=== PATIENT | male | born 1935 | race Caucasian/White ===

== ENCOUNTER 2024-09-06 10:16 | Inpatient (IN) | payer OTHER, MEDICARE, SELFPAY ==
[2024-09-06] VITALS (8 sets, daily range): BP systolic 112–169; BP diastolic 60–86; PULSE 67–94; RESP 15–22; TEMP 36.3–38.1; O2SAT 93–99; BMI 26.4; BMI 28.5
--- NOTE | ~2024-09-06 | CT_ITS ---
EXAMINATION: CT HEAD WITHOUT CONTRAST CLINICAL INFORMATION: Fall, pain. COMPARISON: None available. TECHNIQUE: Contiguous axial imaging was performed from the skull base to vertex without intravenous administration of contrast. This CT examination was performed using dose optimization techniques as appropriate, variously including the following: *Automated exposure control *Adjustment of mA and/or kV according to patient size (this includes techniques or standardized protocols for targeted exams where dose is matched to indication/reason for exam; i.e. extremities or head) *Use of iterative reconstruction technique DLP: 735 mGy-cm FINDINGS: There is no evidence of intracranial hemorrhage or extra-axial fluid collection. There is no mass effect, or edema. No CT evidence of acute territorial infarct. Ventricles, sulci, and cisterns are mildly diffusely prominent, in keeping with age-related cerebral and cerebellar volume loss. No hydrocephalus. No midline shift. Mild to moderate supratentorial white matter changes of hypoattenuation in keeping with small vessel ischemic changes. Negative hyperdense MCA sign. Negative insular ribbon sign. Empty sella. Mild atheromatous calcification of the bilateral carotid siphons. Globes and orbital contents image normally. There have been bilateral lens replacements. No extracranial soft tissue abnormalities. Chronic opacification left sphenoid sinus. Frothy secretions and fluid in the inferior frontal sinuses and anterior ethmoid sinuses, extending to the left posterior ethmoid sinuses. The remainder of the paranasal sinuses, mastoid air cells, and tympanic cavities are normally aerated. No suspicious bony abnormalities. No fractures evident. CT/CT head/brain wo IV con IMPRESSION: 1. No acute intracranial abnormalities. No fractures. 2. Chronic appearing left sphenoid sinus opacification. Patchy mucosal thickening left greater than right ethmoid air cells and frothy secretions in the frontal sinuses. Electronically signed by: Shant Dela Cruz MD 09/06/2024 12:35 PM [facility]
--- NOTE | ~2024-09-06 | CT_ITS ---
CLINICAL HISTORY: ?Pneumonia CT chest without contrast Comparison: None Findings: The heart size is enlarged. There is a moderate-sized pericardial effusion maximum thickness of 1.5 cm. The visualized thyroid and mediastinum are otherwise unremarkable. There is bilateral upper lobe ground-glass type opacification. There is right middle and lower lobe consolidation with large pleural effusions. Differential considerations would include pneumonia, atelectasis, or pulmonary edema. The visualized upper abdomen is unremarkable. The bones are intact. IMPRESSION: 1. Bilateral consolidation with pleural effusions, differential considerations noted. 2. Moderate-sized pericardial effusion. 3. Cardiomegaly This document has been electronically signed by: Nicolás Fajardo MD on 09/06/2024 17:43:19
--- NOTE | ~2024-09-06 | CT_ITS ---
EXAMINATION: CT CERVICAL SPINE WITHOUT CONTRAST CLINICAL INFORMATION: Fall, neck pain, trauma. COMPARISON: None available. TECHNIQUE: Spiral CT of the cervical spine was performed in axial plane from the petrous ridges to the superior mediastinum without IV contrast. Sagittal, coronal, and thin section axial reformatted images were constructed from the axial data set. This CT examination was performed using dose optimization techniques as appropriate, variously including the following: *Automated exposure control *Adjustment of mA and/or kV according to patient size (this includes techniques or standardized protocols for targeted exams where dose is matched to indication/reason for exam; i.e. extremities or head) *Use of iterative reconstruction technique DLP: 450 mGy-cm FINDINGS: Mild diffuse osteopenia is present. There is no fracture or evidence of traumatic subluxation. There are no suspicious bone lesions. There are no compression deformities. There is no significant scoliosis. There is a normal lordosis. Alignment is normal without subluxation. The atlantoaxial joint and craniocervical junction are intact and aligned. Mild diffuse disc degeneration is present, most significant at C5-6 and C6-7. Facet degeneration on the left is moderate in severity, spanning C2-C6. Right facets are grossly normal. No large disc herniation or canal stenosis is evident. Multilevel foraminal stenosis on the left, severe at C3-4 and C4-5. The right neural foramina are patent. No prevertebral soft tissue abnormality or paravertebral soft tissue findings. There is fatty change of the parotid glands. Moderate calcification of both carotid bulbs, and both CCAs or retropharyngeal. Normal thyroid gland. There is a layering effusion seen in the right lung apex. There is patchy groundglass type opacities in the left apex, nonspecific. CT/CT cervical spine wo IV con IMPRESSION: 1. No CT evidence of acute cervical spine fracture or injury. 2. Mild degenerative disc changes with more significant left degenerative facet changes. 3. Patchy opacity left lung apex, and layering effusion right lung apex. Findings are nonspecific and could represent infectious or inflammatory etiologies, or CHF. Electronically signed by: Shant Dela Cruz MD 09/06/2024 12:43 PM [facility]
--- NOTE | ~2024-09-06 | XR_ITS ---
EXAMINATION: XR CHEST CLINICAL INFORMATION: fall COMPARISON: None available. TECHNIQUE: 2 views of the chest were obtained. FINDINGS: There is cardiac enlargement. The aorta is calcified but normal in contour. Mediastinal and hilar contours are normal. Lungs demonstrate consolidative opacities within the right middle lobe and right lower lobe, with associated small right effusion suspected. Left lung is clear. There is no pneumothorax present. There is no focal osseous or soft tissue abnormality. Arthritic changes in both shoulder and AC joints. XR/XR chest 2V IMPRESSION: 1. Right middle lobe and right lower lobe consolidations with probable effusions suspicious for pneumonia. 2. Cardiomegaly. 3. No posttraumatic abnormalities. Electronically signed by: Shant Dela Cruz MD 09/06/2024 11:26 AM [facility]
--- NOTE | ~2024-09-06 | XR_ITS ---
EXAMINATION: XR HIP, RIGHT CLINICAL INFORMATION: pain, injury COMPARISON: None available. TECHNIQUE: AP pelvis, and 2 views right hip. FINDINGS: There is normal bone mineralization. There is no fracture, dislocation, or suspicious bone lesion. The iliopectineal and ilioischial lines are intact. Femoral heads maintain normal contour. Subtle sclerosis in the right femoral head may indicate a medullary bone infarct or artifact. This does not appear to involve the subchondral regions. There are mild degenerative changes in both hip joints, and both SI joints. Temperature probe in the rectum. Surgical clip in the right lower quadrant. Soft tissues demonstrate early vascular calcifications. XR/XR hip RT w PEL1V IMPRESSION: No acute bony abnormalities. See above. Electronically signed by: Shant Dela Cruz MD 09/06/2024 12:01 PM [facility]
--- NOTE | 2024-09-06 10:31 | ECG_ITS ---
Test Reason : FALL Blood Pressure : / mmHG Vent. Rate : 071 BPM Atrial Rate : 000 BPM P-R Int : 000 ms QRS Dur : 102 ms QT Int : 402 ms P-R-T Axes : 000 -34 -24 degrees QTc Int : 436 ms Poor data quality Possible Atrial fibrillation Left axis deviation Incomplete right bundle branch block Inferior infarct , age undetermined Abnormal ECG When compared to the previous EKG of Poor data quality in current ECG precludes serial comparison Referred By: Generic ED Physician Electronically Signed By:PRESTON URIBE MD
[2024-09-06 10:44] LABS: MANUAL DIFF FLAG NO
[2024-09-06 10:50] LABS: Basophils Percent Auto 0.2 % (0-2); Hematocrit 43.3 % (42.0-52.0); Imm Gran Abs Auto 0.05 X10*3/uL (0.00-0.03); Imm Gran Pct Auto 0.4 % (0.0-0.4); Lymphocytes Absolute Auto 0.3 X10*3/uL (1.2-4.9); Lymphocytes Percent Auto 2.6 % (20-40); Mean Corpuscular HGB Conc 34.6 g/dl (31.0-36.0); Mean Corpuscular Hemoglobin 32.3 pg (27.0-33.0); Mean Corpuscular Volume 93.3 fL (80.0-98.0); Mean Platelet Volume 9.8 fL (9.4-12.4); Monocytes Absolute Auto 1.1 X10*3/uL (0.1-1.2); Monocytes Percent Auto 8.9 % (2-11); Neutrophils Absolute Auto 10.3 x10*3/uL (2.0-8.3); Neutrophils Percent Auto 87.9 % (45-73); Platelet Count 172 X10*3/uL (160-400); Red Blood Count 4.64 X10*6/uL (4.60-5.80); Red Cell Distribution Width 13.8 % (11.0-16.0); White Blood Count 11.7 X10*3/uL (4.8-10.8)
--- OUTSIDE RECORDS SUMMARY | 2024-09-06 11:00 | XMS_ITS | Encounter Summary ---
Author Name [facility] [place] [facility] [place] Address [address] [place] [address] Care Team Providers Care Ladle Repairer Name Role Phone LEOPOLDO JACOBSEN Primary Care Provider Unavailabl e Insurance Providers: All historical and current Section Date Range: From patient's date of to the date document was created. This section includes the names of all active insurance providers for the patient. Insurance Provider Type of Coverage Plan Name Start of Policy Coverage End of Policy Coverage Group Number Member ID Insurance Provider's Telephone Number Policy Lai's Name Patient's Relationship to Policy Lai MELISSA [facility] ([facility]) MEDICARE ADVANTAGE [facility] ([facility]) Sep 11, 2015 [id number] [phone] MOONJung GANESHOLEGARIO Jung PATIENT [facility] ([facility]) MEDICARE ADVANTAGE [facility] ([facility]) Sep 11, 2015 [id number] [phone] OLEGARIO DUNN PATIENT MEDICARE (WN) MEDICARE () PART A Feb 09, 2001 PART A [id number] 56A OLEGARIO DUNN PATIENT MEDICARE (WN) MEDICARE () PART B Feb 09, 2001 PART B [id number] 56A OLEGARIO DUNN PATIENT MEDICARE (WN) MEDICARE () PART A Feb 09, 2001 PART A [id number] 56A OLEGARIO DUNN PATIENT MEDICARE ([facility]) MEDICARE (M) PART B Feb 09, 2001 PART B [id number] 56A OLEGARIO DUNN PATIENT Selected Encounter This section includes the information on record at [place] for the Encounter. 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 This section includes future appointments and future orders which are active, pending or scheduled. Future Appointments This section includes appointments that were scheduled to occur 6 months from the date of the Encounter, up to a maximum of 20 appointments. The data comes from all [place] treatment facilities. Appointment Date/Time Appointment Type Appointme nt Facility Name May 07, 2024 01:00 PM AMBULATORY - REHAB MEDICIN E [facility] [place] [facility] May 08, 2024 09:45 AM AMBULATORY - REHAB MEDICIN E [facility] [place] [facility] May 15, 2024 01:30 PM AMBULATORY - REHAB MEDICIN E [facility] [place] [facility] May 23, 2024 08:00 AM AMBULATORY - REHAB MEDICIN E [facility] [place] [facility] May 27, 2024 01:30 PM AMBULATORY - REHAB MEDICIN E [facility] [place] [facility] Jun 04, 2024 08:00 AM AMBULATORY - REHAB MEDICIN E [facility] [place] [facility] Jun 11, 2024 11:00 AM AMBULATORY - MEDICINE [facility] [place] [facility] Jun 18, 2024 01:00 PM AMBULATORY - REHAB MEDICIN E [facility] [place] [facility] Jul 03, 2024 11:30 AM AMBULATORY - MEDICINE [facility] [place] [facility] Jul 09, 2024 07:30 AM AMBULATORY - NONE [facility] [place] [facility] Jul 12, 2024 10:00 AM AMBULATORY - NONE [facility] [place] [facility] Jul 26, 2024 08:00 AM AMBULATORY - MEDICINE [facility] [place] [facility] Aug 01, 2024 11:00 AM AMBULATORY - MEDICINE [facility] [place] [facility] Sep 09, 2024 09:00 AM AMBULATORY - MEDICINE [facility] [place] [facility] Sep 09, 2024 10:00 AM AMBULATORY - MEDICINE [facility] [place] [facility] Sep 12, 2024 09:00 AM AMBULATORY - REHAB MEDICIN E [facility] [place] [facility] Social History: Smoking Status (Most current) and Tobacco Use (All prior to encounter date) This section includes the most current, and the historical, smoking and tobacco- related health factors from the [place] facility where the Encounter took place. Current Smoking Status This section includes the most current smoking, or tobacco-related health factor, from the [place] facility where the Encounter took place. Date/Time Current Smoking Status Comment [facility] it Mar 11, 2024 09:00 AM VA-TOBACCO QUIT 15 YRS OR MORE [place] [facility] [place] [facility] Tobacco Use History This section includes a history of the smoking, or tobacco-related health factors, that were collected on or before the date of the Encounter. The data comes from the [place] facility where the Encounter took place. Date/Time Smoking Status/Tobac co Use Comment Facility Mar 11, 2024 09:00 AM VA-TOBACCO QUIT 15 YRS OR MORE [facility] [place] [facility] Mar 06, 2023 09:00 AM VA-TOBACCO FORMER USER [facility] [place] [facility] Mar 06, 2023 09:00 AM VA-TOBACCO QUIT 15 YRS OR MORE [facility] [place] [facility] Feb 16, 2022 09:30 AM VA-TOBACCO FORMER USER [facility] [place] [facility] Feb 16, 2022 09:30 AM VA-TOBACCO QUIT 15 YRS OR MORE [facility] [place] [facility] Feb 09, 2021 09:00 AM VA-TOBACCO FORMER USER [place] [facility] [place] [facility] Feb 09, 2021 09:00 AM VA-TOBACCO QUIT 15 YRS OR MORE [place] [facility] [place] [facility] Jan 01, 2020 10:15 AM VA-TOBACCO FORMER USER [place] [facility] [place] [facility] Jan 01, 2020 10:15 AM VA-TOBACCO QUIT 15 YRS OR MORE [place] [facility] [place] [facility] Mar 12, 2018 08:56 AM VA-TOBACCO FORMER USER [place] [facility] [place] [facility] Mar 12, 2018 08:56 AM VA-TOBACCO QUIT 15 YRS OR MORE [place] [facility] [place] [facility] Mar 12, 2018 08:24 AM LIFETIME NON-TOBACCO USER [place] [facility] [place] [facility] Mar 13, 2017 07:44 AM LIFETIME NON-TOBACCO USER [place] [facility] [place] [facility] Mar 11, 2016 07:54 AM QUIT TOBACCO USE > 7 YEARS AGO Quit in 1984 [place] [facility] [place] [facility] Aug 17, 2005 10:23 AM HISTORY OF SMOKING Vet states he quit in 1984 [place] [facility] [place] [facility] May 19, 2004 08:56 AM HISTORY OF SMOKING quit 1980s. [place] [facility] [place] [facility] May 19, 2003 09:15 AM HISTORY OF SMOKING quit 10yrs ago [place] [facility] [place] [facility] Jun 06, 2002 08:13 AM HISTORY OF SMOKING quit 1979 [place] [facility] [place] [facility] Jun 06, 2002 08:13 AM QUIT TOBACCO USE > 7 YEARS AGO [place] [facility] [place] [facility] Apr 30, 2001 04:07 PM HISTORY OF SMOKING quit - 1984 [facility] Advance Directives: All historical and current Section Date Range: From patient's date of to the date document was created. This section includes ALL of a patient's completed or amended [place] Advance and Rescinded Directives. The entries below indicate that a directive exists for the patient, but an actual copy is not included with this document. The data comes from all [place] facilities. Date Advance Directives Provider Source Mar 12, 2024 ADVANCE DIRECTIVE JENNIFFER DOAN [place] [facility] [place] [facility] Encounter Notes: All associated encounter notes This section contains the clinical notes associated to the Encounter. Date/Time Encounter Note(s) Provider Source May 06, 2024 01:56 PM PHYSICAL THERAPY NOTE: LOCAL TITLE: PHYSICAL THERAPY STANDARD TITLE: PHYSICAL THERAPY NOTE DATE OF NOTE: MAY 06, 2024@13:56 ENTRY DATE: MAY 06, 2024@13:56:50 AUTHOR: MELLY DAWN EXP COSIGNER: URGENCY: STATUS: COMPLETED Initial Evaluation date:03/26/24 Progress Note Date: NA Treatment #:3 Treatment time: 25 min Diagnosis: UI Provider: Breanna PT Treatment Precautions: None Patient identified by full name and date of SUBJECTIVE: States that he's doing ok, states that he's not leaking as much OBJECTIVE: THERAPEUTIC EXERCISE: MINUTES: 25 mins Nu-step 6 mins L2 seated abd press tball squeeze seated clamshells with gtband seated heel slides sit to stand seated leg press with gtband MANUAL THERAPY: MINUTES: GAIT TRAINING: MINUTES: NEUROMUSCULAR EDUCATION: MINUTES: OTHER: MINUTES: MODALITIES: MINUTES: [] Contraindication screen completed prior to modality [] Skin intact pre/post SELF CARE/EDUCATION: MINUTES: Access Code: [email or web address] URL: [email or web address] Date: 05/06/2024 Prepared by: RUBEN [facility] Exercises - Supine Hip Adduction Isometric with Ball - 1 x daily - 7 x weekly - 3 sets - 10 reps - Supine Bridge with Mini Indonesian Ball Between Knees - 1 x daily - 7 x weekly - 3 sets - 10 reps - Supine November - 1 x daily - 7 x weekly - 3 sets - 10 reps - Seated November - 1 x daily - 7 x weekly - 3 sets - 10 reps - Hooklying Gluteal Sets - 1 x daily - 7 x weekly - 3 sets - 10 reps - Seated Abdominal Press into Indonesian Ball - 1 x daily - 7 x weekly - 3 sets - 10 reps - Seated Hip Abduction - 1 x daily - 7 x weekly - 3 sets - 10 reps - Seated Heel Slide - 1 x daily - 7 x weekly - 3 sets - 10 reps - Sit to Stand - 1 x daily - 7 x weekly - 3 sets - 10 reps - Seated Leg Press with Resistance - 1 x daily - 7 x weekly - 3 sets - 10 reps Patient education was provided for all aspects of care during this clinical encounter. ASSESSMENT: Tolerated session well, states feeling good after session, no c/o increase discomfort PLAN: butterfly sit-ups, modified, adductor and glute strengthening c COMMODITY MANAGEMENT SPECIALIST. /kathy/ ALEAH ARVIZU LICENSE PRINT CONTROLLER Signed: 05/06/2024 14:00 MELYL DAWN [facility]
--- OUTSIDE RECORDS SUMMARY | 2024-09-06 11:00 | XMS_ITS | Encounter Summary ---
Author Name [facility] [place] Address [address] [place] [address] Care Team Providers Care Water Treatment Plant Engineer Name Role Phone LEOPOLDO JACOBSEN Primary Care [...] Name Patient's Relationship to Policy Lai [facility]) MEDICARE ADVANTAGE [facility] ([facility]) Sep 11, 2015 [id number] [phone] MOONJung GANESHOLEGARIO Jung PATIENT [facility] ([facility]) MEDICARE ADVANTAGE [facility] ([facility]) Sep 11, 2015 [id number] OLEGARIO DUNN PATIENT MEDICARE (WN) MEDICARE () PART A Feb 09, 2001 PART A [id number] OLEGARIO DUNN PATIENT MEDICARE (WN) MEDICARE () PART B Feb 09, 2001 PART B [id number] [phone] OLEGARIO DUNN PATIENT MEDICARE (WN) MEDICARE () PART A Feb 09, 2001 PART A [id number] OLEGARIO DUNN PATIENT MEDICARE ([facility]) MEDICARE (M) PART B Feb 09, 2001 PART B [id number] 56A OLEGARIO DUNN PATIENT Selected Encounter This section includes the [place] for the Encounter. Date/Time Encounter Type Encounter Description Reason Provider Source Apr 29, 2024 02:00 PM THERAPEUTIC EXERCISES PHYSICAL THERAPY ICD-10-CM N40.0 Benign prostatic hyperplasia without lower urinry tract symp KAYLA DAWN IN IHE Encounter Template Text not used by [place] Assessments - Encounter Diagnoses This section includes the primary and secondary diagnoses documented for the Encounter. 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 This section includes future appointments and future orders which are active, pending or scheduled. Future Appointments This section includes appointments that were scheduled to occur 6 months from the date of the Encounter, up to a maximum of 20 appointments. The data comes from all [place] treatment facilities. Appointment Date/Time Appointment Type Appointme nt Facility Name May 06, 2024 01:30 PM AMBULATORY - REHAB MEDICIN E [facility] [place] [facility] May 07, 2024 01:00 PM AMBULATORY - REHAB MEDICIN E [facility] [place] [facility] May 08, 2024 09:45 AM AMBULATORY - REHAB MEDICIN E [facility] [place] [facility] May 15, 2024 01:30 PM AMBULATORY - REHAB MEDICIN E [facility] [place] [facility] May 23, 2024 08:00 AM AMBULATORY - REHAB MEDICIN E [facility] [place] [facility] May 27, 2024 01:30 PM AMBULATORY - REHAB MEDICIN E [facility] [place] [facility] Jun 04, 2024 08:00 AM AMBULATORY - REHAB MEDICIN E [facility] [place] [facility] Jun 11, 2024 11:00 AM AMBULATORY - MEDICINE [facility] [place] [facility] Jun 18, 2024 01:00 PM AMBULATORY - REHAB MEDICIN E [facility] [place] [facility] Jul 03, 2024 11:30 AM AMBULATORY - MEDICINE [facility] [facility] Jul 09, 2024 07:30 AM AMBULATORY - NONE [facility] [place] [facility] Jul 12, 2024 10:00 AM AMBULATORY - NONE [facility] [place] [facility] Jul 26, 2024 08:00 AM AMBULATORY - MEDICINE [facility] [place] [facility] Aug 01, 2024 11:00 AM AMBULATORY - MEDICINE [facility] [place] [facility] Sep 09, 2024 09:00 AM AMBULATORY - MEDICINE [facility] [place] [facility] Sep 09, 2024 10:00 AM AMBULATORY - MEDICINE [facility] [place] [facility] Sep 12, 2024 09:00 AM AMBULATORY - REHAB MEDICIN E [facility] [place] [facility] Social History: Smoking Status (Most current) and Tobacco Use (All prior to encounter date) This section includes the most current, and the historical, smoking and tobacco- related health factors from the [place] facility where the Encounter took place. Current Smoking Status This section includes the most current smoking, or tobacco-related health factor, from the [place] facility where the Encounter took place. Date/Time Current Smoking Status Comment [facility] Mar 11, 2024 09:00 AM VA-TOBACCO QUIT 15 YRS OR MORE [place] [facility] Tobacco Use History This section includes a history of the smoking, or tobacco-related health factors, that were collected on or before the date of the Encounter. The data comes from the [place] facility where the Encounter took place. Date/Time Smoking Status/Tobac co Use Comment Facility Mar 11, 2024 09:00 AM VA-TOBACCO QUIT 15 YRS OR MORE [facility] [place] [facility] Mar 06, 2023 09:00 AM VA-TOBACCO FORMER USER [place] [facility] [facility] Mar 06, 2023 09:00 AM VA-TOBACCO QUIT 15 YRS OR MORE [place] [facility] [facility] Feb 16, 2022 09:30 AM VA-TOBACCO FORMER USER [place] [facility] [facility] Feb 16, 2022 09:30 AM VA-TOBACCO QUIT 15 YRS OR MORE [place] [facility] [facility] Feb 09, 2021 09:00 AM VA-TOBACCO FORMER USER [place] [facility] [facility] Feb 09, 2021 09:00 AM VA-TOBACCO QUIT 15 YRS OR MORE [place] [facility] [facility] Jan 01, 2020 10:15 AM VA-TOBACCO FORMER USER [place] [facility] [facility] Jan 01, 2020 10:15 AM VA-TOBACCO QUIT 15 YRS OR MORE [place] [facility] [facility] Mar 12, 2018 08:56 AM VA-TOBACCO FORMER USER [place] [facility] [place] [facility] Mar 12, 2018 08:56 AM VA-TOBACCO QUIT 15 YRS OR MORE [place] [facility] [facility] Mar 12, 2018 08:24 AM LIFETIME NON-TOBACCO USER [place] [facility] [place] [facility] Mar 13, 2017 07:44 AM LIFETIME NON-TOBACCO USER [place] [facility] [facility] Mar 11, 2016 07:54 AM QUIT TOBACCO USE > 7 YEARS AGO [facility] [place] [facility] Aug 17, 2005 10:23 AM HISTORY OF SMOKING Vet states he [facility] [place] [facility] May 19, 2004 08:56 AM HISTORY OF SMOKING quit . [place] [facility] [facility] May 19, 2003 09:15 AM HISTORY OF SMOKING quit 10yrs ago [facility] [place] [facility] Jun 06, 2002 08:13 AM HISTORY OF SMOKING quit [facility] [place] [facility] Jun 06, 2002 08:13 AM QUIT TOBACCO USE > 7 YEARS AGO [facility] [place] [facility] Apr 30, 2001 04:07 PM HISTORY OF SMOKING quit - [facility] Advance Directives: All historical and current Section Date Range: From patient's date of to the date document was created. This section includes ALL of a patient's completed or amended [place] Advance and Rescinded Directives. The entries below indicate that a directive exists for the patient, but an actual copy is not included with this document. The data comes from all [place] facilities. Date Advance Directives Provider Source Mar 12, 2024 ADVANCE DIRECTIVE DAVIDJENNIFFER BARRON [place] [facility] [facility] Encounter Notes: All associated encounter notes This section contains the clinical notes associated to the Encounter. Date/Time Encounter Note(s) Provider Source Apr 29, 2024 04:17 PM PHYSICAL THERAPY NOTE: LOCAL TITLE: PHYSICAL THERAPY STANDARD TITLE: PHYSICAL THERAPY NOTE DATE OF NOTE: APR 29, 2024@16:17 ENTRY DATE: APR 29, 2024@16:17:52 AUTHOR: MELLY DAWN EXP COSIGNER: URGENCY: STATUS: COMPLETED Initial Evaluation date:03/26/24 Progress Note Date: NA Treatment #: 2 Treatment time: 30 min Diagnosis: UI Provider: Breanna PT Treatment Precautions: None Patient identified by full name and date of SUBJECTIVE: States that he's feeling ok, really no change with symptoms, states that he forgotten which exercises to do. OBJECTIVE: THERAPEUTIC EXERCISE: MINUTES: Access Code: [email or web address] URL: [email or web address] Date: 04/29/2024 Prepared by: [facility] Exercises - Supine Hip Adduction Isometric with Ball - 1 x daily - 7 x weekly - 3 sets - 10 reps - Supine Bridge with Mini Azerbaijani Ball Between Knees - 1 x daily [...] 10 reps - Seated Abdominal Press into Azerbaijani Ball - 1 x daily - 7 x weekly - 3 sets - 10 reps MANUAL THERAPY: MINUTES: GAIT TRAINING: MINUTES: NEUROMUSCULAR EDUCATION: MINUTES: OTHER: MINUTES: MODALITIES: MINUTES: [] Contraindication screen completed prior to modality [] Skin intact pre/post SELF CARE/EDUCATION: MINUTES: Patient education was provided for all aspects of care during this clinical encounter. ASSESSMENT: Tolerated session well, some mm fatigue after session, provided with pictures to help remember the exercises PLAN: butterfly sit-ups, modified, adductor and glute strengthening c NUCLEAR PHYSICIAN. /es/ ALEAH ARVIZU LICENSE OXYACETYLENE CUTTER Signed: 04/29/2024 16:22 [facility]
--- OUTSIDE RECORDS SUMMARY | 2024-09-06 11:01 | XMS_ITS | Encounter Summary ---
Author Name [place] Address [address] [place] [id number] Care Team Providers Care Post Partum Nurse Name Role Phone LEOPOLDO JACOBSEN Primary Care [...] Lai [facility]) MEDICARE ADVANTAGE [facility] ([facility]) Sep 11, 2015 [id number] FANNIE ANDERSENOLEGARIO Jung PATIENT [facility] ([facility]) MEDICARE ADVANTAGE [facility] ([facility]) Sep 11, 2015 [id number] [phone] OLEGARIO DUNN PATIENT MEDICARE (WNR) MEDICARE () PART A Feb 09, 2001 PART A [id number] 56A OLEGARIO DUNN PATIENT MEDICARE (WN) MEDICARE () PART B Feb 09, 2001 PART B [id number] OLEGARIO DUNN PATIENT MEDICARE (WN) MEDICARE () PART A Feb 09, 2001 PART A [id number] [phone] [id number] OLEGARIO DUNN PATIENT MEDICARE (WN) MEDICARE () PART B Feb 09, 2001 PART B [id number] HYUNLAURENCERAFATJung OLEGARIO ANDERSEN PATIENT Selected Encounter This section includes the information on record at [place] for the Encounter. Date/Time Encounter Type Encounter Description Reason Provider Source May 08, 2024 09:45 AM HEARING AID CHECK BOTH EARS AUDIOLOGY ICD-10-CM Z46.1 Encounter for fitting and adjustment of hearing aid VALARIE VENTURA Encounter Template Text not used by [place] Assessments - Encounter Diagnoses This section includes the primary and secondary diagnoses documented for the Encounter. Date/Time Primary/Secondary Diagnosis Diagnosis Name Provider Source May 08, 2024 09:53 AM PRIMARY Encounter for fitting and adjustment of hearing aid RAMON MIRANDA [place] [facility] [place] [facility] May 08, 2024 09:53 AM SECONDARY Sensorineural hearing loss, bilateral RAMON MIRANDA [facility] [place] [facility] Plan of Treatment: Future Appointments (+ 6 months) and Future Tests (+/- 45 days) The Plan of Treatment section includes future care activities for the patient from all [place] [facility]. This section includes future appointments and future orders which are active, pending or scheduled. Future Appointments This section includes appointments that were scheduled to occur 6 months from the date of the Encounter, up to a maximum of 20 appointments. The data comes from all [place] treatment facilities. Appointment Date/Time Appointment Type Appointme nt Facility Name May 15, 2024 01:30 PM AMBULATORY [facility] [place] [facility] May 23, 2024 08:00 AM AMBULATORY - REHAB MEDICIN E [facility] [place] [facility] May 27, 2024 01:30 PM AMBULATORY - REHAB MEDICIN E [facility] [place] [facility] Jun 04, 2024 08:00 AM AMBULATORY - REHAB MEDICIN E [facility] [place] [facility] Jun 11, 2024 11:00 AM AMBULATORY - MEDICINE [place] C [facility] [place] [facility] Jun 18, 2024 01:00 PM AMBULATORY - REHAB MEDICIN E [facility] [place] [facility] Jul 03, 2024 11:30 AM AMBULATORY - MEDICINE [facility] [place] [facility] Jul 09, 2024 07:30 AM AMBULATORY - NONE [facility] [place] [facility] Jul 12, 2024 10:00 AM AMBULATORY - NONE [facility] [place] [facility] Jul 26, 2024 08:00 AM AMBULATORY - MEDICINE [facility] [place] [facility] Aug 01, 2024 11:00 AM AMBULATORY - MEDICINE [facility] C [facility] [place] [facility] Sep 09, 2024 09:00 AM AMBULATORY - MEDICINE [facility] [place] [facility] Sep 09, 2024 10:00 AM AMBULATORY - MEDICINE [facility] [place] [facility] Sep 12, 2024 09:00 AM AMBULATORY - REHAB MEDICIN E [facility] [place] [facility] Nov 07, 2024 02:00 PM AMBULATORY - MEDICINE [facility] [place] [facility] Social History: Smoking Status (Most current) and Tobacco Use (All prior to encounter date) This section includes the most current, and the historical, smoking and tobacco- related health factors from the [place] facility where the Encounter took place. Current Smoking Status This section includes the most current smoking, or tobacco-related health factor, from the [place] facility where the Encounter took place. Date/Time Current Smoking Status Comment [facility] Mar 11, 2024 09:00 AM VA-TOBACCO FORMER USER [place] [facility] [place] [facility] Tobacco Use History This section includes a history of the smoking, or tobacco-related health factors, that were collected on or before the date of the Encounter. The data comes from the [place] facility where the Encounter took place. Date/Time Smoking Status/Tobac co Use Comment Facility Mar 11, 2024 09:00 AM VA-TOBACCO QUIT 15 YRS OR MORE [facility] [place] [facility] Mar 06, 2023 09:00 AM VA-TOBACCO FORMER USER [facility] [place] [facility] Mar 06, 2023 09:00 AM VA-TOBACCO QUIT 15 YRS OR MORE [facility] [place] [facility] Feb 16, 2022 09:30 AM VA-TOBACCO FORMER USER [facility] [place] [facility] Feb 16, 2022 09:30 AM VA-TOBACCO QUIT 15 YRS OR MORE [facility] [place] [facility] Feb 09, 2021 09:00 AM VA-TOBACCO FORMER USER [place] [facility] [place] [facility] Feb 09, 2021 09:00 AM VA-TOBACCO QUIT 15 YRS OR MORE [place] [facility] [place] [facility] Jan 01, 2020 10:15 AM VA-TOBACCO FORMER USER [place] [facility] [place] [facility] Jan 01, 2020 10:15 AM VA-TOBACCO QUIT 15 YRS OR MORE [place] [facility] [place] [facility] Mar 12, 2018 08:56 AM VA-TOBACCO FORMER USER [place] [facility] [place] [facility] Mar 12, 2018 08:56 AM VA-TOBACCO QUIT 15 YRS OR MORE [place] [facility] [place] [facility] Mar 12, 2018 08:24 AM LIFETIME NON-TOBACCO USER [place] [facility] [place] [facility] Mar 13, 2017 07:44 AM LIFETIME NON-TOBACCO USER [place] [facility] [place] [facility] Mar 11, 2016 07:54 AM QUIT TOBACCO USE > 7 YEARS AGO [facility] [place] [facility] Aug 17, 2005 10:23 AM HISTORY OF SMOKING Vet [facility] [place] [facility] May 19, 2004 08:56 AM HISTORY OF SMOKING quit 1980s. [place] [facility] [place] [facility] May 19, 2003 09:15 AM HISTORY OF SMOKING quit 10yrs ago [facility] [place] [facility] Jun 06, 2002 08:13 AM HISTORY OF SMOKING [facility] [place] [facility] Jun 06, 2002 08:13 AM QUIT TOBACCO USE > 7 YEARS AGO [place] [facility] [place] [facility] Apr 30, 2001 04:07 PM HISTORY OF SMOKING [facility] Advance Directives: All historical and current Section Date Range: From patient's date of to the date document was created. This section includes ALL of a patient's completed or amended [place] Advance and Rescinded Directives. The entries below indicate that a directive exists for the patient, but an actual copy is not included with this document. The data comes from all [place] facilities. Date Advance Directives Provider Source Mar 12, 2024 ADVANCE DIRECTIVE JENNIFFER DOAN Lucrecia [place] CNT [facility] Encounter Notes: All associated encounter notes This section contains the clinical notes associated to the Encounter. Date/Time Encounter Note(s) Provider Source May 08, 2024 09:47 AM AUDIOLOGY NOTE: LOCAL TITLE: AUDIOLOGY HEALTH TIE TAMPER STANDARD TITLE: AUDIOLOGY NOTE DATE OF NOTE: MAY 08, 2024@09:47 ENTRY DATE: MAY 08, 2024@09:47:24 AUTHOR: RENATE MIRANDA COSIGNER: VALARIE VENTURA URGENCY: STATUS: COMPLETED AUDIOLOGY HEALTH TIE TAMPER Has ADDENDA May 08, 2024 History/Background: Clarence walked in to clinic reporting a problem with his hearing aids. was accommodated with a same day appointment. stated he received his new Nathan ITC hearing aids yesterday and noticed when he got a home the hearing aids were sticking out of his ears. stated when taking a phone call the phone hits the hearing aids and is too close causing very loud feedback. Clarence came in wearing his 2020 Nathan ITCs. Had insert the 2023 Nathan ITCs to view insertion technique and fit. Visual inspection revealed new ITCs are much bigger in size compared to the 2020 as well the new aids have a VC wheel rather than a button. would prefer a button over a wheel. The 2023 Nathan ITCs will be sent to ampoule washing machine operator for remake using the scanned impressions from 2020 to reduce bulk and requested a VC button. Plan: Once remade hearing aids arrive in the clinic, can be contacted to schedule a 30 min HAC with an Hydrometer Finisher to assess fit and any programming adjustments that may be needed. /kathy/ RENATE MIRANDA Audiology Health Frame Coverer Signed: 05/08/2024 13:41 /kathy/ VALARIE VENTURA STAFF CUTTING MACHINE OFFBEARER Cosigned: 05/08/2024 13:45 05/16/2024 ADDENDUM STATUS: COMPLETED Remade hearing aids received and certified, left voicemail for Clarence to contact the clinic. Need to schedule 30 min HAC with an Hydrometer Finisher. Hearing aids placed in black cabinet. /kathy/ RENATE MIRANDA Audiology Health Frame Coverer Signed: 05/16/2024 10:41 /es/ JOYCELYN Araiza CCC-A CHIEF, AUDIOLOGY/INSPECTOR PACKER Cosigned: 05/16/2024 11:20 05/20/2024 ADDENDUM STATUS: COMPLETED Appointment scheduled on 05/23/2024. Hearing aids placed in quinn cabinet. /kathy/ RENATE MIRANDA Audiology Health Frame Coverer Signed: 05/20/2024 08:16 /es/ ROLANDO HILL, CCC-A STAFF CUTTING MACHINE OFFBEARER Cosigned: 05/20/2024 08:49 RENATE MIRANDA CNTRL [facility]
--- OUTSIDE RECORDS SUMMARY | 2024-09-06 11:01 | XMS_ITS | Encounter Summary ---
Author Name [facility] [place] Address [address] [place] [address] Care Team Providers Care Financial Processing Clerk Name Role Phone LEOPOLDO JACOBSEN Primary Care [...] Member ID Insurance Provider's Telephone Number Policy Lia's Name Patient's Relationship to Policy Lai MELISSA [facility] ([facility]) MEDICARE ADVANTAGE [facility] ([facility]) Sep 11, 2015 [id number] PERRILORI GANESHOLEGARIO Jung PATIENT [facility] ([facility]) MEDICARE ADVANTAGE [facility] ([facility]) Sep 11, 2015 [id number] OLEGARIO DUNN PATIENT MEDICARE (WN) MEDICARE () PART A Feb 09, 2001 PART A [id number] OLEGARIO DUNN PATIENT MEDICARE (WN) MEDICARE () PART B Feb 09, 2001 PART B [id number] [phone] OLEGARIO DUNN PATIENT MEDICARE (WN) MEDICARE () PART A Feb 09, 2001 PART A [id number] [phone] [id number] OLEGARIO DUNN PATIENT MEDICARE (WN) MEDICARE () PART B Feb 09, 2001 PART B [id number] HYUNTIMOTHY GANESHOLEGARIO Jung PATIENT Selected Encounter This section includes the information on record at [place] for the Encounter. Date/Time Encounter Type Encounter Description Reason Provider Source May 07, 2024 01:00 PM CONFORMITY EVALUATION AUDIOLOGY ICD-10-CM Z46.1 Encounter for fitting and adjustment of hearing aid VALARIE VENTURA Encounter Template Text not used by [place] Assessments - Encounter Diagnoses This section includes the primary and secondary diagnoses documented for the Encounter. Date/Time Primary/Secondary Diagnosis Diagnosis Name Provider Source May 07, 2024 01:21 PM PRIMARY Encounter for fitting and adjustment of hearing aid NEELAM VENTURA Yuriy HONG [place] [facility] [place] [facility] May 07, 2024 01:21 PM SECONDARY Sensorineural hearing loss, bilateral NEELAM VENTURA Yuriy HONG [place] [facility] [place] [facility] Plan of Treatment: Future Appointments (+ 6 months) and Future Tests (+/- 45 days) The Plan of Treatment section includes future care activities for the patient from all [place] treatmentfacil[facility] hospital. This section includes future appointments and future orders which are active, pending or scheduled. Future Appointments This section includes appointments that were scheduled to occur 6 months from the date of the Encounter, up to a maximum of 20 appointments. The data comes from all [place] treatment facilities. Appointment Date/Time Appointment Type Appointme nt Facility Name May 08, 2024 09:45 AM AMBULATORY - REHAB MEDICIN E [facility] [place] [facility] May 15, 2024 01:30 PM AMBULATORY - REHAB MEDICIN E [facility] [place] [facility] May 23, 2024 08:00 AM AMBULATORY - REHAB MEDICIN E [facility] [place] [facility] May 27, 2024 01:30 PM AMBULATORY - REHAB MEDICIN E [facility] [place] [facility] Jun 04, 2024 08:00 AM AMBULATORY - REHAB MEDICIN E [facility] [place] [facility] Jun 11, 2024 11:00 AM AMBULATORY - MEDICINE [facility] C [facility] [place] [facility] Jun 18, 2024 01:00 PM AMBULATORY - REHAB MEDICIN E [facility] [place] [facility] Jul 03, 2024 11:30 AM AMBULATORY - MEDICINE [facility] C [facility] [place] [facility] Jul 09, 2024 07:30 AM AMBULATORY - NONE [facility] [place] [facility] Jul 12, 2024 10:00 AM AMBULATORY - NONE [place] [facility] [place] [facility] Jul 26, 2024 08:00 AM AMBULATORY - MEDICINE [facility] C [facility] [place] [facility] Aug 01, 2024 11:00 AM AMBULATORY - MEDICINE [facility] C [facility] [place] [facility] Sep 09, 2024 09:00 AM AMBULATORY - MEDICINE [facility] [place] [facility] Sep 09, 2024 10:00 AM AMBULATORY - MEDICINE [facility] [place] [facility] Sep 12, 2024 09:00 AM AMBULATORY - REHAB MEDICIN E [facility] [place] [facility] Nov 07, 2024 02:00 PM AMBULATORY - MEDICINE [facility] [place] [facility] Social History: Smoking Status (Most current) and Tobacco Use (All prior to encounter date) This section includes the most current, and the historical, smoking and tobacco- related health factors from the [place] facility where the Encounter took place. Current Smoking Status This section includes the most current smoking, or tobacco-related health factor, from the [place] facility where the Encounter took place. Date/Time Current Smoking Status Comment [facility] Mar 11, 2024 09:00 AM VA-TOBACCO FORMER USER [place] [facility] Tobacco Use History This section includes a history of the smoking, or tobacco-related health factors, that were collected on or before the date of the Encounter. The data comes from the [place] facility where the Encounter took place. Date/Time Smoking Status/Tobac co Use Comment Facility Mar 11, 2024 09:00 AM VA-TOBACCO QUIT 15 YRS OR MORE [facility] [place] [facility] Mar 06, 2023 09:00 AM VA-TOBACCO FORMER USER [facility] [place] [facility] Mar 06, 2023 09:00 AM VA-TOBACCO QUIT 15 YRS OR MORE [facility] [place] [facility] Feb 16, 2022 09:30 AM VA-TOBACCO FORMER USER [place] [facility] [place] [facility] Feb 16, 2022 09:30 AM VA-TOBACCO QUIT 15 YRS OR MORE [place] [facility] [facility] [place] [facility] Feb 09, 2021 09:00 AM VA-TOBACCO FORMER USER [place] [facility] [place] [facility] Feb 09, 2021 09:00 AM VA-TOBACCO QUIT 15 YRS OR MORE [place] [facility] [facility] [place] [facility] Jan 01, 2020 10:15 AM VA-TOBACCO FORMER USER [place] [facility] [place] [facility] Jan 01, 2020 10:15 AM VA-TOBACCO QUIT 15 YRS OR MORE [place] [facility] [place] [facility] Mar 12, 2018 08:56 AM VA-TOBACCO FORMER USER [place] [facility] [place] [facility] Mar 12, 2018 08:56 AM VA-TOBACCO QUIT 15 YRS OR MORE [place] [facility] [place] [facility] Mar 12, 2018 08:24 AM LIFETIME NON-TOBACCO USER [place] [facility] [facility] [place] [facility] Mar 13, 2017 07:44 AM LIFETIME NON-TOBACCO USER [place] [facility] [place] [facility] Mar 11, 2016 07:54 AM QUIT TOBACCO USE > 7 YEARS AGO [facility] [place] [facility] Aug 17, 2005 10:23 AM HISTORY OF SMOKING Vet states he quit in 1984 [place] [facility] [facility] [place] [facility] May 19, 2004 08:56 AM HISTORY OF SMOKING quit 1980s. [facility] [place] [facility] May 19, 2003 09:15 AM HISTORY OF SMOKING quit 10yrs ago [facility] [place] [facility] Jun 06, 2002 08:13 AM HISTORY OF SMOKING quit 1979 [place] [facility] [place] [facility] Jun 06, 2002 08:13 AM QUIT TOBACCO USE > 7 YEARS AGO [facility] [place] [facility] Apr 30, 2001 04:07 PM HISTORY OF SMOKING quit - 1984 [facility] [place] [facility] Advance Directives: All historical and current Section Date Range: From patient's date of to the date document was created. This section includes ALL of a patient's completed or amended [place] Advance and Rescinded Directives. The entries below indicate that a directive exists for the patient, but an actual copy is not included with this document. The data comes from all [place] facilities. Date Advance Directives Provider Source Mar 12, 2024 ADVANCE DIRECTIVE JENNIFFER DOAN Lucrecia [facility] Encounter Notes: All associated encounter notes This section contains the clinical notes associated to the Encounter. Date/Time Encounter Note(s) Provider Source May 07, 2024 07:27 AM AUDIOLOGY E & M NOTE: LOCAL TITLE: AUDIOLOGY CLINIC STANDARD TITLE: AUDIOLOGY E & M NOTE DATE OF NOTE: MAY 07, 2024@07:27 ENTRY DATE: MAY 07, 2024@07:27:53 AUTHOR: VALARIE VENTURA COSIGNER: URGENCY: STATUS: COMPLETED Dx CODE: Z46.1- Encounter for Fitting/Programming Hearing Aid(s); H90.3- Sensorineural Hearing Loss, Bilateral APPOINTMENT TYPE: Hearing Aid Fitting SUBJECTIVE (S): The patient was seen for hearing aid fitting and issuance. He had previously been evaluated and found to exhibit significant hearing loss for which amplification was recommended. He is a previous user of hearing aids, and was fit with Shelby Nathan ITCs. How does the patient best learn? Verbal instruction, demonstration Does the patient have any cultural and caodaism beliefs, emotional barriers, physical or cognitive limitations, and communication barriers which may impact his ability to learn? No Desire and motivation to learn? Good OBJECTIVE (O): Physical fit of hearing aids was good. Patient verified comfort. Verification of an appropriate acoustic response was obtained using Real Ear measurements (speech mapping) and NAL-NL1 targets. The patient reported good subjective benefit as well. Feedback fund manager was run. Hearing aids were found to be meeting targets adequately and MPO was not exceeding estimated UCL. Settings stored in ALEJANDRO. ASSESSMENT (A): The following devices were issued: Make: Shelby Model: Nathan ITCs Right Serial Number: [id number] Left Serial Number: [id number] Battery size: 312 Warranty ends: 05/17/27 Trial Period ends: 10/14/24 Wax prevent: Extended dean tube Program(s): Automatic Button(s): Unsynched rotary wheel Fitting Formula: NAL-NL1 Counseling was completed throughout todays appointment using a standardized curriculum that includes but is not limited to; realistic expectations with amplification in adverse listening environments, acclimatization to own voice and environmental sounds (following real-ear measurements), the importance of consistent use of amplification, proper insertion/removal, care and maintenance (including wax guards/domes if applicable), signal and alerts of devices, and charging/batteries. The was provided the opportunity to practice in office and reports confidence/understanding in all items reviewed. Time Spent= 20 minutes The patient was informed of and signed/agreed to [place] policy on hearing aid issuance: Yes Users are responsible for the maintenance and security of their devices. Determination of need to replace a hearing aid is made by the [place] buggy ladle tender. Hearing aids will not be replaced in cases of neglect, abuse, or excessive loss. Items issued are for personal use only. Prognosis for successful hearing aid use is good. PLAN (P): 1. Follow-up for programming/adjustments as needed. 2. The International Outcome Inventory-Hearing Aids (IOI-RENEE) will be mailed to the in four weeks. He was asked to complete and mail back to clinic after completion. Patient Education Education provided on the following topics: Hearing aid use, care, maintenance Education provided to: P Response to Education: DES KNIGHT, PI [place] Patient P Family F Significant Other SO Verbalizes Understanding VU Returns Demonstration RD Performs Independently PI Lacks Comprehension LC Refused Education RE Not Applicable NA /kathy/ VALARIE VENTURA STAFF PLASTICS SHEET FINISHING PRESS OPERATOR Signed: 05/07/2024 13:21 VALARIE VENTURA [place] [facility]
--- OUTSIDE RECORDS SUMMARY | 2024-09-06 11:02 | XMS_ITS | Encounter Summary ---
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 Name Role Phone LEOPOLDO JACOBSEN Primary Care [...] Name Patient's Relationship to Policy Lai MELISSA [facility] ([facility]) MEDICARE ADVANTAGE [facility] ([facility]) Sep 11, 2015 [id number] [phone] MOONJung GANESHOLEGARIO Jung PATIENT [facility] ([facility]) MEDICARE ADVANTAGE [facility] ([facility]) Sep 11, 2015 [id number] FANNIE ANDERSENOLEGARIO Jung PATIENT MEDICARE (WN) MEDICARE (M) PART A Feb 09, 2001 PART A [id number] OLEGARIO DUNN PATIENT MEDICARE (WN) MEDICARE () PART B Feb 09, 2001 PART B [id number] [phone] OLEGARIO DUNN PATIENT MEDICARE (WN) MEDICARE () PART A Feb 09, 2001 PART A [id number] OLEGARIO DUNN PATIENT MEDICARE (WN) MEDICARE (M) PART B Feb 09, 2001 PART B [id number] OLEGARIO DUNN PATIENT Selected Encounter This section includes the information on record at [place] for the Encounter. Date/Time Encounter Type Encounter Description Reason Pro vider Source Jul 08, 2024 09:56 AM Outpatient Encounter DENTAL IHE Encounter Template Text not used by [place] Plan of Treatment: Future Appointments (+ 6 months) and Future Tests (+/- 45 days) The Plan of Treatment section includes future care activities for the patient from all [place] treatmentfacilities. This section includes future appointments and future orders which are active, pending or scheduled. Future Appointments This section includes appointments that were scheduled to occur 6 months from the date of the Encounter, up to a maximum of 20 appointments. The data comes from all [place] treatment facilities. Appointment Date/Time Appointment Type Appointme nt Facility Name Jul 09, 2024 07:30 AM AMBULATORY - NONE [place] [facility] [place] [facility] Jul 12, 2024 10:00 AM AMBULATORY NONE [place] [facility] [place] [facility] Jul 26, 2024 08:00 AM AMBULATORY - MEDICINE [place] [facility] [place] [facility] Aug 01, 2024 11:00 AM AMBULATORY - MEDICINE [place] [facility] [place] [facility] Sep 09, 2024 09:00 AM AMBULATORY - MEDICINE [place] [facility] [place] [facility] Sep 09, 2024 10:00 AM AMBULATORY - MEDICINE [place] [facility] [place] [facility] Sep 12, 2024 09:00 AM AMBULATORY - REHAB MEDICIN E [place] [facility] [place] [facility] Nov 07, 2024 02:00 PM AMBULATORY - MEDICINE [place] [facility] [place] [facility] Dec 31, 2024 07:30 AM AMBULATORY - NONE [place] [facility] [place] [facility] Social History: Smoking Status (Most current) and Tobacco Use (All prior to encounter date) This section includes the most current, and the historical, smoking and tobacco- related health factors from the [place] facility where the Encounter took place. Current Smoking Status This section includes the most current smoking, or tobacco-related health factor, from the [place] facility where the Encounter took place. Date/Time Current Smoking Status Comment Facil ity Mar 11, 2024 09:00 AM VA-TOBACCO QUIT 15 YRS OR MORE [facility] [place] [facility] Tobacco Use History This section includes a history of the smoking, or tobacco-related health factors, that were collected on or before the date of the Encounter. The data comes from the [facility] where the Encounter took place. Date/Time Smoking Status/Tobac co Use Comment Facility Mar 11, 2024 09:00 AM VA-TOBACCO QUIT 15 YRS OR MORE [facility] [place] [facility] Mar 06, 2023 09:00 AM VA-TOBACCO FORMER USER [facility] [place] [facility] Mar 06, 2023 09:00 AM VA-TOBACCO QUIT 15 YRS OR MORE [facility] [place] [facility] Feb 16, 2022 09:30 AM VA-TOBACCO FORMER USER [facility] [place] [facility] Feb 16, 2022 09:30 AM VA-TOBACCO QUIT 15 YRS OR MORE [facility] [place] [facility] Feb 09, 2021 09:00 AM VA-TOBACCO FORMER USER [facility] [place] [facility] Feb 09, 2021 09:00 AM VA-TOBACCO QUIT 15 YRS OR MORE [facility] [place] [facility] Jan 01, 2020 10:15 AM VA-TOBACCO FORMER USER [facility] [place] [facility] Jan 01, 2020 10:15 AM VA-TOBACCO QUIT 15 YRS OR MORE [facility] [place] [facility] Mar 12, 2018 08:56 AM VA-TOBACCO FORMER USER [facility] [place] [facility] Mar 12, 2018 08:56 AM VA-TOBACCO QUIT 15 YRS OR MORE [facility] [place] [facility] Mar 12, 2018 08:24 AM LIFETIME NON-TOBACCO USER [place] [facility] [place] [facility] Mar 13, 2017 07:44 AM LIFETIME NON-TOBACCO USER [facility] [place] [facility] Mar 11, 2016 07:54 AM QUIT TOBACCO USE > 7 YEARS AGO Quit in 1984 [place] [facility] [place] [facility] Aug 17, 2005 10:23 AM HISTORY OF SMOKING Vet states he quit in 1984 [place] [facility] [place] [facility] May 19, 2004 08:56 AM HISTORY OF SMOKING quit . [facility] May 19, 2003 09:15 AM HISTORY OF SMOKING quit 10yrs ago [facility] Jun 06, 2002 08:13 AM HISTORY OF SMOKING quit 1979 [facility] Jun 06, 2002 08:13 AM QUIT TOBACCO USE > 7 YEARS AGO [facility] Apr 30, 2001 04:07 PM HISTORY OF SMOKING quit - 1984 [facility] Advance Directives: All historical and current Section Date Range: From patient's date of to the date document was created. This section includes ALL of a patient's completed or amended [place] Advance and Rescinded Directives. The entries below indicate that a directive exists for the patient, but an actual copy is not included with this document. The data comes from all [place] facilities. Date Advance Directives Provider Source Mar 12, 2024 ADVANCE DIRECTIVE JENNIFFER DOAN [facility] Encounter Notes: All associated encounter notes This section contains the clinical notes associated to the Encounter. Date/Time Encounter Note(s) Provider Source Jul 08, 2024 09:56 AM DENTISTRY TELEPHON E ENCOUNTER NOTE: LOCAL TITLE: TELEPHONE NOTE/DENTAL STANDARD TITLE: DENTISTRY TELEPHONE ENCOUNTER NOTE DATE OF NOTE: JUL 08, 2024@09:56 ENTRY DATE: JUL 08, 2024@09:56:09 AUTHOR: BRENDAN WARNER EXP COSIGNER: URGENCY: STATUS: COMPLETED Called pt and LM to confirm dental appointment on 07/09/2024 at 7:30 am. 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
--- OUTSIDE RECORDS SUMMARY | 2024-09-06 11:02 | XMS_ITS | Encounter Summary ---
Author Name Department of [place] Organization Department [place] Address [address] [place] [address] Care Team Providers Care Peg Driver Name Role Phone LEOPOLDO JACOBSEN Primary Care [...] Name Patient's Relationship to Policy Lai MELISSA [facility] MEDICARE ADVANTAGE [facility] ([facility]) Sep 11, 2015 [id number] MOONJung GANESHOLEGARIO Jung PATIENT [facility] ([facility]) MEDICARE ADVANTAGE [facility] ([facility]) Sep 11, 2015 [id number] [phone] FANNIE ANDERSENOLEGARIO Jung PATIENT MEDICARE (WN) MEDICARE (M) PART A Feb 09, 2001 PART A [id number] 56A OLEGARIO DUNN PATIENT MEDICARE (WN) MEDICARE () PART B Feb 09, 2001 PART B [id number] 56A OLEGARIO DUNN PATIENT MEDICARE (WN) MEDICARE () PART A Feb 09, 2001 PART A [id number] OLEGARIO DUNN PATIENT MEDICARE (WN) MEDICARE (M) PART B Feb 09, 2001 PART B [id number] 56A OLEGARIO DUNN PATIENT Selected Encounter This section includes the information on record at [place] for the Encounter. Date/Time Encounter Type Encounter Description Reason Pro vider Source Jul 11, 2024 08:46 AM Outpatient Encounter DENTAL IHE Encounter Template Text not used by [place] Plan of Treatment: Future Appointments (+ 6 months) and Future Tests (+/- 45 days) The Plan of Treatment section includes future care activities for the patient from all [place] treatmentfacilities. This section includes future appointments and future orders which are active, pending or scheduled. Future Appointments This section includes appointments that were scheduled to occur 6 months from the date of the Encounter, up to a maximum of 20 appointments. The data comes from all [place] treatment facilities. Appointment Date/Time Appointment Type Appointme nt Facility Name Jul 12, 2024 10:00 AM AMBULATORY - NONE [place] [facility] [place] [facility] Jul 26, 2024 08:00 AM AMBULATORY - MEDICINE [facility] [place] [facility] Aug 01, 2024 11:00 AM AMBULATORY - MEDICINE [facility] [place] [facility] Sep 09, 2024 09:00 AM AMBULATORY - MEDICINE [facility] [place] [facility] Sep 09, 2024 10:00 AM AMBULATORY - MEDICINE [facility] [place] [facility] Sep 12, 2024 09:00 AM AMBULATORY - REHAB MEDICIN E [place] [facility] [place] [facility] Nov 07, 2024 02:00 PM AMBULATORY - MEDICINE [facility] [place] [facility] Dec 31, 2024 07:30 AM AMBULATORY - NONE [place] [facility] [place] [facility] Social History: Smoking Status (Most current) and Tobacco Use (All prior to encounter date) This section includes the most current, and the historical, smoking and tobacco- related health factors from the [place] facility where the Encounter took place. Current Smoking Status This section includes the most current smoking, or tobacco-related health factor, from the [place] facility where the Encounter took place. Date/Time Current Smoking Status Kendrick maynard Mar 11, 2024 09:00 AM VA-TOBACCO [facility]ER [facility] Tobacco Use History This section includes a history of the smoking, or tobacco-related health factors, that were collected on or before the date of the Encounter. The data comes from the [facility] where the Encounter took place. Date/Time Smoking Status/Tobac co Use Comment Facility Mar 11, 2024 09:00 AM VA-TOBACCO QUIT 15 YRS OR MORE [place] [facility] [place] [facility] Mar 06, 2023 09:00 AM VA-TOBACCO FORMER USER [place] [facility] [place] [facility] Mar 06, 2023 09:00 AM VA-TOBACCO QUIT 15 YRS OR MORE [place] [facility] [place] [facility] Feb 16, 2022 09:30 AM VA-TOBACCO FORMER USER [place] [facility] [place] [facility] Feb 16, 2022 09:30 AM VA-TOBACCO QUIT 15 YRS OR MORE [place] [facility] [place] [facility] Feb 09, 2021 09:00 AM VA-TOBACCO FORMER USER [place] [facility] [place] [facility] Feb 09, 2021 09:00 AM VA-TOBACCO QUIT 15 YRS OR MORE [place] [facility] [place] [facility] Jan 01, 2020 10:15 AM VA-TOBACCO FORMER USER [place] [facility] [place] [facility] Jan 01, 2020 10:15 AM VA-TOBACCO QUIT 15 YRS OR MORE [place] [facility] [place] [facility] Mar 12, 2018 08:56 AM VA-TOBACCO FORMER USER [place] [facility] [place] [facility] Mar 12, 2018 08:56 AM VA-TOBACCO QUIT 15 YRS OR MORE [place] [facility] [place] [facility] Mar 12, 2018 08:24 AM LIFETIME NON-TOBACCO USER [place] [facility] [place] [facility] Mar 13, 2017 07:44 AM LIFETIME NON-TOBACCO USER [place] [facility] [place] [facility] Mar 11, 2016 07:54 AM QUIT TOBACCO USE > 7 YEARS AGO Quit in 1984 [place] [facility] [place] [facility] Aug 17, 2005 10:23 AM HISTORY OF SMOKING Vet states he quit in 1984 [place] [facility] [place] [facility] May 19, 2004 08:56 AM HISTORY OF SMOKING quit . [facility] [place] [facility] May 19, 2003 09:15 AM HISTORY OF SMOKING quit 10yrs ago [facility] Jun 06, 2002 08:13 AM HISTORY OF SMOKING quit 1979 [facility] Jun 06, 2002 08:13 AM QUIT TOBACCO USE > 7 YEARS AGO [facility] Apr 30, 2001 04:07 PM HISTORY OF SMOKING quit - 1984 [facility] Advance Directives: All historical and current Section Date Range: From patient's date of to the date document was created. This section includes ALL of a patient's completed or amended [place] Advance and Rescinded Directives. The entries below indicate that a directive exists for the patient, but an actual copy is not included with this document. The data comes from all [place] facilities. Date Advance Directives Provider Source Mar 12, 2024 ADVANCE DIRECTIVE JENNIFFER DOAN [facility] Encounter Notes: All associated encounter notes This section contains the clinical notes associated to the Encounter. Date/Time Encounter Note(s) Provider Source Jul 11, 2024 08:46 AM DENTISTRY TELEPHON E ENCOUNTER NOTE: LOCAL TITLE: TELEPHONE NOTE/DENTAL STANDARD TITLE: DENTISTRY TELEPHONE ENCOUNTER NOTE DATE OF NOTE: JUL 11, 2024@08:46 ENTRY DATE: JUL 11, 2024@08:46:50 AUTHOR: BRENDAN WARNER EXP COSIGNER: URGENCY: STATUS: COMPLETED Spoke with pt to confirm dental appointment on 07/12/2024 at 10:00 am. 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
--- OUTSIDE RECORDS SUMMARY | 2024-09-06 11:02 | XMS_ITS | Encounter Summary ---
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 Name Role Phone LEOPOLDO JACOBSEN Primary Care [...] Name Patient's Relationship to Policy Lai MELISSA [facility] MEDICARE ADVANTAGE [facility] ([facility]) Sep 11, 2015 [id number] MOONJung GANESHOLEGARIO Jung PATIENT [facility] ([facility]) MEDICARE ADVANTAGE [facility] ([facility]) Sep 11, 2015 [id number] OLEGARIO DUNN PATIENT MEDICARE (WN) MEDICARE () PART A Feb 09, 2001 PART A [id number] [phone] OLEGARIO DUNN PATIENT MEDICARE (WN) MEDICARE () PART B Feb 09, 2001 PART B [id number] [phone] OLEGARIO DUNN PATIENT MEDICARE (WN) MEDICARE () PART A Feb 09, 2001 PART A [id number] [phone] OLEGARIO DUNN PATIENT MEDICARE ([facility]) MEDICARE ([place]) PART B Feb 09, 2001 PART B [id number] OLEGARIO DUNN PATIENT Selected Encounter This section includes the information on record at [place] for the Encounter. 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 Date/Time Primary/Secondary Diagnosis Diagnosis Name Provider Source May 15, 2024 02:02 PM PRIMARY Benign prostatic hyperplasia without lower urinry tract symp ROSANGELA DAWN N [place] [facility] [place] [facility] Plan of Treatment: Future Appointments (+ 6 months) and Future Tests (+/- 45 days) The Plan of Treatment section includes future care activities for the patient from all [place] treatmentfacilities. This section includes future appointments and future orders which are active, pending or scheduled. Future Appointments This section includes appointments that were scheduled to occur 6 months from the date of the Encounter, up to a maximum of 20 appointments. The data comes from all [place] treatment facilities. Appointment Date/Time Appointment Type Appointme nt Facility Name May 23, 2024 08:00 AM AMBULATORY - REHAB MEDICIN E [place] [facility] [place] [facility] May 27, 2024 01:30 PM AMBULATORY - REHAB MEDICIN E [facility] [place] [facility] Jun 04, 2024 08:00 AM AMBULATORY - REHAB MEDICIN E [place] [facility] [place] [facility] Jun 11, 2024 11:00 AM AMBULATORY - MEDICINE [place] C [facility] [place] [place] [facility] Jun 18, 2024 01:00 PM AMBULATORY - REHAB MEDICIN E [place] [facility] [place] [facility] Jul 03, 2024 11:30 AM AMBULATORY - MEDICINE [place] C [facility] [place] [place] [facility] Jul 09, 2024 07:30 AM AMBULATORY - NONE [place] [facility] [place] [facility] Jul 12, 2024 10:00 AM AMBULATORY - NONE [place] [facility] [place] [place] [facility] Jul 26, 2024 08:00 AM AMBULATORY - MEDICINE [place] C [facility] [place] [place] [facility] Aug 01, 2024 11:00 AM AMBULATORY - MEDICINE [place] C [facility] [place] [facility] Sep 09, 2024 09:00 AM AMBULATORY - MEDICINE [place] C [facility] [place] [facility] Sep 09, 2024 10:00 AM AMBULATORY - MEDICINE [place] C [facility] [place] [facility] Sep 12, 2024 09:00 AM AMBULATORY - REHAB MEDICIN E [place] [facility] [place] [facility] Nov 07, 2024 02:00 PM AMBULATORY - MEDICINE [place] C [facility] [place] [facility] Social History: Smoking Status (Most current) and Tobacco Use (All prior to encounter date) This section includes the most current, and the historical, smoking and tobacco- related health factors from the [place] facility where the Encounter took place. Current Smoking Status This section includes the most current smoking, or tobacco-related health factor, from the [place] facility where the Encounter took place. Date/Time Current Smoking Status Comment [facility] Mar 11, 2024 09:00 AM VA-TOBACCO FORMER USER [place] [facility] [place] [facility] Tobacco Use History This section includes a history of the smoking, or tobacco-related health factors, that were collected on or before the date of the Encounter. The data comes from the [place] facility where the Encounter took place. Date/Time Smoking Status/Tobac co Use Comment Facility Mar 11, 2024 09:00 AM VA-TOBACCO QUIT 15 YRS OR MORE [facility] [place] [facility] Mar 06, 2023 09:00 AM VA-TOBACCO FORMER USER [facility] [place] [facility] Mar 06, 2023 09:00 AM VA-TOBACCO QUIT 15 YRS OR MORE [place] [facility] [place] [facility] Feb 16, 2022 09:30 AM VA-TOBACCO FORMER USER [facility] [place] [facility] Feb 16, 2022 09:30 AM VA-TOBACCO QUIT 15 YRS OR MORE [facility] [place] [facility] Feb 09, 2021 09:00 AM VA-TOBACCO FORMER USER [facility] [place] [facility] Feb 09, 2021 09:00 AM VA-TOBACCO QUIT 15 YRS OR MORE [facility] [place] [place] [facility] Jan 01, 2020 10:15 AM VA-TOBACCO FORMER USER [facility] [facility] Jan 01, 2020 10:15 AM VA-TOBACCO QUIT 15 YRS OR MORE [facility] Mar 12, 2018 08:56 AM [facility] Mar 12, 2018 08:56 AM VA-TOBACCO QUIT 15 YRS OR MORE [facility] Mar 12, 2018 08:24 AM LIFETIME NON-TOBACCO USER [facility] Mar 13, 2017 07:44 AM LIFETIME NON-TOBACCO [facility] Mar 11, 2016 07:54 AM QUIT TOBACCO USE > 7 YEARS AGO Quit in 1984 [facility] Aug 17, 2005 10:23 AM HISTORY OF SMOKING Vet states he quit in 1984 [facility] May 19, 2004 08:56 AM HISTORY OF SMOKING quit . [facility] May 19, 2003 09:15 AM HISTORY OF SMOKING quit [facility] Jun 06, 2002 08:13 AM HISTORY OF SMOKING quit 1979 [facility] Jun 06, 2002 08:13 AM QUIT TOBACCO USE > 7 YEARS AGO [facility] Apr 30, 2001 04:07 PM HISTORY OF SMOKING quit - 1984 [facility] Advance Directives: All historical and current Section Date Range: From patient's date of to the date document was created. This section includes ALL of a patient's completed or amended [place] Advance and Rescinded Directives. The entries below indicate that a directive exists for the patient, but an actual copy is not included with this document. The data comes from all [place] facilities. Date Advance Directives Provider Source Mar 12, 2024 ADVANCE DIRECTIVE [facility]FFER [facility] Encounter Notes: All associated encounter notes This section contains the clinical notes associated to the Encounter. 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 Has been doing his HEP. OBJECTIVE: THERAPEUTIC EXERCISE: MINUTES: 25 mins Nu-step 8 mins L3 HS, calf S at the stairs seated abd press seated hip add tball squeeze seated heel slides seated march MANUAL THERAPY: MINUTES: GAIT TRAINING: MINUTES: NEUROMUSCULAR EDUCATION: MINUTES: OTHER: MINUTES: MODALITIES: MINUTES: [] Contraindication screen completed prior to modality [] Skin intact pre/post SELF CARE/EDUCATION: MINUTES: Access Code: [email or web address] URL: [email or web address] Date: 05/15/2024 Prepared by: [place] [employer] [facility] Exercises - Supine Hip Adduction Isometric with Ball - 1 x daily - 7 x weekly - 3 sets - 10 reps - Supine Bridge with Mini Colombian Ball Between Knees - 1 x daily [...] 10 reps - Seated Abdominal Press into Colombian Ball - 1 x daily - 7 [...] sets - 10 reps - Seated Hip Adduction Isometrics with Ball - 1 x daily - 7 x weekly - 3 sets - 10 reps Patient education was provided for all aspects of care during this clinical encounter. ASSESSMENT: Tolerated session well, feeling good after session PLAN: butterfly sit-ups, modified, adductor and glute strengthening c DIRECTOR QUALITY ASSURANCE. /kathy/ ALEAH ARVIZU LICENSE PATENTS EXAMINER Signed: 05/15/2024 14:02 MELLY DAWN [facility]
--- OUTSIDE RECORDS SUMMARY | 2024-09-06 11:02 | XMS_ITS ---
Author Name Department of Vetera ns Affairs ([place]) Organization Department of Vetera Affairs ([place]) Address [address] [place] [address] Care Team Providers Care Child Care Associate Name Role Phone LEOPOLDO JACOBSEN Primary Care [...] Name Patient's Relationship to Policy Lai MELISSA [facility] ([facility]) MEDICARE ADVANTAGE [facility] ([facility]) Sep 11, 2015 [id number] [phone] PERRILORI GANESHOLEGARIO Jung PATIENT [facility] ([facility]) MEDICARE ADVANTAGE [facility] ([facility]) Sep 11, 2015 [id number] FANNIE ANDERSENOLEGARIO Jung PATIENT MEDICARE (WNR) MEDICARE (M) PART A Feb 09, 2001 PART A [id number] 56A OLEGARIO DUNN PATIENT MEDICARE (WN) MEDICARE () PART B Feb 09, 2001 PART B [id number] [phone] OLEGARIO DUNN PATIENT MEDICARE (WNR) MEDICARE () PART A Feb 09, 2001 PART A [id number] 56A OLEGARIO DUNN PATIENT MEDICARE (WN) MEDICARE (M) PART B Feb 09, 2001 PART B [id number] 56A HYUNTIMOTHY GANESHOLEGARIO Jung PATIENT Selected Encounter This section includes the information on record at OR for the Encounter. Date/Time Encounter Type Encounter Description Reason Provider Source Jul 12, 2024 10:00 AM DENTAL PANORAMIC IMAGE DENTAL ICD-10-CM K08.9 Disorder of teeth and supporting structures, unspecified ANSON KHAN Sharda Encounter Template Text not used by OR Assessments - Encounter Diagnoses This section includes the primary and secondary diagnoses documented for the Encounter. Date/Time Primary/Secondary Diagnosis Diagnosis Name Provider Source Jul 12, 2024 10:42 AM PRIMARY Disorder of teeth and supporting structures, unspecified ANSON KHAN [facility] [place] [facility] Plan of Treatment: Future Appointments (+ 6 months) and Future Tests (+/- 45 days) The Plan of Treatment section includes future care activities [facility] the [facility] This section includes future appointments and future orders which are active, pending or scheduled. Future Appointments This section includes appointments that were scheduled to occur 6 months from the date of the Encounter, up to a maximum of 20 appointments. The data comes from all OR treatment facilities. Appointment Date/Time Appointment Type Appointme nt Facility Name Jul 26, 2024 08:00 AM AMBULATORY - MEDICINE [facility] [place] [facility] Aug 01, 2024 11:00 AM AMBULATORY - MEDICINE [facility] [place] [facility] Sep 09, 2024 09:00 AM AMBULATORY - MEDICINE [facility] [place] [facility] Sep 09, 2024 10:00 AM AMBULATORY - MEDICINE [facility] [place] [facility] Sep 12, 2024 09:00 AM AMBULATORY - REHAB MEDICIN E [place] [facility] [place] [facility] Nov 07, 2024 02:00 PM AMBULATORY - MEDICINE [facility] [place] [facility] Dec 31, 2024 07:30 AM AMBULATORY - NONE [place] [facility] [place] [facility] Social History: Smoking Status (Most current) and Tobacco Use (All prior to encounter date) This section includes the most current, and the historical, smoking and tobacco- related health factors from the OR facility where the Encounter took place. Current Smoking Status This section includes the most current smoking, or tobacco-related health factor, from the OR facility where the Encounter took place. Date/Time Current Smoking Status Comment [facility] Mar 11, 2024 09:00 AM VA-TOBACCO FORMER USER [place] [facility] [facility] Tobacco Use History This section includes a history of the smoking, or tobacco-related health factors, that were collected on or before the date of the Encounter. The data comes from the OR facility where the Encounter took place. Date/Time Smoking Status/Tobac co Use Comment Facility Mar 11, 2024 09:00 AM VA-TOBACCO QUIT 15 YRS OR MORE [facility] [place] [facility] Mar 06, 2023 09:00 AM VA-TOBACCO FORMER USER [facility] [place] [facility] Mar 06, 2023 09:00 AM VA-TOBACCO QUIT 15 YRS OR MORE [facility] [place] [facility] Feb 16, 2022 09:30 AM VA-TOBACCO FORMER USER [facility] [place] [facility] Feb 16, 2022 09:30 AM VA-TOBACCO QUIT 15 YRS OR MORE [facility] [place] [facility] Feb 09, 2021 09:00 AM VA-TOBACCO FORMER USER [facility] [place] [facility] Feb 09, 2021 09:00 AM VA-TOBACCO QUIT 15 YRS OR MORE [facility] [place] [facility] Jan 01, 2020 10:15 AM VA-TOBACCO FORMER USER VA [facility] [place] [facility] Jan 01, 2020 10:15 AM VA-TOBACCO QUIT 15 YRS OR MORE [facility] [place] [facility] Mar 12, 2018 08:56 AM VA-TOBACCO FORMER USER VA [facility] [place] [facility] Mar 12, 2018 08:56 AM VA-TOBACCO QUIT 15 YRS OR MORE [facility] [place] [facility] Mar 12, 2018 08:24 AM LIFETIME NON-TOBACCO USER [facility] [place] [facility] Mar 13, 2017 07:44 AM LIFETIME NON-TOBACCO USER [facility] [place] [facility] Mar 11, 2016 07:54 AM QUIT TOBACCO USE > 7 YEARS AGO Quit in 1984 [place] [facility] [place] [facility] Aug 17, 2005 10:23 AM HISTORY OF SMOKING Vet states he quit in 1984 [facility] May 19, 2004 08:56 AM HISTORY OF SMOKING quit . [facility] May 19, 2003 09:15 AM HISTORY OF SMOKING quit 10yrs ago [facility] Jun 06, 2002 08:13 AM HISTORY OF SMOKING quit 1979 [facility] Jun 06, 2002 08:13 AM QUIT TOBACCO USE > 7 YEARS AGO [facility] Apr 30, 2001 04:07 PM HISTORY OF SMOKING quit - 1984 [facility] Advance Directives: All historical and current Section Date Range: From patient's date of to the date document was created. This section includes ALL of a patient's completed or amended [place] Advance and Rescinded Directives. The entries below indicate that a directive exists for the patient, but an actual copy is not included with this document. The data comes from all OR facilities. Date Advance Directives Provider Source Mar 12, 2024 ADVANCE DIRECTIVE JENNIFFER DOAN [facility] Encounter Notes: All associated encounter notes This section contains the clinical notes associated to the Encounter. Date/Time Encounter Note(s) Provider Source Jul 12, 2024 10:41 AM DENTISTRY NOTE: LOCAL TITLE: DENTAL NOTE STANDARD TITLE: DENTISTRY NOTE DATE OF NOTE: JUL 12, 2024@10:41 ENTRY DATE: JUL 12, 2024@10:42:34 AUTHOR: ANSON KHAN COSIGNER: URGENCY: STATUS: COMPLETED Patient Name: EUSEBIO PEREZ, : 1935, Age: 89 Visit: S: Jul 12, 2024@10:00 [facility] DENTAL DMD 3 AM. 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 Treatment Status: Maintenance. Completed Care: (D0150) COMPREHENSVE ORAL EVALUATION. DX: K08.9 Disorder of Teeth and Supporting Structures, unspecified (D0210) INTRAORAL FULL IMAGE SERIES. DX: K08.9 Disorder of Teeth and Supporting Structures, unspecified (D0330) DENTAL PANORAMIC IMAGE. DX: K08.9 Disorder of Teeth and Supporting Structures, unspecified The patient was identified by full name and social security number Reviewed the patient's medical/dental history, medications and allergies. I performed medication reconciliation within the scope of my practice. All medications related to dentistry are up to date. Discussed above proposed treatment plan. Patient understands and agrees with the treatment plan. Presentation/Chief Complaint: Patient presents for comprehensive oral evaluation Patient has no dental complaints Vital Signs: Vital signs not obtained Past Medical History and Medications: No significant changes since the last dental visit Social History: Patient reports the following habits: Cigarettes past use Intraoral and Extraoral Screening Exam Findings: 07/12/2024 Head and neck assessment with oral cancer screening is negative: no apparent pathology noted. 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 Clinical Findings: Occlusal Findings: Normal Mandibular relationship Assessment/Plan: No urgent dental needs or acute dental infections noted on examination. No treatment required at this time Disposition: Next visit: recall/prn - - - - - - - - - - - - - - - - - - - - - - - - - - - - - - /kathy/ ANSON KHAN DMD Staff Dentist Signed: 07/12/2024 10:42 ANSON KHAN [place] [facility] [place] [facility] Jul 12, 2024 10:38 AM DENTISTRY CONSULT: LOCAL TITLE: CONSULT REPORT/DENTAL STANDARD TITLE: DENTISTRY CONSULT DATE OF NOTE: JUL 12, 2024@10:38 ENTRY DATE: JUL 12, 2024@10:38:34 AUTHOR: ANSON KHAN EXP COSIGNER: URGENCY: STATUS: COMPLETED Current PC Provider: LEOPOLDO JACOBSEN Current PC Team: NO PACT 2 Current Pat. 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 Date: Jul 12, 2024 DST ID: Orderable Item: DENTAL IMAGING Consult: Consult Request Provisional Diagnosis: Disorder of Teeth and Supporting Structures, unspecified(ICD-10-CM K08.9) Reason For Request: Orthopan Inter-facility Information This is not an inter-facility consult request. Status: PENDING Last Action: CPRS RELEASED ORDER Facility Activity Date/Time/Zone Responsible Person Entered By CPRS RELEASED ORDER 07/12/24 08:43 ANSON KHAN LEI Note: TIME ZONE is local if not indicated No local JUNITO results or Medicine results available for this consult ======= END ======== /kathy/ ANSON KHAN DMD Staff Dentist Signed: 07/12/2024 10:38 ANSON KHAN [place] [facility]
--- OUTSIDE RECORDS SUMMARY | 2024-09-06 11:02 | XMS_ITS ---
Author Name Department of [place] Organization [place] Address [address] [place] [id number] Care Team Providers Care College Service Officer Name Role Phone JACOBSEN LEOPOLDO Primary Care Provider Unavailabl e Insurance Providers: [...] Name Patient's Relationship to Policy Lai MELISSA [facility] ([facility]) MEDICARE ADVANTAGE [facility] ([facility]) Sep 11, 2015 [id number] [phone] OLEGARIO DUNN PATIENT [facility] ([facility]) MEDICARE ADVANTAGE [facility] ([facility]) Sep 11, 2015 [id number] OLEGARIO DUNN PATIENT MEDICARE (WNR) MEDICARE (M) PART A Feb 09, 2001 PART A [id number] [phone] OLEGARIO DUNN PATIENT MEDICARE (WN) MEDICARE (M) PART B Feb 09, 2001 PART B [id number] 56A [phone] OLEGARIO DUNN PATIENT MEDICARE (WNR) MEDICARE (M) PART A Feb 09, 2001 PART A [id number] 56A OLEGARIO DUNN PATIENT MEDICARE (WN) MEDICARE (M) PART B Feb 09, 2001 PART B [id number] 56A OLEGARIO DUNN PATIENT Selected Encounter This section includes the information on record at NE for the Encounter. Date/Time Encounter Type Encounter Description Reason Provider Source Jul 09, 2024 07:30 AM CASE MGMT-[facility]AL HE[facility] LIT DENTAL ICD-10-CM K03.6 Deposits [accretions] on teeth CHRISTIANACATARINABULL K IHE Encounter Template Text not used by NE Assessments - Encounter Diagnoses This section includes the primary and secondary diagnoses documented for the Encounter. Date/Time Primary/Secondary Diagnosis Diagnosis Name Provider Source Jul 09, 2024 11:04 AM PRIMARY Deposits [accretions] on teeth CHRISTIANABULL BRAGA [place] [facility] [place] [facility] Plan of Treatment: Future Appointments (+ 6 months) and Future Tests (+/- 45 days) The Plan of Treatment section includes future care activities for the patient from all NE treatmentfacilities. This section includes future appointments and future orders which are active, pending or scheduled. Future Appointments This section includes appointments that were scheduled to occur 6 months from the date of the Encounter, up to a maximum of 20 appointments. The data comes from all [place] treatment facilities. Appointment Date/Time Appointment Type Appointme nt Facility Name Jul 12, 2024 10:00 AM AMBULATORY - NONE [place] [facility] [facility] Jul 26, 2024 08:00 AM AMBULATORY - MEDICINE NE C [facility] [place] [facility] Aug 01, 2024 11:00 AM AMBULATORY - MEDICINE NE C [facility] [place] [facility] Sep 09, 2024 09:00 AM AMBULATORY - MEDICINE NE C [facility] [place] [facility] Sep 09, 2024 10:00 AM AMBULATORY - MEDICINE NE C [facility] [place] [facility] Sep 12, 2024 09:00 AM AMBULATORY - REHAB MEDICIN E [facility] [facility] Nov 07, 2024 02:00 PM AMBULATORY - MEDICINE NE C [facility] [place] [facility] Dec 31, 2024 07:30 AM AMBULATORY - NONE NE [facility] [place] [facility] Social History: Smoking Status (Most current) and Tobacco Use (All prior to encounter date) This section includes the most current, and the historical, smoking and tobacco- related health factors from the NE facility where the Encounter took place. Current Smoking Status This section includes the most current smoking, or tobacco-related health factor, from the NE facility where the Encounter took place. Date/Time Current Smoking Status Comment Facil [facility] Mar 11, 2024 09:00 AM VA-TOBACCO QUIT 15 YRS OR MORE NE [facility] [place] [facility] Tobacco Use History This section includes a history of the smoking, or tobacco-related health factors, that were collected on or before the date of the Encounter. The data comes from the [place] facility where the Encounter took place. Date/Time Smoking Status/Tobac co Use Comment [facility] Mar 11, 2024 09:00 AM VA-TOBACCO QUIT 15 YRS OR MORE [facility] [place] [facility] Mar 06, 2023 09:00 AM VA-TOBACCO FORMER USER VA [facility] [place] [facility] Mar 06, 2023 09:00 AM VA-TOBACCO QUIT 15 YRS OR MORE [facility] [facility] Feb 16, 2022 09:30 AM VA-TOBACCO FORMER USER [facility] [place] [facility] Feb 16, 2022 09:30 AM VA-TOBACCO QUIT 15 YRS OR MORE [facility] [facility] Feb 09, 2021 09:00 AM VA-TOBACCO FORMER USER [facility] [place] [facility] Feb 09, 2021 09:00 AM VA-TOBACCO QUIT 15 YRS OR MORE [facility] [place] [facility] Jan 01, 2020 10:15 AM VA-TOBACCO FORMER USER [facility] [place] [facility] Jan 01, 2020 10:15 AM VA-TOBACCO QUIT 15 YRS OR MORE [facility] [place] [facility] Mar 12, 2018 08:56 AM VA-TOBACCO FORMER USER [facility] [place] [facility] Mar 12, 2018 08:56 AM VA-TOBACCO QUIT 15 YRS OR MORE [facility] [place] [facility] Mar 12, 2018 08:24 AM LIFETIME NON-TOBACCO USER [facility] [place] [facility] Mar 13, 2017 07:44 AM LIFETIME NON-TOBACCO USER [facility] [place] [facility] Mar 11, 2016 07:54 AM QUIT TOBACCO USE > 7 YEARS AGO Quit in 1984 [facility] Aug 17, 2005 10:23 AM HISTORY OF SMOKING Vet states he quit in 1984 [facility] May 19, 2004 08:56 AM HISTORY OF SMOKING quit 1980s. [facility] May 19, 2003 09:15 AM HISTORY OF SMOKING quit 10yrs ago [facility] Jun 06, 2002 08:13 AM HISTORY OF SMOKING quit 1978 [facility] Jun 06, 2002 08:13 AM QUIT TOBACCO USE > 7 YEARS AGO [facility] Apr 30, 2001 04:07 PM HISTORY OF SMOKING quit - 1984 [facility] Advance Directives: All historical and current Section Date Range: From patient's date of to the date document was created. This section includes ALL of a patient's completed or amended [place] Advance and Rescinded Directives. The entries below indicate that a directive exists for the patient, but an actual copy is not included with this document. The data comes from all [place] facilities. Date Advance Directives Provider Source Mar 12, 2024 ADVANCE DIRECTIVE JENNIFFER DOAN [facility] Encounter Notes: All associated encounter notes This section contains the clinical notes associated to the Encounter. Date/Time Encounter Note(s) Provider Source Jul 09, 2024 10:52 AM DENTISTRY NOTE: LOCAL TITLE: DENTAL NOTE STANDARD TITLE: DENTISTRY NOTE DATE OF NOTE: JUL 09, 2024@10:52 ENTRY DATE: JUL 09, 2024@11:04:51 AUTHOR: BULL VILLEDA COSIGNER: URGENCY: STATUS: COMPLETED Patient Name: EUSEBIO PEREZ, : 1935, Age: 89 Visit: S: Jul 09, 2024@07:30 [facility] [address] 1 AM. Primary PCE Diagnosis: K03.6 (Deposits [accretions] on teeth). Dental Category: 15-OPC, Class IV. Treatment Status: Maintenance. Completed Care: (D1110) DENTAL PROPHYLAXIS ADULT. DX: K03.6 Deposits [Accretions] on Teeth (D1206) TOPICAL FLUORIDE VARNISH. DX: K03.6 Deposits [Accretions] on Teeth (D1330) ORAL HYGIENE INSTRUCTION. DX: K03.6 Deposits [Accretions] on Teeth (D9994) CASE MGMT-ORAL HEALTH LIT. DX: K03.6 Deposits [Accretions] on Teeth Oral Health Assessment Findings: Plaque Index: 1 - Slight Xerostomia: 0 - None Caries Risk: 2 - Moderate Oral Hygiene: 2 - Fair - - - - - - - - - - - - - - - - - - - - - - - - - - - - - - TIME OUT/Safety goals were verified immediately prior to the procedure. (Correct patient, procedure, site, position) Full name and date used. STERILIZATION MONITOR IN INSTRUMENT PACK CHECKED AND CONFIRMED CC: no concerns PREMEDICATION: Not indicated PAST MEDICAL HISTORY: Reviewed, no contraindications for treatment. LAST RADIOGRAPHS: BWX: 05/01/23 PANO: 05/23/18 NEW RADIOGRAPHS and Examination: No time for ELIAZAR, BWX and PANO; rtc for appt with dentist SOFT TISSUE SCREENING: no abnormalities noted ORAL HYGIENE ASSESSMENT: generalized light plaque generalized light stain PERIODONTAL ASSESSMENT: generalized light calculus generalized light inflammation generalized light bleeding generalized recession Partial/Denture: Senait treadwell he does not like his partials. They are too sharp. REVIEWED ORAL HEALTH REPORT: CARIES RISK: moderate GUM DISEASE: n/a ORAL CANCER RISK: moderate DENTAL TREATMENT PROVIDED: PROPHYLAXIS - hand scaling, piezo, english, floss TOPICAL FLUORIDE APPLICATION - Varnish PRE-RINSE WITH CREST RINSE ORAL HYGIENE INSTRUCTIONS GIVEN TO PATIENT: Senait brushes with a manual toothbrush. Discussed brushing 2 times a day for 2 minutes each and flossing daily. Discussed angling bristles into gumlines to remove plaque and bacteria. DISPOSITION: 6 MONTHS RECARE NEXT VISIT: ELIAZAR, BWX and BRYANO /kathy/ BULL VILLEDA [facility], DENTAL SERVICE Signed: 07/09/2024 11:04 BULL VILLEDA [facility] [place] [facility]
--- OUTSIDE RECORDS SUMMARY | 2024-09-06 11:02 | XMS_ITS | Encounter Summary ---
Author Name [facility] [place] Address [address] [place] [address] Care Team Providers Care Payroll Specialist Name Role Phone LEOPOLDO JACOBSEN Primary Care [...] Name Patient's Relationship to Policy Lai MELISSA [facility] ([facility]) MEDICARE ADVANTAGE [facility] ([facility]) Sep 11, 2015 [id number] MOONJung GANESHOLEGARIO Jung PATIENT [facility] ([facility]) MEDICARE ADVANTAGE [facility] ([facility]) Sep 11, 2015 [id number] OLEGARIO DUNN PATIENT MEDICARE (WN) MEDICARE () PART A Feb 09, 2001 PART A [id number] [phone] OLEGARIO DUNN PATIENT MEDICARE (WN) MEDICARE () PART B Feb 09, 2001 PART B [id number] [phone] OLEGARIO DUNN PATIENT MEDICARE (WN) MEDICARE () PART A Feb 09, 2001 PART A [id number] 56A OLEGARIO DUNN PATIENT MEDICARE ([facility]) MEDICARE (M) PART B Feb 09, 2001 PART B [id number] 56A OLEGARIO DUNN PATIENT Selected Encounter This section includes the information on record at [place] for the Encounter. 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 This section includes future appointments and future orders which are active, pending or scheduled. Future Appointments This section includes appointments that were scheduled to occur 6 months from the date of the Encounter, up to a maximum of 20 appointments. The data comes from all [place] treatment facilities. Appointment Date/Time Appointment Type Appointme nt Facility Name Jun 04, 2024 08:00 AM AMBULATORY - [facility] MEDICIN E [facility] [place] [facility] Jun 11, 2024 11:00 AM AM[place]ULATORY [place]IC[place] [facility] [place] [facility] Jun 18, 2024 01:00 PM AMBULATORY - REHAB MEDICIN E [facility] [place] [facility] Jul 03, 2024 11:30 AM AM[place]ORY [place]IC[place] [facility] [place] [facility] Jul 09, 2024 07:30 AM AMBULATORY - NONE [facility] [place] [facility] Jul 12, 2024 10:00 AM AMBULATORY - NONE [facility] [place] [facility] Jul 26, 2024 08:00 AM AMBULATORY - MEDICINE [place] [facility] [place] [facility] Aug 01, 2024 11:00 AM AM[place]ULATORY [place]IC[place] [facility] [place] [facility] Sep 09, 2024 09:00 AM AMBULATORY - MEDICINE [place] [facility] [place] [facility] Sep 09, 2024 10:00 AM AMBULATORY - MEDICINE [place] [facility] [place] [facility] Sep 12, 2024 09:00 AM AMBULATORY - REHAB MEDICIN E [facility] [place] [facility] Nov 07, 2024 02:00 PM AM[place]ULATORY [place]ICINE [place] [facility] [place] [facility] Social History: Smoking Status (Most current) and Tobacco Use (All prior to encounter date) This section includes the most current, and the historical, smoking and tobacco- related health factors from the [place] facility where the Encounter took place. Current Smoking Status This section includes the most current smoking, or tobacco-related health factor, from the [place] facility where the Encounter took place. Date/Time Current Smoking Status Comment [facility] Mar 11, 2024 09:00 AM VA-TOBACCO FORMER USER [facility] [place] [facility] Tobacco Use History This section includes a history of the smoking, or tobacco-related health factors, that were collected on or before the date of the Encounter. The data comes from the [place] facility where the Encounter took place. Date/Time Smoking Status/Tobac co Use Comment Facility Mar 11, 2024 09:00 AM VA-TOBACCO QUIT 15 YRS OR MORE [facility] [place] [facility] Mar 06, 2023 09:00 AM VA-TOBACCO FORMER USER [facility] [place] [facility] Mar 06, 2023 09:00 AM VA-TOBACCO QUIT 15 YRS OR MORE [facility] [place] [facility] Feb 16, 2022 09:30 AM VA-TOBACCO FORMER USER [facility] [place] [facility] Feb 16, 2022 09:30 AM VA-TOBACCO QUIT 15 YRS OR MORE [facility] [place] [facility] Feb 09, 2021 09:00 AM VA-TOBACCO FORMER USER [facility] [place] [facility] Feb 09, 2021 09:00 AM VA-TOBACCO QUIT 15 YRS OR MORE [facility] [place] [facility] Jan 01, 2020 10:15 AM VA-TOBACCO FORMER USER [facility] [place] [facility] Jan 01, 2020 10:15 AM VA-TOBACCO QUIT 15 YRS OR MORE [facility] [place] [facility] Mar 12, 2018 08:56 AM VA-TOBACCO FOR[facility]ER [facility] Mar 12, 2018 08:56 AM VA-TOBACCO QUIT 15 YRS OR MORE [facility] Mar 12, 2018 08:24 AM LIFETIME NON-TOBACCO USER [facility] Mar 13, 2017 07:44 AM [facility]IFET[facility]ACCO [facility] Mar 11, 2016 07:54 AM QUIT TOBACCO USE > 7 YEARS AGO Quit in 1984 [facility] Aug 17, 2005 10:23 AM HISTORY OF SMOKING Vet states [facility] May 19, 2004 08:56 AM HISTORY OF SMOKING quit . [facility] May 19, 2003 09:15 AM HISTORY OF SMOKING quit 10yrs ago [facility] Jun 06, 2002 08:13 AM HISTORY OF SMOKING quit [facility] Jun 06, 2002 08:13 AM QUIT TOBACCO USE > 7 YEARS AGO [facility] Apr 30, 2001 04:07 PM HISTORY OF SMOKING quit - 1984 [facility] Advance Directives: All historical and current Section Date Range: From patient's date of to the date document was created. This section includes ALL of a patient's completed or amended [place] Advance and Rescinded Directives. The entries below indicate that a directive exists for the patient, but an actual copy is not included with this document. The data comes from all [place] facilities. Date Advance Directives Provider Source Mar 12, [address] [facility] Encounter Notes: All associated encounter notes This section contains the clinical notes associated to the Encounter. Date/Time Encounter Note(s) Provider Source May 27, 2024 04:21 PM PHYSICAL THERAPY NOTE: LOCAL TITLE: PHYSICAL THERAPY STANDARD TITLE: PHYSICAL THERAPY NOTE DATE OF NOTE: MAY 27, 2024@16:21 ENTRY DATE: MAY 27, 2024@16:21:26 AUTHOR: MELLY DAWN EXP COSIGNER: URGENCY: STATUS: COMPLETED Initial Evaluation date:03/26/24 Progress Note Date: NA Treatment #:4 Treatment time: 25 min Diagnosis: UI Provider: Breanna PT Treatment Precautions: None Patient identified by full name and date of SUBJECTIVE: States that he's making progress, states that he's wearing his own pants today, also request a rollator walker on this date secondary to almost falling over the weekend, states that he performs his HEP 1-2 per day. OBJECTIVE: THERAPEUTIC EXERCISE: MINUTES:15 mins Nu-step 10 mins L3 reviewed current HEP Access Code: [email or web address] URL: [email or web address] Date: 05/15/2024 Prepared by: [facility] Exercises - Supine Hip Adduction Isometric with Ball - 1 x daily - 7 x weekly - 3 sets - 10 reps - Supine Bridge with Mini Vincentian Ball Between Knees - 1 x daily - 7 x weekly - 3 sets - 10 reps - Supine November - 1 x daily - 7 x weekly - 3 sets - 10 reps - Seated March - 1 x daily - 7 x weekly - 3 sets - 10 reps - Hooklying Gluteal Sets - 1 x daily - 7 x weekly - 3 sets - 10 reps - Seated Abdominal Press into Vincentian Ball - 1 x daily - 7 [...] [] Skin intact pre/post SELF CARE/EDUCATION: MINUTES: 10 mins issued and educated on the proper use of the Drive rollator walker Patient education was provided for all aspects of care during this clinical encounter. ASSESSMENT: Feeling good about his progress, no difficulties using the rollator at this time PLAN: Seeing PT in 3 wks for progress check /es/ ALEAH ARVIZU LICENSE FURNITURE SERVICER Signed: 05/27/2024 16:25 LÓPEZ,MELLY [facility]
--- OUTSIDE RECORDS SUMMARY | 2024-09-06 11:02 | XMS_ITS ---
Author Name [facility] [place] Address [address] [place] [id number] Care Team Providers Care School Vocational Educator Name Role Phone LEOPOLDO JACOBSEN Primary Care [...] Name Patient's Relationship to Policy Lai MELISSA [facility] ([facility]) MEDICARE ADVANTAGE [facility] ([facility]) Sep 11, 2015 [id number] [phone] FANNIE ANDERSENOLEGARIO Jung PATIENT [facility] ([facility]) MEDICARE ADVANTAGE [facility] ([facility]) Sep 11, 2015 [id number] OLEGARIO DUNN PATIENT MEDICARE (WN) MEDICARE () PART A Feb 09, 2001 PART A [id number] 56A OLEGARIO DUNN PATIENT MEDICARE (WN) MEDICARE () PART B Feb 09, 2001 PART B [id number] 56A OLEGARIO DUNN PATIENT MEDICARE (WN) MEDICARE () PART A Feb 09, 2001 PART A [id number] [phone] OLEGARIO DUNN PATIENT MEDICARE ([facility]) MEDICARE () PART B Feb 09, 2001 PART B [id number] 56A OLEGARIO DUNN PATIENT Selected Encounter This section includes the information on record at [place] for the Encounter. Date/Time Encounter Type Encounter Description Reason Provider Source May 23, 2024 08:00 AM HEARING AID FITTING/CHECKIN G AUDIOLOGY ICD-10-CM Z46.1 Encounter for fitting and adjustment of hearing aid SONA LEMOS Sharda Encounter Template Text not used by [place] Assessments - Encounter Diagnoses This section includes the primary and secondary diagnoses documented for the Encounter. Date/Time Primary/Secondary Diagnosis Diagnosis Name Provider Source May 23, 2024 08:06 AM PRIMARY Encounter for fitting and adjustment of hearing aid SONA LEMOS [facility] [place] [facility] May 23, 2024 08:06 AM SECONDARY Sensorineural hearing loss, bilateral SONA LEMOS [facility] [place] [facility] Plan of Treatment: Future Appointments (+ 6 months) and Future Tests (+/- 45 days) The Plan of Treatment section includes future care activities for the patient from all [place] treatmentfacilities. This section includes future appointments and future orders which are active, pending or scheduled. Future Appointments This section includes appointments that were scheduled to occur 6 months from the date of the Encounter, up to a maximum of 20 appointments. The data comes from all [place] treatment facilities. Appointment Date/Time Appointment Type Appointme nt Facility Name May 27, 2024 01:30 PM AMBULATORY - REHAB MEDICIN E [facility] [place] [facility] Jun 04, 2024 08:00 AM AMBULATORY - REHAB MEDICIN E [facility] [place] [facility] Jun 11, 2024 11:00 AM AM[place]ORY [place]IC[place] [facility] [place] [facility] Jun 18, 2024 01:00 PM AMBULATORY - REHAB MEDICIN E [facility] [place] [facility] Jul 03, 2024 11:30 AM AMBULATORY - [place]ICINE [place] [facility] [place] [facility] Jul 09, 2024 07:30 AM AMBULATORY - NONE [facility] [place] [facility] Jul 12, 2024 10:00 AM AMBULATORY - NONE [facility] [place] [facility] Jul 26, 2024 08:00 AM AMBULATORY - MEDICINE [place] [facility] [place] [facility] Aug 01, 2024 11:00 AM AMBULATORY - MEDICINE [facility] [place] [facility] Sep 09, 2024 09:00 AM AMBULATORY - MEDICINE [facility] [place] [facility] Sep 09, 2024 10:00 AM AMBULATORY - MEDICINE [facility] [place] [facility] Sep 12, 2024 09:00 AM AMBULATORY - REHAB MEDICIN E [facility] [place] [facility] Nov 07, 2024 02:00 PM AMBULATORY - MEDICINE [facility] [place] [facility] Social History: Smoking Status (Most current) and Tobacco Use (All prior to encounter date) This section includes the most current, and the historical, smoking and tobacco- related health factors from the [place] facility where the Encounter took place. Current Smoking Status This section includes the most current smoking, or tobacco-related health factor, from the [place] facility where the Encounter took place. Date/Time Current Smoking Status Comment [facility] Mar 11, 2024 09:00 AM VA-TOBACCO FORMER USER [facility] [place] [facility] Tobacco Use History This section includes a history of the smoking, or tobacco-related health factors, that were collected on or before the date of the Encounter. The data comes from the [place] facility where the Encounter took place. Date/Time Smoking Status/Tobac co Use Comment Facility Mar 11, 2024 09:00 AM VA-TOBACCO QUIT 15 YRS OR MORE [facility] [place] [facility] Mar 06, 2023 09:00 AM VA-TOBACCO FORMER USER [facility] [place] [facility] Mar 06, 2023 09:00 AM VA-TOBACCO QUIT 15 YRS OR MORE [facility] [place] [facility] Feb 16, 2022 09:30 AM VA-TOBACCO FORMER USER [facility] [place] [facility] Feb 16, 2022 09:30 AM VA-TOBACCO QUIT 15 YRS OR MORE [facility] [place] [facility] Feb 09, 2021 09:00 AM VA-TOBACCO FORMER USER [facility] [place] [facility] Feb 09, 2021 09:00 AM VA-TOBACCO QUIT 15 YRS OR MORE [facility] [place] [facility] Jan 01, 2020 10:15 AM VA-TOBACCO FORMER USER [facility] Jan 01, 2020 10:15 AM VA-TOBACCO QUIT [facility] YRS OR [facility] Mar 12, 2018 08:56 AM [facility] Mar 12, 2018 08:56 AM VA-TOBACCO QUIT 15 YRS OR [facility] Mar 12, 2018 08:24 AM LIFETIME [facility]ACCO [facility] Mar 13, 2017 07:44 AM LIFETIME NON-TOBACCO USER [facility] Mar 11, 2016 07:54 AM QUIT TOBACCO USE > 7 YEARS AGO [facility] Aug 17, 2005 10:23 AM HISTORY OF SMOKING Vet states he [facility] May 19, 2004 08:56 AM HISTORY OF SMOKING [facility] . [facility] May 19, 2003 09:15 AM HISTORY OF SMOKING quit [facility] Jun 06, 2002 08:13 AM HISTORY OF SMOKING quit [facility] Jun 06, 2002 08:13 AM QUIT TOBACCO USE > 7 YEARS AGO [facility] Apr 30, 2001 04:07 PM HISTORY OF SMOKING quit - [facility] Advance Directives: All historical and current Section Date Range: From patient's date of to the date document was created. This section includes ALL of a patient's completed or amended [place] Advance and Rescinded Directives. The entries below indicate that a directive exists for the patient, but an actual copy is not included with this document. The data comes from all [place] facilities. Date Advance Directives Provider Source Mar 12, 2024 [facility]ANCE DIRECTIVE [facility] Encounter Notes: All associated encounter notes This section contains the clinical notes associated to the Encounter. Date/Time Encounter Note(s) Provider Source May 23, 2024 07:53 AM AUDIOLOGY E & M NO TE: LOCAL TITLE: AUDIOLOGY CLINIC STANDARD TITLE: AUDIOLOGY E & M NOTE DATE OF NOTE: MAY 23, 2024@07:53 ENTRY DATE: MAY 23, 2024@07:53:13 AUTHOR: SONA LEMOS COSIGNER: URGENCY: STATUS: COMPLETED has a history of bilateral sensorineural hearing loss. He was seen on 05-23-24 for hearing aid follow up regarding burr picker of his remade [place] ITCs. Hearing aid fit is considered good. They were connected to retickr and settings restored. A new feedback test was run and slight gain reductions were made. Although gain margins were good, he still had feedback when he held the office phone up to his ear. Installed an autophone mode and feedback at the ear was essentially resolved after a few seconds. Gave foam phone pad and explained how to attach in case feedback with phone use is still an issue. will contact the clinic as needed. /kathy/ Rose BURCH, [facility]A STAFF QUALITY SYSTEMS ENGINEER Signed: 05/23/2024 08:25 SONA LEMOS [place] [facility]
--- OUTSIDE RECORDS SUMMARY | 2024-09-06 11:02 | XMS_ITS ---
Author Name [place] Address [address] [place] [address] Care Team Providers Care Public Housing Manager Name Role Phone CARLOS ERASMO Primary Care Provider Unavailabl e Insurance Providers: [...] Name Patient's Relationship to Policy Lai MELISSA [facility] ([facility]) MEDICARE ADVANTAGE [facility] ([facility]) Sep 11, 2015 [id number] [phone] MOONJung GANESHOLEGARIO Jung PATIENT [facility] ([facility]) MEDICARE ADVANTAGE [facility] ([facility]) Sep 11, 2015 [id number] OLEGARIO DUNN PATIENT MEDICARE (WNR) MEDICARE (M) PART A Feb 09, 2001 PART A [id number] OLEGARIO DUNN PATIENT MEDICARE (WNR) MEDICARE (M) PART B Feb 09, 2001 PART B [id number] 56A OLEGARIO DUNN PATIENT MEDICARE (WNR) MEDICARE (M) PART A Feb 09, 2001 PART A [id number] [phone] OLEGARIO DUNN PATIENT MEDICARE (WNR) MEDICARE (M) PART B Feb 09, 2001 PART B [id number] OLEGARIO DUNN PATIENT Selected Encounter This section includes the information on record at [place] for the Encounter. Date/Time Encounter Type Encounter Description Reason Pro vider Source May 14, 2024 07:31 PM Outpatient Encounter PRIMARY CARE/MEDICINE IHE Encounter Template Text not used by [place] Plan of Treatment: Future Appointments (+ 6 months) and Future Tests (+/- 45 days) The Plan of Treatment section includes future care activities for the patient from all [place] treatmentfacilities. This section includes future appointments and future orders which are active, pending or scheduled. Future Appointments This section includes appointments that were scheduled to occur 6 months from the date of the Encounter, up to a maximum of 20 appointments. The data comes from all [place] treatment facilities. Appointment Date/Time Appointment Type Appointme nt Facility Name May 15, 2024 01:30 PM AMBULATORY [facility] [place] [facility] May 23, 2024 08:00 AM AMBULATORY - [facility]HAB MEDICIN E [facility] [place] [facility] May 27, 2024 01:30 PM AMBULATORY - REHAB MEDICIN E [facility] [place] [facility] Jun 04, 2024 08:00 AM AMBULATORY - REHAB MEDICIN E [facility] [place] [facility] Jun 11, 2024 11:00 AM AMBULATORY - MEDICINE [facility] [place] [facility] Jun 18, 2024 01:00 PM AMBULATORY - REHAB MEDICIN E [facility] [place] [facility] Jul 03, 2024 11:30 AM AMBULATORY - MEDICINE [facility] [place] [facility] Jul 09, 2024 07:30 AM AMBULATORY - NONE [facility] [place] [facility] Jul 12, 2024 10:00 AM AMBULATORY - NONE [facility] [place] [facility] Jul 26, 2024 08:00 AM AMBULATORY - MEDICINE [facility] [place] [facility] Aug 01, 2024 11:00 AM AMBULATORY - MEDICINE [facility] [place] [facility] Sep 09, 2024 09:00 AM AMBULATORY - MEDICINE [facility] [place] [facility] Sep 09, 2024 10:00 AM AMBULATORY - MEDICINE [facility] [place] [facility] Sep 12, 2024 09:00 AM AMBULATORY - REHAB MEDICIN E [facility] [place] [facility] Nov 07, 2024 02:00 PM AMBULATORY - MEDICINE [place] [facility] [place] [facility] Social History: Smoking Status (Most current) and Tobacco Use (All prior to encounter date) This section includes the most current, and the historical, smoking and tobacco- related health factors from the [place] facility where the Encounter took place. Current Smoking Status This section includes the most current smoking, or tobacco-related health factor, from the [place] facility where the Encounter took place. Date/Time Current Smoking Status Comment [facility] Mar 11, 2024 09:00 AM VA-TOBACCO FORMER USER [facility] [place] [facility] Tobacco Use History This section includes a history of the smoking, or tobacco-related health factors, that were collected on or before the date of the Encounter. The data comes from the [place] facility where the Encounter took place. Date/Time Smoking Status/Tobac co Use Comment Facility Mar 11, 2024 09:00 AM VA-TOBACCO QUIT 15 YRS OR MORE [facility] [place] [facility] Mar 06, 2023 09:00 AM VA-TOBACCO FORMER USER [facility] [place] [facility] Mar 06, 2023 09:00 AM VA-TOBACCO QUIT 15 YRS OR MORE [facility] [place] [facility] Feb 16, 2022 09:30 AM VA-TOBACCO FORMER USER [facility] [place] [facility] Feb 16, 2022 09:30 AM VA-TOBACCO QUIT 15 YRS OR MORE [facility] [place] [facility] Feb 09, 2021 09:00 AM VA-TOBACCO FORMER USER [facility] [place] [facility] Feb 09, 2021 09:00 AM VA-TOBACCO QUIT 15 YRS OR MORE [facility] [place] [facility] Jan 01, 2020 10:15 AM VA-TOBACCO FORMER USER [facility] [place] [facility] Jan 01, 2020 10:15 AM VA-TOBACCO QUIT 15 YRS OR MORE [facility] [place] [facility] Mar 12, 2018 08:56 AM VA-TOBACCO FORMER USER [facility] Mar 12, 2018 08:56 AM VA-TOBACCO QUIT 15 YRS OR MORE [facility] Mar 12, 2018 08:24 AM LIFETIME NON-TOBACCO USER [facility] Mar 13, 2017 07:44 AM LIFETIME NON-TOBACCO USER [facility] Mar 11, 2016 07:54 AM QUIT TOBACCO USE > 7 YEARS AGO Quit in 1984 [facility] Aug 17, 2005 10:23 AM HISTORY OF SMOKING Vet states he quit in 1984 [facility] May 19, 2004 08:56 AM HISTORY OF SMOKING quit . [facility] May 19, 2003 09:15 AM HISTORY OF SMOKING quit 10yrs ago [facility] Jun 06, 2002 08:13 AM HISTORY OF SMOKING quit 1978 [facility] Jun 06, 2002 08:13 AM QUIT TOBACCO USE > 7 YEARS AGO [facility] Apr 30, 2001 04:07 PM HISTORY OF SMOKING quit - 1984 [facility] Advance Directives: All historical and current Section Date Range: From patient's date of to the date document was created. This section includes ALL of a patient's completed or amended [place] Advance and Rescinded Directives. The entries below indicate that a directive exists for the patient, but an actual copy is not included with this document. The data comes from all [place] facilities. Date Advance Directives Provider Source Mar 12, 2024 ADVANCE DIRECTIVE JENNIFFER DOAN [facility] Encounter Notes: All associated encounter notes This section contains the clinical notes associated to the Encounter. Date/Time Encounter Note(s) Provider Source May 14, 2024 07:33 PM PHYSICIAN NOTE: LOCAL TITLE: NOTE STANDARD TITLE: PHYSICIAN NOTE DATE OF NOTE: MAY 14, 2024@19:33 ENTRY DATE: MAY 14, 2024@19:33:31 AUTHOR: ERASMO CARLOS EXP COSIGNER: URGENCY: STATUS: COMPLETED Entered consult vascular surgery for continuity of care. /kathy/ Erasmo Carlos MD Staff Physician Signed: 05/14/2024 19:33 ERASMO CARLOS [place] [facility]
--- OUTSIDE RECORDS SUMMARY | 2024-09-06 11:02 | XMS_ITS ---
Author Name [place] Address [address] [place] [address] Care Team Providers Care Catalyst Manufacturing Operator Name Role Phone LEOPOLDO JACOBSEN Primary [...] to Policy Lai MELISSA [facility] ([facility]) MEDICARE ADVANTAGE [facility] ([facility]) Sep 11, 2015 [id number] OLEGARIO DUNN PATIENT [facility] ([facility]) MEDICARE ADVANTAGE [facility] ([facility]) Sep 11, 2015 [id number] OLEGARIO DUNN PATIENT MEDICARE (WNR) MEDICARE (M) PART A Feb 09, 2001 PART A [id number] 56A OLEGARIO DUNN PATIENT MEDICARE (WN) MEDICARE (M) PART B Feb 09, 2001 PART B [id number] 56A OLEGARIO DUNN PATIENT MEDICARE (WNR) MEDICARE (M) PART A Feb 09, 2001 PART A [id number] 56A NAPIORKOW SKI,OLEGARIO W PATIENT MEDICARE (WNR) MEDICARE (M) PART B Feb 09, 2001 PART B [id number] 56A OLEGARIO DUNN PATIENT Selected Encounter This section includes the information on record at [place] for the Encounter. 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 Date/Time Primary/Secondary Diagnosis Diagnosis Name Provider Source Jun 18, 2024 02:56 PM PRIMARY Functional urinary incontinence XAVIER BALDERRAMA [place] [facility] [place] [facility] Plan of Treatment: Future Appointments [...] Appointment Type Appointme nt Facility Name Jul 03, 2024 11:30 AM AMBULATORY - MEDICINE [place] [facility] [place] [facility] Jul 09, 2024 07:30 AM AMBULATORY - NONE [place] [facility] [place] [facility] Jul 12, 2024 10:00 AM AMBULATORY - NONE [facility] [place] [facility] Jul 26, 2024 08:00 AM AMBULATORY - MEDICINE [place] [facility] [place] [facility] Aug 01, 2024 11:00 AM AMBULATORY - MEDICINE [place] [facility] [place] [facility] Sep 09, 2024 09:00 AM AMBULATORY - MEDICINE [place] [facility] [place] [facility] Sep 09, 2024 10:00 AM AMBULATORY - MEDICINE [place] [facility] [place] [facility] Sep 12, 2024 09:00 AM AMBULATORY - REHAB MEDICIN E [facility] [place] [facility] Nov 07, 2024 02:00 PM AMBULATORY - MEDICINE [place] [facility] [place] [facility] Social History: Smoking Status (Most [...] took place. Date/Time Current Smoking Status Comment [facility] Mar 11, 2024 09:00 AM VA-TOBACCO FORMER USER [facility] [place] [facility] Tobacco Use History This section includes a history of the smoking, or tobacco-related health factors, that were collected on or before the date of the Encounter. The data comes from the [place] facility where the Encounter took place. Date/Time Smoking Status/Tobac co Use Comment [facility] Mar 11, 2024 09:00 AM VA-TOBACCO QUIT 15 YRS OR MORE [facility] [place] [facility] Mar 06, 2023 09:00 AM VA-TOBACCO FORMER USER [facility] [place] [facility] Mar 06, 2023 09:00 AM VA-TOBACCO QUIT 15 YRS OR MORE [facility] [place] [facility] Feb 16, 2022 09:30 AM VA-TOBACCO FORMER USER [facility] [place] [facility] Feb 16, 2022 09:30 AM VA-TOBACCO QUIT 15 YRS OR MORE [facility] [place] [facility] Feb 09, 2021 09:00 AM VA-TOBACCO FORMER USER [facility] [place] [facility] Feb 09, 2021 09:00 AM VA-TOBACCO QUIT 15 YRS OR MORE [facility] [place] [facility] Jan 01, 2020 10:15 AM VA-TOBACCO FORMER USER [facility] [place] [facility] Jan 01, 2020 10:15 AM VA-TOBACCO QUIT 15 YRS OR MORE [facility] [place] [facility] Mar 12, 2018 08:56 AM VA-TOBACCO FORMER USER [facility] [place] [facility] Mar 12, 2018 08:56 AM VA-TOBACCO QUIT 15 YRS OR MORE [facility] [place] [facility] Mar 12, 2018 08:24 AM LIFETIME NON-TOBACCO USER [facility] [place] [facility] Mar 13, 2017 07:44 AM LIFETIME NON-TOBACCO USER [facility] [place] [facility] Mar 11, 2016 07:54 AM QUIT TOBACCO USE > 7 YEARS AGO Quit in 1984 [facility] Aug 17, 2005 10:23 AM HISTORY OF SMOKING Vet states he quit in 1984 [facility] May 19, 2004 08:56 AM HISTORY OF SMOKING quit 1980s. [facility] May 19, 2003 09:15 AM HISTORY OF SMOKING quit 10yrs ago [facility] Jun 06, 2002 08:13 AM HISTORY OF SMOKING quit 1979 [facility] Jun 06, 2002 08:13 AM QUIT TOBACCO USE > 7 YEARS AGO [facility] Apr 30, 2001 04:07 PM HISTORY OF SMOKING quit - 1984 [facility] Advance Directives: All historical and current [...] Mar 12, 2024 ADVANCE DIRECTIVE JENNIFFER DOAN [facility] Encounter Notes: All associated encounter notes This section contains the clinical notes associated to the Encounter. Date/Time Encounter Note(s) Provider Source Jun 18, 2024 02:52 PM PHYSICAL THERAPY DISCHARGE NOTE: LOCAL TITLE: PHYSICAL THERAPY DISCHARGE NOTE STANDARD TITLE: PHYSICAL THERAPY DISCHARGE NOTE DATE OF NOTE: JUN 18, 2024@14:52 ENTRY DATE: JUN 18, 2024@14:52:12 AUTHOR: RONEN BALDERRAMA COSIGNER: URGENCY: STATUS: COMPLETED Initial Evaluation date:03/26/24 Progress Note Date: NA Treatment #:4 Treatment time: 35 min Diagnosis: UI Provider: Breanna NO Treatment Precautions: None Patient identified by full name and date of Date of Evaluation: 06/18/24 Physical Therapy Discharge Note S: I am doing much better> PT. states he still has trigger with getting out of the shower or washing up in the morning and needing to urinate. O: Ther Ex: I c all ther ex, voids per day: normal, does not void just in case any longer. A/P: Good Discharge. Thank you for this consult. /kathy/ RONIT RAMOS PHYSICAL THERAPIST/SERVICE DENTAL DETAIL REPRESENTATIVEFACILITIES COORDINATOR Signed: 06/18/2024 14:56 RONEN BALDERRAMA [place] [facility]
--- OUTSIDE RECORDS SUMMARY | 2024-09-06 11:02 | XMS_ITS | Encounter Summary ---
Author Name [place] Address [address] [place] [id number] Care Team Providers Care Supervisor Display Fabrication Name Role Phone JACOBSEN LEOPOLDO Primary Care [...] Name Patient's Relationship to Policy Lai MELISSA [facility] ([facility]) MEDICARE ADVANTAGE [facility] ([facility]) Sep 11, 2015 [id number] [phone] OLEGARIO DUNN PATIENT [facility] ([facility]) MEDICARE ADVANTAGE [facility] ([facility]) Sep 11, 2015 [id number] OLEGARIO DUNN PATIENT MEDICARE (WNR) MEDICARE (M) PART A Feb 09, 2001 PART A [id number] 56A OLEGARIO DUNN PATIENT MEDICARE (WN) MEDICARE (M) PART B Feb 09, 2001 PART B [id number] 56A OLEGARIO DUNN PATIENT MEDICARE (WNR) MEDICARE (M) PART A Feb 09, 2001 PART A [id number] 56A OLEGARIO DUNN PATIENT MEDICARE (WN) MEDICARE (M) PART B Feb 09, 2001 PART B [id number] 56A OLEGARIO DUNN PATIENT Selected Encounter This section includes the information on record at [place] for the Encounter. Date/Time Encounter Type Encounter Description Reason Provider Source Jun 11, 2024 11:00 AM DEBRIDE NAIL 6 OR MORE PODIATRY ICD-10-CM I73.9 Peripheral vascular disease, unspecified CHARLEY QIU Sharda Encounter Template Text not used by [place] Assessments - Encounter Diagnoses This section includes the primary and secondary diagnoses documented for the Encounter. Date/Time Primary/Secondary Diagnosis Diagnosis Name Provider Source Jun 11, 2024 12:38 PM PRIMARY Peripheral vascular disease, unspecified CHARLEY QIU [place] [facility] [place] [facility] Jun 11, 2024 12:38 PM SECONDARY Ingrowing nail GAMAL QIUNIFER [place] [facility] [place] [facility] Jun 11, 2024 12:38 PM SECONDARY Nail dystrophy [facility] [place] [facility] Plan of Treatment: Future Appointments (+ 6 months) and Future Tests (+/- 45 days) The Plan of Treatment section includes future care activities for the patient from all [place] [facility] This section includes future appointments and future orders which are active, pending or scheduled. Future Appointments This section includes appointments that were scheduled to occur 6 months from the date of the Encounter, up to a maximum of 20 appointments. The data comes from all [place] treatment facilities. Appointment Date/Time Appointment Type Appointme nt Facility Name Jun 18, 2024 01:00 PM AMBULATORY - REHAB MEDICIN E [facility] [place] [facility] Jul 03, 2024 11:30 AM AMBULATORY - MEDICINE [facility] [place] [facility] Jul 09, 2024 07:30 AM AMBULATORY - NONE [facility] [place] [facility] Jul 12, 2024 10:00 AM AMBULATORY - NONE [facility] [place] [facility] Jul 26, 2024 08:00 AM AMBULATORY - MEDICINE [facility] [place] [facility] Aug 01, 2024 11:00 AM AMBULATORY - MEDICINE [place] [facility] [place] [facility] Sep 09, 2024 09:00 AM AMBULATORY - MEDICINE [place] [facility] [place] [facility] Sep 09, 2024 10:00 AM AMBULATORY - MEDICINE [facility] [place] [facility] Sep 12, 2024 09:00 AM AMBULATORY - REHAB MEDICIN E [facility] [place] [facility] Nov 07, 2024 02:00 PM AMBULATORY - MEDICINE [place] [facility] [place] [facility] Social History: Smoking Status (Most [...] took place. Date/Time Current Smoking Status Comment [facility] Mar 11, 2024 09:00 AM VA-TOBACCO FORMER USER [facility] [place] [facility] Tobacco Use History This section includes a history of the smoking, or tobacco-related health factors, that were collected on or before the date of the Encounter. The data comes from the [place] facility where the Encounter took place. Date/Time Smoking Status/Tobac co Use Comment Facility Mar 11, 2024 09:00 AM VA-TOBACCO QUIT 15 YRS OR MORE [facility] [place] [facility] Mar 06, 2023 09:00 AM VA-TOBACCO FORMER USER [facility] [place] [facility] Mar 06, 2023 09:00 AM VA-TOBACCO QUIT 15 YRS OR MORE [facility] [place] [facility] Feb 16, 2022 09:30 AM VA-TOBACCO FORMER USER [facility] [place] [facility] Feb 16, 2022 09:30 AM VA-TOBACCO QUIT 15 YRS OR MORE [facility] [place] [facility] Feb 09, 2021 09:00 AM VA-TOBACCO FORMER USER [facility] [place] [facility] Feb 09, 2021 09:00 AM VA-TOBACCO QUIT 15 YRS OR MORE [facility] [place] [facility] Jan 01, 2020 10:15 AM VA-TOBACCO FORMER USER [facility] [place] [facility] Jan 01, 2020 10:15 AM VA-TOBACCO QUIT 15 YRS OR MORE [facility] [place] [facility] Mar 12, 2018 08:56 AM VA-TOBACCO FORMER USER [facility] Mar 12, 2018 08:56 AM VA-TOBACCO QUIT 15 YRS OR MORE [facility] Mar 12, 2018 08:24 AM LIFETIME [facility]ACCO [facility] Mar 13, 2017 07:44 AM LIFETIME NON-TOBACCO USER [facility] Mar 11, 2016 07:54 AM QUIT TOBACCO USE > 7 YEARS AGO Quit in 1984 [facility] Aug 17, 2005 10:23 AM HISTORY OF SMOKING Vet states he quit in 1984 [facility] May 19, 2004 08:56 AM HISTORY OF SMOKING quit . [facility] May 19, 2003 [...] Mar 12, 2024 ADVANCE DIRECTIVE JENNIFFER DOAN [facility] Encounter Notes: All associated encounter notes This section contains the clinical notes associated to the Encounter. Date/Time Encounter Note(s) Provider Source Jun 11, 2024 12:33 PM NURSING OUTPATIENT NOTE: LOCAL TITLE: NURSING/SPECIALTY CLINIC NOTE STANDARD TITLE: NURSING OUTPATIENT NOTE DATE OF NOTE: JUN 11, 2024@12:33 ENTRY DATE: JUN 11, 2024@12:33:56 AUTHOR: CHARLEY QIU EXP COSIGNER: URGENCY: STATUS: COMPLETED [facility]ock [facility] for continued foot care. Pollock has a history of PVD and is unable to trim his/her own nails. Ambulates: [X]self [ ]wheelchair can transfer [ ]wheelchair cannot transfer [ ]without assistance [x ]with assistance of a cane Bilateral: Pedal pulses: Right Foot: Audiable with doppler Dorsalis Pedis - palpable [ ] non-palpable[x ] Posterior Tibial - palpable[ ] non-palpable[x ] Left Foot: Audiable with doppler Dorsalis Pedis - palpable [ ] non-palpable [x ] Posterior Tibial - palpable [ ] non-palpable[x ] Pedal sensation: Right Foot: [x ] Intact [ ] Absent out of 10 sites Left Foot: [x ] Intact [ ] Absent out of 10 sites Skin Temperature: [x ] Warm to warm, proximal to distal [ ] Warm to cool/cold, proximal to distal Pedal skin: [x ] Intact [x ] Dry [ ] Cracked [ ] Discolored Webspaces: [x ] Intact [x ] Clean [ ] Soiled [ ] Macerated [ ] Dry Nails: [x ] Thickened [ ] Elongated [x ] Dystrophic [ ] Discolored [ ] Fungal [ ] Incurvated [ ] Subungual debri Hyperkeratosis [ ] Yes, Locations: [x ] No Open lesions/wounds: [ ] Yes, Locations: [x ] No Amputations: [ ] Yes, Locations: [x ] No Edema present: ( x ) Yes Left leg 3+, right leg 1+ edema ( ) NO Podiatric Problem List: [ ] Diabetes mellitus [x ] Peripheral vascular disease [ ] Neuropathy [ ] Onychomycosis [x ] Dystrophic toenails [ ] Hyperkeratosis/calluses [x ] Xerosis/dry skin [x ] Other: In grown nail right hallux Treatment: [x ] Nails x 10 debrided in length and thickness without incident [ ] Hyperkeratotic lesions were grinded down with eletric sugar grinder and debrided without incidence. [x ]Patient education educated about proper foot care and encouraged to check feet daily for injuries and wounds [x ] Instructed to moisturize feet daily but not in-between toes Patient is to RTC in 2 months. /kathy/ CHARLEY QIU LPN LICENSED PRACTICAL NURSE Signed: 06/11/2024 12:38 Receipt Acknowledged By: 06/11/2024 13:23 /es/ BRANNON SKINNER DPM PODIATRY ATTENDING [facility]
--- OUTSIDE RECORDS SUMMARY | 2024-09-06 11:02 | XMS_ITS ---
Author Name [facility] [place] Address [address] [place] [id number] Care Team Providers Care Legal Compliance Officer Name Role Phone LEOPOLDO JACOBSEN Primary Care [...] Name Patient's Relationship to Policy Lai MELISSA [facility] ([facility]) MEDICARE ADVANTAGE [facility] ([facility]) Sep 11, 2015 [id number] FANNIE ANDERSENOLEGARIO Jung PATIENT [facility] ([facility]) MEDICARE ADVANTAGE [facility] ([facility]) Sep 11, 2015 [id number] [phone] OLEGARIO DUNN PATIENT MEDICARE (WN) MEDICARE () PART A Feb 09, 2001 PART A [id number] 56A OLEGARIO DUNN PATIENT MEDICARE (WN) MEDICARE () PART B Feb 09, 2001 PART B [id number] 56A OLEGARIO DUNN PATIENT MEDICARE (WN) MEDICARE () PART A Feb 09, 2001 PART A [id number] 56A OLEGARIO DUNN PATIENT MEDICARE ([facility]) MEDICARE () PART B Feb 09, 2001 PART B [id number] 56A OLEGARIO DUNN PATIENT Selected Encounter This section includes the information on record at [place] for the Encounter. Date/Time Encounter Type Encounter Description Reason Provider Source Jun 04, 2024 08:00 AM HEARING AID FITTING/CHECKIN G AUDIOLOGY ICD-10-CM Z46.1 Encounter for fitting and adjustment of hearing aid DEVORA VELAZQUEZ [facility] Encounter Template Text not used by [place] Assessments - Encounter Diagnoses This section includes the primary and secondary diagnoses documented for the Encounter. Date/Time Primary/Secondary Diagnosis Diagnosis Name Provider Source Jun 04, 2024 08:43 AM PRIMARY Encounter for fitting and adjustment of hearing aid DEVORA VELAZQUEZ [place] [facility] [place] [facility] Jun 04, 2024 08:43 AM SECONDARY Sensorineural hearing loss, bilateral DEVORA VELAZQUEZ [place] [facility] [place] [facility] Plan of Treatment: Future Appointments (+ 6 months) and Future Tests (+/- 45 days) The Plan of Treatment section includes future care activities for the patient from all [place] treatmentfacilities. This section includes future appointments and future orders which are active, pending or scheduled. Future Appointments This section includes appointments that were scheduled to occur 6 months from the date of the Encounter, up to a maximum of 20 appointments. The data comes from all [place] treatment facilities. Appointment Date/Time Appointment Type Appointme nt Facility Name Jun 11, 2024 11:00 AM AMBULATORY - MEDICINE [place] [facility] [place] [facility] Jun 18, 2024 01:00 PM AMBULATORY - REHAB MEDICIN E [facility] [place] [facility] Jul 03, 2024 11:30 AM AMBULATORY - MEDICINE [place] [facility] [place] [facility] Jul 09, 2024 07:30 AM AMBULATORY - NONE [facility] [place] [facility] Jul 12, 2024 10:00 AM AMBULATORY - NONE [facility] [place] [facility] Jul 26, 2024 08:00 AM AMBULATORY - MEDICINE [facility] [place] [facility] Aug 01, 2024 11:00 AM AMBULATORY - MEDICINE [place] [facility] [place] [facility] Sep 09, 2024 09:00 AM AMBULATORY - MEDICINE [facility] [place] [facility] Sep 09, 2024 10:00 AM AMBULATORY - MEDICINE [facility] [place] [facility] Sep 12, 2024 09:00 AM AMBULATORY - REHAB MEDICIN E [facility] [place] [facility] Nov 07, 2024 02:00 PM AMBULATORY - MEDICINE [facility] [place] [facility] Social History: Smoking Status (Most current) and Tobacco Use (All prior to encounter date) This section includes the most current, and the historical, smoking and tobacco- related health factors from the [place] facility where the Encounter took place. Current Smoking Status This section includes the most current smoking, or tobacco-related health factor, from the [place] facility where the Encounter took place. Date/Time Current Smoking Status Comment [facility] Mar 11, 2024 09:00 AM VA-TOBACCO FORMER USER [facility] [place] [facility] Tobacco Use History This section includes a history of the smoking, or tobacco-related health factors, that were collected on or before the date of the Encounter. The data comes from the [place] facility where the Encounter took place. Date/Time Smoking Status/Tobac co Use Comment Facility Mar 11, 2024 09:00 AM VA-TOBACCO QUIT 15 YRS OR MORE [facility] [place] [facility] Mar 06, 2023 09:00 AM VA-TOBACCO FORMER USER [facility] [place] [facility] Mar 06, 2023 09:00 AM VA-TOBACCO QUIT 15 YRS OR MORE [facility] [place] [facility] Feb 16, 2022 09:30 AM VA-TOBACCO FORMER USER [facility] [place] [facility] Feb 16, 2022 09:30 AM VA-TOBACCO QUIT 15 YRS OR MORE [facility] [place] [facility] Feb 09, 2021 09:00 AM VA-TOBACCO FORMER USER [facility] [place] [facility] Feb 09, 2021 09:00 AM VA-TOBACCO QUIT 15 YRS OR MORE [facility] [place] [facility] Jan 01, 2020 10:15 AM VA-TOBACCO FORMER USER [facility] [place] [facility] Jan 01, 2020 10:15 AM VA-TOBACCO QUIT 15 YRS OR MORE [facility] [place] [facility] Mar 12, 2018 08:56 AM [facility]ACCO [facility] Mar 12, 2018 08:56 AM VA-TOBACCO QUIT 15 YRS OR MORE [facility] Mar 12, 2018 08:24 AM LIFETIME NON-[facility]BACCO [facility] Mar 13, 2017 07:44 AM LIFETIME NON[facility]BACCO [facility] Mar 11, 2016 07:54 AM QUIT TOBACCO USE > 7 YEARS AGO Quit in 1984 [facility] Aug 17, 2005 10:23 AM HISTORY OF SMOKING Vet states he quit in 1984 [facility] May 19, 2004 08:56 AM HISTORY OF SMOKING quit . [facility] May 19, 2003 09:15 AM HISTORY OF SMOKING quit 10yrs ago [facility] Jun 06, 2002 08:13 AM HISTORY OF SMOKING quit 1978 [facility] Jun 06, 2002 08:13 AM QUIT TOBACCO USE > 7 YEARS AGO [facility] Apr 30, 2001 04:07 PM HISTORY OF SMOKING quit - 1984 [facility] Advance Directives: All historical and current Section Date Range: From patient's date of to the date document was created. This section includes ALL of a patient's completed or amended [place] Advance and Rescinded Directives. The entries below indicate that a directive exists for the patient, but an actual copy is not included with this document. The data comes from all [place] facilities. Date Advance Directives Provider Source Mar 12, 2024 ADVANCE DIRECTIVE [facility]NIFFER [facility] Encounter Notes: All associated encounter notes This section contains the clinical notes associated to the Encounter. Date/Time Encounter Note(s) Provider Source Jun 04, 2024 07:44 AM AUDIOLOGY E & M NO TE: [facility] TITLE: AUDIOLOGY CLINIC STANDARD TITLE: AUDIOLOGY E & M NOTE DATE OF NOTE: JUN 04, 2024@07:44 ENTRY DATE: JUN 04, 2024@07:44:30 AUTHOR: DEVORA VELAZQUEZ COSIGNER: URGENCY: STATUS: COMPLETED Dx CODE: Z46.1-Encounter for Fitting/Adjusting Hearing Aid(s); H90.3- Sensorineural Hearing Loss, Bilateral APPOINTMENT TYPE: Hearing Aid Check HISTORY/BACKGROUND: Femi was seen for a hearing aid follow-up appointment, unaccompanied. He was fit on 05/07/24 with LYDIA DICKSON ITCs. He scheduled today's appointment noting hearing aids are chirping . He stated that his daughter heard the hearing aids chirping while they were in the case. He stated that batteries were not in the hearing aids. He was advised that the hearing aids will not make noise if there are no batteries in them, so either it was his other hearing aids in his ears chirping or the batteries were still engaged in the hearing aids in the case. Femi noted that he hasn't been wearing the new hearing aids, only his 2020 Dickson ITCs. He states that there is too much noise from the new hearing aids. Through further discussion it was determined that feedback was not the concern, but he felt the hearing aids were overall too loud and he couldn't tolerate it. Femi also noted that the telephone ear pads he was provided at his last visit did not work for him and he returned them today. Compared settings from the 2020 aids. The 2020 aids were programmed to NAL-NL2 and the 2023 aids were programmed to NAL-NL1. Reprogrammed the 2023 aids to NAL-NL2. He notes that he prefers the VC buttons remain unsynced. He noted immediate improvement in sound quality and feedback was reduced. He will try these settings and return for adjustments as needed. PLAN/RECOMMENDATION(S): 1. Follow up as needed. Patient Education Education provided on the following topics: Hearing aids Education provided to: P Response to Education: VU [place] Patient P Family F Significant Other SO Verbalizes Understanding VU Returns Demonstration RD Performs Independently PI Lacks Comprehension LC Refused Education RE Not Applicable NA /kathy/ ROLANDO HILL, [facility]-A STAFF TENTMAKER Signed: 06/04/2024 08:44 DEVORA VELAZQUEZ [facility]
--- OUTSIDE RECORDS SUMMARY | 2024-09-06 11:03 | XMS_ITS | Encounter Summary ---
Author Name [place] Address [address] [place] [address] Care Team Providers Care Engineering Design Manager Name Role Phone JACOBSEN LEOPOLDO Primary Care [...] Name Patient's Relationship to Policy Lai MELISSA [facility] ([facility]) MEDICARE ADVANTAGE [facility] ([facility]) Sep 11, 2015 [id number] [phone] OLEGARIO DUNN PATIENT [facility] ([facility]) MEDICARE ADVANTAGE [facility] ([facility]) Sep 11, 2015 [id number] OLEGARIO DUNN PATIENT MEDICARE (WNR) MEDICARE (M) PART A Feb 09, 2001 PART A [id number] OLEGARIO DUNN PATIENT MEDICARE (WN) MEDICARE (M) PART B Feb 09, 2001 PART B [id number] [phone] OLEGARIO DUNN PATIENT MEDICARE (WNR) MEDICARE () PART A Feb 09, 2001 PART A [id number] [place] SKI,OLEGARIO W PATIENT MEDICARE (WNR) MEDICARE (M) PART B Feb 09, 2001 PART B [id number] 56A OLEGARIO DUNN PATIENT Selected Encounter This section includes the information on record at [place] for the Encounter. Date/Time Encounter Type Encounter Description Reason Provider Source Nov 29, 2023 10:15 AM CMPTR OPHTH IMG OPTIC NERVE OPTOMETRY ICD-10-CM H40.1411 Capslr glaucoma w/pseudxf lens, right eye, mild stage EUSEBIO ADLER Sharda Encounter Template Text not used by [place] Assessments - Encounter Diagnoses This section includes the primary and secondary diagnoses documented for the Encounter. Date/Time Primary/Secondary Diagnosis Diagnosis Name Provider Source Nov 29, 2023 10:28 AM PRIMARY Capslr glaucoma w/pseudxf lens, right eye, mild stage EUSEBIO ADLER [place] [facility] [place] [facility] Nov 29, 2023 10:28 AM SECONDARY Pigmentary glaucoma, left eye, mild stage EUSEBIO ADLER [place] [facility] [place] [facility] Plan of Treatment: Future Appointments (+ 6 months) and Future Tests (+/- 45 days) The Plan of Treatment section includes future care activities for the patient from all [place] treatmentfanovant healthities. This section includes future appointments and future orders which are active, pending or scheduled. Future Appointments This section includes appointments that were scheduled to occur 6 months from the date of the Encounter, up to a maximum of 20 appointments. The data comes from all [place] treatment facilities. Appointment Date/Time Appointment Type Appointme nt Facility Name Dec 20, 2023 02:00 PM AMBULATORY - MEDICINE [place] C [facility] [place] [facility] Jan 03, 2024 10:45 AM AMBULATORY - MEDICINE [place] C [facility] [facility] February 02, 2024 03:00 PM AMBULATORY - MEDICINE [place] C [facility] [facility] Feb 14, 2024 01:30 PM AMBULATORY - REHAB MEDICIN E [facility] [place] [facility] Mar 11, 2024 09:00 AM AMBULATORY - MEDICINE [place] C [facility] [facility] Mar 12, 2024 01:30 PM AMBULATORY - REHAB MEDICIN E [facility] [place] [facility] Mar 22, 2024 02:30 PM AMBULATORY - REHAB MEDICIN E [facility] [place] [facility] Mar 26, 2024 02:00 PM AMBULATORY - REHAB MEDICIN E [facility] [place] [facility] Mar 28, 2024 11:30 AM AMBULATORY - MEDICINE VA C [facility] [place] [facility] Mar 29, 2024 02:30 PM AMBULATORY - REHAB MEDICIN E [facility] [place] [facility] Apr 04, 2024 02:00 PM AMBULATORY - REHAB MEDICIN E [facility] [place] [facility] Apr 11, 2024 01:00 PM AMBULATORY - REHAB MEDICIN E [facility] [place] [facility] Apr 11, 2024 02:00 PM AMBULATORY - REHAB MEDICIN E [facility] [place] [facility] Apr 23, 2024 02:00 PM AMBULATORY - REHAB MEDICIN E [facility] [place] [facility] Apr 29, 2024 02:00 PM AMBULATORY - REHAB MEDICIN E [facility] [place] [facility] May 06, 2024 01:30 PM AMBULATORY - REHAB MEDICIN E [facility] [place] [facility] May 07, 2024 01:00 PM AMBULATORY - REHAB MEDICIN E [facility] [place] [facility] May 08, 2024 09:45 AM AMBULATORY - REHAB MEDICIN E [facility] [place] [facility] May 15, 2024 01:30 PM AMBULATORY - REHAB MEDICIN E [facility] [place] [facility] May 23, 2024 08:00 AM AMBULATORY - REHAB MEDICIN E [facility] [place] [facility] Social History: Smoking Status (Most current) and Tobacco Use (All prior to encounter date) This section includes the most current, and the historical, smoking and tobacco- related health factors from the [place] facility where the Encounter took place. Current Smoking Status This section includes the most current smoking, or tobacco-related health factor, from the [place] facility where the Encounter took place. Date/Time Current Smoking Status Comment Facil caesar Mar 06, 2023 09:00 AM VA-TOBACCO FORMER USER [place] [facility] Tobacco Use History This section includes a history of the smoking, or tobacco-related health factors, that were collected on or before the date of the Encounter. The data comes from the [facility] where the Encounter took place. Date/Time Smoking Status/Tobac co Use Comment Facility Mar 06, 2023 09:00 AM VA-TOBACCO QUIT 15 YRS OR MORE [place] [facility] [place] [facility] Feb 16, 2022 09:30 AM VA-TOBACCO FORMER USER [place] [facility] [place] [facility] Feb 16, 2022 09:30 AM VA-TOBACCO QUIT 15 YRS OR MORE [place] [facility] [place] [facility] Feb 09, 2021 09:00 AM VA-TOBACCO FORMER USER [place] [facility] [place] [facility] Feb 09, 2021 09:00 AM VA-TOBACCO QUIT 15 YRS OR MORE [place] [facility] [place] [facility] Jan 01, 2020 10:15 AM VA-TOBACCO FORMER USER [place] [facility] [place] [facility] Jan 01, 2020 10:15 AM VA-TOBACCO QUIT 15 YRS OR MORE [place] [facility] [place] [facility] Mar 12, 2018 08:56 AM VA-TOBACCO FORMER USER [place] [facility] [place] [facility] Mar 12, 2018 08:56 AM VA-TOBACCO QUIT 15 YRS OR MORE [place] [facility] [place] [facility] Mar 12, 2018 08:24 AM LIFETIME NON-TOBACCO USER [place] [facility] [place] [facility] Mar 13, 2017 07:44 AM LIFETIME NON-TOBACCO USER [place] [facility] [place] [facility] Mar 11, 2016 07:54 AM QUIT TOBACCO USE > 7 YEARS AGO Quit in 1984 [place] [facility] [place] [facility] Aug 17, 2005 10:23 AM HISTORY OF SMOKING Vet states he quit in 1984 [place] [facility] [facility] May 19, 2004 08:56 AM HISTORY OF SMOKING quit . [place] [facility] [place] [facility] May 19, 2003 09:15 AM HISTORY OF SMOKING quit 10yrs ago [place] [facility] [place] [facility] Jun 06, 2002 08:13 AM HISTORY OF SMOKING quit 1979 [place] [facility] [place] [facility] Jun 06, 2002 08:13 AM QUIT TOBACCO USE > 7 YEARS AGO [facility] Apr 30, 2001 04:07 PM HISTORY OF SMOKING quit - 1984 [facility] Advance Directives: All historical and current Section Date Range: From patient's date of to the date document was created. This section includes ALL of a patient's completed or amended [place] Advance and Rescinded Directives. The entries below indicate that a directive exists for the patient, but an actual copy is not included with this document. The data comes from all [place] facilities. Date Advance Directives Provider Source Mar 12, 2024 ADVANCE DIRECTIVE JENNIFFER DOAN [facility] Encounter Notes: All associated encounter notes This section contains the clinical notes associated to the Encounter. 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, Ons 08/26/2022 LEOPOLDO JACOBSEN COVID-19 U07.1, Onset 07/14/2022 LEOPOLDO JACOBSEN Pain in lower limb M79.606, Onset 0 05/23/2022 LEOPOLDO JACOBSEN Edema R60.9, Onset 05/17/2022 LEOPOLDO JACOBSEN Insomnia (SCT [id number]) G47.00, On 03/29/2022 LEOPOLDO JACOBSEN Microscopic hematuria R31.29, Onset 08/11/2020 LEOPOLDO JACOBSEN Atrial flutter I48.92, Onset / 03/10/2020 LEOPOLDO JACOBSEN Benign Prostatic Hypertrophy Withou 02/11/2019 LEOPOLDO JACOBSEN Osteopenia M89.9, Onset 10/03/2018 02/09/2021 LEOPOLDO JACOBSEN ENCOUNTER FOR SCREENING FOR DENTAL 05/23/2018 JAKI HESTER OTHER SPECIFIED DISORDERS OF TEETH 05/23/2018 JAKI HESTER Excessive attrition of teeth K03.0 05/23/2018 JAKI HESTER Otalgia J06.9 02/23/2018 MED MATSON 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 07/15/2008 EBONY BERMEO OD Hyperlipidemia 272.4 04/25/2008 ADRIÁN MORGAN colonoscopy and endoscopy done on o 07/11/2007 GANESH ERICKSON JAWLUCAS Gout (SNOMED CT [id number]) M10.9 10/30/2015 0 Knee: arthralgia * (ICD-9-CM 719.46 08/17/2005 GANESH ERICKSON Male erectile disorder (ICD-9-CM 30 11/19/2004 DOMENICA MONROY Essential hypertension 401.9 01/23/2009 GANESH ERICKSON JAWLUCAS Active Medications ([facility]): Active Outpatient Medications (including Supplies): Active Outpatient Medications Status = 1) BRIMONIDINE 0.2%/BRINZOLAMID 1% OPH SUSP INSTILL 1 ACTIVE DROP INTO EACH EYE TWICE DAILY 2) IBUPROFEN 200MG TAB TAKE ONE TABLET BY MOUTH TWICE ACTIVE DAILY NEEDED TAKE WITH FOOD; FOR PAIN/INFLAMMATION/SWELLI NG Pending Outpatient Medications Status = 1) BRIMONIDINE 0.2%/BRINZOLAMID 1% OPH SUSP INSTILL 1 PENDING DROP INTO EACH EYE TWICE DAILY Active Non-VA Medications Status = 1) Non-VA AMLODIPINE BESYLATE 10MG TAB 10MG BY MOUTH ACTIVE EVERY DAY 2) Non-VA CHOLECALCIF 50MCG (D3-2,000UNIT) TAB 100MCG BY ACTIVE MOUTH ONCE DAILY 3) Non-VA MULTIVITAMIN/MINERALS CAP/TAB 1 TABLET BY ACTIVE MOUTH EVERY DAY 4) Non-VA TAMSULOSIN HCL 0.4MG CAP 0.4MG BY MOUTH AT ACTIVE BEDTIME 5) Non-VA TROSPIUM CL 20MG TAB 20MG BY MOUTH TWICE DAILY ACTIVE 8 Total Medications Active Medications (non-VA prescribed): Allergies: METOPROLOL, FELODIPINE, NEOMYCIN, LATEX, LATANOPROST, GEMTESA S: Patient with mixed mild mixed mechanism glaucoma is in for repeat OCT. O: Neuroretinal rim and nerve fiber layer thickness OCT was run by sleep lab technician. A: No neuroretinal rim or nerve fiber layer thinning was noted on scans today and OD average relative nerve fiber layer thickness is remaining stable at 72 ??m and OS 69 ??m. History of mild mixed mechanism glaucoma OU. P: Follow-up is scheduled for today. /kathy/ EUSEBIO ADLER OD STAFF MEDICAL STAFF COORDINATOR Signed: 11/29/2023 10:25 EUSEBIO ADLER [place] [facility]
--- OUTSIDE RECORDS SUMMARY | 2024-09-06 11:03 | XMS_ITS | Encounter Summary ---
Author Name [facility] [place] [facility] [place] Address [address] [place] [address] Care Team Providers Care Project Geophysicist Name Role Phone ERASMO CARLOS Primary Care Provider Unavailabl e Insurance Providers: [...] Name Patient's Relationship to Policy Lai MELISSA [facility] ([facility]) MEDICARE ADVANTAGE [facility] ([facility]) Sep 11, 2015 [id number] [phone] MOONJung GANESHOLEGARIO Jung PATIENT [facility] ([facility]) MEDICARE ADVANTAGE [facility] ([facility]) Sep 11, 2015 [id number] OLEGARIO DUNN PATIENT MEDICARE (WN) MEDICARE () PART A Feb 09, 2001 PART A [id number] [phone] OLEGARIO DNUN PATIENT MEDICARE (WN) MEDICARE () PART B Feb 09, 2001 PART B [id number] OLEGARIO DUNN PATIENT MEDICARE (WN) MEDICARE () PART A Feb 09, 2001 PART A [id number] OLEGARIO DUNN PATIENT MEDICARE (WNR) MEDICARE (M) PART B Feb 09, 2001 PART B [id number] OLEGARIO DUNN PATIENT Selected Encounter This section includes the information on record at [place] for the Encounter. Date/Time Encounter Type Encounter Description Reason Pro vider Source Nov 09, 2023 11:07 AM Outpatient Encounter [facility]ITY [facility]ARE CONSULT IHE Encounter Template Text not used by [facility] Plan of Treatment: Future Appointments (+ 6 months) and Future Tests (+/- 45 days) The Plan of Treatment section includes future care activities for the patient from all [place] treatmentfacilities. This section includes future appointments and future orders which are active, pending or scheduled. Future Appointments This section includes appointments that were scheduled to occur 6 months from the date of the Encounter, up to a maximum of 20 appointments. The data comes from all [place] treatment facilities. Appointment Date/Time Appointment Type Appointme nt Facility Name Nov 29, 2023 10:00 AM AMBULATORY - MEDICINE [facility] Nov 29, 2023 10:15 AM AMBULATORY - MEDICINE [facility] Nov 29, 2023 10:30 AM AMBULATORY - MEDICINE [facility] Dec 20, 2023 02:00 PM AMBULATORY - MEDICINE [facility] Jan 03, 2024 10:45 AM AMBULATORY - MEDICINE [facility] February 02, 2024 03:00 PM AMBULATORY - MEDICINE [facility] Feb 14, 2024 01:30 PM AMBULATORY - REHAB MEDICIN E [facility] Mar 11, 2024 09:00 AM AMBULATORY - MEDICINE [facility] Mar 12, 2024 01:30 PM AMBULATORY - REHAB MEDICIN E [facility] Mar 22, 2024 02:30 PM AMBULATORY - REHAB MEDICIN E [facility] Mar 26, 2024 02:00 PM AMBULATORY - REHAB MEDICIN E [facility] Mar 28, 2024 11:30 AM AMBULATORY - MEDICINE [facility] Mar 29, 2024 02:30 PM AMBULATORY - REHAB MEDICIN E [facility] Apr 04, 2024 02:00 PM AMBULATORY - REHAB MEDICIN E [facility] Apr 11, 2024 01:00 PM AMBULATORY - REHAB MEDICIN E [facility] Apr 11, 2024 02:00 PM AMBULATORY - REHAB MEDICIN E [facility] Apr 23, 2024 02:00 PM AMBULATORY - REHAB MEDICIN E [facility] Apr 29, 2024 02:00 PM AMBULATORY - REHAB MEDICIN E [facility] May 06, 2024 01:30 PM AMBULATORY - REHAB MEDICIN E [facility] May 07, 2024 01:00 PM AMBULATORY - REHAB MEDICIN E [facility] Social History: Smoking Status (Most current) and Tobacco Use (All prior to encounter date) This section includes the most current, and the historical, smoking and tobacco- related health factors from the [place] facility where the Encounter took place. Current Smoking Status This section includes the most current smoking, or tobacco-related health factor, from the [place] facility where the Encounter took place. Date/Time Current Smoking Status Comment [facility] Mar 06, 2023 09:00 AM VA-TOBACCO QUIT 15 YRS OR MORE [facility] Tobacco Use History This section includes a history of the smoking, or tobacco-related health factors, that were collected on or before the date of the Encounter. The data comes from the [place] facility where the Encounter took place. Date/Time Smoking Status/Tobac co Use Comment Facility Mar 06, 2023 09:00 AM VA-TOBACCO QUIT 15 YRS OR MORE [facility] Feb 16, 2022 09:30 AM VA-TOBACCO FORMER USER [facility] Feb 16, 2022 09:30 AM VA-TOBACCO QUIT 15 YRS OR MORE [facility] Feb 09, 2021 09:00 AM VA-TOBACCO FORMER USER [facility] Feb 09, 2021 09:00 AM [facility]AC[facility]IT 15 [facility] Jan 01, 2020 10:15 AM [facility]AC[facility] Jan 01, 2020 10:15 AM VA-TOBACCO QUIT 15 [facility]RS OR [facility] Mar 12, 2018 08:56 AM VA-TOBACCO [facility] Mar 12, 2018 08:56 AM VA-TOBACCO QUIT 15 YRS OR [facility] Mar 12, 2018 08:24 AM LIFETIME NON-TOBACCO [facility] Mar 13, 2017 07:44 AM LIFETIME NON-TOBACCO [facility] Mar 11, 2016 07:54 AM QUIT TOBACCO USE > 7 YEARS AGO Quit in 1984 [facility] Aug 17, 2005 10:23 AM HISTORY OF SMOKING Vet states he quit in 1984 [facility] May 19, 2004 08:56 AM HISTORY OF SMOKING quit . [facility] May 19, 2003 09:15 AM HISTORY OF SMOKING quit 10yrs ago [facility] Jun 06, 2002 08:13 AM HISTORY OF SMOKING quit 1978 [facility] Jun 06, 2002 08:13 AM QUIT TOBACCO USE > 7 YEARS AGO [facility] Apr 30, 2001 04:07 PM HISTORY OF SMOKING quit - 1984 [facility] Advance Directives: All historical and current Section Date Range: From patient's date of to the date document was created. This section includes ALL of a patient's completed or amended [place] Advance and Rescinded Directives. The entries below indicate that a directive exists for the patient, but an actual copy is not included with this document. The data comes from all [place] facilities. Date Advance Directives Provider Source Mar 12, 2024 [facility] Encounter Notes: All associated encounter notes This section contains the clinical notes associated to the Encounter. Date/Time Encounter Note(s) Provider Source Nov 09, 2023 02:41 PM ADDENDUM: LOCAL TITLE: Addendum STANDARD TITLE: ADDENDUM DATE OF NOTE: NOV 09, 2023@14:41:59 ENTRY DATE: NOV 09, 2023@14:42 AUTHOR: PORFIRIO CARRIZALES COSIGNER: URGENCY: STATUS: COMPLETED Full encounter with [facility] 11/08/2023 sent to [facility] for scanning Excerpted here from [facility] CIS: Result type:Vascular Surgery Note OfficeResult date:11/08/2023 15:56Show Details Patient: EUSEBIO BELL Age: 88 Years Sex: Male : 1935 Chief Complaint Leg swelling x 1month History of Present Illness Mr. Bell is an 88 year old male who saw Dr. Woodruff back in February 2023 for leg swelling. He had a previous venous insufficiency study, with some reflux of both his superficial and deep venous system. At that time, it was decided to not do an ablation procedure given his deep venous reflux, it may not resolve the swelling completely. He states that his legs have been swelling more for the past month and has become more red. He states that he continues to use the Tactile pump daily and elevate his legs, to what sounds like to waist level. He states that he was told not to wear the compression stockings but instead wears knee high socks. He denies any history of known DVTs, nonhealing wounds, or venous procedures. ......................... ........... Assessment/Plan 1. Leg swelling On exam, the patient does have significant leg swelling with left greater than the right. He does have erythema to both lower extremities with the left being more swollen than the right. The left leg does have areas of induration to the anterior link. 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 Based on Dr. Woodruff's previous visit with the patient, he did discuss an ablation procedure to help with the leg swelling, however, it was discussed that it would only help with some of the swelling given his deep venous reflux and it would not resolve all the swelling. I discussed this again with the patient to see if he would be interested in a procedure, however, he is not interested and would like to continue conservative treatment. I believe this is reasonable given the patient's age and evidence of deep venous reflux. On discussion, it appears that the patient is confused and states that he was told not to wear compression, however, he does have compression stockings at home that he occasionally wears. He is compliant with tactile medical pump which I advised that he can increase the compression on that to help with the leg swelling. I educated the patient that is important for him to wear the compression stockings that were previously prescribed to him and put them on in the morning and take them off at night, elevate his legs above his waist level when he is in a recliner, and to eat a low-salt diet. From a vascular standpoint there is not much else that I can offer but good education about compression and swelling maintenance as well as reduction. I advised the patient that he can follow-up in 6 months to see how his legs are doing. He can call sooner if needed. The patient does have a palpable DP pulse on the right foot, however, he has biphasic Doppler signals to the left foot. He is asymptomatic and does not complain of any claudication symptoms at this time so I do not believe that he needs any further testing given his age and lack of symptoms. If he develops any claudication symptoms, I believe that we can order ABIs in the future. 2. Cellulitis Given the evidence of erythema to more so the left rather than the right lower extremity, I suspect the patient may have some mild cellulitis. I gave the patient a prescription for doxycycline and advised him to take this as ordered to help improve the erythema. Ordered: Doxycycline, 1 capsule = 100 mg, By Mouth, 2 times a day, for 10 days, # 20 capsule, 0 Refills, Acute 11/18/23 15:37:00 EST, 11/08/23 15:37:00 EST, [facility], Partial fill upon patient request if the prescription is for a schedule II opioid drug., 173, cm, 0... Follow-Up Appointments With When Contact Information Nieves June NP In 6 months Additional Instructions: leg swelling follow up /kathy/ JAN SUAREZ Nurse Practitioner Signed: 11/09/2023 14:43 Receipt Acknowledged By: 11/09/2023 14:47 /kathy/ Erasmo Carlos MD Staff Physician === --- Original Document --- 11/09/23 ADMINISTRATIVE NOTE: [place] is being followed by [facility], (prior auth has ) [place] contacted [facility] stating he describes his left leg as being very very big , hard to touch with a bumpy texture. (Call center note info) Provisional Diagnosis: Peripheral Vascular Disease, Unspecified(ICD-10-CM I73.9) [facility] was able to see the on 11/08/2023 @3:00 PM If in agreement please submit a new community care vascular surgery consult to authorize this visit. /tesfaye POLLOCK [employer] OFFICER Signed: 11/09/2023 11:12 Receipt Acknowledged By: 11/09/2023 12:58 /tesfaye Carlos MD Staff Physician 11/09/2023 13:05 /es/ Sonali Arana RN, BSN Primary Care 11/09/2023 14:29 /kathy/ JAN SUAREZ Nurse Practitioner 11/09/2023 ADDENDUM STATUS: COMPLETED I discussed with patient for 10 minutes. He was seen at [facility] yesterday for evaluation of this issue. It is unclear to the patient whether he was seen by a physician or nurse practitioner. Community care consult ordered. /tesfaye Carlos MD Staff Physician Signed: 11/09/2023 12:58 PORFIRIO CARRIZALES [facility] Nov 09, 2023 11:07 AM ADMINISTRATIVE NOTE: LOCAL TITLE: ADMINISTRATIVE NOTE STANDARD TITLE: ADMINISTRATIVE NOTE DATE OF NOTE: NOV 09, 2023@11:07 ENTRY DATE: NOV 09, 2023@11:08:02 AUTHOR: MABLE POLLOCK EXP COSIGNER: URGENCY: STATUS: COMPLETED ADMINISTRATIVE NOTE Has ADDENDA [place] is being followed by [facility], (prior auth has ) contacted [facility] stating he describes his left leg as being very very big , hard to touch with a bumpy texture. (Call center note info) Provisional Diagnosis: Peripheral Vascular Disease, Unspecified(ICD-10-CM I73.9) [facility] was able to see the [place] on 11/08/2023 @3:00 PM If in agreement please submit a new community care vascular surgery consult to authorize this visit. /kathy/ MABLE POLLOCK MEDICAL ADMINISTRATION OFFICER Signed: 11/09/2023 11:12 Receipt Acknowledged By: 11/09/2023 12:58 /es/ Erasmo Carlos MD Staff Physician 11/09/2023 13:05 /es/ Sonali Arana RN, BSN Primary Care 11/09/2023 14:29 /es/ JAN SUAREZ Nurse Practitioner 11/09/2023 ADDENDUM STATUS: COMPLETED I discussed with patient for 10 minutes. He was seen at [facility] yesterday for evaluation of this issue. It is unclear to the patient whether he was seen by a physician or nurse practitioner. Community care consult ordered. /kathy/ Erasmo Carlos MD Staff Physician Signed: 11/09/2023 12:58 11/09/2023 ADDENDUM STATUS: COMPLETED Full encounter with [facility] 11/08/2023 sent to [facility] for scanning Excerpted here from [facility] CIS: Result type:Vascular Surgery Note OfficeResult date:11/08/2023 15:56Show Details Patient: EUSEBIO BELL Age: 88 Years Sex: Male : 1935 Chief Complaint Leg swelling x 1month History of Present Illness Mr. Bell is an 88 year old male who saw Dr. Woodruff back in February 2023 for leg swelling. He had a previous venous insufficiency study, with some reflux of both his superficial and deep venous system. At that time, it was decided to not do an ablation procedure given his deep venous reflux, it may not resolve the swelling completely. He states that his legs have been swelling more for the past month and has become more red. He states that he continues to use the Tactile pump daily and elevate his legs, to what sounds like to waist level. He states that he was told not to wear the compression stockings but instead wears knee high socks. He denies any history of known DVTs, nonhealing wounds, or venous procedures. ......................... ........... Assessment/Plan 1. Leg swelling On exam, the patient does have significant leg swelling with left greater than the right. He does have erythema to both lower extremities with the left being more swollen than the right. The left leg does have areas of induration to the anterior link. 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 Based on Dr. Woodruff's previous visit with the patient, he did discuss an ablation procedure to help with the leg swelling, however, it was discussed that it would only help with some of the swelling given his deep venous reflux and it would not resolve all the swelling. I discussed this again with the patient to see if he would be interested in a procedure, however, he is not interested and would like to continue conservative treatment. I believe this is reasonable given the patient's age and evidence of deep venous reflux. On discussion, it appears that the patient is confused and states that he was told not to wear compression, however, he does have compression stockings at home that he occasionally wears. He is compliant with tactile medical pump which I advised that he can increase the compression on that to help with the leg swelling. I educated the patient that is important for him to wear the compression stockings that were previously prescribed to him and put them on in the morning and take them off at night, elevate his legs above his waist level when he is in a recliner, and to eat a low-salt diet. From a vascular standpoint there is not much else that I can offer but good education about compression and swelling maintenance as well as reduction. I advised the patient that he can follow-up in 6 months to see how his legs are doing. He can call sooner if needed. The patient does have a palpable DP pulse on the right foot, however, he has biphasic Doppler signals to the left foot. He is asymptomatic and does not complain of any claudication symptoms at this time so I do not believe that he needs any further testing given his age and lack of symptoms. If he develops any claudication symptoms, I believe that we can order ABIs in the future. 2. Cellulitis Given the evidence of erythema to more so the left rather than the right lower extremity, I suspect the patient may have some mild cellulitis. I gave the patient a prescription for doxycycline and advised him to take this as ordered to help improve the erythema. Ordered: Doxycycline, 1 capsule = 100 mg, By Mouth, 2 times a day, for 10 days, # 20 capsule, 0 Refills, Acute 11/18/23 15:37:00 EST, 11/08/23 15:37:00 EST, [facility], Partial fill upon patient request if the prescription is for a schedule II opioid drug., 173, cm, 0... Follow-Up Appointments With When Contact Information Nieves June NP In 6 months Additional Instructions: leg swelling follow up /kathy/ JAN SUAREZ Nurse Practitioner Signed: 11/09/2023 14:43 Receipt Acknowledged By: 11/09/2023 14:47 /es/ Erasmo Carlos MD Staff Physician MABLE POLLOCK [facility]
--- OUTSIDE RECORDS SUMMARY | 2024-09-06 11:03 | XMS_ITS | Encounter Summary ---
Author Name [facility] [place] Address [address] [place] [id number] Care Team Providers Care Medical Editor Name Role Phone JACOBSEN LEOPOLDO Primary Care [...] Name Patient's Relationship to Policy Lai MELISSA [facility] ([place] MEDICARE ADVANTAGE [facility] ([place]) Sep 11, 2015 [id number] PERRILORI GANESHOLEGARIO Jung PATIENT [facility] ([place]) MEDICARE ADVANTAGE [facility] ([place]) Sep 11, 2015 [id number] OLEGARIO DUNN PATIENT MEDICARE ([place]) MEDICARE (M) PART A Feb 09, 2001 PART A [id number] 56A OLEGARIO DUNN PATIENT MEDICARE ([place]NR) MEDICARE (M) PART B Feb 09, 2001 PART B [id number] [phone] OLEGARIO DUNN PATIENT MEDICARE ([place]NR) MEDICARE (M) PART A Feb 09, 2001 PART A [id number] 56A OLEGARIO DUNN PATIENT MEDICARE (WN) MEDICARE (M) PART B Feb 09, 2001 PART B [id number] 56A OLEGARIO DUNN PATIENT Selected Encounter This section includes the information on record at [place] for the Encounter. 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 Date/Time Primary/Secondary Diagnosis Diagnosis Name Provider Source Nov 29, 2023 10:34 AM PRIMARY Pigmentary glaucoma, left eye, mild stage EUSEBIO ADLER [place] [facility] [place] [facility] Nov 29, 2023 10:34 AM SECONDARY Capslr glaucoma w/pseudxf lens, right eye, mild stage EUSEBIO ADLER [place] [facility] [place] [facility] Nov 29, 2023 10:34 AM SECONDARY Presence of intraocular lens EUSEBIO ADLER [place] [facility] [facility] Nov 29, 2023 10:34 AM SECONDARY Puckering of macula, bilateral EUSEBIO ADLER [facility] [place] [facility] Plan of Treatment: Future Appointments (+ 6 months) and Future Tests (+/- 45 days) The Plan of Treatment section includes future care activities for the patient from all [place] treatmentfacilities. This section includes future appointments and future orders which are active, pending or scheduled. Future Appointments This section includes appointments that were scheduled to occur 6 months from the date of the Encounter, up to a maximum of 20 appointments. The data comes from all [place] treatment facilities. Appointment Date/Time Appointment Type Appointme nt Facility Name Dec 20, 2023 02:00 PM AMBULATORY - MEDICINE [place] [facility] [facility] Jan 03, 2024 10:45 AM AMBULATORY - MEDICINE [place] [facility] [place] [facility] February 02, 2024 03:00 PM AMBULATORY - MEDICINE [place] [facility] [place] [facility] Feb 14, 2024 01:30 PM AMBULATORY - REHAB MEDICIN E [facility] [place] [facility] Mar 11, 2024 09:00 AM AMBULATORY - MEDICINE [facility] [place] [facility] Mar 12, 2024 01:30 PM AMBULATORY - REHAB MEDICIN E [facility] [place] [facility] Mar 22, 2024 02:30 PM AMBULATORY - REHAB MEDICIN E [facility] [place] [facility] Mar 26, 2024 02:00 PM AMBULATORY - REHAB MEDICIN E [facility] [place] [facility] Mar 28, 2024 11:30 AM AMBULATORY - MEDICINE [place] [facility] [place] [facility] Mar 29, 2024 02:30 PM AMBULATORY - REHAB MEDICIN E [facility] [place] [facility] Apr 04, 2024 02:00 PM AMBULATORY - REHAB MEDICIN E [place] [facility] [place] [facility] Apr 11, 2024 01:00 PM AMBULATORY - REHAB MEDICIN E [place] [facility] [place] [facility] Apr 11, 2024 02:00 PM AMBULATORY - REHAB MEDICIN E [place] [facility] [place] [facility] Apr 23, 2024 02:00 PM AMBULATORY - REHAB MEDICIN E [place] [facility] [place] [facility] Apr 29, 2024 02:00 PM AMBULATORY - REHAB MEDICIN E [facility] [place] [facility] May 06, 2024 01:30 PM AMBULATORY - REHAB MEDICIN E [facility] [facility] May 07, 2024 01:00 PM AMBULATORY - REHAB MEDICIN E [facility] [place] [facility] May 08, 2024 09:45 AM AMBULATORY - REHAB MEDICIN E [facility] [place] [facility] May 15, 2024 01:30 PM AMBULATORY - REHAB MEDICIN E [facility] [place] [facility] May 23, 2024 08:00 AM AMBULATORY - REHAB MEDICIN E [place] [facility] [place] [facility] Social History: Smoking Status (Most current) and Tobacco Use (All prior to encounter date) This section includes the most current, and the historical, smoking and tobacco- related health factors from the [place] facility where the Encounter took place. Current Smoking Status This section includes the most current smoking, or tobacco-related health factor, from the [place] facility where the Encounter took place. Date/Time Current Smoking Status Comment [facility] Mar 06, 2023 09:00 AM VA-TOBACCO QUIT 15 YRS OR MORE [place] [facility] [facility] Tobacco Use History This section includes a history of the smoking, or tobacco-related health factors, that were collected on or before the date of the Encounter. The data comes from the [place] facility where the Encounter took place. Date/Time Smoking Status/Tobac co Use Comment [facility] Mar 06, 2023 09:00 AM VA-TOBACCO QUIT 15 YRS OR MORE [place] [facility] [place] [facility] Feb 16, 2022 09:30 AM VA-TOBACCO FORMER USER [place] [facility] [facility] Feb 16, 2022 09:30 AM VA-TOBACCO QUIT 15 YRS OR MORE [place] [facility] [place] [facility] Feb 09, 2021 09:00 AM VA-TOBACCO FORMER USER [place] [facility] [facility] Feb 09, 2021 09:00 AM VA-TOBACCO QUIT 15 YRS OR MORE [place] [facility] [facility] Jan 01, 2020 10:15 AM VA-TOBACCO FORMER USER [place] [facility] [facility] Jan 01, 2020 10:15 AM VA-TOBACCO QUIT 15 YRS OR MORE [place] [facility] [facility] Mar 12, 2018 08:56 AM VA-TOBACCO FORMER USER [place] [facility] [facility] Mar 12, 2018 08:56 AM VA-TOBACCO QUIT 15 YRS OR MORE [place] [facility] [place] [facility] Mar 12, 2018 08:24 AM LIFETIME NON-TOBACCO USER [place] [facility] [place] [facility] Mar 13, 2017 07:44 AM LIFETIME NON-TOBACCO USER [place] [facility] [place] [facility] Mar 11, 2016 07:54 AM QUIT TOBACCO USE > 7 YEARS AGO Quit in 1984 [place] [facility] [facility] Aug 17, 2005 10:23 AM HISTORY OF SMOKING Vet states he quit in 1984 [place] [facility] [facility] May 19, 2004 08:56 AM HISTORY OF SMOKING quit . [place] [facility] [facility] May 19, 2003 09:15 AM HISTORY OF SMOKING quit 10yrs ago [facility] Jun 06, 2002 08:13 AM HISTORY OF SMOKING quit 1979 [facility] Jun 06, 2002 08:13 AM QUIT TOBACCO USE > 7 YEARS AGO [facility] Apr 30, 2001 04:07 PM HISTORY OF SMOKING quit - 1984 [facility] Advance Directives: All historical and current Section Date Range: From patient's date of to the date document was created. This section includes ALL of a patient's completed or amended [place] Advance and Rescinded Directives. The entries below indicate that a directive exists for the patient, but an actual copy is not included with this document. The data comes from all [place] facilities. Date Advance Directives Provider Source Mar 12, 2024 ADVANCE DIRECTIVE JENNIFFER DOAN [facility] Encounter Notes: All associated encounter notes This section contains the clinical notes associated to the Encounter. 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, Ons 08/26/2022 LEOPOLDO JACOBSEN COVID-19 U07.1, Onset 07/14/2022 LEOPOLDO JACOBSEN Pain in lower limb M79.606, Onset 0 05/23/2022 LEOPOLDO JACOBSEN Edema R60.9, Onset 05/17/2022 LEOPOLDO JACOBSEN Insomnia ([facility] [id number]) G47.00, On 03/29/2022 LEOPOLDO JACOBSEN Microscopic hematuria [...] 07/11/2007 GANESH ERICKSON JAWLUCAS Gout (SNOMED CT [id number]) M10.9 10/30/2015 0 Knee: arthralgia * (ICD-9-CM 719.46 08/17/2005 GANESH ERICKSON Male erectile disorder (ICD-9-CM 30 11/19/2004 DOMENICA MONROY Essential hypertension 401.9 01/23/2009 GANESH ERICKSON JAWLUCAS Medications (VA): Active Outpatient Medications (including Supplies): Active Outpatient Medications Status 1) BRIMONIDINE 0.2%/BRINZOLAMID 1% OPH SUSP INSTILL 1 ACTIVE DROP INTO EACH EYE TWICE DAILY 2) IBUPROFEN 200MG TAB TAKE ONE TABLET BY MOUTH TWICE ACTIVE DAILY NEEDED TAKE WITH FOOD; FOR PAIN/INFLAMMATION/SWELLING Active Non-VA Medications Status 1) Non-VA AMLODIPINE BESYLATE 10MG TAB 10MG BY MOUTH ACTIVE EVERY DAY 2) Non-VA CHOLECALCIF 50MCG (D3-2,000UNIT) TAB 100MCG BY ACTIVE MOUTH ONCE DAILY 3) Non-VA MULTIVITAMIN/MINERALS CAP/TAB 1 TABLET BY ACTIVE MOUTH EVERY DAY 4) Non-VA TAMSULOSIN HCL 0.4MG CAP 0.4MG BY MOUTH AT ACTIVE BEDTIME 5) Non-VA TROSPIUM CL 20MG TAB 20MG BY MOUTH TWICE DAILY ACTIVE 7 Total Medications Allergies: METOPROLOL, FELODIPINE, NEOMYCIN, LATEX, LATANOPROST, GEMTESA S: 87-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 He has no complaints and denies any eye injury or disease since his last exam. He is taking Simbrinza OU twice daily and refresh lubricating drops as needed. He gets some diplopia since having cataract surgery but not reported over the past year. He also has epiretinal membrane OU that does not seem to be progressing secondary to acuities remaining stable. MARKO: 05/01/2023 (-) Pain: (-) RENEE: (-) Diplopia: (-) Flashes: (-) Floaters: (-) Amaurosis Fugax/Tia's: (-) Eye Injury: (+) Eye Surgery: CE with PCL OU. (-) TBI O: Visual acuity without correction was 20/25- slow both eyes. Pupils were equal and round and reactive to light with no afferent defect. Extraocular muscles were intact without diplopia reported and facial confrontation de paz were full. Lids and lashes were clear both eyes. Corneas and conjunctiva were clear both eyes with mild endothelial pigment OU. Anterior chambers were deep clear and quiet with open angles. Iris was flat both eyes. Posterior chamber lenses are in place and clear OU. Refraction from prior exam with BCVA: OD: +0.75-0.50 X045 20/20 - OS: + 0.75 sph 20/20 - Add: +2.50 20/25 + Intraocular pressures at 10:15 AM were 14 mmHg OD and 13 mmHg OS Tmax: OD: 23 OS: 26 Pachymetry: OD:550 OS:545 Fundi were reviewed with 90 diopter lens through nondilated pupils Vitreous was clear OU. Approximately 65% horizontal and vertical cupping was seen OU with healthy rims and margins and no hemorrhages or notches. Normal pigmentary architecture of the macula was seen with a two third artery to vein ratio OU and trace epiretinal membrane OU. 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 Pseudophakia OU with sporadic reported diplopia since having cataract surgery but not reported over the past year. Epiretinal membrane OU. History of dry eyes without symptoms today. P: The patient will return in 6 months or sooner if any problems arise, including dilated fundus exam Patient will continue Simbrinza OU twice daily. Education: After discussion and answering all 's questions, [place] demonstrated and verbalized understanding of diagnosis and treatment. Yes [x] No [ ] Patient Education: Glaucoma: Patient was educated regarding glaucoma/glaucoma suspect as well as the natural history of this diagnosis including prognosis. Stress importance of compliance and persistency with glaucoma medication when prescribed, timely follow up as well as the role of ancillary testing. Exclusion criteria for ancillary testing include significantly reduced acuity, mental status changes affecting the patient's ability to attend to the test or other physical limitations that would prohibit the patient's ability to participate in testing. Medication Reconciliation: Outpatient: Has the patient been taking medications as documented in the EMLR? YES: The patient has been taking medications as documented in the EMLR. Essential Medication List for Review used to complete this medication reconciliation. INCLUDED IN THIS LIST: Alphabetical list of active outpatient prescriptions dispensed from this VA (local) and dispensed from another VA or DoD facility (remote) as well as inpatient orders (local, pending and active), local clinic medications, locally documented non-VA medications, and local prescriptions that have or been discontinued in the past 90 days. - All changes in medications, including all non-VA/Herbal/OTC medications were entered into CPRS. - If there were any medications the patient should no longer take, they were discontinued. - The patient/caregiver was instructed to update this list, discard old lists, and take this list to the next appointment, whether with a VA or non-VA provider. /es/ EUSEBIO ADLER OD STAFF TEAM SUPERVISOR Signed: 11/29/2023 10:35 [facility]BIO ADLER [facility]
--- OUTSIDE RECORDS SUMMARY | 2024-09-06 11:03 | XMS_ITS | Encounter Summary ---
Author Name [place] Address [address] [place] [address] Care Team Providers Care Full Time Name Role Phone LEOPOLDO JACOBSEN Primary Care [...] Name Patient's Relationship to Policy Lai MELISSA [facility] ([facility]) MEDICARE ADVANTAGE [facility] ([facility]) Sep 11, 2015 [id number] [phone] MOONJung GANESHOLEGARIO Jung PATIENT [facility] ([facility]) MEDICARE ADVANTAGE [facility] ([facility]) Sep 11, 2015 [id number] [phone] OLEGARIO DUNN PATIENT MEDICARE (WN) MEDICARE () PART A Feb 09, 2001 PART A [id number] 56A OLEGARIO DUNN PATIENT MEDICARE (WN) MEDICARE () PART B Feb 09, 2001 PART B [id number] 56A OLEGARIO DUNN PATIENT MEDICARE (WN) MEDICARE () PART A Feb 09, 2001 PART A [id number] 56A OLEGARIO DUNN PATIENT MEDICARE (WNR) MEDICARE (M) PART B Feb 09, 2001 PART B [id number] 56A OLEGARIO DUNN PATIENT Selected Encounter This section includes the information on record at [place] for the Encounter. Date/Time Encounter Type Encounter Description Reason Pro vider Source Nov 08, 2023 12:00 AM Outpatient Encounter COMMUNITY CARE CONSULT I[facility] Encounter Template Text not used by [place] Plan of Treatment: Future Appointments (+ 6 months) and Future Tests (+/- 45 days) The Plan of Treatment section includes future care activities for the patient from all [place] treatmentfacilities. This section includes future appointments and future orders which are active, pending or scheduled. Future Appointments This section includes appointments that were scheduled to occur 6 months from the date of the Encounter, up to a maximum of 20 appointments. The data comes from all [place] treatment facilities. Appointment Date/Time Appointment Type Appointme nt Facility Name Nov 29, 2023 10:00 AM AMBULATORY - MEDICINE [place] [facility] [facility] Nov 29, 2023 10:15 AM AMBULATORY - MEDICINE [place] [facility] [facility] Nov 29, 2023 10:30 AM AMBULATORY - MEDICINE [place] [facility] [facility] Dec 20, 2023 02:00 PM AMBULATORY - MEDICINE [place] [facility] [facility] Jan 03, 2024 10:45 AM AMBULATORY - MEDICINE [place] C [facility] [place] [facility] February 02, 2024 03:00 PM AMBULATORY - MEDICINE [place] C [facility] [place] [facility] Feb 14, 2024 01:30 PM AMBULATORY - REHAB MEDICIN E [facility] [facility] Mar 11, 2024 09:00 AM AMBULATORY - MEDICINE [facility] C [facility] [place] [facility] Mar 12, 2024 01:30 PM AMBULATORY - REHAB MEDICIN E [facility] [facility] Mar 22, 2024 02:30 PM AMBULATORY - REHAB MEDICIN E [facility] [place] [facility] Mar 26, 2024 02:00 PM AMBULATORY - REHAB MEDICIN E [facility] [facility] Mar 28, 2024 11:30 AM AMBULATORY - MEDICINE [facility] C [facility] [place] [facility] Mar 29, 2024 02:30 PM AMBULATORY - REHAB MEDICIN E [facility] [facility] Apr 04, 2024 02:00 PM AMBULATORY - REHAB MEDICIN E [facility] [place] [facility] Apr 11, 2024 01:00 PM AMBULATORY - REHAB MEDICIN E [facility] [place] [facility] Apr 11, 2024 02:00 PM AMBULATORY - REHAB MEDICIN E [facility] [facility] Apr 23, 2024 02:00 PM AMBULATORY - REHAB MEDICIN E [facility] [place] [facility] Apr 29, 2024 02:00 PM AMBULATORY - REHAB MEDICIN E [facility] [place] [facility] May 06, 2024 01:30 PM AMBULATORY - REHAB MEDICIN E [facility] [place] [facility] May 07, 2024 01:00 PM AMBULATORY - REHAB MEDICIN E [place] [facility] [facility] Social History: Smoking Status (Most current) and Tobacco Use (All prior to encounter date) This section includes the most current, and the historical, smoking and tobacco- related health factors from the [place] facility where the Encounter took place. Current Smoking Status This section includes the most current smoking, or tobacco-related health factor, from the [place] facility where the Encounter took place. Date/Time Current Smoking Status Comment [facility] Mar 06, 2023 09:00 AM VA-TOBACCO FORMER USER [place] [facility] [facility] Tobacco Use History This section includes a history of the smoking, or tobacco-related health factors, that were collected on or before the date of the Encounter. The data comes from the [place] facility where the Encounter took place. Date/Time Smoking Status/Tobac co Use Comment Facility Mar 06, 2023 09:00 AM VA-TOBACCO QUIT 15 YRS OR MORE [facility] [facility] Feb 16, 2022 09:30 AM VA-TOBACCO FORMER USER [facility] [facility] Feb 16, 2022 09:30 AM VA-TOBACCO QUIT 15 YRS OR MORE [facility] [place] [facility] Feb 09, 2021 09:00 AM VA-TOBACCO FORMER USER [facility] [facility] Feb 09, 2021 09:00 AM VA-TOBACCO QUIT [facility] Jan 01, 2020 10:15 AM VA-TOBACCO FORMER USER [facility] Jan 01, 2020 10:15 AM VA-TOBACCO QUIT 15 YRS OR MORE [facility] Mar 12, 2018 08:56 AM VA-TOBACCO FORMER USER [facility] WSTRN [facility] Mar 12, 2018 08:56 AM VA-TOBACCO QUIT 15 YRS OR [facility] Mar 12, 2018 08:24 AM LIFETIME NON-TOBACCO USER [facility] Mar 13, 2017 07:44 AM LIFETIME NON-TOBACCO USER [facility] Mar 11, 2016 07:54 AM QUIT TOBACCO USE > 7 YEARS AGO [facility] Aug 17, 2005 10:23 AM HISTORY OF SMOKING Vet states he quit in 1984 [facility] May 19, 2004 08:56 AM HISTORY OF SMOKING quit . [facility] May 19, 2003 09:15 AM HISTORY OF SMOKING quit 10yrs ago [facility] Jun 06, 2002 08:13 AM HISTORY OF SMOKING quit [facility] Jun 06, 2002 08:13 AM QUIT TOBACCO USE > 7 YEARS AGO [facility] Apr 30, 2001 04:07 PM HISTORY OF SMOKING quit - 1984 [facility] Advance Directives: All historical and current Section Date Range: From patient's date of to the date document was created. This section includes ALL of a patient's completed or amended [place] Advance and Rescinded Directives. The entries below indicate that a directive exists for the patient, but an actual copy is not included with this document. The data comes from all [place] facilities. Date Advance Directives Provider Source Mar 12, 2024 ADVANCE DIRECTIVE JENNIFFER [facility] Encounter Notes: All associated encounter notes This section contains the clinical notes associated to the Encounter. Date/Time Encounter Note(s) Provider Source Nov 08, 2023 12:00 AM NONVA CONSULT: LOCAL TITLE: COMMUNITY CARE-CONSULT RESULT NOTE STANDARD TITLE: NONVA CONSULT DATE OF NOTE: NOV 08, 2023 ENTRY DATE: NOV 16, 2023@14:26:14 AUTHOR: GREYSON HIDALGO EXP COSIGNER: URGENCY: STATUS: COMPLETED VistA Imaging - Scanned Document SCANNED DOCUMENT SIGNATURE NOT REQUIRED Electronically Filed: 11/16/2023 by: GREYSON JAEGER [place] [facility]
--- OUTSIDE RECORDS SUMMARY | 2024-09-06 11:03 | XMS_ITS ---
Author Name [facility] [place] Organization [place] Address [address] [place] [id number] Care Team Providers Care Painter Helper Name Role Phone JACOBSEN LEOPOLDO Primary Care [...] Name Patient's Relationship to Policy Lai MELISSA [facility] ([facility]) MEDICARE ADVANTAGE [facility] ([facility]) Sep 11, 2015 [id number] [phone] OLEGARIO DUNN PATIENT [facility] ([facility]) MEDICARE ADVANTAGE [facility] ([facility]) Sep 11, 2015 [id number] OLEGARIO DUNN PATIENT MEDICARE (WNR) MEDICARE (M) PART A Feb 09, 2001 PART A [id number] [phone] OLEGARIO DUNN PATIENT MEDICARE (WN) MEDICARE (M) PART B Feb 09, 2001 PART B [id number] [phone] OLEGARIO DUNN PATIENT MEDICARE (WNR) MEDICARE (M) PART A Feb 09, 2001 PART A [id number] 56A OLEGARIO DUNN PATIENT MEDICARE (WN) MEDICARE (M) PART B Feb 09, 2001 PART B [id number] OLEGARIO DUNN PATIENT Selected Encounter This section includes the information on record at [place] for the Encounter. Date/Time Encounter Type Encounter Description Reason Provider Source Oct 26, 2023 07:15 AM CASE [facility] DENTAL ICD-10-CM K03.6 Deposits [accretions] on teeth BULL VILLEDA IHE Encounter Template Text not used by [place] Assessments - Encounter Diagnoses This section includes the primary and secondary diagnoses documented for the Encounter. Date/Time Primary/Secondary Diagnosis Diagnosis Name Provider Source Oct 26, 2023 08:21 AM PRIMARY Deposits [accretions] on teeth BULL VILLEDA [place] [facility] [place] [facility] Plan of Treatment: Future Appointments (+ 6 months) and Future Tests (+/- 45 days) The Plan of Treatment section includes future care activities for the patient from all [place] [facility] This section includes future appointments and future orders which are active, pending or scheduled. Future Appointments This section includes appointments that were scheduled to occur 6 months from the date of the Encounter, up to a maximum of 20 appointments. The data comes from all [place] treatment facilities. Appointment Date/Time Appointment Type Appointme nt Facility Name Nov 08, 2023 03:00 PM AMBULATORY - MEDICINE [place] [facility] [place] [facility] Nov 29, 2023 10:00 AM AMBULATORY - MEDICINE [place] [facility] [place] [facility] Nov 29, 2023 10:15 AM AMBULATORY - MEDICINE [place] [facility] [place] [facility] Nov 29, 2023 10:30 AM AMBULATORY - MEDICINE [place] [facility] [place] [facility] Dec 20, 2023 02:00 PM AMBULATORY - MEDICINE [place] [facility] [place] [facility] Jan 03, 2024 10:45 AM AMBULATORY - MEDICINE [place] [facility] [place] [facility] February 02, 2024 03:00 PM AMBULATORY - MEDICINE [place] [facility] [place] [facility] Feb 14, 2024 01:30 PM AMBULATORY - REHAB MEDICIN E [facility] [place] [facility] Mar 11, 2024 09:00 AM AMBULATORY - MEDICINE [place] [facility] [place] [facility] Mar 12, 2024 01:30 PM AMBULATORY - REHAB MEDICIN E [facility] [place] [facility] Mar 22, 2024 02:30 PM AMBULATORY - REHAB MEDICIN E [facility] [place] [facility] Mar 26, 2024 02:00 PM AMBULATORY - REHAB MEDICIN E [facility] [place] [facility] Mar 28, 2024 11:30 AM AMBULATORY - MEDICINE [facility] [place] [facility] Mar 29, 2024 02:30 PM AMBULATORY - REHAB MEDICIN E [facility] [place] [facility] Apr 04, 2024 02:00 PM AMBULATORY - REHAB MEDICIN E [facility] [place] [facility] Apr 11, 2024 01:00 PM AMBULATORY - REHAB MEDICIN E [facility] [place] [facility] Apr 11, 2024 02:00 PM AMBULATORY - REHAB MEDICIN E [facility] [place] [facility] Apr 23, 2024 02:00 PM AMBULATORY - REHAB MEDICIN E [facility] [place] [facility] Social History: Smoking Status (Most [...] took place. Date/Time Current Smoking Status Comment [facility] Mar 06, 2023 09:00 AM VA-TOBACCO FORMER USER [place] [facility] [place] [facility] Tobacco Use History This section includes a history of the smoking, or tobacco-related health factors, that were collected on or before the date of the Encounter. The data comes from the [place] facility where the Encounter took place. Date/Time Smoking Status/Tobac co Use Comment Facility Mar 06, 2023 09:00 AM VA-TOBACCO QUIT 15 YRS OR MORE [place] [facility] [place] [facility] Feb 16, 2022 09:30 AM VA-TOBACCO FORMER USER [place] [facility] [place] [facility] Feb 16, 2022 09:30 AM VA-TOBACCO QUIT 15 YRS OR MORE [facility] [place] [facility] Feb 09, 2021 09:00 AM [facility] [place] [facility] Feb 09, 2021 09:00 AM VA-TOBACCO QUIT 15 YRS OR MORE [facility] [place] [facility] Jan 01, 2020 10:15 AM VA-TOBACCO FORMER USER [place] [facility] [place] [facility] Jan 01, 2020 10:15 AM VA-TOBACCO QUIT 15 YRS OR MORE [facility] [place] [facility] Mar 12, 2018 08:56 AM VA-TOBACCO FORMER USER [place] [facility] [place] [facility] Mar 12, 2018 08:56 AM VA-TOBACCO QUIT 15 YRS OR MORE [facility] [place] [facility] Mar 12, 2018 08:24 AM LIFETIME NON-TOBACCO [facility]ER [facility] [place] [facility] Mar 13, 2017 07:44 AM LIFETIME NON-TOBACCO USER [place] [facility] [place] [facility] Mar 11, 2016 07:54 AM QUIT TOBACCO USE > 7 YEARS AGO Quit in 1984 [facility] [place] [facility] Aug 17, 2005 10:23 AM HISTORY OF SMOKING Vet states he quit in 1984 [facility] [place] [facility] May 19, 2004 08:56 AM HISTORY OF SMOKING quit 1980[facility] [place] [facility] May 19, 2003 09:15 AM HISTORY OF SMOKING quit 10yrs ago [facility] [place] [facility] Jun 06, 2002 08:13 AM HISTORY OF SMOKING quit 1979 [facility] Jun 06, 2002 08:13 AM QUIT TOBACCO USE > 7 YEARS AGO [facility] [place] [facility] Apr 30, 2001 04:07 PM HISTORY OF SMOKING quit - [facility] Advance Directives: All historical and current [...] Mar 12, 2024 ADVANCE DIRECTIVE JENNIFFER DOAN [facility] Encounter Notes: All associated encounter notes This section contains the clinical notes associated to the Encounter. Date/Time Encounter Note(s) Provider Source Oct 26, 2023 08:12 AM DENTISTRY NOTE: LOCAL TITLE: DENTAL NOTE STANDARD TITLE: DENTISTRY NOTE DATE OF NOTE: OCT 26, 2023@08:12 ENTRY DATE: OCT 26, 2023@08:21:22 AUTHOR: BULL VILLEDA COSIGNER: URGENCY: STATUS: COMPLETED Patient Name: EUSEBIO PEREZ, : 1935, Age: 88 Visit: S: Oct 26, 2023@07:15 CWM/NO/DENTAL/RDH1 AM. Primary PCE Diagnosis: K03.6 (Deposits [accretions] [...] LAST RADIOGRAPHS: BWX: 05/01/23 PANO: 05/23/18 NEW RADIOGRAPHS: Not due SOFT TISSUE SCREENING: no abnormalities noted EXAMINATION: Not due ORAL HYGIENE ASSESSMENT: generalized light plaque generalized moderate stain PERIODONTAL ASSESSMENT: generalized light calculus on mandibular teeth localized light inflammation around crowns and bridges on maxilla generalized light bleeding generalized recession REVIEWED ORAL HEALTH REPORT: CARIES RISK: high GUM DISEASE:high ORAL CANCER RISK: moderate DENTAL TREATMENT PROVIDED: PROPHYLAXIS - hand scaling, piezo, guinean, floss TOPICAL FLUORIDE APPLICATION - Varnish PRE-RINSE WITH CREST RINSE ORAL HYGIENE INSTRUCTIONS GIVEN TO PATIENT: Paient brushes twice a day with an electric toothbrush. Discussed brushing 2 times a day for 2 minutes each and flossing daily. Discussed angling bristles into gumlines to remove plaque and bacteria. DISPOSITION: 6 MONTHS RECARE NEXT VISIT: ELIAZAR carrington BWX, ZHANNA /kathy/ BULL VILLEDA R[facility], DENTAL SERVICE Signed: 10/26/2023 08:21 BULL VILLEDA [place] [facility]
--- OUTSIDE RECORDS SUMMARY | 2024-09-06 11:03 | XMS_ITS | Encounter Summary ---
Author Name Department of [facility] [facility] [place] Organization [facility] [place] Address [address] [place] [address] Care Team Providers Care Senior Sharepoint Developer Name Role Phone LEOPOLDO JACOBSEN Primary Care [...] Patient's Relationship to Policy Lai MELISSA [facility] ([facility]) MEDICARE ADVANTAGE [facility] ([facility]) Sep 11, 2015 [id number] MOONJung GANESHOLEGARIO Jung PATIENT [facility] ([facility]) MEDICARE ADVANTAGE [facility] ([facility]) Sep 11, 2015 [id number] OLEGARIO DUNN PATIENT MEDICARE (WNR) MEDICARE (M) PART A Feb 09, 2001 PART A [id number] [phone] OLEGARIO DUNN PATIENT MEDICARE (WNR) MEDICARE () PART B Feb 09, 2001 PART B [id number] [phone] OLEGARIO DUNN PATIENT MEDICARE (WNR) MEDICARE () PART A Feb 09, 2001 PART A [id number] [phone] OLEGARIO DUNN PATIENT MEDICARE (WN) MEDICARE (M) PART B Feb 09, 2001 PART B [id number] 56A HYUNTIMOTHY GANESHOLEGARIO Jung PATIENT Selected Encounter This section includes the information on record at [place] for the Encounter. Date/Time Encounter Type Encounter Description Reason Pro vider Source Oct 09, 2023 03:21 PM Outpatient Encounter NEUROLOGY IHE Encounter Template Text not used by [place] Plan of Treatment: Future Appointments (+ 6 months) and Future Tests (+/- 45 days) The Plan of Treatment section includes future care activities for the patient from all [place] treatmentfacilities. This section includes future appointments and future orders which are active, pending or scheduled. Future Appointments This section includes appointments that were scheduled to occur 6 months from the date of the Encounter, up to a maximum of 20 appointments. The data comes from all [place] treatment facilities. Appointment Date/Time Appointment Type Appointme nt Facility Name Oct 19, 2023 08:00 AM AMBULATORY - MEDICINE [facility] [place] [facility] Oct 26, 2023 07:15 AM AMBULATORY - NONE [facility] [place] [facility] Nov 08, 2023 03:00 PM AMBULATORY - MEDICINE [facility] [place] [facility] Nov 29, 2023 10:00 AM AMBULATORY - MEDICINE [facility] [place] [facility] Nov 29, 2023 10:15 AM AMBULATORY - MEDICINE [facility] [place] [facility] Nov 29, 2023 10:30 AM AMBULATORY - MEDICINE [facility] [place] [facility] Dec 20, 2023 02:00 PM AMBULATORY - MEDICINE [facility] [place] [facility] Jan 03, 2024 10:45 AM AMBULATORY - MEDICINE [facility] [place] [facility] February 02, 2024 03:00 PM AMBULATORY - MEDICINE [facility] [place] [facility] Feb 14, 2024 01:30 PM AMBULATORY - REHAB MEDICIN E [facility] [place] [facility] Mar 11, 2024 09:00 AM AMBULATORY - MEDICINE [facility] [place] [facility] Mar 12, 2024 01:30 PM AMBULATORY - REHAB MEDICIN E [facility] [place] [facility] Mar 22, 2024 02:30 PM AMBULATORY - REHAB MEDICIN E [facility] [place] [facility] Mar 26, 2024 02:00 PM AMBULATORY - REHAB MEDICIN E [facility] [place] [facility] Mar 28, 2024 11:30 AM AMBULATORY - MEDICINE [facility] [place] [facility] Mar 29, 2024 02:30 PM AMBULATORY - REHAB MEDICIN E [facility] [place] [facility] Apr 04, 2024 02:00 PM AMBULATORY - REHAB MEDICIN E [facility] [place] [facility] Social History: Smoking Status (Most current) [...] took place. Date/Time Current Smoking Status Comment [facility] Mar 06, 2023 09:00 AM VA-TOBACCO FORMER USER [place] [facility] [place] [facility] Tobacco Use History This section includes a history of the smoking, or tobacco-related health factors, that were collected on or before the date of the Encounter. The data comes from the [place] facility where the Encounter took place. Date/Time Smoking Status/Tobac co Use Comment [facility] Mar 06, 2023 09:00 AM VA-TOBACCO QUIT 15 YRS OR MORE [facility] [place] [facility] Feb 16, 2022 09:30 AM VA-TOBACCO FORMER USER [facility] [place] [facility] Feb 16, 2022 09:30 AM VA-TOBACCO QUIT 15 YRS OR MORE [facility] [place] [facility] Feb 09, 2021 09:00 AM VA-TOBACCO FORMER USER [facility] [place] [facility] Feb 09, 2021 09:00 AM VA-TOBACCO QUIT 15 YRS OR MORE [facility] [place] [facility] Jan 01, 2020 10:15 AM VA-TOBACCO FORMER USER [facility] [place] [facility] Jan 01, 2020 10:15 AM VA-TOBACCO QUIT 15 YRS OR MORE [facility] [place] [facility] Mar 12, 2018 08:56 AM VA-TOBACCO FORMER USER [facility] [place] [facility] Mar 12, 2018 08:56 AM VA-TOBACCO QUIT 15 YRS OR [facility] Mar 12, 2018 08:24 AM LIFETIME NON-TOBACCO USER [facility] Mar 13, 2017 07:44 AM LIFETIME NON-TOBACCO USER [facility] Mar 11, 2016 07:54 AM QUIT TOBACCO USE > 7 YEARS AGO Quit in 1984 [facility] Aug 17, 2005 10:23 AM HISTORY OF SMOKING Vet states he quit in 1984 [facility] May 19, 2004 08:56 AM HISTORY OF SMOKING quit . [facility] May 19, 2003 09:15 AM HISTORY OF SMOKING quit 10yrs ago [facility] Jun 06, 2002 08:13 AM HISTORY OF SMOKING quit 1978 [facility] Jun 06, 2002 08:13 AM QUIT TOBACCO USE > 7 YEARS AGO [facility] Apr 30, 2001 04:07 PM HISTORY OF SMOKING quit - 1984 [facility] Advance Directives: All historical and current [...] Mar 12, 2024 ADVANCE DIRECTIVE JENNIFFER DOAN [facility] Encounter Notes: All associated encounter notes This section contains the clinical notes associated to the Encounter. Date/Time Encounter Note(s) Provider Source Oct 09, 2023 03:21 PM ADMINISTRATIVE NOT E: LOCAL TITLE: ADMINISTRATIVE NOTE STANDARD TITLE: ADMINISTRATIVE NOTE DATE OF NOTE: OCT 09, 2023@15:21 ENTRY DATE: OCT 09, 2023@15:21:32 AUTHOR: MILI WONG EXP COSIGNER: URGENCY: STATUS: COMPLETED rtc, pid 08/30/2024 has been dispositioned , no longer needed. 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
--- OUTSIDE RECORDS SUMMARY | 2024-09-06 11:03 | XMS_ITS | Encounter Summary ---
Author Name Department of [place] [place] [facility] [place] Organization Department of [place] Address [address] [place] [address] Care Team Providers Care Medical Dosimetrist Name Role Phone JACOBSEN LEOPOLDO Primary Care [...] Name Patient's Relationship to Policy Lai MELISSA [facility] ([facility]) MEDICARE ADVANTAGE [facility] ([facility]) Sep 11, 2015 [id number] [phone] MOONJung GANESHOLEGARIO Jung PATIENT [facility] ([facility]) MEDICARE ADVANTAGE [facility] ([facility]) Sep 11, 2015 [id number] OLEGARIO DUNN PATIENT MEDICARE (WNR) MEDICARE () PART A Feb 09, 2001 PART A [id number] [phone] OLEGARIO DUNN PATIENT MEDICARE (WNR) MEDICARE () PART B Feb 09, 2001 PART B [id number] [phone] OLEGARIO DUNN PATIENT MEDICARE (WNR) MEDICARE () PART A Feb 09, 2001 PART A [id number] [phone] OLEGARIO DUNN PATIENT MEDICARE (WNR) MEDICARE (M) PART B Feb 09, 2001 PART B [id number] OLEGARIO DUNN PATIENT Selected Encounter This section includes the information on record at [place] for the Encounter. Date/Time Encounter Type Encounter Description Reason Provider Source Nov 29, 2023 10:00 AM EXTENDED VISUAL FIELD XM OPTOMETRY ICD-10-CM H40.1411 Capslr glaucoma w/pseudxf lens, right eye, mild stage EUSEBIO ADLER Sharda Encounter Template Text not used by [place] Assessments - Encounter Diagnoses This section includes the primary and secondary diagnoses documented for the Encounter. Date/Time Primary/Secondary Diagnosis Diagnosis Name Provider Source Nov 29, 2023 10:27 AM PRIMARY Capslr glaucoma w/pseudxf lens, right eye, mild stage EUSEBIO ADLER [place] [facility] [place] [facility] Nov 29, 2023 10:27 AM SECONDARY Pigmentary glaucoma, left eye, mild stage EUSEBIO ADLER ID [facility] [place] [facility] Plan of Treatment: Future Appointments (+ 6 months) and Future Tests (+/- 45 days) The Plan of Treatment section includes future care activities for the patient from all ID treatmentfacilities. This section includes future appointments and future orders which are active, pending or scheduled. Future Appointments This section includes appointments that were scheduled to occur 6 months from the date of the Encounter, up to a maximum of 20 appointments. The data comes from all ID treatment facilities. Appointment Date/Time Appointment Type Appointme nt Facility Name Dec 20, 2023 02:00 PM AMBULATORY - MEDICINE [place] C [facility] [place] [facility] Jan 03, 2024 10:45 AM AMBULATORY - MEDICINE [place] C [facility] [place] [facility] February 02, 2024 03:00 PM AMBULATORY - MEDICINE [place] [facility] [place] [facility] Feb 14, 2024 01:30 PM AMBULATORY - REHAB MEDICIN E [facility] [place] [facility] Mar 11, 2024 09:00 AM AMBULATORY - MEDICINE [place] C [facility] [place] [facility] Mar 12, 2024 01:30 PM AMBULATORY - REHAB MEDICIN E [facility] [place] [facility] Mar 22, 2024 02:30 PM AMBULATORY - REHAB MEDICIN E [facility] [place] [facility] Mar 26, 2024 02:00 PM AMBULATORY - REHAB MEDICIN E [facility] [place] [facility] Mar 28, 2024 11:30 AM AMBULATORY - MEDICINE [place] [facility] [place] [facility] Mar 29, 2024 02:30 PM AMBULATORY - REHAB MEDICIN E [facility] [place] [facility] Apr 04, 2024 02:00 PM AMBULATORY - REHAB MEDICIN E [facility] [place] [facility] Apr 11, 2024 01:00 PM AMBULATORY - REHAB MEDICIN E [facility] [place] [facility] Apr 11, 2024 02:00 PM AMBULATORY - REHAB MEDICIN E [facility] [place] [facility] Apr 23, 2024 02:00 PM AMBULATORY - REHAB MEDICIN E [facility] [place] [facility] Apr 29, 2024 02:00 PM AMBULATORY - REHAB MEDICIN E [facility] [place] [facility] May 06, 2024 01:30 PM AMBULATORY - REHAB MEDICIN E [facility] [place] [facility] May 07, 2024 01:00 PM AMBULATORY - REHAB MEDICIN E [facility] [place] [facility] May 08, 2024 09:45 AM AMBULATORY - REHAB MEDICIN E [facility] [place] [facility] May 15, 2024 01:30 PM AMBULATORY - REHAB MEDICIN E [place] [facility] [place] [facility] May 23, 2024 08:00 AM AMBULATORY - REHAB MEDICIN E [place] [facility] [place] [facility] Social History: Smoking Status (Most current) and Tobacco Use (All prior to encounter date) This section includes the most current, and the historical, smoking and tobacco- related health factors from the ID facility where the Encounter took place. Current Smoking Status This section includes the most current smoking, or tobacco-related health factor, from the ID facility where the Encounter took place. Date/Time Current Smoking Status Comment Donavan maynard Mar 06, 2023 09:00 AM [facility]TO[facility]ACCO [facility] Tobacco Use History This section includes a history of the smoking, or tobacco-related health factors, that were collected on or before the date of the Encounter. The data comes from the [facility] where the Encounter took place. Date/Time Smoking Status/Tobac co Use Comment Facility Mar 06, 2023 09:00 AM VA-TOBACCO QUIT 15 YRS OR MORE ID [facility] [place] [facility] Feb 16, 2022 09:30 AM VA-TOBACCO FORMER USER [facility] [place] [facility] Feb 16, 2022 09:30 AM VA-TOBACCO QUIT 15 YRS OR MORE ID [facility] [place] [facility] Feb 09, 2021 09:00 AM VA-TOBACCO FORMER USER ID [facility] [place] [facility] Feb 09, 2021 09:00 AM VA-TOBACCO QUIT 15 YRS OR MORE ID [facility] [place] [facility] Jan 01, 2020 10:15 AM VA-TOBACCO FORMER USER ID [facility] [place] [facility] Jan 01, 2020 10:15 AM VA-TOBACCO QUIT 15 YRS OR MORE ID [facility] [place] [facility] Mar 12, 2018 08:56 AM VA-TOBACCO FORMER USER ID [facility] [place] [facility] Mar 12, 2018 08:56 AM VA-TOBACCO QUIT 15 YRS OR MORE ID [facility] [place] [facility] Mar 12, 2018 08:24 AM LIFETIME NON-TOBACCO USER ID [facility] [place] [facility] Mar 13, 2017 07:44 AM LIFETIME NON-TOBACCO USER ID [facility] [place] [facility] Mar 11, 2016 07:54 AM QUIT TOBACCO USE > 7 YEARS AGO Quit in 1984 [place] [facility] [place] [facility] Aug 17, 2005 10:23 AM HISTORY OF SMOKING Vet states he quit in 1984 [place] [facility] [place] [facility] May 19, 2004 08:56 AM HISTORY OF SMOKING quit . ID [facility] [place] [facility] May 19, 2003 09:15 AM HISTORY OF SMOKING quit 10yrs ago ID [facility] [place] [facility] Jun 06, 2002 08:13 AM HISTORY OF SMOKING quit 1979 [place] [facility] [place] [facility] Jun 06, 2002 08:13 AM QUIT TOBACCO USE > 7 YEARS AGO ID [facility] [place] [facility] Apr 30, 2001 04:07 PM HISTORY OF SMOKING quit - 1984 [facility] Advance Directives: All historical and current Section Date Range: From patient's date of to the date document was created. This section includes ALL of a patient's completed or amended [place] Advance and Rescinded Directives. The entries below indicate that a directive exists for the patient, but an actual copy is not included with this document. The data comes from all ID facilities. Date Advance Directives Provider Source Mar 12, 2024 ADVANCE DIRECTIVE JENNIFFER DOAN ID CNT RL [facility] Encounter Notes: All associated encounter notes This section contains the clinical notes associated to the Encounter. 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, Ons 08/26/2022 LEOPOLDO JACOBSEN COVID-19 U07.1, Onset 07/14/2022 LEOPOLDO JACOBSEN Pain in lower limb M79.606, Onset 0 05/23/2022 LEOPOLDO JACOBSEN Edema R60.9, Onset 05/17/2022 LEOPOLDO JACOBSEN Insomnia ([facility] [id number]) G47.00, On 03/29/2022 LEOPOLDO JACOBSEN Microscopic hematuria [...] 07/11/2007 GANESH ERICKSON JAWLUCAS Gout (SNOMED CT [id number]) M10.9 10/30/2015 0 Knee: arthralgia * (ICD-9-CM 719.46 08/17/2005 GANESH ERICKSON JAWLUCAS Male erectile disorder (ICD-9-CM 30 11/19/2004 DOMENICA [...] LATEX, LATANOPROST, GEMTESA S: Patient with mixed mechanism glaucoma OU is in for repeat threshold de paz. O: Kareen fast 242 de paz were run by audiovisual technician. A: OD field is essentially full however with fixation losses giving low test reliability and OS exhibited inferior depressions but without specific field loss noted. History of mild mixed mechanism glaucoma OU. P: Follow-up is scheduled for today. 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
--- OUTSIDE RECORDS SUMMARY | 2024-09-06 11:03 | XMS_ITS | Encounter Summary ---
Author Name [place] Address [address] [place] [address] Care Team Providers Care Bench Hand Machine Name Role Phone CARLOS ERASMO Primary Care [...] Name Patient's Relationship to Policy Lai MELISSA [facility] ([facility]) MEDICARE ADVANTAGE [facility] ([facility]) Sep 11, 2015 [id number] MOONJung GANESHOLEGARIO Jung PATIENT [facility] ([facility]) MEDICARE ADVANTAGE [facility] ([facility]) Sep 11, 2015 [id number] OLEGARIO DUNN PATIENT MEDICARE (WNR) MEDICARE (M) PART A Feb 09, 2001 PART A [id number] [phone] OLEGARIO DUNN PATIENT MEDICARE (WNR) MEDICARE (M) PART B Feb 09, 2001 PART B [id number] 56A OLEGARIO DUNN PATIENT MEDICARE (WNR) MEDICARE (M) PART A Feb 09, 2001 PART A [id number] OLEGARIO DUNN PATIENT MEDICARE (WNR) MEDICARE (M) PART B Feb 09, 2001 PART B [id number] OLEGARIO DUNN PATIENT Selected Encounter This section includes the information on record at [place] for the Encounter. Date/Time Encounter Type Encounter Description Reason Pro vider Source Nov 16, 2023 10:11 AM Outpatient Encounter PRIMARY CARE/MEDICINE IHE Encounter Template Text not used by [place] Plan of Treatment: Future Appointments (+ 6 [...] 29, 2023 10:00 AM AMBULATORY - [place]ICINE [place] [facility] Nov 29, 2023 10:15 AM AMBULATORY - MEDICINE [place] [facility] Nov 29, 2023 10:30 AM AMBULATORY - MEDICINE [place] [facility] Dec 20, 2023 02:00 PM AMBULATORY - MEDICINE [place] [facility] [place] [facility] Jan 03, 2024 10:45 AM AMBULATORY - MEDICINE [place] [facility] February 02, 2024 03:00 PM AMBULATORY - MEDICINE [place] [facility] [place] [facility] Feb 14, 2024 01:30 PM AMBULATORY - REHAB MEDICIN E [facility] [place] [facility] Mar 11, 2024 09:00 AM AMBULATORY - MEDICINE [place] [facility] [place] [facility] Mar 12, 2024 01:30 PM AMBULATORY - REHAB MEDICIN E [place] [facility] [place] [facility] Mar 22, 2024 02:30 PM AMBULATORY - REHAB MEDICIN E [facility] [place] [facility] Mar 26, 2024 02:00 PM AMBULATORY - REHAB MEDICIN E [place] [facility] [place] [facility] Mar 28, 2024 11:30 AM AMBULATORY - MEDICINE [place] C [facility] [place] [facility] Mar 29, 2024 02:30 PM AMBULATORY - REHAB MEDICIN E [place] [facility] [facility] Apr 04, 2024 02:00 PM AMBULATORY - REHAB MEDICIN E [place] [facility] [facility] Apr 11, 2024 01:00 PM AMBULATORY - REHAB MEDICIN E [place] [facility] [place] [facility] Apr 11, 2024 02:00 PM AMBULATORY - REHAB MEDICIN E [place] [facility] [facility] Apr 23, 2024 02:00 PM AMBULATORY - REHAB MEDICIN E [place] [facility] [facility] Apr 29, 2024 02:00 PM AMBULATORY - REHAB MEDICIN E [place] [facility] [place] [facility] May 06, 2024 01:30 PM AMBULATORY - REHAB MEDICIN E [place] [facility] [facility] May 07, 2024 01:00 PM AMBULATORY - REHAB MEDICIN E [facility] [facility] Social History: Smoking Status (Most current) [...] took place. Date/Time Current Smoking Status Comment [facility] Mar 06, 2023 09:00 AM VA-TOBACCO QUIT 15 YRS OR MORE [place] [facility] [place] [facility] Tobacco Use History This section includes a history of the smoking, or tobacco-related health factors, that were collected on or before the date of the Encounter. The data comes from the [place] facility where the Encounter took place. Date/Time Smoking Status/Tobac co Use Comment Facility Mar 06, 2023 09:00 AM VA-TOBACCO QUIT 15 YRS OR MORE [place] [facility] [facility] Feb 16, 2022 09:30 AM VA-TOBACCO FORMER USER [place] [facility] [facility] Feb 16, 2022 09:30 AM VA-TOBACCO QUIT 15 YRS OR MORE [place] [facility] [place] [facility] Feb 09, 2021 09:00 AM VA-TOBACCO FORMER USER [place] [facility] [facility] Feb 09, 2021 09:00 AM VA-TOBACCO QUIT 15 YRS OR MORE [facility] [place] [facility] Jan 01, 2020 10:15 AM VA-TOBACCO FOR[facility] Jan 01, 2020 10:15 AM VA-TOBACCO QUIT 15 YRS OR MORE [facility] Mar 12, 2018 08:56 AM VA-TOBACCO FOR[facility] Mar 12, 2018 08:56 AM VA-TOBACCO QUIT 15 YRS OR MORE [facility] Mar 12, 2018 08:24 AM LIFETIME NON-TOBACCO USER [facility] Mar 13, 2017 07:44 AM LIFETIME NON-TOBACCO USER [facility] [place] [facility] Mar 11, 2016 07:54 AM QUIT TOBACCO USE > 7 YEARS AGO [facility] Aug 17, 2005 10:23 AM HISTORY OF SMOKING Vet states he [facility] in 1984 [facility] May 19, 2004 08:56 AM HISTORY OF SMOKING [facility] . [facility] May 19, 2003 09:15 AM HISTORY OF SMOKING quit 10yrs ago [facility] Jun 06, 2002 08:13 AM HISTORY OF SMOKING quit [facility] Jun 06, 2002 08:13 AM QUIT TOBACCO USE > 7 YEARS AGO [facility] Apr 30, 2001 04:07 PM HISTORY OF SMOKING quit - 1984 [facility] Advance Directives: All historical and current [...] Mar 12, 2024 ADVANCE DIRECTIVE [facility]NIFFER [facility] Encounter Notes: All associated encounter notes This section contains the clinical notes associated to the Encounter. Date/Time Encounter Note(s) Provider Source Nov 16, 2023 10:11 AM NONVA CONSULT: LOCAL TITLE: MD/OUTSIDE CONSULT REPORT SUMMARY STANDARD TITLE: NONVA CONSULT DATE OF NOTE: NOV 16, 2023@10:11 ENTRY DATE: NOV 16, 2023@10:11:27 AUTHOR: ERASMO CARLOS EXP COSIGNER: URGENCY: STATUS: COMPLETED 11-08-23 office visit Vascular surgery [facility] Chief complaint: Follow-up venous insufficiency both legs Patient declined interventional procedure Cellulitis Doxycycline private pharmacy Plan: Follow-up 6 months /es/ Erasmo Carlos MD Staff Physician Signed: 11/16/2023 10:11 ERASMO CARLOS [place] [facility] [facility]
--- OUTSIDE RECORDS SUMMARY | 2024-09-06 11:03 | XMS_ITS | Encounter Summary ---
Author Name [facility] [place] Address [address] [place] [id number] Care Team Providers Care Mixer Tender Name Role Phone JACOBSEN LEOPOLDO Primary Care [...] Name Patient's Relationship to Policy Lai MELISSA [facility] ([facility]) MEDICARE ADVANTAGE [facility] ([facility]) Sep 11, 2015 [id number] OLEGARIO DUNN PATIENT [facility] ([facility]) MEDICARE ADVANTAGE [facility] ([facility]) Sep 11, 2015 [id number] OLEGARIO DUNN PATIENT MEDICARE (WNR) MEDICARE (M) PART A Feb 09, 2001 PART A [id number] 56A OLEGARIO DUNN PATIENT MEDICARE (WN) MEDICARE (M) PART B Feb 09, 2001 PART B [id number] 56A OLEGARIO DUNN PATIENT MEDICARE (WNR) MEDICARE (M) PART A Feb 09, 2001 PART A [id number] 56A OLEGARIO DUNN PATIENT MEDICARE (WN) MEDICARE (M) PART B Feb 09, 2001 PART B [id number] 56A OLEGARIO DUNN PATIENT Selected Encounter This section includes the information on record at CT for the Encounter. Date/Time Encounter Type Encounter Description Reason Provider Source Oct 19, 2023 08:00 AM DEBRIDE NAIL 6 OR MORE PODIATRY ICD-10-CM I73.9 Peripheral vascular disease, unspecified CHARLEY QIU Sharda Encounter Template Text not used by CT Assessments - Encounter Diagnoses This section includes the primary and secondary diagnoses documented for the Encounter. Date/Time Primary/Secondary Diagnosis Diagnosis Name Provider Source Oct 19, 2023 08:29 AM PRIMARY Peripheral vascular disease, unspecified CHARLEY QIU [facility] [place] [facility] Oct 19, 2023 08:29 AM SECONDARY Nail dystrophy CHARLEY QIU [facility] [place] [facility] Plan of Treatment: Future Appointments (+ 6 months) and Future Tests (+/- 45 days) The Plan of Treatment section includes future care activities for the patient from all CT treatmentfacilities. This section includes future appointments and future orders which are active, pending or scheduled. Future Appointments This section includes appointments that were scheduled to occur 6 months from the date of the Encounter, up to a maximum of 20 appointments. The data comes from all CT treatment facilities. Appointment Date/Time Appointment Type Appointme nt Facility Name Oct 26, 2023 07:15 AM AMBULATORY - NONE [facility] [place] [facility] Nov 08, 2023 03:00 PM AMBULATORY - MEDICINE CT [facility] [place] [facility] Nov 29, 2023 10:00 AM AMBULATORY - MEDICINE [facility] [place] [facility] Nov 29, 2023 10:15 AM AMBULATORY - MEDICINE [facility] [place] [facility] Nov 29, 2023 10:30 AM AMBULATORY - MEDICINE [place] [facility] [place] [facility] Dec 20, 2023 02:00 PM AMBULATORY - MEDICINE CT C [facility] [place] [facility] Jan 03, 2024 10:45 AM AMBULATORY - MEDICINE CT C [facility] [place] [facility] February 02, 2024 03:00 PM AMBULATORY - MEDICINE CT C [facility] [place] [facility] Feb 14, 2024 01:30 PM AMBULATORY - REHAB MEDICIN E [facility] [place] [facility] Mar 11, 2024 09:00 AM AMBULATORY - MEDICINE [place] [facility] [place] [facility] Mar 12, 2024 01:30 PM AMBULATORY - REHAB MEDICIN E [facility] [place] [facility] Mar 22, 2024 02:30 PM AMBULATORY - REHAB MEDICIN E [facility] [facility] Mar 26, 2024 02:00 PM AMBULATORY - REHAB MEDICIN E [facility] [place] [facility] Mar 28, 2024 11:30 AM AMBULATORY - MEDICINE CT C [facility] [place] [facility] Mar 29, 2024 02:30 PM AMBULATORY - REHAB MEDICIN E [facility] [facility] Apr 04, 2024 02:00 PM AMBULATORY - REHAB MEDICIN E [facility] [place] [facility] Apr 11, 2024 01:00 PM AMBULATORY - REHAB MEDICIN E [facility] [place] [facility] Apr 11, 2024 02:00 PM AMBULATORY - REHAB MEDICIN E [facility] [place] [facility] Social History: Smoking Status (Most current) and Tobacco Use (All prior to encounter date) This section includes the most current, and the historical, smoking and tobacco- related health factors from the CT facility where the Encounter took place. Current Smoking Status This section includes the most current smoking, or tobacco-related health factor, from the CT facility where the Encounter took place. Date/Time Current Smoking Status Comment [facility] Mar 06, 2023 09:00 AM VA-TOBACCO FORMER USER CT [facility] [place] [facility] Tobacco Use History This section includes a history of the smoking, or tobacco-related health factors, that were collected on or before the date of the Encounter. The data comes from the CT facility where the Encounter took place. Date/Time Smoking Status/Tobac co Use Comment Facility Mar 06, 2023 09:00 AM VA-TOBACCO QUIT [address] [facility] [place] [facility] Feb 16, 2022 09:30 AM VA-TOBACCO FORMER USER CT [facility] [place] [facility] Feb 16, 2022 09:30 AM VA-TOBACCO QUIT [address] [facility] [facility] Feb 09, 2021 09:00 AM VA-TOBACCO FORMER USER CT [facility] [facility] Feb 09, 2021 09:00 AM VA-TOBACCO QUIT [address] [facility] [facility] Jan 01, 2020 10:15 AM VA-TOBACCO FORMER USER CT [facility] [place] [facility] Jan 01, 2020 10:15 AM VA-TOBACCO QUIT [address] [facility] [place] [facility] Mar 12, 2018 08:56 AM VA-TOBACCO FORMER USER CT [facility] [facility] Mar 12, 2018 08:56 AM VA-TOBACCO QUIT [address] [facility] [place] [facility] Mar 12, 2018 08:24 AM LIFETIME NON-TOBACCO USER CT [facility] [place] [facility] Mar 13, 2017 07:44 AM LIFETIME NON-TOBACCO USER CT [facility]TR [facility] [place] [facility] Mar 11, 2016 07:54 AM QUIT TOBACCO USE > 7 YEARS AGO [facility] [place] [facility] Aug 17, 2005 10:23 AM HISTORY OF SMOKING Vet states he quit [place] [address] [place] [facility] [place] [facility] May 19, 2004 08:56 AM HISTORY OF SMOKING quit . CT [facility] [facility] May 19, 2003 09:15 AM HISTORY OF SMOKING quit 10yrs ago [facility] [place] [place] [facility] Jun 06, 2002 08:13 AM HISTORY OF SMOKING quit [address] [facility] [place] [facility] Jun 06, 2002 08:13 AM QUIT TOBACCO USE > 7 YEARS AGO [facility] [place] [facility] Apr 30, 2001 04:07 PM HISTORY OF SMOKING quit - 1984 [facility] Advance Directives: All historical and current Section Date Range: From patient's date of to the date document was created. This section includes ALL of a patient's completed or amended [place] Advance and Rescinded Directives. The entries below indicate that a directive exists for the patient, but an actual copy is not included with this document. The data comes from all CT facilities. Date Advance Directives Provider Source Mar 12, 2024 ADVANCE DIRECTIVE JENNIFFER DOAN Lucrecia CT CNT [facility] Encounter Notes: All associated encounter notes This section contains the clinical notes associated to the Encounter. Date/Time Encounter Note(s) Provider Source Oct 19, 2023 08:26 AM NURSING OUTPATIENT NOTE: LOCAL TITLE: NURSING/SPECIALTY CLINIC NOTE STANDARD TITLE: NURSING OUTPATIENT NOTE DATE OF NOTE: OCT 19, 2023@08:26 ENTRY DATE: OCT 19, 2023@08:26:35 AUTHOR: CHARLEY QIU COSIGNER: URGENCY: STATUS: COMPLETED [place] [facility] for continued [facility] care. has a history of PVD and is unable to trim his/her own nails. Ambulates: [X]self [ ]wheelchair can transfer [ ]wheelchair cannot transfer [ ]without assistance [x ]with assistance of a cane Bilateral: Pedal pulses: Right Foot: Dorsalis Pedis - palpable [ ] non-palpable[x ] Posterior Tibial - palpable[ ] non-palpable[x ] Left Foot: Dorsalis Pedis - palpable [ ] non-palpable [...] to distal Pedal skin: [x ] Intact [ ] Dry [ ] Cracked [ ] Discolored Webspaces: [ x] Intact [x ] Clean [ ] Soiled [ ] Macerated [ ] Dry Nails: [x ] Thickened [x ] Elongated [x ] Dystrophic [ ] Discolored [ ] Fungal [ ] Incurvated [x ] Subungual debri Hyperkeratosis [ ] Yes, Locations: [x ] No Open lesions/wounds: [ ] Yes, Locations: [x ] No Amputations: [ ] Yes, Locations: [x ] No Edema present: ( x ) Yes Bilateral ankles ( ) NO Podiatric Problem List: [ ] Diabetes mellitus [x ] Peripheral vascular disease [ ] Neuropathy [ ] Onychomycosis [x ] Dystrophic toenails [ ] Hyperkeratosis/calluses [ ] Xerosis/dry skin [ ] Other: Treatment: [x ] Nails x 10 debrided in length and thickness without incident [ ] Hyperkeratotic lesions were grinded down with eletric external grinder tool and debrided without incidence. [x ]Patient education educated about proper foot and encouraged to check feet daily for injuries and wounds [x ] Instructed to moisturize feet daily but not in-between toes Patient is to RTC in 2 months. /kathy/ CHARLEY QIU LPN LICENSED PRACTICAL NURSE Signed: 10/19/2023 08:29 Receipt Acknowledged By: 10/20/2023 08:42 /kathy/ BRANNON SKINNER DPM PODIATRY ATTENDING CHARLEY QIU [facility]
--- OUTSIDE RECORDS SUMMARY | 2024-09-06 11:03 | XMS_ITS | Encounter Summary ---
Author Name [facility] [place] Organization [place] Address [address] [place] [address] Care Team Providers Care Assignment Desk Assistant Name Role Phone CARLOS ERASMO Primary Care [...] Name Patient's Relationship to Policy Lai MELISSA [facility] ([facility]) MEDICARE ADVANTAGE [facility] ([facility]) Sep 11, 2015 [id number] [phone] MOONJung GANESHOLEGARIO Jung PATIENT [facility] ([facility]) MEDICARE ADVANTAGE [facility] ([facility]) Sep 11, 2015 [id number] OLEGARIO DUNN PATIENT MEDICARE (WNR) MEDICARE (M) PART A Feb 09, 2001 PART A [id number] 56A OLEGARIO DUNN PATIENT MEDICARE (WNR) MEDICARE (M) PART B Feb 09, 2001 PART B [id number] 56A OLEGARIO DUNN PATIENT MEDICARE (WNR) MEDICARE (M) PART A Feb 09, 2001 PART A [id number] 56A OLEGARIO DUNN PATIENT MEDICARE (WNR) MEDICARE (M) PART B Feb 09, 2001 PART B [id number] 56A OLEGARIO DUNN PATIENT Selected Encounter This section includes the information on record at [place] for the Encounter. Date/Time Encounter Type Encounter Description Reason Pro vider Source Sep 07, 2023 02:14 PM Outpatient Encounter PRIMARY CARE/MEDICINE IHE Encounter Template Text not used by [place] Plan of Treatment: Future Appointments (+ 6 [...] 19, 2023 08:00 AM AMBULATORY - MEDICINE [place] [facility] [place] [facility] Oct 26, 2023 07:15 AM AMBULATORY - NONE [place] [facility] [place] [place] [facility] Nov 08, 2023 03:00 PM AMBULATORY - MEDICINE [place] [facility] [place] [facility] Nov 29, 2023 10:00 AM AMBULATORY - MEDICINE NM C [facility] [place] [facility] Nov 29, 2023 10:15 AM AMBULATORY - MEDICINE NM C [facility] [place] [facility] Nov 29, 2023 10:30 AM AMBULATORY - MEDICINE NM C [facility] [place] [facility] Dec 20, 2023 02:00 PM AMBULATORY - MEDICINE NM C [facility] [place] [facility] Jan 03, 2024 10:45 AM AMBULATORY - MEDICINE NM C [facility] [place] [facility] February 02, 2024 03:00 PM AMBULATORY - MEDICINE NM C [facility] [place] [facility] Feb 14, 2024 01:30 PM AMBULATORY - REHAB MEDICIN E [place] [facility] [place] [facility] Lab Results: +/- 30 days of the encounter This section includes the Chemistry and Hematology Lab Results on record with [place] for the patient. Radiology Reports and Pathology Reports are provided separately, in subsequent sections. Lab Results This section contains the Chemistry/Hematology Results that were resulted 30 days before or 30 daysafter the date of the Encounter. Date/Time Source Result Type Result - Unit Interpretation Reference Range Comment Aug 29, 2023 07:33 AM [facility] VITAMIN D 25-OH (Therapy monitor) Specimen Type: SERUM Comment: Vitamin D, 25-Hydroxy reports concentrations of two common forms, 25-OHD2 and 25-OHD3. 25-OHD3 indicates both endogenous production and supplementation. 25-OHD2 is an indicator of exogenous sources such as diet or supplementation. Therapy is based on measurement of Total 25-OHD, with levels <20 ng/mL indicative of Vitamin D deficiency, while levels between 20 ng/mL and 30 ng/mL suggest insufficiency. Optimal levels are > or = 30 ng/mL. For additional information, please refer to http://education .INPHI/faq/AIN342 (This link is being provided for informational/ educational purposes only.) This test was developed and its analytical performance characteristics have been determined by [facility] [place], [place]. It has not been cleared or approved by the U.S. Food and Drug Administration. This assay has been validated pursuant to the CLIA regulations and is used for clinical purposes. This test was developed and its analytical performance characteristics have been determined by [facility] [place], [place]. It has not been cleared or approved by the U.S. Food and Drug Administration. This assay has been validated pursuant to the CLIA regulations and is used for clinical purposes. Test Performed by [facility], [facility], [address] [place] [address] Casey Alves M.D., Ph.D., Director of Laboratories , CLIA [id number] TEST PERFORMED AT: , Ordering Provider: ERASMO CARLOS Report Released Date/Time: Aug 25, 2023 10:09 AM Reporting Lab: [facility] [address] [facility] [id number] Performing Lab: [facility] [address] [address] VITAMIN D, 25-OH, TOTAL 47 ng/mL 30-100 VITAMIN D, 25-OH, D3 47 ng/mL VITAMIN D, 25-OH, D2 <4 ng/mL Aug 29, 2023 07:33 AM [facility] LIVER FUNCTION Specimen Type: SERUM No comment entered. Ordering Provider: ERASMO CARLOS Report Released Date/Time: Aug 25, 2023 10:09 AM Reporting Lab: [facility] [address] [facility] [address] Performing Lab: [facility] [address] [facility] [address] PROTEIN,TOTAL 6.7 g/dL 6.0-8.3 ALBUMIN 3.8 g/dL 3.5-5.0 ALKALINE PHOSPHATASE 117 U/L 40-150 AST 23 U/L 5-34 ALT 25 U/L BILIRUBIN, TOTAL 1.0 mg/dL 0.2-1.2 Aug 29, 2023 07:33 AM [facility] BASIC METABOLIC PANEL (fasting) Specimen Type: SERUM No comment entered. Ordering Provider: ERASMO CARLOS Report Released Date/Time: Aug 25, 2023 10:09 AM Reporting Lab: [facility] [address] [facility] [address] Performing Lab: [facility] [address] [facility] [address] UREA NITROGEN 17 mg/dL 7-25 GLUCOSE 86 mg/dL 65-100 SODIUM 141 mmol/L 135-145 POTASSIUM 3.8 mmol/L 3.5-5.0 CHLORIDE 111 mmol/L H 100-110 CO2 22 meq/L 20-30 CREATININE, Serum 0.72 mg/dL 0.50-1.40 eGFR(CKD-EPI 2020) 88 mL/min >60 Aug 29, 2023 07:33 AM [facility] LIPID PANEL FASTING Specimen Type: SERUM No comment entered. Ordering Provider: ERASMO CARLOS Report Released Date/Time: Aug 25, 2023 10:09 AM Reporting Lab: [facility] [address] [facility] [address] Performing Lab: [address] [address] CHOLESTEROL 114 mg/dL TRIGLYCERIDE 53 mg/dL 0-150 LDL calculated 55 mg/dL 0-129 CHOL/HDL 2.4 HDL CHOLESTEROL 48 mg/dL 40-60 Aug 29, 2023 07:33 AM [facility] TSH Specimen Type: SERUM No comment entered. Ordering Provider: ERASMO CARLOS Report Released Date/Time: Aug 25, 2023 10:09 AM Reporting Lab: [address] [address] Performing Lab: [address] [address] TSH 5.57 u[IU]/mL H 0.35-5.00 Aug 29, 2023 07:33 AM [facility] CBC AND DIFF (AUTO) Specimen Type: BLOOD No comment entered. Ordering Provider: ERASMO CARLOS Report Released Date/Time: Aug 25, 2023 10:09 AM Reporting Lab: [address] [address] Performing Lab: [address] [address] WBC 5.70 10*3/uL 4.50-11.00 RBC 4.26 10*6/uL 4.23-5.66 HGB 13.9 g/dL 12.8-17 HCT 41.1 39.2-50.4 MCV 96.5 fL 82-99 MCHC 33.8 g/dL 30.8-35.1 PLT 191 10*3/uL 140-360 RDW-CV 13.4 12.0-16.0 [place], Abs 0.56 10*3/uL 0.30-1.10 MCH 32.6 pg 26.2-32.6 Neut % 65.9 43.7-75.8 Lymph % 21.1 14.0-42.3 [place] % 9.8 5.1-13.7 Eos % 1.9 0.4-6.8 Baso % 1.1 0.1-2.0 Neut, Abs 3.76 10*3/uL 2.20-7.60 Lymph, Abs 1.20 10*3/uL 1.00-3.20 Eos, Abs 0.11 10*3/uL 0.03-0.44 Baso, Abs 0.06 10*3/uL 0.01-0.13 Immature Gran % 0.2 0.0-0.7 Immature Gran, Abs 0.01 10*3/uL 0.00-0.06 Aug 29, 2023 07:33 AM [facility] URINALYSIS CLEAN CATCH Specimen Type: URINE Comment: If Glucose = >500 and Ketones are positive, please alert the Physician. Ordering Provider: ERASMO CARLOS Report Released Date/Time: Aug 25, 2023 10:09 AM Reporting Lab: [facility] [address] [facility] [address] Performing Lab: [address] [address] UA COLOR Yellow Yellow UA APPEARANCE Clear Clear UA GLUCOSE NEGATIVE mg/dL Negative UA KETONES NEGATIVE mg/dL Negative UA BLOOD NEGATIVE mg/dL Negative UA PROTEIN 20 mg/dL Negative UA NITRITE NEGATIVE mg/dL Negative UA BILIRUBIN NEGATIVE mg/dL Negative UA SPECIFIC GRAVITY 1.024 H 1.016-1.02 2 UA pH 5.5 5.0-9.0 UA UROBILINOGEN <2.0 mg/dL <2.0 UA LEUKOCYTE NEGATIVE Negative Social History: Smoking Status (Most current) and [...] place. Date/Time Current Smoking Status Comment [facility] Mar 06, 2023 09:00 AM NM-TOBACCO QUIT 15 YRS OR MORE [facility] Tobacco Use History This section includes a history of the smoking, or tobacco-related health factors, that were collected on or before the date of the Encounter. The data comes from the [place] facility where the Encounter took place. Date/Time Smoking Status/Tobac co Use Comment [facility] Mar 06, 2023 09:00 AM NM-TOBACCO QUIT 15 YRS OR MORE [facility] Feb 16, 2022 09:30 AM [facility] Feb 16, 2022 09:30 AM VA-TOBACCO QUIT 15 YRS OR MORE [place] [facility] [place] [facility] Feb 09, 2021 09:00 AM VA-TOBACCO FORMER USER [place] [facility] [place] [facility] Feb 09, 2021 09:00 AM VA-TOBACCO QUIT 15 YRS OR MORE [place] [facility] [place] [facility] Jan 01, 2020 10:15 AM VA-TOBACCO FORMER USER [place] [facility] [place] [facility] Jan 01, 2020 10:15 AM VA-TOBACCO QUIT 15 YRS OR MORE [place] [facility] [facility] Mar 12, 2018 08:56 AM VA-TOBACCO FORMER USER [place] [facility] [place] [facility] Mar 12, 2018 08:56 AM VA-TOBACCO QUIT 15 YRS OR MORE [place] [facility] [place] [facility] Mar 12, 2018 08:24 AM LIFETIME NON-TOBACCO USER [place] [facility] [facility] Mar 13, 2017 07:44 AM LIFETIME NON-TOBACCO USER [place] [facility] [facility] Mar 11, 2016 07:54 AM QUIT TOBACCO USE > 7 YEARS AGO Quit in 1984 [place] [facility] [facility] [facility] Aug 17, 2005 10:23 AM HISTORY OF SMOKING Vet states he quit in 1984 [place] [facility] [place] [facility] May 19, 2004 08:56 AM HISTORY OF SMOKING quit 1980s. [place] [facility] [facility] May 19, 2003 09:15 AM HISTORY OF SMOKING quit 10yrs ago [place] [facility] [place] [facility] Jun 06, 2002 08:13 AM HISTORY OF SMOKING quit 1979 [place] [facility] [place] [facility] Jun 06, 2002 08:13 AM QUIT TOBACCO USE > 7 YEARS AGO [place] [facility] [place] [facility] Apr 30, 2001 04:07 PM HISTORY OF SMOKING quit - 1984 [facility] [place] [facility] Advance Directives: All historical and [...] Provider Source Mar 12, 2024 ADVANCE DIRECTIVE OLIMPIAJENNIFFER Lucrecia [facility] Encounter Notes: All associated encounter notes This section contains the clinical notes associated to the Encounter. Date/Time Encounter Note(s) Provider Source Sep 07, 2023 02:14 PM PHYSICIAN NOTE: LOCAL TITLE: MD NOTE STANDARD TITLE: PHYSICIAN NOTE DATE OF NOTE: SEP 07, 2023@14:14 ENTRY DATE: SEP 07, 2023@14:14:57 AUTHOR: ERASMO CARLOS EXP COSIGNER: URGENCY: STATUS: COMPLETED Completed application for [employer] parking [employer]. Osteoarthritis of legs. Permanent. Unable to walk 200 feet without stopping to rest. Uses a cane for ambulatory aid. Mailed application to [facility]. /kathy/ Erasmo Carlos MD Staff Physician Signed: 09/07/2023 14:15 ERASMO CARLOS [place] [facility]
--- OUTSIDE RECORDS SUMMARY | 2024-09-06 11:04 | XMS_ITS | Encounter Summary ---
Author Name [facility] [place] Address [address] [place] [address] Care Team Providers Care Trampoline Team Coach Name Role Phone CARLOS ERASMO Primary Care [...] Name Patient's Relationship to Policy Lai MELISSA SUTTER [facility] ([facility]) MEDICARE ADVANTAGE [facility] ([facility]) Sep 11, 2015 [id number] [phone] OLEGARIO DUNN PATIENT [facility] (R) MEDICARE ADVANTAGE [facility] ([facility]) Sep 11, 2015 [id number] OLEGARIO DUNN PATIENT MEDICARE (WNR) MEDICARE (M) PART A Feb 09, 2001 PART A [id number] OLEGARIO DUNN PATIENT MEDICARE (WNR) MEDICARE (M) PART B Feb 09, 2001 PART B [id number] OLEGARIO DUNN PATIENT MEDICARE (WNR) MEDICARE (M) PART A Feb 09, 2001 PART A [id number] [phone] OLEGARIO DUNN PATIENT MEDICARE (WNR) MEDICARE (M) PART B Feb 09, 2001 PART B [id number] OLEGARIO DUNN PATIENT Selected Encounter This section includes the information on record at [place] for the Encounter. Date/Time Encounter Type Encounter Description Reason Pro vider Source Dec 07, 2023 02:42 PM Outpatient Encounter ADMIN PAT ACTIVTIES (MASNONCT) IHE Encounter Template Text not used by [place] Plan of Treatment: Future Appointments (+ 6 months) and Future Tests (+/- 45 days) The Plan of Treatment section includes future care activities for the patient from all [place] treatmentfacilities. This section includes future appointments and future orders which are active, pending or scheduled. Future Appointments This section includes appointments that were scheduled to occur 6 months from the date of the Encounter, up to a maximum of 20 appointments. The data comes from all [place] treatment facilities. Appointment Date/Time Appointment Type Appointme nt Facility Name Dec 20, 2023 02:00 PM AMBULATORY - MEDICINE [place] [facility] [place] [facility] Jan 03, 2024 10:45 AM AMBULATORY - MEDICINE [place] [facility] [place] [facility] February 02, 2024 03:00 PM AMBULATORY - MEDICINE [place] [facility] [place] [facility] Feb 14, 2024 01:30 PM AMBULATORY - REHAB MEDICIN E [facility] [place] [facility] Mar 11, 2024 09:00 AM AMBULATORY - MEDICINE [place] [facility] [place] [facility] Mar 12, 2024 01:30 PM AMBULATORY - REHAB MEDICIN E [facility] [place] [facility] Mar 22, 2024 02:30 PM AMBULATORY - REHAB MEDICIN E [facility] [place] [facility] Mar 26, 2024 02:00 PM AMBULATORY - REHAB MEDICIN E [facility] [place] [facility] Mar 28, 2024 11:30 AM AMBULATORY - MEDICINE [facility] [place] [facility] Mar 29, 2024 02:30 PM AMBULATORY - REHAB MEDICIN E [facility] [place] [facility] Apr 04, 2024 02:00 PM AMBULATORY - REHAB MEDICIN E [facility] [place] [facility] Apr 11, 2024 01:00 PM AMBULATORY - REHAB MEDICIN E [facility] [place] [facility] Apr 11, 2024 02:00 PM AMBULATORY - REHAB MEDICIN E [facility] [place] [facility] Apr 23, 2024 02:00 PM AMBULATORY - REHAB MEDICIN E [facility] [place] [facility] Apr 29, 2024 02:00 PM AMBULATORY - REHAB MEDICIN E [facility] [place] [facility] May 06, 2024 01:30 PM AMBULATORY - REHAB MEDICIN E [facility] [place] [facility] May 07, 2024 01:00 PM AMBULATORY - REHAB MEDICIN E [facility] [place] [facility] May 08, 2024 09:45 AM AMBULATORY - REHAB MEDICIN E [facility] [place] [facility] May 15, 2024 01:30 PM AMBULATORY - REHAB MEDICIN E [facility] [place] [facility] May 23, 2024 08:00 AM AMBULATORY - REHAB MEDICIN E [facility] [place] [facility] Social History: Smoking Status (Most current) and Tobacco Use (All prior to encounter date) This section includes the most current, and the historical, smoking and tobacco- related health factors from the [place] facility where the Encounter took place. Current Smoking Status This section includes the most current smoking, or tobacco-related health factor, from the [place] facility where the Encounter took place. Date/Time Current Smoking Status Comment [facility] Mar 06, 2023 09:00 AM [facility] [place] [facility] Tobacco Use History This section includes a history of the smoking, or tobacco-related health factors, that were collected on or before the date of the Encounter. The data comes from the [place] facility where the Encounter took place. Date/Time Smoking Status/Tobac co Use Comment Facility Mar 06, 2023 09:00 AM VA-TOBACCO QUIT 15 YRS OR MORE [place] [facility] [place] [facility] Feb 16, 2022 09:30 AM VA-TOBACCO FORMER USER [place] [facility] [place] [facility] Feb 16, 2022 09:30 AM VA-TOBACCO QUIT 15 YRS OR MORE [place] [facility] [place] [facility] Feb 09, 2021 09:00 AM [facility] [place] [facility] Feb 09, 2021 09:00 AM VA-TOBACCO QUIT 15 YRS OR MORE [place] [facility] [place] [facility] Jan 01, 2020 10:15 AM VA-TOBACCO FORMER USER [place] [facility] [place] [facility] Jan 01, 2020 10:15 AM VA-TOBACCO QUIT 15 YRS OR MORE [facility] Mar 12, 2018 08:56 AM VA-TOBACCO FORMER USER [place] [facility] [place] [facility] Mar 12, 2018 08:56 AM VA-TOBACCO QUIT 15 YRS OR MORE [facility] Mar 12, 2018 08:24 AM LIFETIME [facility]ACCO [facility] Mar 13, 2017 07:44 AM LIFETIME [facility]ACCO [facility] [place] [facility] Mar 11, 2016 07:54 AM QUIT TOBACCO USE > 7 YEARS AGO Quit in 1984 [facility] Aug 17, 2005 10:23 AM HISTORY OF SMOKING Vet states he quit in 1984 [facility] May 19, 2004 08:56 AM HISTORY OF SMOKING quit [facility] May 19, 2003 09:15 AM HISTORY OF SMOKING quit 10yrs ago [facility] Jun 06, 2002 08:13 AM HISTORY OF SMOKING quit 1979 [facility] Jun 06, 2002 08:13 AM QUIT TOBACCO USE > 7 YEARS AGO [facility] Apr 30, 2001 04:07 PM HISTORY OF SMOKING quit - 1984 [facility] Advance Directives: All historical and current Section Date Range: From patient's date of to the date document was created. This section includes ALL of a patient's completed or amended [place] Advance and Rescinded Directives. The entries below indicate that a directive exists for the patient, but an actual copy is not included with this document. The data comes from all [place] facilities. Date Advance Directives Provider Source Mar 12, [address] [facility] [facility] Encounter Notes: All associated encounter notes This section contains the clinical notes associated to the Encounter. Date/Time Encounter Note(s) Provider Source Dec 07, 2023 03:08 PM ADDENDUM: LOCAL TITLE: Addendum STANDARD TITLE: ADDENDUM DATE OF NOTE: DEC 07, 2023@15:08:58 ENTRY DATE: DEC 07, 2023@15:08:59 AUTHOR: SONALI ARANA EXP COSIGNER: URGENCY: STATUS: COMPLETED done please sign /es/ Sonali Arana RN, BSN Primary Care Signed: 12/07/2023 15:09 Receipt Acknowledged By: 12/07/2023 15:10 /es/ Erasmo Carlos MD Staff Physician --- Original Document --- 12/07/23 CCC: SCHEDULING ADMINISTRATION: Patient Demographics Patient Name: EUSEBIO PEREZ Patient Primary Phone: [phone] Patient Primary Address: [address] [place] [id number] Patient : 1935 Patient Age: 88 Caller/Recipient Relation to Patient: Self Administrative Administrative Note Reason: Other Administrative Note Comments: VET CALLED REQ A NEW UROLOGY REFERRAL HIS HAS AND REQ A NEW ONE. PLS C/B AT [phone] TO ASSIST /es/ HERMANN GUAJARDO 1 [facility] AMSA Signed: 12/07/2023 14:42 Receipt Acknowledged By: * AWAITING SIGNATURE * CARMEN HINES * AWAITING SIGNATURE * SONALI ARANA 12/07/2023 ADDENDUM STATUS: COMPLETED PVU ALSO CALLING STATES THEY DID HAVE REINALDO TODAY FOR URGENT VISIT BUT C/A BECAUSE NO VALID AUTH ON FILE APPT WAS FOR LEAKING AND DRIPPLING PVU WOULD LIKE TO GET R/S ONCE NEW CONSULT HAS BEEN ENTERED [facility] [address] [facility] [address] [phone] TAX ID#[id number] NPI#[id number] /es/ PAVAN BENNETT AMSA Signed: 12/07/2023 14:47 12/07/2023 ADDENDUM STATUS: COMPLETED Signed. /es/ Erasmo Carlos MD Staff Physician Signed: 12/07/2023 15:10 SONALI ARANA [place] [facility] [place] [facility] Dec 07, 2023 02:42 PM ADMINISTRATIVE NOT E: LOCAL TITLE: CCC: SCHEDULING ADMINISTRATION STANDARD TITLE: ADMINISTRATIVE NOTE DATE OF NOTE: DEC 07, 2023@14:42:40 ENTRY DATE: DEC 07, 2023@14:42:40 AUTHOR: HERMANN BEST COSIGNER: URGENCY: STATUS: COMPLETED CCC: SCHEDULING ADMINISTRATION Has ADDENDA Patient Demographics Patient Name: EUSEBIO PEREZ Patient Primary Phone: [phone] Patient Primary Address: [address] [place] [address] Patient : 1935 Patient Age: 88 Caller/Recipient Relation to Patient: Self Administrative Administrative Note Reason: Other Administrative Note Comments: VET CALLED REQ A NEW UROLOGY REFERRAL HIS HAS AND REQ A NEW ONE. PLS C/B AT [phone] TO ASSIST /kathy/ HERMANN GUAJARDO 1 [facility] AMSA Signed: 12/07/2023 14:42 Receipt Acknowledged By: 12/07/2023 15:35 /es/ CARMEN HINES, AGRICULTURE SALES ACCOUNT MANAGER License Practical Nurse 12/07/2023 15:43 /es/ Sonali Arana RN, BSN Primary Care 12/07/2023 ADDENDUM STATUS: COMPLETED PVU ALSO CALLING STATES THEY DID HAVE REINALDO TODAY FOR URGENT VISIT BUT C/A BECAUSE NO VALID AUTH ON FILE APPT WAS FOR LEAKING AND DRIPPLING PVU WOULD LIKE TO GET R/S ONCE NEW CONSULT HAS BEEN ENTERED [facility] [address] [facility] [address] [phone] TAX ID#[id number] NPI#[id number] /es/ PAVAN BENNETT AMSA Signed: 12/07/2023 14:47 12/07/2023 ADDENDUM STATUS: COMPLETED done please sign /es/ Sonali Arana RN, BSN Primary Care Signed: 12/07/2023 15:09 Receipt Acknowledged By: 12/07/2023 15:10 /es/ Erasmo Carlos MD Staff Physician 12/07/2023 ADDENDUM STATUS: COMPLETED Signed. /kathy/ Erasmo Carlos MD Staff Physician Signed: 12/07/2023 15:10 HERMANN BEST [facility]
--- OUTSIDE RECORDS SUMMARY | 2024-09-06 11:04 | XMS_ITS | Encounter Summary ---
Author Name [facility] [place] Address [address] [place] [address] Care Team Providers Care Chief Librarian Branch Or Department Name Role Phone JACOBSEN LEOPOLDO Primary Care [...] Patient's Relationship to Policy Lai MELISSA SUTTER [facility] ([facility]) MEDICARE ADVANTAGE [facility] ([facility]) Sep 11, 2015 [id number] OLEGARIO DUNN PATIENT [facility] (R) MEDICARE ADVANTAGE [facility] ([facility]) Sep 11, 2015 [id number] OLEGARIO DUNN PATIENT MEDICARE (WNR) MEDICARE (M) PART A Feb 09, 2001 PART A [id number] OLEGARIO DUNN PATIENT MEDICARE (WNR) MEDICARE (M) PART B Feb 09, 2001 PART B [id number] [phone] OLEGARIO DUNN PATIENT MEDICARE (WNR) MEDICARE (M) PART A Feb 09, 2001 PART A [id number] 56A OLEGARIO DUNN PATIENT MEDICARE (WNR) MEDICARE (M) PART B Feb 09, 2001 PART B [id number] OLEGARIO DUNN PATIENT Selected Encounter This section includes the information on record at [place] for the Encounter. Date/Time Encounter Type Encounter Description Reason Pro vider Source Dec 27, 2023 01:02 PM Outpatient Encounter ADMIN PAT ACTIVTIES (MASNONCT) [...] Date/Time Appointment Type Appointme nt Facility Name Jan 03, 2024 10:45 AM AMBULATORY - MEDICINE [place] [facility] [place] [facility] February 02, 2024 03:00 PM AMBULATORY - MEDICINE [place] [facility] [place] [facility] Feb 14, 2024 01:30 PM AMBULATORY - REHAB MEDICIN E [facility] [place] [facility] Mar 11, 2024 09:00 AM AMBULATORY - MEDICINE [place] [facility] [place] [facility] Mar 12, 2024 01:30 PM AMBULATORY - REHAB MEDICIN E [facility] [place] [facility] Mar 22, 2024 02:30 PM AMBULATORY - REHAB MEDICIN E [facility] [place] [facility] Mar 26, 2024 02:00 PM AMBULATORY - REHAB MEDICIN E [facility] [place] [facility] Mar 28, 2024 11:30 AM AMBULATORY - MEDICINE [place] [facility] [place] [facility] Mar 29, 2024 02:30 PM AMBULATORY - REHAB MEDICIN E [facility] [place] [facility] Apr 04, 2024 02:00 PM AMBULATORY - REHAB MEDICIN E [facility] [place] [facility] Apr 11, 2024 01:00 PM AMBULATORY - REHAB MEDICIN E [facility] [place] [facility] Apr 11, 2024 02:00 PM AMBULATORY - REHAB MEDICIN E [facility] [place] [facility] Apr 23, 2024 02:00 PM AMBULATORY - REHAB MEDICIN E [facility] [place] [facility] Apr 29, 2024 02:00 PM AMBULATORY - REHAB MEDICIN E [facility] [place] [facility] May 06, 2024 01:30 PM AMBULATORY - REHAB MEDICIN E [facility] [place] [facility] May 07, 2024 01:00 PM AMBULATORY - REHAB MEDICIN E [facility] [place] [facility] May 08, 2024 09:45 AM AMBULATORY - REHAB MEDICIN E [facility] [place] [facility] May 15, 2024 01:30 PM AMBULATORY - REHAB MEDICIN E [facility] [place] [facility] May 23, 2024 08:00 AM AMBULATORY - REHAB MEDICIN E [facility] [place] [facility] May 27, 2024 01:30 PM AMBULATORY - REHAB MEDICIN E [facility] [place] [facility] Social History: Smoking Status (Most current) [...] took place. Date/Time Current Smoking Status Comment [facility] Mar 06, 2023 09:00 AM VA-TOBACCO FORMER USER [place] [facility] Tobacco Use History This section includes a history of the smoking, or tobacco-related health factors, that were collected on or before the date of the Encounter. The data comes from the [place] facility where the Encounter took place. Date/Time Smoking Status/Tobac co Use Comment Facility Mar 06, 2023 09:00 AM VA-TOBACCO QUIT 15 YRS OR MORE [place] [facility] [place] [facility] Feb 16, 2022 09:30 AM VA-TOBACCO FORMER USER [place] [facility] [place] [facility] Feb 16, 2022 09:30 AM VA-TOBACCO QUIT 15 YRS OR MORE [place] [facility] [place] [facility] Feb 09, 2021 09:00 AM VA-TOBACCO FORMER USER [place] [facility] [place] [facility] Feb 09, 2021 09:00 AM VA-TOBACCO QUIT 15 YRS OR MORE [place] [facility] [place] [facility] Jan 01, 2020 10:15 AM VA-TOBACCO FORMER USER [place] [facility] [place] [facility] Jan 01, 2020 10:15 AM VA-TOBACCO QUIT 15 YRS OR MORE [place] [facility] [place] [facility] Mar 12, 2018 08:56 AM VA-TOBACCO FORMER USER [place] [facility] [place] [facility] Mar 12, 2018 08:56 AM VA-TOBACCO QUIT 15 YRS OR MORE [place] [facility] [place] [facility] Mar 12, 2018 08:24 AM LIFETIME NON-TOBACCO USER [place] [facility] [place] [facility] Mar 13, 2017 07:44 AM LIFETIME NON-TOBACCO USER [place] [facility] [place] [facility] Mar 11, 2016 07:54 AM QUIT TOBACCO USE > 7 YEARS AGO [facility] [place] [facility] Aug 17, 2005 10:23 AM HISTORY OF SMOKING Vet states he [facility] 1984 [facility] [place] [facility] May 19, 2004 08:56 AM HISTORY OF SMOKING quit 1980[facility] [place] [facility] May 19, 2003 09:15 AM HISTORY OF SMOKING quit 10yrs ago [place] [facility] [place] [facility] Jun 06, 2002 08:13 AM HISTORY OF SMOKING quit 1979 [facility] Jun 06, 2002 08:13 AM QUIT TOBACCO USE > 7 YEARS AGO [place] [facility] [place] [facility] Apr 30, 2001 04:07 PM HISTORY OF SMOKING quit - 1984 [facility] Advance Directives: All historical and [...] Mar 12, 2024 ADVANCE DIRECTIVE JENNIFFER DOAN [facility] Encounter Notes: All associated encounter notes This section contains the clinical notes associated to the Encounter. Date/Time Encounter Note(s) Provider Source Dec 27, 2023 01:02 PM ADMINISTRATIVE NOT E: LOCAL TITLE: CCC: SCHEDULING ADMINISTRATION STANDARD TITLE: ADMINISTRATIVE NOTE DATE OF NOTE: DEC 27, 2023@13:02:23 ENTRY DATE: DEC 27, 2023@13:02:23 AUTHOR: KARYNA BRITO COSIGNER: URGENCY: STATUS: COMPLETED CCC: SCHEDULING ADMINISTRATION Has ADDENDA Patient Demographics Patient Name: EUSEBIO PEREZ Patient Primary Phone: [phone] Patient Primary Address: [address] [place] [id number] Patient : 1935 Patient Age: 88 Caller/Recipient Relation to Patient: Self Scheduling Patient Expects Callback: Yes Open Request: Consult Administrative Administrative Note Reason: [facility] Administrative Note Comments: Patient is requesting a call back, about getting a consult with urologist . /kathy/ KARYNA BRITO VISN1 [facility] Signed: 12/27/2023 13:02 Receipt Acknowledged By: 12/28/2023 09:42 /es/ CARMEN HINES LPN License Practical Nurse 12/27/2023 14:31 /kathy/ Sonali Arana RN, BSN Primary Care 12/27/2023 ADDENDUM STATUS: COMPLETED has approved consult. made comment to re fax /kathy/ Sonali Arana RN, BSN Primary Care Signed: 12/27/2023 14:30 [facility]
--- OUTSIDE RECORDS SUMMARY | 2024-09-06 11:04 | XMS_ITS | Encounter Summary ---
Author Name [facility] [place] [facility] [place] [facility] [place] Address [address] [place] [id number] Care Team Providers Care Java Security Engineer Name Role Phone JACOBSEN LEOPOLDO Primary Care [...] Name Patient's Relationship to Policy Lai [facility] ([facility]) MEDICARE ADVANTAGE [facility] ([facility]) Sep 11, 2015 [id number] FANNIE ANDERSENOLEGARIO Jung PATIENT [facility] ([facility]) MEDICARE ADVANTAGE [facility] ([facility]) Sep 11, 2015 [id number] [phone] OLEGARIO DUNN PATIENT MEDICARE (WNR) MEDICARE (M) PART A Feb 09, 2001 PART A [id number] OLEGARIO DUNN PATIENT MEDICARE (WNR) MEDICARE (M) PART B Feb 09, 2001 PART B [id number] OLEGARIO DUNN PATIENT MEDICARE (WNR) MEDICARE (M) PART A Feb 09, 2001 PART A [id number] 56A OLEGARIO DUNN PATIENT MEDICARE (WN) MEDICARE (M) PART B Feb 09, 2001 PART B [id number] HYUNTIMOTHY OLEGARIO ANDERSEN PATIENT Selected Encounter This section includes the information on record at [place] for the Encounter. Date/Time Encounter Type Encounter Description Reason Provider Source Dec 20, 2023 02:00 PM TRIM NAIL(S) PODIATRY ICD-10-CM I73.9 Peripheral vascular disease, unspecified CHARLEY QIU Sharda Encounter Template Text not used by [place] Assessments - Encounter Diagnoses This section includes the primary and secondary diagnoses documented for the Encounter. Date/Time Primary/Secondary Diagnosis Diagnosis Name Provider Source Dec 20, 2023 02:37 PM PRIMARY Peripheral vascular disease, unspecified CHARLEY QIU [place] [facility] [place] [facility] Dec 20, 2023 02:37 PM SECONDARY Ingrowing nail CHARLEY QIU [facility] [place] [facility] Dec 20, 2023 02:37 PM SECONDARY Nail dystrophy [facility] [place] [facility] Plan of Treatment: Future Appointments (+ 6 months) and Future Tests (+/- 45 days) The Plan of Treatment section includes future care activities for the patient from all [place] treatmentfacilities. This section includes future appointments and [...] - MEDICINE [place] [facility] [place] [facility] February 02, 2024 03:00 PM AMBULATORY - MEDICINE [place] [facility] [place] [facility] Feb 14, 2024 01:30 PM AMBULATORY - [facility] MEDICIN [facility] [place] [facility] Mar 11, 2024 09:00 AM AMBULATORY - MEDICINE [place] [facility] [place] [facility] Mar 12, 2024 01:30 PM AMBULATORY - REHAB MEDICIN E [facility] [place] [facility] Mar 22, 2024 02:30 PM AMBULATORY - REHAB MEDICIN E [facility] [place] [facility] Mar 26, 2024 02:00 PM AMBULATORY - REHAB MEDICIN E [facility] [place] [facility] Mar 28, 2024 11:30 AM AMBULATORY - MEDICINE [facility] [place] [facility] Mar 29, 2024 02:30 PM AMBULATORY - REHAB MEDICIN E [facility] [place] [facility] Apr 04, 2024 02:00 PM AMBULATORY - REHAB MEDICIN E [facility] [place] [facility] Apr 11, 2024 01:00 PM AMBULATORY - REHAB MEDICIN E [facility] [place] [facility] Apr 11, 2024 02:00 PM AMBULATORY - REHAB MEDICIN E [facility] [place] [facility] Apr 23, 2024 02:00 PM AMBULATORY - REHAB MEDICIN E [facility] [place] [facility] Apr 29, 2024 02:00 PM AMBULATORY - REHAB MEDICIN E [facility] [place] [facility] May 06, 2024 01:30 PM AMBULATORY - REHAB MEDICIN E [facility] [place] [facility] May 07, 2024 01:00 PM AMBULATORY - REHAB MEDICIN E [facility] [place] [facility] May 08, 2024 09:45 AM AMBULATORY - REHAB MEDICIN E [facility] [place] [facility] May 15, 2024 01:30 PM AMBULATORY [...] AM VA-TOBACCO FORMER USER [place] [facility] Tobacco Use History This section includes a history of the smoking, or tobacco-related health factors, that were collected on or before the date of the Encounter. The data comes from the [facility] where the Encounter took place. Date/Time Smoking Status/Tobac co Use Comment Facility Mar 06, 2023 09:00 AM VA-TOBACCO QUIT 15 YRS OR MORE [facility] [place] [facility] Feb 16, 2022 09:30 AM VA-TOBACCO FORMER USER [facility] [place] [facility] Feb 16, 2022 09:30 AM VA-TOBACCO QUIT 15 YRS OR MORE [facility] [place] [facility] Feb 09, 2021 09:00 AM VA-TOBACCO FORMER USER [facility] [place] [facility] Feb 09, 2021 09:00 AM VA-TOBACCO QUIT 15 YRS OR MORE [facility] [place] [facility] Jan 01, 2020 10:15 AM VA-TOBACCO FORMER USER [facility] [place] [facility] Jan 01, 2020 10:15 AM VA-TOBACCO QUIT 15 YRS OR MORE [facility] [place] [facility] Mar 12, 2018 08:56 AM VA-TOBACCO FORMER USER [facility] [place] [facility] Mar 12, 2018 08:56 AM VA-TOBACCO QUIT 15 YRS OR MORE [facility] [place] [facility] Mar 12, 2018 08:24 AM LIFETIME NON-TOBACCO USER [facility] [place] [facility] Mar 13, 2017 07:44 AM LIFETIME NON-TOBACCO USER [facility] [place] [facility] Mar 11, 2016 07:54 AM QUIT TOBACCO USE > 7 YEARS AGO Quit in 1984 [place] [facility] [place] [facility] Aug 17, 2005 10:23 AM HISTORY OF SMOKING Vet states he quit in 1984 [facility] [place] [facility] May 19, 2004 08:56 AM HISTORY OF SMOKING quit 1980s. [facility] [place] [facility] May 19, 2003 09:15 AM HISTORY OF SMOKING quit 10yrs ago [facility] [place] [facility] Jun 06, 2002 08:13 AM HISTORY OF SMOKING quit 1979 [facility] [place] [facility] Jun 06, 2002 08:13 AM QUIT TOBACCO USE > 7 YEARS AGO [facility] [place] [facility] Apr 30, 2001 04:07 PM HISTORY OF SMOKING quit - 1984 [facility] Advance Directives: All historical and current [...] Mar 12, 2024 ADVANCE DIRECTIVE JENNIFFER DOAN [facility] Encounter Notes: All associated encounter notes This section contains the clinical notes associated to the Encounter. Date/Time Encounter Note(s) Provider Source Dec 20, 2023 02:39 PM PREVENTIVE MEDICIN E NURSING NOTE: LOCAL TITLE: CLINICAL REMINDERS/NURSING STANDARD TITLE: PREVENTIVE MEDICINE NURSING NOTE DATE OF NOTE: DEC 20, 2023@14:39 ENTRY DATE: DEC 20, 2023@14:39:50 AUTHOR: CHARLEY QIU EXP COSIGNER: URGENCY: STATUS: COMPLETED Suicide Screen: C-SSRS Screening [place] Suicide Severity Rating Scale (C-SSRS) screener 1. Over the past month, have you wished you were or wished you could go to sleep and not wake up? No 2. Over the past month, have you had any actual thoughts of killing yourself? No 3. Over the past month, have you been thinking about how you might do this? Response not required due to responses to other questions. 4. Over the past month, have you had these thoughts and had some intention of acting on them? Response not required due to responses to other questions. 5. Over the past month, have you started to work out or worked out the details of how to kill yourself? Response not required due to responses to other questions. 6. If yes, at any time in the past month did you intend to carry out this plan? Response not required due to responses to other questions. 7. In your lifetime, have you ever done anything, started to do anything, or prepared to do anything to end your life (for example, collected pills, obtained a gun, gave away valuables, went to the roof but didn't jump)? No 8. If YES, was this within the past 3 months? Response not required due to responses to other questions. /kathy/ CHARLEY QIU LPN LICENSED PRACTICAL NURSE Signed: 12/20/2023 14:40 CHARLEY QIU [facility] [place] [facility] Dec 20, 2023 02:32 PM NURSING OUTPATIENT NOTE: LOCAL TITLE: NURSING/SPECIALTY CLINIC NOTE STANDARD TITLE: NURSING OUTPATIENT NOTE DATE OF NOTE: DEC 20, 2023@14:32 ENTRY DATE: DEC 20, 2023@14:32:10 AUTHOR: CHARLEY QIU EXP COSIGNER: URGENCY: STATUS: COMPLETED [facility] for [facility] care. Gardner has a history of PVD and is [...] Clean [ ] Soiled [ ] Macerated [x ] Dry Nails: [x ] Thickened [x ] Elongated [x ] Dystrophic [ ] Discolored [ ] Fungal [x ] Incurvated [x ] Subungual debri Hyperkeratosis [ ] Yes, Locations: [x ] No Open lesions/wounds: [ ] Yes, Locations: [x ] No Amputations: [ ] Yes, Locations: [x ] No Edema present: ( ) Yes (x ) NO Podiatric Problem List: [ ] Diabetes mellitus [x ] Peripheral vascular disease [ ] Neuropathy [ ] Onychomycosis [x ] Dystrophic toenails [ ] Hyperkeratosis/calluses [x ] Xerosis/dry skin [x ] Other: In grown nail right outer edge Treatment: [x ] Nails x 10 debrided in length and thickness without incident [ ] Hyperkeratotic lesions were grinded down with eletric drier and grinder tender and debrided without incidence. [x ]Patient education educated about proper foot and encouraged to check feet daily for injuries and wounds [x ] Instructed to moisturize feet daily but not in-between toes Patient is to RTC in 3 months sooner if needed. /kathy/ CHARLEY QIU LPN LICENSED PRACTICAL NURSE Signed: 12/20/2023 14:37 Receipt Acknowledged By: * AWAITING SIGNATURE * BRANNON SKINNER JENNIFER [facility]
--- OUTSIDE RECORDS SUMMARY | 2024-09-06 11:05 | XMS_ITS | Encounter Summary ---
Author Name [facility] [place] [facility] [place] Address [address] [place] [address] Care Team Providers Care Insurance Territory Manager Name Role Phone ERASMO CARLOS Primary Care [...] Policy Lai MELISSA [facility] ([facility] MEDICARE ADVANTAGE [facility] ([facility]) Sep 11, 2015 [id number] MOONJung GANESHOLEGARIO Jung PATIENT [facility] ([facility]) MEDICARE ADVANTAGE [facility] ([facility]) Sep 11, 2015 [id number] OLEGARIO DUNN PATIENT MEDICARE (WN) MEDICARE () PART A Feb 09, 2001 PART A [id number] [phone] OLEGARIO DUNN PATIENT MEDICARE (WN) MEDICARE () PART B Feb 09, 2001 PART B [id number] OLEGARIO DUNN PATIENT MEDICARE (WN) MEDICARE () PART A Feb 09, 2001 PART A [id number] [phone] OLEGARIO DUNN PATIENT MEDICARE ([facility] MEDICARE (M) PART B Feb 09, 2001 PART B [id number] OLEGARIO DUNN PATIENT Selected Encounter This section includes the information on record at [place] for the Encounter. Date/Time Encounter Type Encounter Description Reason Pro vider Source January 29, 2024 08:43 AM Outpatient Encounter TELEPHONE TRIAGE IHE Encounter Template Text not used by [place] Plan of Treatment: Future Appointments (+ 6 months) and Future Tests (+/- 45 days) The Plan of Treatment section includes future care activities for the patient from all [place] treatmentfacilities. This section includes future appointments and future orders which are active, pending or scheduled. Future Appointments This section includes appointments that were scheduled to occur 6 months from the date of the Encounter, up to a maximum of 20 appointments. The data comes from all [place] treatment facilities. Appointment Date/Time Appointment Type Appointme nt Facility Name February 02, 2024 03:00 PM AMBULATORY - [place]ICINE [place] [facility] [place] [facility] Feb 14, 2024 01:30 PM [facility] [place] [facility] Mar 11, 2024 09:00 AM AMBULATORY - [place]ICINE [place] [facility] [place] [facility] Mar 12, 2024 01:30 PM AMBULATORY - RE[facility]AB MEDICIN E [facility] [place] [facility] Mar 22, 2024 02:30 PM AMBULATORY - REHAB MEDICIN E [facility] [place] [facility] Mar 26, 2024 02:00 PM AMBULATORY - REHAB MEDICIN E [facility] [place] [facility] Mar 28, 2024 11:30 AM AM[place]ULATORY - [place]ICINE [place] [facility] [place] [facility] Mar 29, 2024 02:30 PM AMBULATORY - REHAB MEDICIN E [facility] [place] [facility] Apr 04, 2024 02:00 PM AMBULATORY - REHAB MEDICIN E [facility] [place] [facility] Apr 11, 2024 01:00 PM AMBULATORY - REHAB MEDICIN E [facility] [place] [facility] Apr 11, 2024 02:00 PM AMBULATORY - REHAB MEDICIN E [facility] [place] [facility] Apr 23, 2024 02:00 PM AMBULATORY - REHAB MEDICIN E [facility] [place] [facility] Apr 29, 2024 02:00 PM AMBULATORY - REHAB MEDICIN E [facility] [place] [facility] May 06, 2024 01:30 PM AMBULATORY - REHAB MEDICIN E [facility] [place] [facility] May 07, 2024 01:00 PM AMBULATORY - REHAB MEDICIN E [facility] [place] [facility] May 08, 2024 09:45 AM AMBULATORY - REHAB MEDICIN E [facility] [place] [facility] May 15, 2024 01:30 PM AMBULATORY - REHAB MEDICIN E [facility] [place] [facility] May 23, 2024 08:00 AM AMBULATORY - REHAB MEDICIN E [facility] [place] [facility] May 27, 2024 01:30 PM AMBULATORY - REHAB MEDICIN E [facility] [place] [facility] Jun 04, 2024 08:00 AM AMBULATORY - REHAB MEDICIN E [facility] [place] [facility] Social History: Smoking Status (Most current) and Tobacco Use (All prior to encounter date) This section includes the most current, and the historical, smoking and tobacco- related health factors from the [place] facility where the Encounter took place. Current Smoking Status This section includes the most current smoking, or tobacco-related health factor, from the [place] facility where the Encounter took place. Date/Time Current Smoking Status Comment [facility] Mar 06, 2023 09:00 AM VA-TOBACCO FORMER USER [place] [facility] [place] [facility] Tobacco Use History This section includes a history of the smoking, or tobacco-related health factors, that were collected on or before the date of the Encounter. The data comes from the [place] facility where the Encounter took place. Date/Time Smoking Status/Tobac co Use Comment Facility Mar 06, 2023 09:00 AM VA-TOBACCO QUIT 15 YRS OR MORE [facility] [place] [facility] Feb 16, 2022 09:30 AM VA-TOBACCO FORMER USER [facility] [place] [facility] Feb 16, 2022 09:30 AM VA-TOBACCO QUIT 15 YRS OR MORE [place] [facility] [place] [facility] Feb 09, 2021 09:00 AM VA-TOBACCO FORMER USER [facility] [place] [facility] Feb 09, 2021 09:00 AM VA-TOBACCO QUIT 15 YRS OR MORE [facility] [place] [facility] Jan 01, 2020 10:15 AM VA-TOBACCO [facility] Jan 01, 2020 10:15 AM VA-TOBACCO QUIT 15 YRS OR MORE [facility] Mar 12, 2018 08:56 AM VA-TOBACCO FOR[facility]ER [facility] Mar 12, 2018 08:56 AM VA-TOBACCO QUIT 15 YRS OR MORE [facility] Mar 12, 2018 08:24 AM LIFETIME NON-TOBACCO USER [facility] Mar 13, 2017 07:44 AM LIFETIME NON-TOBACCO USER [facility] [place] [facility] Mar 11, 2016 07:54 AM QUIT TOBACCO USE > 7 YEARS AGO Quit in 1984 [facility] Aug 17, 2005 10:23 AM HISTORY OF SMOKING Vet states he quit in 1984 [facility] May 19, 2004 08:56 AM HISTORY OF SMOKING quit 1980s. [facility] May 19, 2003 09:15 AM HISTORY OF SMOKING quit 10yrs ago [facility] Jun 06, 2002 08:13 AM HISTORY OF SMOKING quit 1979 [facility] Jun 06, 2002 08:13 AM QUIT TOBACCO USE > 7 YEARS AGO [facility] Apr 30, 2001 04:07 PM HISTORY OF SMOKING quit - 1984 [facility] Advance Directives: All historical and current Section Date Range: From patient's date of to the date document was created. This section includes ALL of a patient's completed or amended [place] Advance and Rescinded Directives. The entries below indicate that a directive exists for the patient, but an actual copy is not included with this document. The data comes from all [place] facilities. Date Advance Directives Provider Source Mar 12, 2024 ADVANCE DIRECTIVE [facility] Encounter Notes: All associated encounter notes This section contains the clinical notes associated to the Encounter. Date/Time Encounter Note(s) Provider Source January 29, 2024 10:47 AM ADDENDUM: LOCAL TITLE: Addendum STANDARD TITLE: ADDENDUM DATE OF NOTE: JANUARY 29, 2024@10:47:30 ENTRY DATE: JANUARY 29, 2024@10:47:31 AUTHOR: SONALI ARANA COSIGNER: URGENCY: STATUS: COMPLETED Spoke with , he states he is not needing any kind of urgent appointment. He states, I told the girl I just want to try PT for arm stregthening, They make a mountain out of a mole hill . He hasn't been seen for arm pain. Would you like to see him? If so please schedule an appt. states he is NOT injured. /es/ Sonali Arana RN, BSN Primary Care Signed: 01/29/2024 10:49 Receipt Acknowledged By: 01/29/2024 10:52 /es/ PAPO HAMMONDS ADVANCED RACECOURSE BARRIER ATTENDANT 01/29/2024 17:54 /es/ Erasmo Carlos MD Staff Physician === --- Original Document --- 01/29/24 CCC: CLINICAL TRIAGE: Patient Demographics Patient Name: EUSEBIO PEREZ Patient Primary [address]: [address] [place] [id number] Patient Primary Phone: [phone] Patient : 1935 Patient Age: 88 Caller/Recipient Relation to Patient: Self Emergency Contact: OTHER ANA Triage Summary Conducted triage/discussed symptoms Pain Score: 7 (Moderate to Severe Pain) Utilized the Triage Tool: Yes Chief Complaint: Arm Pain After Injury System WHEN: Within 24 Hours Nurse's Recommendation / WHEN: Within 24 Hours System WHERE: Clinic Nurse's Recommendation / WHERE: Clinic/[facility] Patient Disposition Patient/Caregiver agrees to plan of care: Yes Patient WHERE: Clinic/[facility] Patient WHEN: Within 24 hours Nursing Plan and Disposition Referred Patient for In-Person Appt Transferred patient to Sched & Admin-Apt Provided location of Urgent Care Center Other course(s) of action Generated msg to PACT/Provider Provided guidance for worsening symptoms: *Caller/Patient* advised to call facilities [place] Clinical Contact Center or seek immediate medical attention for new or worsening symptoms Nurse Summary Nurse Summary: c/o b/l arm pain after moving heavy objects on Monday B/L arm pain x 3 days, R arm rates as 8/10, left arm rates 7/10. denies redness or swelling, no open areas or bruising. no cp, no sob. denies weakness or numbness in arms/hands today additionally states has pain b/l knees due to fall while moving heavy items in garage on Monday, states uncertain as to how fall occurred, skinned b/l knees, wounds cleansed & dressed. amb w/assist of cane, denies head strike. AAOx4, speech clear, answering triage questions appropriately, speaking full sentences w/o difficulty Plan: TXCC recommendation: medical eval w/in 24/hours, strongly encouraged vet to seek care at local /er, declines er/[facility] [address] [facility] [place] [address] Main number: [phone] [address] Main number: [phone] in agreement with [facility] RN recommendations. Message sent to 's PACT team via CPRS/CRM, View alerted 2 Pact Team members/Nurse/s PER VISN 1 Protocol for f/u. Caller/ verbalizes understanding of the information provided. Advised caller/[place] that a note will be forwarded to the provider and/or the progressive care nurse for review, further recommendations, and/or follow-up. Advised of 24 hour availability of clinical call center at [phone] to answer questions, address concerns & to provide assistance in navigating healthcare for veterans. Given strict ED precautions to immediately seek treatment should their condition worsen, new signs or symptoms develop, or with any other emergent matters Modality: Warm conference call with AMSA for scheduling Verbalizes understanding to seek care in Urgent Care or Emergency Department should symptoms worsen before their appointment time. Clinical Contact Center Codes Clinic/Location: [facility] PHONE CCC RN TXCC Triage Complete Triage Date: 01/29/2024, 08:31 AM Triage Note: Phone Triage 29 Jan 2024 12:27:29 +[address] [facility] Demographics 88 y/o Male Results CC: Arm Pain After Injury Software suggested: Within 24 Hours Software suggested follow-up location: Clinic, consider [facility] Values and Measures Duration of CC: 3 Days Positive Responses HPI: arm injury, unable to move arm, due to arm pain HPI: wound, skin penetration Negative Responses Denies: HPI: arm erythema, worsening, since the injury Denies: HPI: arm injury, within past 2 days Denies: HPI: injury, localized to elbow Denies: HPI: injury, localized to forearm Denies: HPI: injury, localized to upper arm Denies: HPI: numbness, arm or hand, since the injury Denies: HPI: weakness, arm or hand, since the injury Denies: HPI: wound, exposed muscle, bone, or tendon /es/ BRADFORD FARAH RN VISN1 [facility] Signed: 01/29/2024 08:44 Receipt Acknowledged By: 01/29/2024 10:50 /kathy/ Sonali Arana RN, BSN Primary Care 01/29/2024 10:40 /es/ JENNIFFER DOAN LPN SUPERVISOR FILTRATION 01/29/2024 ADDENDUM STATUS: COMPLETED please doris next available. thank you. /tesfaye Arana RN, BSN Primary Care Signed: 01/29/2024 09:21 Receipt Acknowledged By: 01/29/2024 10:51 /kathy/ PAPO HAMMONDS ADVANCED RACECOURSE BARRIER ATTENDANT 01/29/2024 ADDENDUM STATUS: COMPLETED Director Of Psychology spoke to , scheduled next available, Friday February 02, 2024. /kathy/ PAPO HAMMONDS ADVANCED RACECOURSE BARRIER ATTENDANT Signed: 01/29/2024 10:52 SONALI ARANA [place] [facility] January 29, 2024 09:20 AM ADDENDUM: LOCAL TITLE: Addendum STANDARD TITLE: ADDENDUM DATE OF NOTE: JANUARY 29, 2024@09:20:54 ENTRY DATE: JANUARY 29, 2024@09:20:54 AUTHOR: SONALI ARANA EXP COSIGNER: URGENCY: STATUS: COMPLETED please schdule next available. thank you. /kathy/ Sonali Arana RN, BSN Primary Care Signed: 01/29/2024 09:21 Receipt Acknowledged By: 01/29/2024 10:51 /kathy/ PAPO HAMMONDS ADVANCED RACECOURSE BARRIER ATTENDANT === --- Original Document --- 01/29/24 CCC: CLINICAL TRIAGE: Patient Demographics Patient Name: EUSEBIO PEREZ Patient Primary Address: [address] [place] [id number] Patient Primary Phone: [phone] Patient : 1935 Patient Age: 88 Caller/Recipient Relation to Patient: Self Emergency Contact: OTHER ANA Triage Summary Conducted triage/discussed symptoms Pain Score: 7 (Moderate to Severe Pain) Utilized the Triage Tool: Yes Chief Complaint: Arm Pain After Injury System WHEN: Within 24 Hours Nurse's Recommendation / WHEN: Within 24 Hours System WHERE: Clinic Nurse's Recommendation / WHERE: Clinic/[facility] Patient Disposition Patient/Caregiver agrees to plan of care: Yes Patient WHERE: Clinic[facility] Patient WHEN: Within 24 hours Nursing Plan and Disposition Referred Patient for In-Person Appt Transferred patient to [facility] & Admin-Apt Provided location of Urgent Care Center Other course(s) of action Generated msg to PACT/Provider Provided guidance for worsening symptoms: *Caller/Patient* advised to call facilities [place] Clinical Contact Center or seek immediate medical attention for new or worsening symptoms Nurse Summary Nurse Summary: c/o b/l arm pain after moving heavy objects on Monday B/L arm pain x 3 days, R arm rates as 8/10, left arm rates 7/10. denies redness or swelling, no open areas or bruising. no cp, no sob. denies weakness or numbness in arms/hands today additionally states has pain b/l knees due to fall while moving heavy items in garage on Monday, states uncertain as to how fall occurred, skinned b/l knees, wounds cleansed & dressed. amb w/assist of cane, denies head strike. AAOx4, speech clear, answering triage questions appropriately, speaking full sentences w/o difficulty Plan: TXCC recommendation: medical eval w/in 24/hours, strongly encouraged vet to seek care at local /er, declines er/[facility] [address] [place] [address] Main number: [phone] [address] Main number: [phone] [place] in agreement with [facility] RN recommendations. Message sent to 's PACT team via CPRS/CRM, View alerted 2 Pact Team members/Nurse/s PER VISN 1 Protocol for f/u. Caller/[place] verbalizes understanding of the information provided. Advised caller/ that a note will be forwarded to the provider and/or the progressive care nurse for review, further recommendations, and/or follow-up. Advised of 24 hour availability of clinical call center at [phone] to answer questions, address concerns & to provide assistance in navigating healthcare for veterans. Given strict ED precautions to immediately seek treatment should their condition worsen, new signs or symptoms develop, or with any other emergent matters Modality: Warm conference call with AMSA for scheduling Verbalizes understanding to seek care in Urgent Care or Emergency Department should symptoms worsen before their appointment time. Clinical Contact Center Codes Clinic/Location: [facility] PHONE CCC RN TXCC Triage Complete Triage Date: 01/29/2024, 08:31 AM Triage Note: Phone Triage 29 Jan 2024 12:27:29 +[address] [facility] Demographics 88 y/o Male Results CC: Arm Pain After Injury Software suggested: Within 24 Hours Software suggested follow-up location: Clinic, consider virtual care Values and Measures Duration of CC: 3 Days Positive Responses HPI: arm injury, unable to move arm, due to arm pain HPI: wound, skin penetration Negative Responses Denies: HPI: arm erythema, worsening, since the injury Denies: HPI: arm injury, within past 2 days Denies: HPI: injury, localized to elbow Denies: HPI: injury, localized to forearm Denies: HPI: injury, localized to upper arm Denies: HPI: numbness, arm or hand, since the injury Denies: HPI: weakness, arm or hand, since the injury Denies: HPI: wound, exposed muscle, bone, or tendon /kathy/ RBADFORD FARAH RN VISN1 [facility] Signed: 01/29/2024 08:44 Receipt Acknowledged By: 01/29/2024 10:50 /es/ Sonali Arana RN, BSN Primary Care 01/29/2024 10:40 /es/ JENNIFFER DOAN LPN LPN 01/29/2024 ADDENDUM STATUS: COMPLETED Spoke with , he states he is not needing any kind of urgent appointment. He states, I told the girl I just want to try PT for arm stregthening, They make a mountain out of a mole hill . He hasn't been seen for arm pain. Would you like to see him? If so please schedule an appt. states he is NOT injured. /kathy/ Sonali Arana RN, BSN Primary Care Signed: 01/29/2024 10:49 Receipt Acknowledged By: * AWAITING SIGNATURE * PAPO HAMMONDS * AWAITING SIGNATURE * ERASMO CARLOS 01/29/2024 ADDENDUM STATUS: UNSIGNED You may not VIEW this UNSIGNED Addendum. SONALI ARANA [place] [facility] [place] [facility] January 29, 2024 08:44 AM RN PROGRESS NOTE: LOCAL TITLE: CCC: CLINICAL TRIAGE STANDARD TITLE: RN PROGRESS NOTE DATE OF NOTE: JANUARY 29, 2024@08:44:01 ENTRY DATE: JANUARY 29, 2024@08:44:01 AUTHOR: BRADFORD FARAH EXP COSIGNER: URGENCY: STATUS: COMPLETED CCC: CLINICAL TRIAGE Has ADDENDA Patient Demographics Patient Name: EUSEBIO Santamaria ANA Patient Primary Address: [address] [place] [address] Patient Primary Phone: [phone] Patient : 1935 Patient Age: 88 Caller/Recipient Relation to Patient: Self Emergency Contact: OTHER ANA Triage Summary Conducted triage/discussed symptoms Pain Score: 7 (Moderate to Severe Pain) Utilized the Triage Tool: Yes Chief Complaint: Arm Pain After Injury System WHEN: Within 24 Hours Nurse's Recommendation / WHEN: Within 24 Hours System WHERE: Clinic Nurse's Recommendation / WHERE: Clinic[facility] Patient Disposition Patient/Caregiver agrees to plan of care: Yes Patient WHERE: Clinic[facility] Patient WHEN: Within 24 hours Nursing Plan and Disposition Referred Patient for In-Person Appt Transferred patient to Sched & Admin-Apt Provided location of Urgent Care Center Other course(s) of action Generated msg to PACT/Provider Provided guidance for worsening symptoms: *Caller/Patient* advised to call facilities [place] Clinical Contact Center or seek immediate medical attention for new or worsening symptoms Nurse Summary Nurse Summary: c/o b/l arm pain after moving heavy objects on Monday B/L arm pain x 3 days, R arm rates as 8/10, left arm rates 7/10. denies redness or swelling, no open areas or bruising. no cp, no sob. denies weakness or numbness in arms/hands today additionally states has pain b/l knees due to fall while moving heavy items in garage on Monday, states uncertain as to how fall occurred, skinned b/l knees, wounds cleansed & dressed. amb w/assist of cane, denies head strike. AAOx4, speech clear, answering triage questions appropriately, speaking full sentences w/o difficulty Plan: WICC recommendation: medical eval w/in 24/hours, strongly encouraged vet to seek care at local /er, declines er/[facility] [address] [place] [address] Main number: [phone] [address] Main number: [phone] [place] in agreement with [facility] RN recommendations. Message sent to 's PACT team via CPRS/CRM, View alerted 2 Pact Team members/Nurse/s PER VISN 1 Protocol for f/u. Caller/[place] verbalizes understanding of the information provided. Advised caller/[place] that a note will be forwarded to the provider and/or the progressive care nurse for review, further recommendations, and/or follow-up. Advised of 24 hour availability of clinical call center at [phone] to answer questions, address concerns & to provide assistance in navigating healthcare for veterans. Given strict ED precautions to immediately seek treatment should their condition worsen, new signs or symptoms develop, or with any other emergent matters Modality: Warm conference call with AMSA for scheduling Verbalizes understanding to seek care in Urgent Care or Emergency Department should symptoms worsen before their appointment time. Clinical Contact Center Codes Clinic/Location: [facility] PHONE [facility] RN TXCC Triage Complete Triage Date: 01/29/2024, 08:31 AM Triage Note: Phone Triage 29 Jan 2024 12:27:29 +[address] [facility] Demographics 88 y/o Male Results CC: Arm Pain After Injury Software suggested: Within 24 Hours Software suggested follow-up location: Clinic, consider [facility] Values and Measures Duration of CC: 3 Days Positive Responses HPI: arm injury, unable to move arm, due to arm pain HPI: wound, skin penetration Negative Responses Denies: HPI: arm erythema, worsening, since the injury Denies: HPI: arm injury, within past 2 days Denies: HPI: injury, localized to elbow Denies: HPI: injury, localized to forearm Denies: HPI: injury, localized to upper arm Denies: HPI: numbness, arm or hand, since the injury Denies: HPI: weakness, arm or hand, since the injury Denies: HPI: wound, exposed muscle, bone, or tendon /es/ BRADFORD FARAH RN VISN1 [facility] Signed: 01/29/2024 08:44 Receipt Acknowledged By: 01/29/2024 10:50 /es/ Sonali Arana RN, BSN Primary Care 01/29/2024 10:40 /es/ JENNIFFER DOAN LPN LPN 01/29/2024 ADDENDUM STATUS: COMPLETED please schdule next available. thank you. /kathy/ Sonali Arana RN, BSN Primary Care Signed: 01/29/2024 09:21 Receipt Acknowledged By: 01/29/2024 10:51 /es/ PAPO HAMMONDS ADVANCED RACECOURSE BARRIER ATTENDANT 01/29/2024 ADDENDUM STATUS: COMPLETED Spoke with , he states he is not needing any kind of urgent appointment. He states, I told the girl I just want to try PT for arm stregthening, They make a mountain out of a mole hill . He hasn't been seen for arm pain. Would you like to see him? If so please schedule an appt. states he is NOT injured. /kathy/ Sonali Arana RN, BSN Primary Care Signed: 01/29/2024 10:49 Receipt Acknowledged By: 01/29/2024 10:52 /kathy/ PAPO HAMMONDS ADVANCED RACECOURSE BARRIER ATTENDANT * AWAITING SIGNATURE * ERASMO CARLOS 01/29/2024 ADDENDUM STATUS: COMPLETED Director Of Psychology spoke to , scheduled next available, Friday February 02, 2024. /kathy/ PAPO HAMMONDS ADVANCED RACECOURSE BARRIER ATTENDANT Signed: 01/29/2024 10:52 [place] FARAH [place] [facility]
--- OUTSIDE RECORDS SUMMARY | 2024-09-06 11:05 | XMS_ITS | Encounter Summary ---
Author Name [place] Address [address] [place] [address] Care Team Providers Care Sales And Marketing Vice President Name Role Phone JACOBSEN LEOPOLDO Primary Care [...] Name Patient's Relationship to Policy Lai MELISSA [facility] ([facility]) MEDICARE ADVANTAGE [facility] ([facility]) Sep 11, 2015 [id number] OLEGARIO DUNN PATIENT [facility] (R) MEDICARE ADVANTAGE [facility] ([facility]) Sep 11, 2015 [id number] OLEGARIO DUNN PATIENT MEDICARE (WNR) MEDICARE (M) PART A Feb 09, 2001 PART A [id number] [phone] OLEGARIO DUNN PATIENT MEDICARE (WNR) MEDICARE (M) PART B Feb 09, 2001 PART B [id number] OLEGARIO DUNN PATIENT MEDICARE (WNR) MEDICARE (M) PART A Feb 09, 2001 PART A [id number] OLEGARIO DUNN PATIENT MEDICARE (WNR) MEDICARE (M) PART B Feb 09, 2001 PART B [id number] OLEGARIO DUNN PATIENT Selected Encounter This section includes the information on record at [place] for the Encounter. Date/Time Encounter Type Encounter Description Reason Pro vider Source January 29, 2024 08:44 AM Outpatient Encounter ADMIN PAT ACTIVTIES (MASNONCT) IHE [...] 02, 2024 03:00 PM AMBULATORY - MEDICINE [place] [facility] [place] [facility] Feb 14, 2024 01:30 PM AMBULATORY - REH[place] MEDICIN [place] [facility] [place] [facility] Mar 11, 2024 09:00 AM AMBULATORY - MEDICINE [place] [facility] [place] [facility] Mar 12, 2024 01:30 PM AMBULATORY - REHAB MEDICIN E [facility] [place] [facility] Mar 22, 2024 02:30 PM AMBULATORY - REHAB MEDICIN E [facility] [place] [facility] Mar 26, 2024 02:00 PM AMBULATORY - REHAB MEDICIN E [facility] [place] [facility] Mar 28, 2024 11:30 AM AMBULATORY - MEDICINE [place] [facility] [place] [facility] Mar 29, 2024 02:30 PM AMBULATORY - REHAB MEDICIN E [facility] [place] [facility] Apr 04, 2024 02:00 PM AMBULATORY - REHAB MEDICIN E [facility] [place] [facility] Apr 11, 2024 01:00 PM AMBULATORY - REHAB MEDICIN E [facility] [place] [facility] Apr 11, 2024 02:00 PM AMBULATORY - REHAB MEDICIN E [facility] [place] [facility] Apr 23, 2024 02:00 PM AMBULATORY - REHAB MEDICIN E [facility] [place] [facility] Apr 29, 2024 02:00 PM AMBULATORY - REHAB MEDICIN E [facility] [place] [facility] May 06, 2024 01:30 PM AMBULATORY - REHAB MEDICIN E [facility] [place] [facility] May 07, 2024 01:00 PM AMBULATORY - REHAB MEDICIN E [facility] [place] [facility] May 08, 2024 09:45 AM AMBULATORY - REHAB MEDICIN E [facility] [place] [facility] May 15, 2024 01:30 PM AMBULATORY - REHAB MEDICIN E [facility] [place] [facility] May 23, 2024 08:00 AM AMBULATORY - REHAB MEDICIN E [facility] [place] [facility] May 27, 2024 01:30 PM AMBULATORY - REHAB MEDICIN E [facility] [place] [facility] Jun 04, 2024 08:00 AM AMBULATORY - REHAB MEDICIN E [facility] [place] [facility] Social History: Smoking Status (Most current) [...] took place. Date/Time Current Smoking Status Comment [facility] Mar 06, 2023 09:00 AM [facility] [place] [facility] Tobacco Use History This section includes a history of the smoking, or tobacco-related health factors, that were collected on or before the date of the Encounter. The data comes from the [place] facility where the Encounter took place. Date/Time Smoking Status/Tobac co Use Comment Facility Mar 06, 2023 09:00 AM VA-TOBACCO QUIT 15 YRS OR MORE [place] [facility] [place] [facility] Feb 16, 2022 09:30 AM VA-TOBACCO FORMER USER [facility] [place] [facility] Feb 16, 2022 09:30 AM VA-TOBACCO QUIT 15 YRS OR MORE [place] [facility] [place] [facility] Feb 09, 2021 09:00 AM VA-TOBACCO FORMER USER [place] [facility] [place] [facility] Feb 09, 2021 09:00 AM VA-TOBACCO QUIT 15 YRS OR MORE [place] [facility] [place] [facility] Jan 01, 2020 10:15 AM VA-TOBACCO FORMER USER [place] [facility] [place] [facility] Jan 01, 2020 10:15 AM VA-TOBACCO QUIT 15 YRS OR MORE [place] [facility] [place] [facility] Mar 12, 2018 08:56 AM VA-TOBACCO FORMER USER [place] [facility] [place] [facility] Mar 12, 2018 08:56 AM VA-TOBACCO QUIT 15 YRS OR MORE [place] [facility] [place] [facility] Mar 12, 2018 08:24 AM LIFETIME NON-TOBACCO USER [place] [facility] [place] [facility] Mar 13, 2017 07:44 AM LIFETIME NON-TOBACCO USER [place] [facility] [place] [facility] Mar 11, 2016 07:54 AM QUIT TOBACCO USE > 7 YEARS AGO Quit in 1984 [place] [facility] [place] [facility] Aug 17, 2005 10:23 AM HISTORY OF SMOKING Vet states he quit in 1984 [place] [facility] [place] [facility] May 19, 2004 08:56 AM HISTORY OF SMOKING quit 1980s. [place] [facility] [place] [facility] May 19, 2003 09:15 AM HISTORY OF SMOKING quit 10yrs ago [place] [facility] [place] [facility] Jun 06, 2002 08:13 AM HISTORY OF SMOKING quit 1979 [place] [facility] [place] [facility] Jun 06, 2002 08:13 AM QUIT TOBACCO USE > 7 YEARS AGO [place] [facility] [place] [facility] Apr 30, 2001 04:07 PM HISTORY OF SMOKING quit - 1984 [facility] Advance Directives: All historical and [...] Mar 12, 2024 ADVANCE DIRECTIVE JENNIFFER DOAN [place] [facility] [place] [facility] Encounter Notes: All associated encounter notes This section contains the clinical notes associated to the Encounter. Date/Time Encounter Note(s) Provider Source January 29, 2024 08:44 AM ADMINISTRATIVE NOT E: LOCAL TITLE: CCC: SCHEDULING ADMINISTRATION STANDARD TITLE: ADMINISTRATIVE NOTE DATE OF NOTE: JANUARY 29, 2024@08:44:10 ENTRY DATE: JANUARY 29, 2024@08:44:10 AUTHOR: WADE MARQUEZ EXP COSIGNER: URGENCY: STATUS: COMPLETED Patient Demographics Patient Name: EUSEBIO PEREZ Patient Primary Phone: [phone] Patient Primary Address: [address] [place] [id number] Patient : [id number] Patient Age: 88 Caller/Recipient Relation to Patient: Self Administrative Administrative Note Reason: Other Administrative Note Comments: Unable to schedule within the recommended time frame given by nurse triage. Please contact the to discuss. Triage recommendation is: 24 hours for bilateral arm pain. /kathy/ WADE GUAJARDO 1 [facility] AMSA Signed: 01/29/2024 08:44 Receipt Acknowledged By: 01/29/2024 09:25 /es/ Sonali Arana RN, BSN Primary Care 01/29/2024 11:49 /es/ JENNIFFER DOAN, DRY KILN OPERATOR WADE HEREDI[facility]L [facility]
--- OUTSIDE RECORDS SUMMARY | 2024-09-06 11:05 | XMS_ITS ---
Author Name [facility] [place] Address [address] [place] [address] Care Team Providers Care Customer Operations Manager Name Role Phone LEOPOLDO JACOBSEN Primary Care [...] Name Patient's Relationship to Policy Lai MELISSA [facility] ([facility]) MEDICARE ADVANTAGE [facility] ([facility]) Sep 11, 2015 [id number] MOONJung GANESHOLEGARIO Jung PATIENT [facility] ([facility]) MEDICARE ADVANTAGE [facility] ([facility]) Sep 11, 2015 [id number] [phone] OLEGARIO DUNN PATIENT MEDICARE (WN) MEDICARE () PART A Feb 09, 2001 PART A [id number] OLEGARIO DUNN PATIENT MEDICARE (WN) MEDICARE () PART B Feb 09, 2001 PART B [id number] [phone] OLEGARIO DUNN PATIENT MEDICARE (WN) MEDICARE () PART A Feb 09, 2001 PART A [id number] OLEGARIO DUNN PATIENT MEDICARE (WNR) MEDICARE (M) PART B Feb 09, 2001 PART B [id number] OLEGARIO DUNN PATIENT Selected Encounter This section includes the information on record at [place] for the Encounter. Date/Time Encounter Type Encounter Description Reason Pro vider Source Jan 03, 2024 12:00 PM Outpatient Encounter COMMUNITY CARE CONSULT IHE Encounter Template Text not used by [place] Plan of Treatment: Future Appointments (+ 6 months) and Future Tests (+/- 45 days) The Plan of Treatment section includes future care activities for the patient from all [place] treatmentfacilities. This section includes future appointments and future orders which are active, pending or scheduled. Future Appointments This section includes appointments that were scheduled to occur 6 months from the date of the Encounter, up to a maximum of 20 appointments. The data comes from all [place] treatment facilities. Appointment Date/Time Appointment Type Appointme nt Facility Name February 02, 2024 03:00 PM AMBULATORY - MEDICINE [place] [facility] [place] [facility] Feb 14, 2024 01:30 PM AMBULATORY - REHAB MEDICIN E [facility] [place] [facility] Mar 11, 2024 09:00 AM AMBULATORY - MEDICINE [place] [facility] [place] [facility] [...] 28, 2024 11:30 AM AMBULATORY - MEDICINE [place] [facility] [place] [facility] [...] CNTRL [facility] [place] [facility] May 27, 2024 01:30 PM AMBULATORY - REHAB MEDICIN E [facility] [place] [facility] Jun 04, 2024 08:00 AM AMBULATORY - REHAB MEDICIN E [facility] [place] [facility] Social History: Smoking Status (Most current) and Tobacco Use (All prior to encounter date) This section includes the most current, and the historical, smoking and tobacco- related health factors from the [place] facility where the Encounter took place. Current Smoking Status This section includes the most current smoking, or tobacco-related health factor, from the [place] facility where the Encounter took place. Date/Time Current Smoking Status Comment [facility] Mar 06, 2023 09:00 AM [facility] Tobacco Use History This section includes a history of the smoking, or tobacco-related health factors, that were collected on or before the date of the Encounter. The data comes from the [place] facility where the Encounter took place. Date/Time Smoking Status/Tobac co Use Comment Facility Mar 06, 2023 09:00 AM VA-TOBACCO QUIT 15 YRS OR MORE [place] [facility] [place] [facility] Feb 16, 2022 09:30 AM VA-TOBACCO FORMER USER [facility] [place] [facility] Feb 16, 2022 09:30 AM VA-TOBACCO QUIT 15 YRS OR MORE [place] [facility] [place] [facility] Feb 09, 2021 09:00 AM VA-TOBACCO FORMER USER [facility] [place] [facility] Feb 09, 2021 09:00 AM VA-TOBACCO QUIT 15 YRS OR MORE [place] [facility] [place] [facility] Jan 01, 2020 10:15 AM [facility] [place] [facility] Jan 01, 2020 10:15 AM VA-TOBACCO QUIT 15 YRS OR MORE [facility] Mar 12, 2018 08:56 AM [facility]AC[facility] [place] [facility] Mar 12, 2018 08:56 AM VA-TOBACCO QUIT 15 YRS OR MORE [facility] Mar 12, 2018 08:24 AM LIFETIME NON-TOBACCO [facility] [place] [facility] Mar 13, 2017 07:44 AM LIFETIME NON-TOBACCO [facility] [place] [facility] Mar 11, 2016 07:54 AM QUIT TOBACCO USE > 7 YEARS AGO [facility] Aug 17, 2005 10:23 AM HISTORY OF SMOKING Vet states he [facility] May 19, 2004 08:56 AM HISTORY OF SMOKING quit 1980s. [facility] [place] [facility] May 19, 2003 09:15 AM HISTORY OF SMOKING quit 10yrs ago [facility] Jun 06, 2002 08:13 AM HISTORY OF SMOKING quit [facility] Jun 06, 2002 08:13 AM QUIT TOBACCO USE > 7 YEARS AGO [employer] Apr 30, 2001 04:07 PM HISTORY OF SMOKING quit - [facility] Advance Directives: All historical and current Section Date Range: From patient's date of to the date document was created. This section includes ALL of a patient's completed or amended [place] Advance and Rescinded Directives. The entries below indicate that a directive exists for the patient, but an actual copy is not included with this document. The data comes from all [place] facilities. Date Advance Directives Provider Source Mar 12, 2024 ADVANCE DIRECTIVE [facility] Encounter Notes: All associated encounter notes This section contains the clinical notes associated to the Encounter. Date/Time Encounter Note(s) Provider Source Jan 03, 2024 12:00 PM NONVA CONSULT: LOCAL TITLE: COMMUNITY CARE-CONSULT RESULT NOTE STANDARD TITLE: NONVA CONSULT DATE OF NOTE: JAN 03, 2024@12:00 ENTRY DATE: JAN 09, 2024@15:54:23 AUTHOR: NIALL BARRIENTOS COSIGNER: URGENCY: STATUS: COMPLETED VistA Imaging - Scanned Document SCANNED DOCUMENT SIGNATURE NOT REQUIRED Electronically Filed: 01/09/2024 by: NIALL MOSQUERA [facility]
--- OUTSIDE RECORDS SUMMARY | 2024-09-06 11:05 | XMS_ITS | Encounter Summary ---
Author Name [facility] [place] Address [address] [place] [address] Care Team Providers Care Technical Document Writer Name Role Phone JACOBSEN LEOPOLDO Primary Care [...] Name Patient's Relationship to Policy Lai [facility]SA [facility] ([facility]) MEDICARE ADVANTAGE [facility] ([facility]) Sep 11, 2015 [id number] MOONJung GANESHOLEGARIO Jung PATIENT [facility] ([facility]) MEDICARE ADVANTAGE [facility] ([facility]) Sep 11, 2015 [id number] OLEGARIO DUNN PATIENT MEDICARE (WNR) MEDICARE (M) PART A Feb 09, 2001 PART A [id number] OLEGARIO DUNN PATIENT MEDICARE (WNR) MEDICARE (M) PART B Feb 09, 2001 PART B [id number] [phone] OLEGARIO DUNN PATIENT MEDICARE (WNR) MEDICARE (M) PART A Feb 09, 2001 PART A [id number] 56A OLEGARIO DUNN PATIENT MEDICARE (WNR) MEDICARE (M) PART B Feb 09, 2001 PART B [id number] OLEGARIO DUNN PATIENT Selected Encounter This section includes the information on record at [place] for the Encounter. Date/Time Encounter Type Encounter Description Reason Pro vider Source Mar 05, 2024 03:14 PM Outpatient Encounter PRIMARY CARE/MEDICINE IHE Encounter Template Text not used by [place] Plan of Treatment: Future Appointments (+ 6 months) and Future Tests (+/- 45 days) The Plan of Treatment section includes future care activities for the patient from all [place] treatmentfacilities. This section includes future appointments and future orders which are active, pending or scheduled. Future Appointments This section includes appointments that were scheduled to occur 6 months from the date of the Encounter, up to a maximum of 20 appointments. The data comes from all [place] treatment facilities. Appointment Date/Time Appointment Type Appointme nt Facility Name Mar 11, 2024 09:00 AM AMBULATORY - MEDICINE [place] [facility] [place] [facility] Mar 12, 2024 01:30 PM AMBULATORY - REHAB MEDICIN E [facility] [place] [facility] Mar 22, 2024 02:30 PM AMBULATORY - REHAB MEDICIN E [facility] [place] [facility] Mar 26, 2024 02:00 PM AMBULATORY - REHAB MEDICIN E [facility] [place] [facility] Mar 28, 2024 11:30 AM AMBULATORY - MEDICINE [place] [facility] [place] [facility] Mar 29, 2024 02:30 PM AMBULATORY - REHAB MEDICIN E [facility] [place] [facility] Apr 04, 2024 02:00 PM AMBULATORY - REHAB MEDICIN E [facility] [place] [facility] Apr 11, 2024 01:00 PM AMBULATORY - REHAB MEDICIN E [facility] [place] [facility] Apr 11, 2024 02:00 PM AMBULATORY - REHAB MEDICIN E [facility] [place] [facility] Apr 23, 2024 02:00 PM AMBULATORY - REHAB MEDICIN E [facility] [place] [facility] Apr 29, 2024 02:00 PM AMBULATORY - REHAB MEDICIN E [facility] [facility] May 06, 2024 01:30 PM AMBULATORY - REHAB MEDICIN E [facility] [place] [facility] May 07, 2024 01:00 PM AMBULATORY - [facility] MEDICIN E [facility] [place] [facility] May 08, 2024 09:45 AM AMBULATORY - REHAB MEDICIN E [facility] [place] [facility] May 15, 2024 01:30 PM AMBULATORY - REHAB MEDICIN E [facility] [place] [facility] May 23, 2024 08:00 AM AMBULATORY - REHAB MEDICIN E [facility] [place] [facility] May 27, 2024 01:30 PM AMBULATORY - REHAB MEDICIN E [facility] [place] [facility] Jun 04, 2024 08:00 AM AMBULATORY - REHAB MEDICIN E [facility] [place] [facility] Jun 11, 2024 11:00 AM AMBULATORY - MEDICINE [place] [facility] [place] [facility] Jun 18, 2024 01:00 PM AMBULATORY - REHAB MEDICIN E [facility] [place] [facility] Lab Results: +/- 30 days of the encounter This section includes the Chemistry and Hematology Lab Results on record with [place] for the patient. Radiology Reports and Pathology Reports are provided separately, in subsequent sections. Lab Results This section contains the Chemistry/Hematology Results that were resulted 30 days before or 30 daysafter the date of the Encounter. Date/Time Source Result Type Result - Unit Interpretation Reference Range Comment Mar 04, 2024 07:34 AM [place] [facility] [place] [facility] BASIC METABOLIC PANEL (fasting) Specimen Type: SERUM No comment entered. Ordering Provider: LEOPOLDO JACOBSEN Report Released Date/Time: Feb 28, 2024 04:09 PM Reporting Lab: [place] [facility] [place] [facility] [address] [facility] [address] Performing Lab: [place] [facility] [place] [facility] [address] [facility] [address] UREA NITROGEN 17 mg/dL 7-25 GLUCOSE 88 mg/dL 65-100 SODIUM 140 mmol/L 135-145 POTASSIUM 4.2 mmol/L 3.5-5.0 CHLORIDE 112 mmol/L H 100-110 CO2 21 meq/L 20-30 CREATININE, Serum 0.76 mg/dL 0.50-1.40 eGFR(CKD-EPI 2020) 86 mL/min >60 Mar 04, 2024 07:34 [facility] TSH Specimen Type: SERUM No comment entered. Ordering Provider: LEOPOLDO JACOBSEN Report Released Date/Time: Feb 28, 2024 04:09 PM Reporting Lab: [facility] [address] [facility] [facility] [address] Performing Lab: [facility] [address] [facility] [facility] [address] TSH 6.12 u[IU]/mL H 0.35-5.00 Mar 04, 2024 07:34 AM [facility] LIVER FUNCTION Specimen Type: SERUM No comment entered. Ordering Provider: LEOPOLDO JACOBSEN Report Released Date/Time: Feb 28, 2024 04:09 PM Reporting Lab: [facility] [address] [facility] [address] Performing Lab: [facility] [address] PROTEIN,TOTAL 6.7 g/dL 6.0-8.3 ALBUMIN 3.8 g/dL 3.5-5.0 ALKALINE PHOSPHATASE 123 U/L 40-150 AST 22 U/L 5-34 ALT 23 U/L BILIRUBIN, TOTAL 1.1 mg/dL 0.2-1.2 Mar 04, 2024 07:34 AM [facility] LIPID PANEL FASTING Specimen Type: SERUM No comment entered. Ordering Provider: LEOPOLDO JACOBSEN Report Released Date/Time: Feb 28, 2024 04:09 PM Reporting Lab: [facility] [address] [facility] [address] Performing Lab: [facility] [address] [facility] [address] CHOLESTEROL 112 mg/dL TRIGLYCERIDE 48 mg/dL 0-150 LDL calculated 54 mg/dL 0-129 CHOL/HDL 2.3 HDL CHOLESTEROL 48 mg/dL 40-60 Mar 04, 2024 07:34 AM [facility] CBC AND DIFF (AUTO) Specimen Type: BLOOD No comment entered. Ordering Provider: LEOPOLDO JACOBSEN Report Released Date/Time: Feb 28, 2024 04:09 PM Reporting Lab: [facility] [address] [address] Performing Lab: [facility] [address] [facility] [address] WBC 5.32 10*3/uL 4.50-11.00 RBC 4.13 10*6/uL L 4.23-5.66 HGB 13.3 g/dL 12.8-17 HCT 39.6 39.2-50.4 MCV 95.9 fL 82-99 MCHC 33.6 g/dL 30.8-35.1 PLT 153 10*3/uL 140-360 RDW-CV 13.5 12.0-16.0 MONO, ABS 0.55 10*3/uL 0.30-1.10 MCH 32.2 pg 26.2-32.6 NEUT % 67.1 43.7-75.8 LYMPH % 17.5 14.0-42.3 MONO % 10.3 5.1-13.7 EOS % 3.6 0.4-6.8 BASO % 1.3 0.1-2.0 NEUT, ABS 3.57 10*3/uL 2.20-7.60 LYMPH, ABS 0.93 10*3/uL L 1.00-3.20 EOS, ABS 0.19 10*3/uL 0.03-0.44 BASO, ABS 0.07 10*3/uL 0.01-0.13 IMMATURE GRAN % 0.2 0.0-0.7 IMMATURE GRAN, ABS 0.01 10*3/uL 0.00-0.06 NRBC % 0.0 0.0-0.0 NRBC, ABS 0.00 10*3/uL 0.00-0.00 Mar 04, 2024 07:34 AM [facility] URINALYSIS CLEAN CATCH Specimen Type: URINE Comment: If Glucose = >500 and Ketones are positive, please alert the Physician. Ordering Provider: LEOPOLDO JACOBSEN Report Released Date/Time: Feb 28, 2024 04:09 PM Reporting Lab: [facility] [address] [facility] [address] Performing Lab: [place] [facility] [place] [facility] [address] [facility] [address] UA COLOR Yellow Yellow UA APPEARANCE Clear Clear UA GLUCOSE NEGATIVE mg/dL Negative UA KETONES NEGATIVE mg/dL Negative UA BLOOD NEGATIVE mg/dL Negative UA PROTEIN 20 mg/dL Negative UA NITRITE NEGATIVE mg/dL Negative UA BILIRUBIN NEGATIVE mg/dL Negative UA SPECIFIC GRAVITY 1.025 H 1.016-1.022 UA pH 6.0 5.0-9.0 UA UROBILINOGEN <2.0 mg/dL <2.0 UA LEUKOCYTE NEGATIVE Negative Social History: Smoking Status (Most current) and Tobacco Use (All prior to encounter date) This section includes the most current, and the historical, smoking and tobacco- related health factors from the [place] facility where the Encounter took place. Current Smoking Status This section includes the most current smoking, or tobacco-related health factor, from the [place] facility where the Encounter took place. Date/Time Current Smoking Status Comment [facility] Mar 06, 2023 09:00 AM VA-TOBACCO QUIT 15 YRS OR MORE [facility] Tobacco Use History This section includes a history of the smoking, or tobacco-related health factors, that were collected on or before the date of the Encounter. The data comes from the [place] facility where the Encounter took place. Date/Time Smoking Status/Tobac co Use Comment [facility] Mar 06, 2023 09:00 AM VA-TOBACCO QUIT 15 YRS OR MORE [place] [facility] [facility] Feb 16, 2022 09:30 AM VA-TOBACCO FORMER USER [place] [facility] [facility] Feb 16, 2022 09:30 AM VA-TOBACCO QUIT 15 YRS OR MORE [place] [facility] [facility] Feb 09, 2021 09:00 AM VA-TOBACCO FORMER USER [place] [facility] [place] [facility] Feb 09, 2021 09:00 AM VA-TOBACCO QUIT 15 YRS OR MORE [place] [facility] [facility] Jan 01, 2020 10:15 AM VA-TOBACCO FORMER USER [place] [facility] [facility] Jan 01, 2020 10:15 AM VA-TOBACCO QUIT 15 YRS OR MORE [place] [facility] [facility] Mar 12, 2018 08:56 AM [facility]ACCO [facility] Mar 12, 2018 08:56 AM VA-TOBACCO QUIT 15 YRS OR MORE [facility] Mar 12, 2018 08:24 AM LIFETIME NON-TOBACCO USER [facility] Mar 13, 2017 07:44 AM LIFETIME NON-TOBACCO USER [facility] Mar 11, 2016 07:54 AM QUIT TOBACCO USE > 7 YEARS AGO Quit in 1984 [facility] Aug 17, 2005 10:23 AM HISTORY OF SMOKING Vet states he quit in 1984 [facility] May 19, 2004 08:56 AM HISTORY OF SMOKING quit . [facility] May 19, 2003 09:15 AM HISTORY OF SMOKING quit 10yrs ago [facility] Jun 06, 2002 08:13 AM HISTORY OF SMOKING quit 1978 [facility] Jun 06, 2002 08:13 AM QUIT TOBACCO USE > 7 YEARS AGO [facility] Apr 30, 2001 04:07 PM HISTORY OF SMOKING quit - 1984 [facility] Advance Directives: All historical and current Section Date Range: From patient's date of to the date document was created. This section includes ALL of a patient's completed or amended [place] Advance and Rescinded Directives. The entries below indicate that a directive exists for the patient, but an actual copy is not included with this document. The data comes from all [place] facilities. Date Advance Directives Provider Source Mar 12, 2024 ADVANCE DIRECTIVE JENNIFFER DOAN [facility] Encounter Notes: All associated encounter notes This section contains the clinical notes associated to the Encounter. Date/Time Encounter Note(s) Provider Source Mar 05, 2024 03:14 PM ADMINISTRATIVE NOTE: LOCAL TITLE: ADMINISTRATIVE NOTE STANDARD TITLE: ADMINISTRATIVE NOTE DATE OF NOTE: MAR 05, 2024@15:14 ENTRY DATE: MAR 05, 2024@15:14:14 AUTHOR: XOCHITL WILKES EXP COSIGNER: URGENCY: STATUS: COMPLETED Reminder call for your upcoming Primary Care Appointment and the need for preparations prior to your upcoming appt. [ ] Location in Building [address] [facility] [X] Fasting labs - LABS COMPLETED [ ] Lab work within 30 days [ ] Urine [ ] No Preparation Action taken: [ ] Called , left voice message [ ] Called , unable to leave voice mail [X] Spoke to /customer care assistant to remind them of upcoming appt/preparations Upcoming Appointments: 03/11/2024 09:00 CWM/NO/PACT 2 03/12/2024 13:30 CWM/NO/OCCUPATIONAL THERA 03/28/2024 08:00 CWM NO AUDIO EVAL D 03/28/2024 11:30 CWM/NO/PODIATRY/NAIL 04/25/2024 07:15 CWM/NO/DENTAL/RDH1 AM 07/26/2024 08:00 NHM/OPTOMETRY/BORASKI /es/ XOCHITL WILKES AMSA Signed: 03/05/2024 15:14 XOCHITL WILKES [facility] [place] [facility]
--- OUTSIDE RECORDS SUMMARY | 2024-09-06 11:05 | XMS_ITS | Encounter Summary ---
Author Name [facility] [place] Address [address] [place] [address] Care Team Providers Care Service Delivery Management Consultant Name Role Phone CARLOS ERASMO Primary Care [...] Name Patient's Relationship to Policy Lai MELISSA [facility] MEDICARE ADVANTAGE [facility] ([facility]) Sep 11, 2015 [id number] OLEGARIO DUNN PATIENT [facility] MEDICARE ADVANTAGE [facility] ([facility]) Sep 11, 2015 [id number] OLEGARIO DUNN PATIENT MEDICARE (WNR) MEDICARE (M) PART A Feb 09, 2001 PART A [id number] [phone] OLEGARIO DUNN PATIENT MEDICARE (WNR) MEDICARE (M) PART B Feb 09, 2001 PART B [id number] OLEGARIO DUNN PATIENT MEDICARE (WNR) MEDICARE (M) PART A Feb 09, 2001 PART A [id number] OLEGARIO DUNN PATIENT MEDICARE (WNR) MEDICARE (M) PART B Feb 09, 2001 PART B [id number] 56A OLEGARIO DUNN PATIENT Selected Encounter This section includes the information on record at [place] for the Encounter. Date/Time Encounter Type Encounter Description Reason Pro vider Source Jan 08, 2024 08:17 AM Outpatient Encounter ADMIN PAT ACTIVTIES (MASNONCT) IHE Encounter Template Text not used by [place] Plan of Treatment: Future Appointments (+ 6 months) and Future Tests (+/- 45 days) The Plan of Treatment section includes future care activities for the patient from all [place] treatmentfacilities. This section includes future appointments and future orders which are active, pending or scheduled. Future Appointments This section includes appointments that were scheduled to occur 6 months from the date of the Encounter, up to a maximum of 20 appointments. The data comes from all [place] treatment facilities. Appointment Date/Time Appointment Type Appointme nt Facility Name February 02, 2024 03:00 PM AM[place]ULATORY - [place] [facility] Feb 14, 2024 01:30 PM AMBULATORY - REHAB MEDICIN E [place] [facility] [facility] Mar 11, 2024 09:00 AM AM[place]ORY [place] [facility] [facility] 28, 2024 11:30 AM [place] [facility] [place] [facility] [place] [facility] May 08, 2024 09:45 AM AMBULATORY - REHAB MEDICIN E [facility] [facility] May 15, 2024 01:30 PM AMBULATORY - REHAB MEDICIN E [facility] [place] [facility] May 23, 2024 08:00 AM AMBULATORY - REHAB MEDICIN E [facility] [place] [facility] May 27, 2024 01:30 PM AMBULATORY - REHAB MEDICIN E [facility] [place] [facility] Jun 04, 2024 08:00 AM AMBULATORY - REHAB MEDICIN E [place] [facility] [place] [facility] Social History: Smoking Status (Most current) and Tobacco Use (All prior to encounter date) This section includes the most current, and the historical, smoking and tobacco- related health factors from the [place] facility where the Encounter took place. Current Smoking Status This section includes the most current smoking, or tobacco-related health factor, from the [place] facility where the Encounter took place. Date/Time Current Smoking Status Comment [facility] Mar 06, 2023 09:00 AM VA-TOBACCO QUIT 15 YRS OR MORE [facility] Tobacco Use History This section includes a history of the smoking, or tobacco-related health factors, that were collected on or before the date of the Encounter. The data comes from the [place] facility where the Encounter took place. Date/Time Smoking Status/Tobac co Use Comment Facility Mar 06, 2023 09:00 AM VA-TOBACCO QUIT 15 YRS OR MORE [place] [facility] [place] [facility] Feb 16, 2022 09:30 AM VA-TOBACCO FORMER USER [place] [facility] [place] [facility] Feb 16, 2022 09:30 AM VA-TOBACCO QUIT 15 YRS OR MORE [place] [facility] [facility] Feb 09, 2021 09:00 AM [facility]AC[facility] [place] [facility] Feb 09, 2021 09:00 AM VA-TOBACCO QUIT 15 YRS OR MORE [place] [facility] [place] [facility] Jan 01, 2020 10:15 AM VA-TOBACCO FORMER USER [place] [facility] [place] [facility] Jan 01, 2020 10:15 AM VA-TOBACCO QUIT 15 YRS OR MORE [place] [facility] Mar 12, 2018 08:56 AM VA-TOBACCO FORMER USER [place] [facility] [place] [facility] Mar 12, 2018 08:56 AM VA-TOBACCO QUIT 15 YRS OR MORE [place] [facility] Mar 12, 2018 08:24 AM LIFETIME NON-TOBACCO USER [place] [facility] [place] [facility] Mar 13, 2017 07:44 AM LIFETIME NON-TOBACCO USER [place] [facility] [place] [facility] Mar 11, 2016 07:54 AM QUIT TOBACCO USE > 7 YEARS AGO [facility] 1984 [facility] [place] [facility] Aug 17, 2005 10:23 AM HISTORY OF SMOKING Vet states he quit in 1984 [facility] [place] [facility] May 19, 2004 08:56 AM HISTORY OF SMOKING quit 1980[facility]. [facility] [place] [facility] May 19, 2003 09:15 AM HISTORY OF SMOKING quit 10yrs ago [facility] [place] [facility] Jun 06, 2002 08:13 AM HISTORY OF SMOKING quit [facility] [place] [facility] Jun 06, 2002 08:13 AM QUIT TOBACCO USE > 7 YEARS AGO [facility] [place] [facility] Apr 30, 2001 04:07 PM HISTORY OF SMOKING [facility] - [facility] Advance Directives: All historical and current Section Date Range: From patient's date of to the date document was created. This section includes ALL of a patient's completed or amended [place] Advance and Rescinded Directives. The entries below indicate that a directive exists for the patient, but an actual copy is not included with this document. The data comes from all [place] facilities. Date Advance Directives Provider Source Mar 12, 2024 ADVANCE DIRECTIVE JENNIFFER DOAN [facility] [place] [facility] Encounter Notes: All associated encounter notes This section contains the clinical notes associated to the Encounter. Date/Time Encounter Note(s) Provider Source Jan 08, 2024 08:17 AM ADMINISTRATIVE NOT E: LOCAL TITLE: CCC: SCHEDULING ADMINISTRATION STANDARD TITLE: ADMINISTRATIVE NOTE DATE OF NOTE: JAN 08, 2024@08:17 ENTRY DATE: JAN 08, 2024@08:17:47 AUTHOR: ARACELIS COVARRUBIAS EXP COSIGNER: URGENCY: STATUS: COMPLETED CCC: SCHEDULING ADMINISTRATION Has ADDENDA Verify Patient Demographics; Successfully verified patient demographics Other/General comments: Vets requesting refills for AMLODIPINE BESYLATE TAB 10MG /kathy/ ARACELIS COVARRUBIAS V2 [facility] AMSA Signed: 01/08/2024 08:18 Receipt Acknowledged By: 01/08/2024 08:22 /kathy/ Erasmo Carlos MD Staff Physician 01/08/2024 ADDENDUM STATUS: COMPLETED Done 01-05-24. /kathy/ Erasmo Carlos MD Staff Physician Signed: 01/08/2024 08:22 ARACELIS COVARRUBIAS [place] [facility]
--- OUTSIDE RECORDS SUMMARY | 2024-09-06 11:05 | XMS_ITS | Encounter Summary ---
Author Name [facility] [place] Address [address] [place] [address] Care Team Providers Care Security Police Name Role Phone ERASMO CARLOS Primary Care [...] Name Patient's Relationship to Policy Lai MELISSA [facility] ([facility]) MEDICARE ADVANTAGE [facility] ([facility]) Sep 11, 2015 [id number] OLEGARIO DUNN PATIENT [facility] ([facility]) MEDICARE ADVANTAGE [facility] ([facility]) Sep 11, 2015 [id number] OLEGARIO DUNN PATIENT MEDICARE (WNR) MEDICARE (M) PART A Feb 09, 2001 PART A [id number] OLEGARIO DUNN PATIENT MEDICARE (WN) MEDICARE (M) PART B Feb 09, 2001 PART B [id number] [phone] OLEGARIO DUNN PATIENT MEDICARE (WNR) MEDICARE (M) PART A Feb 09, 2001 PART A [id number] 56A [place] SKI,OLEGARIO W PATIENT MEDICARE (WNR) MEDICARE (M) PART B Feb 09, 2001 PART B [id number] 56A OLEGARIO DUNN PATIENT Selected Encounter This section includes the information on record at [place] for the Encounter. 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 This section includes future appointments and future orders which are active, pending or scheduled. Future Appointments This section includes appointments that were scheduled to occur 6 months from the date of the Encounter, up to a maximum of 20 appointments. The data comes from all [place] treatment facilities. Appointment Date/Time Appointment Type Appointme nt Facility Name Mar 12, 2024 01:30 PM AMBULATORY - [facility] [place] [facility] Mar 22, 2024 02:30 PM AMBULATORY - [facility]IC[facility] [place] [facility] Mar 26, 2024 02:00 PM AMBULATORY - RE[facility] MEDICIN E [facility] [place] [facility] Mar 28, 2024 11:30 AM AMBULATORY - MEDICINE [facility] [place] [facility] Mar 29, 2024 02:30 PM AMBULATORY - [facility] MEDICIN E [facility] [place] [facility] Apr 04, 2024 02:00 PM AMBULATORY - [facility] MEDICIN [facility] [place] [facility] Apr 11, 2024 01:00 PM AMBULATORY - [facility] MEDICIN [facility] [place] [facility] Apr 11, 2024 02:00 PM [facility]BULAT[facility] Apr 23, 2024 02:00 PM AMBULATORY - [facility] Apr 29, 2024 02:00 PM AMBULATORY - [facility] May 06, 2024 01:30 PM AMBULATORY - [facility] May 07, 2024 01:00 PM AMBULATORY - [facility] MEDICIN [facility] [place] [facility] May 08, 2024 09:45 AM AMBULATORY [facility] May 15, 2024 01:30 PM AMBULATORY - [facility] May 23, 2024 08:00 AM AMBULATORY - [facility] MEDICIN [facility] [place] [facility] May 27, 2024 01:30 PM AMBULATORY - REHAB MEDICIN E [facility] [place] [facility] Jun 04, 2024 08:00 AM AMBULATORY - [facility] MEDICIN E [facility] [place] [facility] Jun 11, 2024 11:00 AM AMBULATORY - MEDICINE [facility] [place] [facility] Jun 18, 2024 01:00 PM AMBULATORY - RE[facility]AB MEDICIN E [facility] [place] [facility] Jul 03, 2024 11:30 AM AMBULATORY - MEDICINE [place] [facility] [place] [facility] Lab Results: +/- 30 days of the encounter This section includes the Chemistry and Hematology Lab Results on record with [place] for the patient. Radiology Reports and Pathology Reports are provided separately, in subsequent sections. Lab Results This section contains the Chemistry/Hematology Results that were resulted 30 days before or 30 daysafter the date of the Encounter. Date/Time Source Result Type Result - Unit Interpretation Reference Range Comment Mar 04, 2024 07:34 AM [facility] LIVER FUNCTION Specimen Type: SERUM No comment entered. Ordering Provider: ERASMO CARLOS Report Released Date/Time: Feb 28, 2024 04:09 PM Reporting Lab: [facility] [place] [address] [facility] [address] Performing Lab: [facility] [address] [facility] [address] PROTEIN,TOTAL 6.7 g/dL 6.0-8.3 ALBUMIN 3.8 g/dL 3.5-5.0 ALKALINE PHOSPHATASE 123 U/L 40-150 AST 22 U/L 5-34 ALT 23 U/L BILIRUBIN, TOTAL 1.1 mg/dL 0.2-1.2 Mar 04, 2024 07:34 AM [facility] BASIC METABOLIC PANEL (fasting) Specimen Type: SERUM No comment entered. Ordering Provider: ERASMO CARLOS Report Released Date/Time: Feb 28, 2024 04:09 PM Reporting Lab: [address] [address] Performing Lab: [address] [address] UREA NITROGEN 17 mg/dL 7-25 GLUCOSE 88 mg/dL 65-100 SODIUM 140 mmol/L 135-145 POTASSIUM 4.2 mmol/L 3.5-5.0 CHLORIDE 112 mmol/L H 100-110 CO2 21 meq/L 20-30 CREATININE, Serum 0.76 mg/dL 0.50-1.40 eGFR(CKD-EPI 2020) 86 mL/min >60 Mar 04, 2024 07:34 AM [facility] TSH Specimen Type: SERUM No comment entered. Ordering Provider: ERASMO CARLOS Report Released Date/Time: Feb 28, 2024 04:09 PM Reporting Lab: [address] [address] Performing Lab: [address] [address] TSH 6.12 u[IU]/mL H 0.35-5.00 Mar 04, 2024 07:34 AM [facility] LIPID PANEL FASTING Specimen Type: SERUM No comment entered. Ordering Provider: ERASMO CARLOS Report Released Date/Time: Feb 28, 2024 04:09 PM Reporting Lab: [address] [place] [address] Performing Lab: [facility] [address] [facility] [address] CHOLESTEROL 112 mg/dL TRIGLYCERIDE 48 mg/dL 0-150 LDL calculated 54 mg/dL 0-129 CHOL/HDL 2.3 HDL CHOLESTEROL 48 mg/dL 40-60 Mar 04, 2024 07:34 AM [facility] CBC AND DIFF (AUTO) Specimen Type: BLOOD No comment entered. Ordering Provider: ERASMO CARLOS Report Released Date/Time: Feb 28, 2024 04:09 PM Reporting Lab: [facility] [address] [facility] [address] Performing Lab: [facility] [address] [facility] [address] WBC 5.32 10*3/uL 4.50-11.00 RBC 4.13 10*6/uL [...] 10*3/uL 0.00-0.00 Mar 04, 2024 07:34 AM [facility] URINALYSIS CLEAN CATCH Specimen Type: URINE Comment: If Glucose = >500 and Ketones are positive, please alert the Physician. Ordering Provider: ERASMO CARLOS Report Released Date/Time: Feb 28, 2024 04:09 PM Reporting Lab: [facility] [address] [facility] [address] Performing Lab: [facility] [address] [facility] [address] UA COLOR Yellow Yellow UA APPEARANCE Clear Clear UA GLUCOSE NEGATIVE mg/dL Negative UA KETONES NEGATIVE mg/dL Negative UA BLOOD NEGATIVE mg/dL Negative UA PROTEIN 20 mg/dL Negative UA NITRITE NEGATIVE mg/dL Negative UA BILIRUBIN NEGATIVE mg/dL Negative UA SPECIFIC GRAVITY 1.025 H 1.016-1.022 UA pH 6.0 5.0-9.0 UA UROBILINOGEN <2.0 mg/dL <2.0 UA LEUKOCYTE NEGATIVE Negative Vital Signs: All taken on the encounter date This section contains inpatient and outpatient Vital Signs collected on the date of the Encounter. Date/Time Temperature Pulse Blood Pressure Respiratory Rate SP02 Pain Height Weight Body Mass Index Source Mar 11, 2024 09:23 AM 118/62 [facility] Mar 11, 2024 08:47 AM 96.9 72 160/68 16 91 0 69 178.3 26 [facility] Social History: Smoking Status (Most current) and Tobacco Use (All prior to encounter date) This section includes the most current, and the historical, smoking and tobacco- related health factors from the [place] facility where the Encounter took place. Current Smoking Status This section includes the most current smoking, or tobacco-related health factor, from the [place] facility where the Encounter took place. Date/Time Current Smoking Status Comment Donavan maynard Mar 11, 2024 09:00 AM VA-TOBACCO FORMER USER [facility] Tobacco Use History This section includes a history of the smoking, or tobacco-related health factors, that were collected on or before the date of the Encounter. The data comes from the [place] facility where the Encounter took place. Date/Time Smoking Status/Tobac co Use Comment Facility Mar 11, 2024 09:00 AM VA-TOBACCO QUIT 15 YRS OR MORE [facility] [place] [facility] Mar 06, 2023 09:00 AM VA-TOBACCO FORMER USER [facility] [place] [facility] Mar 06, 2023 09:00 AM VA-TOBACCO QUIT 15 YRS OR MORE [facility] [place] [facility] Feb 16, 2022 09:30 AM VA-TOBACCO FORMER USER [facility] [place] [facility] Feb 16, 2022 09:30 AM VA-TOBACCO QUIT 15 YRS OR MORE [facility] [place] [facility] Feb 09, 2021 09:00 AM VA-TOBACCO FORMER USER [facility] [place] [facility] Feb 09, 2021 09:00 AM VA-TOBACCO QUIT 15 YRS OR MORE [facility] [place] [facility] Jan 01, 2020 10:15 AM VA-TOBACCO FORMER USER [facility] [place] [facility] Jan 01, 2020 10:15 AM VA-TOBACCO QUIT 15 YRS OR MORE [facility] [place] [facility] Mar 12, 2018 08:56 AM VA-TOBACCO FORMER USER [facility] [place] [facility] Mar 12, 2018 08:56 AM VA-TOBACCO QUIT 15 YRS OR MORE [facility] [place] [facility] Mar 12, 2018 08:24 AM LIFETIME NON-TOBACCO USER [facility] [place] [facility] Mar 13, 2017 07:44 AM LIFETIME NON-TOBACCO USER [facility] [place] [facility] Mar 11, 2016 07:54 AM QUIT TOBACCO USE > 7 YEARS AGO Quit in 1984 [facility] [place] [facility] Aug 17, 2005 10:23 AM HISTORY OF SMOKING Vet states he quit in 1984 [place] [facility] [place] [facility] May 19, 2004 08:56 AM HISTORY OF SMOKING quit . [facility] [place] [facility] May 19, 2003 09:15 AM HISTORY OF SMOKING quit 10yrs ago [facility] [place] [facility] Jun 06, 2002 08:13 AM HISTORY OF SMOKING quit 1978 [facility] [place] [facility] Jun 06, 2002 08:13 AM QUIT TOBACCO USE > 7 YEARS AGO [facility] Apr 30, 2001 04:07 PM HISTORY OF SMOKING quit - 1984 [facility] Advance Directives: All historical and current Section Date Range: From patient's date of to the date document was created. This section includes ALL of a patient's completed or amended [place] Advance and Rescinded Directives. The entries below indicate that a directive exists for the patient, but an actual copy is not included with this document. The data comes from all [place] facilities. Date Advance Directives Provider Source Mar 12, 2024 ADVANCE DIRECTIVE JENNIFFER DOAN [facility] Encounter Notes: All associated encounter notes This section contains the clinical notes associated to the Encounter. Date/Time Encounter Note(s) Provider Source Mar 12, 2024 09:51 AM ADVANCE DIRECTIVE: LOCAL TITLE: ADVANCE DIRECTIVE STANDARD TITLE: ADVANCE DIRECTIVE DATE OF NOTE: MAR 12, 2024@09:51 ENTRY DATE: MAR 12, 2024@09:51:32 AUTHOR: JENNIFFER DOAN EXP COSIGNER: URGENCY: STATUS: COMPLETED * [ ]Advance Directive executed with . [X]Patient brought in his/her own Advance Directive. Scanned Advance Directive or Advance Directive/AOD Flowsheet is located in [place]. /kathy/ JENNIFFER DOAN LPN LPN Signed: 03/12/2024 09:51 JENNIFFER DOAN [facility] Mar 11, 2024 09:23 AM PHYSICIAN NOTE: LOCAL TITLE: MD NOTE STANDARD TITLE: PHYSICIAN NOTE DATE OF NOTE: MAR 11, 2024@09:23 ENTRY DATE: MAR 11, 2024@09:23:35 AUTHOR: ERASMO CARLOS EXP COSIGNER: URGENCY: STATUS: COMPLETED Patient Name: EUSEBIO PEREZ VITALS: Patient temperature: 96.9 F [36.1 C] (03/11/2024 08:47) Blood pressure: 118/62 (03/11/2024 09:23) Patient height: 69 in [175.3 cm] (03/11/2024 08:47) Patient weight: 178.3 lb [80.88 kg] (03/11/2024 08:47) Patient BMI: BMI: 26.4 Patient pulse: 72 (03/11/2024 08:47) Patient respiration: 16 (03/11/2024 08:47) Patient Pulse Oximetry: 91% (03/11/2024 08:47) Pain Ratin (03/11/2024 08:47) Active [facility] Medications: Active Outpatient Medications (including Supplies): Active Outpatient Medications Status 1) BRIMONIDINE 0.2%/BRINZOLAMID 1% OPH SUSP INSTILL 1 ACTIVE DROP INTO EACH EYE TWICE DAILY 2) IBUPROFEN 200MG TAB TAKE ONE TABLET BY MOUTH TWICE ACTIVE DAILY NEEDED TAKE WITH FOOD; FOR PAIN/INFLAMMATION/SWELLIN G Active Non-VA Medications Status 1) Non-VA AMLODIPINE BESYLATE 10MG TAB 10MG BY MOUTH ACTIVE EVERY DAY 2) Non-VA CHOLECALCIF 50MCG (D3-2,000UNIT) TAB 100MCG BY ACTIVE MOUTH ONCE DAILY 3) Non-VA MIRABEGRON 25MG SA TAB 25MG BY MOUTH ONCE ACTIVE DAILY 4) Non-VA MULTIVITAMIN/MINERALS CAP/TAB 1 TABLET BY ACTIVE MOUTH EVERY DAY 5) Non-VA TAMSULOSIN HCL 0.4MG CAP 0.4MG BY MOUTH AT ACTIVE BEDTIME 6) Non-VA TROSPIUM CL 20MG TAB 20MG BY MOUTH TWICE DAILY ACTIVE 8 Total Medications Remote Medications: No Active 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 Feels well today with no complaints. Not slow or sluggish. No concentration problems. Review of systems No chest pain or dyspnea No abdominal pain no fever or chills No cough Physical examination Well-developed well-nourished male no acute distress Coronary no murmur Neck gross no masses Lungs clear No edema Color, Urine (AX 4280): Yellow Appearance, Urine (AX 4280): Clear Glucose, Urine (AX 4280): NEGATIVE Ketones, Urine (AX 4280): NEGATIVE Blood, Urine (AX 4280): NEGATIVE Protein, Urine (AX 4280): 20 Nitrite, Urine (AX 4280): NEGATIVE Bilirubin, Urine (AX 4280): NEGATIVE Specific [place], (AX 4280): 1.025 H pH, Urine ([id number]): 6.0 Urobilinogen, Urine (AX 4280): <2.0 Leukocyte Esterase, (AX 4280): NEGATIVE GLUCOSE: 88 UREA NITROGEN: 17 SODIUM: 140 POTASSIUM: 4.2 CHLORIDE: 112 H CO2: 21 CHOLESTEROL: 112 PROTEIN,TOTAL: 6.7 ALBUMIN: 3.8 ALKALINE PHOSPHATASE: 123 SGOT: 22 SGPT: 23 TRIGLYCERIDE: 48 LDL CHOL: 54 CHOL/HDL RATIO: 2.3 HDL: 48 BILIRUBIN,TOT.: 1.1 TSH (Access): 6.12 H CREATININE-EGFR: 0.76 eGFR CKD-EPI 2020: 86 WBC: 5.32 RBC: 4.13 L HGB: 13.3 HCT: 39.6 MCV: 95.9 MCHC: 33.6 RDW: 13.5 PLT: 153 MCH: 32.2 Neut %: 67.1 Lymph %: 17.5 Miner %: 10.3 Eos %: 3.6 Baso %: 1.3 Neut, Abs: 3.57 Lymph, Abs: 0.93 L Miner, Abs: 0.55 Eos, Abs: 0.19 Baso, Abs: 0.07 Immature Granulocytes %: 0.2 Immature Granulocytes, Abs: 0.01 NRBC%: 0.0 NRBC#: 0.00 I discussed above test results with patient Assessment and plan: 1. Subclinical hypothyroidism: Clinically euthyroid Plan continue to observe 2. Urinary incontinence: Urology requesting physical therapy Plan: Physical therapy Follow-up 6 months clinic visit and lab Patient declined all vaccines today Medication Reconciliation: Outpatient: Has the patient been taking medications as documented in the EMLR? YES: The patient has been taking medications as documented in the EMLR. Essential Medication List for Review used to complete this medication reconciliation. INCLUDED IN THIS LIST: Alphabetical list of active outpatient prescriptions dispensed from this [place] (local) and dispensed from another [place] or [facility] facility (remote) as well as inpatient orders [...] whether with a VA or non-VA provider. COVID-19 Immunization: Refused Moderna Monovalent COVID-19 vaccine Immunization: COVID-19 (MODERNA), MRNA, LNP-S, PF, 50 MCG/0.5 ML (AGES 12+ YEARS) Refusal Reason: PATIENT DECISION Patient refuses all immunization(s) in the COVID-19 group Date Documented: 03/11/24 09:26 Tdap Immunization: The patient declines to receive the recommended dose of Tdap vaccine. Immunization: TDAP Refusal Reason: PATIENT DECISION Patient refuses all immunization(s) in the TDAP group Date Documented: 03/11/24 09:26 Herpes Zoster (Shingles) Vaccine: The patient declines to receive the recommended dose of zoster (shingles) vaccine. Immunization: ZOSTER RECOMBINANT Refusal Reason: PATIENT DECISION Patient refuses all immunization(s) in the ZOSTER group Date Documented: 03/11/24 09:26 /kathy/ Erasmo Carlos MD Staff Physician Signed: 03/11/2024 09:27 ERASMO CARLOS [facility] [place] [facility] Mar 11, 2024 08:52 AM PREVENTIVE MEDICIN E NURSING NOTE: LOCAL TITLE: CLINICAL REMINDERS/NURSING STANDARD TITLE: PREVENTIVE MEDICINE NURSING NOTE DATE OF NOTE: MAR 11, 2024@08:52 ENTRY DATE: MAR 11, 2024@08:52:22 AUTHOR: JENNIFFER DOAN EXP COSIGNER: URGENCY: STATUS: COMPLETED Tobacco Use Screening: The patient is a former tobacco user. The patient quit fifteen or more years ago. /kathy/ JENNIFFER DOAN LPN LPN Signed: 03/11/2024 08:54 JENNIFFER DOAN [facility]
--- OUTSIDE RECORDS SUMMARY | 2024-09-06 11:05 | XMS_ITS | Encounter Summary ---
Author Name [place] Organization [place] Address [address] [place] [address] Care Team Providers Care Dean Of Instruction Name Role Phone JACOBSEN LEOPOLDO Primary Care [...] Name Patient's Relationship to Policy Lai MELISSA [facility] ([facility]) MEDICARE ADVANTAGE [facility] ([facility]) Sep 11, 2015 [id number] PERRIOLEGARIO CHRISTIAN PATIENT [facility] (WNR) MEDICARE ADVANTAGE [facility] (WNR) Sep 11, 2015 [id number] OLEGARIO DUNN PATIENT MEDICARE (WNR) MEDICARE (M) PART A Feb 09, 2001 PART A [id number] FANNIE ANDERSENOLEGARIO Jung PATIENT MEDICARE (WNR) MEDICARE (M) PART B Feb 09, 2001 PART B [id number] OLEGARIO DUNN PATIENT MEDICARE (WNR) MEDICARE (M) PART A Feb 09, 2001 PART A [id number] [phone] [id number] OLEGARIO DUNN PATIENT MEDICARE (WNR) MEDICARE (M) PART B Feb 09, 2001 PART B [id number] [phone] [id number] OLEGARIO DUNN PATIENT Selected Encounter This section includes the information on record at [place] for the Encounter. Date/Time Encounter Type Encounter Description Reason Pro vider Source IHE Encounter Template Text not used by [place] Advance Directives: All historical and current Section Date Range: From patient's date of to the date document was created. This section includes ALL of a patient's completed or amended [place] Advance and Rescinded Directives. The entries below indicate that a directive exists for the patient, but an actual copy is not included with this document. The data comes from all [place] facilities. Date Advance Directives Provider Source Mar 12, 2024 ADVANCE DIRECTIVE JENNIFFER DOAN [place] [facility]
--- OUTSIDE RECORDS SUMMARY | 2024-09-06 11:05 | XMS_ITS | Encounter Summary ---
Author Name [facility] Organization [facility] [place] Address [address] [place] [address] Care Team Providers Care Environmental Health And Safety Leader Name Role Phone CARLOS ERASMO Primary Care [...] Name Patient's Relationship to Policy Lai MELISSA [facility] ([facility] MEDICARE ADVANTAGE [facility] ([facility] Sep 11, 2015 [id number] [phone] OLEGARIO DUNN PATIENT [facility] ([facility]) MEDICARE ADVANTAGE [facility] ([facility] Sep 11, 2015 [id number] OLEGARIO DUNN PATIENT MEDICARE (WNR) MEDICARE (M) PART A Feb 09, 2001 PART A [id number] 56A OLEGARIO DUNN PATIENT MEDICARE (WNR) MEDICARE (M) PART B Feb 09, 2001 PART B [id number] 56A OLEGARIO DUNN PATIENT MEDICARE (WNR) MEDICARE (M) PART A Feb 09, 2001 PART A [id number] 56A OLEGARIO DUNN PATIENT MEDICARE (WNR) MEDICARE (M) PART B Feb 09, 2001 PART B [id number] 56A OLEGARIO DUNN PATIENT Selected Encounter This section includes the information on record at [place] for the Encounter. Date/Time Encounter Type Encounter Description Reason Pro vider Source Jan 05, 2024 08:28 AM Outpatient Encounter ADMIN PAT ACTIVTIES (MASNONCT) IHE Encounter Template Text not used by [place] Plan of Treatment: Future Appointments (+ 6 months) and Future Tests (+/- 45 days) The Plan of Treatment section includes future care activities for the patient from all [place] treatmentfacilities. This section includes future appointments and future orders which are active, pending or scheduled. Future Appointments This section includes appointments that were scheduled to occur 6 months from the date of the Encounter, up to a maximum of 20 appointments. The data comes from all [place] treatment facilities. Appointment Date/Time Appointment Type Appointme nt Facility Name February 02, 2024 03:00 PM AMBULATORY - MEDICINE [place] [facility] [place] [facility] Feb 14, 2024 01:30 PM AMBULATORY - REHAB MEDICIN E [facility] [place] [facility] Mar 11, 2024 09:00 AM AMBULATORY - MEDICINE [place] [facility] [place] [facility] Mar 12, 2024 01:30 PM AMBULATORY - REHAB MEDICIN E [facility] [place] [facility] Mar 22, 2024 02:30 PM AMBULATORY - REHAB MEDICIN E [facility] [place] [facility] Mar 26, 2024 02:00 PM AMBULATORY - REHAB MEDICIN E [facility] [place] [facility] Mar 28, 2024 11:30 AM AMBULATORY - MEDICINE [place] [facility] [place] [facility] Mar 29, 2024 02:30 PM AMBULATORY - REHAB MEDICIN E [facility] [place] [facility] Apr 04, 2024 02:00 PM AMBULATORY - REHAB MEDICIN E [facility] [place] [facility] Apr 11, 2024 01:00 PM AMBULATORY - REHAB MEDICIN E [facility] [place] [facility] Apr 11, 2024 02:00 PM AMBULATORY - REHAB MEDICIN E [facility] [facility] Apr 23, 2024 02:00 PM AMBULATORY - REHAB MEDICIN E [facility] [facility] Apr 29, 2024 02:00 PM AMBULATORY - REHAB MEDICIN E [facility] [place] [facility] May 06, 2024 01:30 PM AMBULATORY - REHAB MEDICIN E [facility] [facility] May 07, 2024 01:00 PM AMBULATORY - REHAB MEDICIN E [facility] [facility] May 08, 2024 09:45 AM AMBULATORY - REHAB MEDICIN E [facility] [facility] May 15, 2024 01:30 PM AMBULATORY - REHAB MEDICIN E [facility] [facility] May 23, 2024 08:00 AM AMBULATORY - REHAB MEDICIN E [facility] [facility] May 27, 2024 01:30 PM AMBULATORY - REHAB MEDICIN E [facility] [facility] Jun 04, 2024 08:00 AM AMBULATORY - REHAB MEDICIN E [facility] [place] [facility] Social History: Smoking Status (Most current) and Tobacco Use (All prior to encounter date) This section includes the most current, and the historical, smoking and tobacco- related health factors from the [place] facility where the Encounter took place. Current Smoking Status This section includes the most current smoking, or tobacco-related health factor, from the [place] facility where the Encounter took place. Date/Time Current Smoking Status Comment [facility] Mar 06, 2023 09:00 AM [facility] [place] [facility] Tobacco Use History This section includes a history of the smoking, or tobacco-related health factors, that were collected on or before the date of the Encounter. The data comes from the [place] facility where the Encounter took place. Date/Time Smoking Status/Tobac co Use Comment Facility Mar 06, 2023 09:00 AM VA-TOBACCO QUIT 15 YRS OR MORE [facility] [place] [facility] Feb 16, 2022 09:30 AM VA-TOBACCO FORMER USER [facility] [place] [facility] Feb 16, 2022 09:30 AM VA-TOBACCO QUIT 15 YRS OR MORE [place] [facility] [facility] Feb 09, 2021 09:00 AM VA-TOBACCO FORMER USER [place] [facility] [place] [facility] Feb 09, 2021 09:00 AM VA-TOBACCO QUIT 15 YRS OR MORE [place] [facility] [facility] Jan 01, 2020 10:15 AM VA-TOBACCO FORMER USER [place] [facility] [facility] Jan 01, 2020 10:15 AM VA-TOBACCO QUIT 15 YRS OR MORE [place] [facility] [facility] Mar 12, 2018 08:56 AM VA-TOBACCO FORMER USER [place] [facility] [facility] Mar 12, 2018 08:56 AM VA-TOBACCO QUIT 15 YRS OR MORE [place] [facility] [place] [facility] Mar 12, 2018 08:24 AM LIFETIME NON-TOBACCO USER [place] [facility] [place] [facility] Mar 13, 2017 07:44 AM LIFETIME NON-TOBACCO USER [place] [facility] [place] [facility] Mar 11, 2016 07:54 AM QUIT TOBACCO USE > 7 YEARS AGO Quit in 1984 [place] [facility] [place] [facility] Aug 17, 2005 10:23 AM HISTORY OF SMOKING Vet states he quit in 1984 [place] [facility] [facility] May 19, 2004 08:56 AM HISTORY OF SMOKING quit 1980s. [place] [facility] [place] [facility] May 19, 2003 09:15 AM HISTORY OF SMOKING quit 10yrs ago [facility] [place] [facility] Jun 06, 2002 08:13 AM HISTORY OF SMOKING quit 1979 [place] [facility] [facility] Jun 06, 2002 08:13 AM QUIT TOBACCO USE > 7 YEARS AGO [facility] [place] [facility] Apr 30, 2001 04:07 PM HISTORY OF SMOKING quit - 1984 [facility] Advance Directives: All historical and current Section Date Range: From patient's date of to the date document was created. This section includes ALL of a patient's completed or amended [place] Advance and Rescinded Directives. The entries below indicate that a directive exists for the patient, but an actual copy is not included with this document. The data comes from all [place] facilities. Date Advance Directives Provider Source Mar 12, 2024 ADVANCE DIRECTIVE JENNIFFER DOAN [facility] Encounter Notes: All associated encounter notes This section contains the clinical notes associated to the Encounter. Date/Time Encounter Note(s) Provider Source Jan 05, 2024 08:28 AM ADMINISTRATIVE NOT E: LOCAL TITLE: CCC: SCHEDULING ADMINISTRATION STANDARD TITLE: ADMINISTRATIVE NOTE DATE OF NOTE: JAN 05, 2024@08:28:25 ENTRY DATE: JAN 05, 2024@08:28:25 AUTHOR: NÉSTOR MARRERO EXP COSIGNER: URGENCY: STATUS: COMPLETED CCC: SCHEDULING ADMINISTRATION Has ADDENDA Patient Demographics Patient Name: EUSEBIO PEREZ Patient Primary Phone: [phone] Patient Primary Address: [address] [place], [place] [id number] Patient : [id number] Patient Age: 88 Caller/Recipient Relation to Patient: Self Administrative Administrative Note Reason: Medication Renewal [place] Medications Refill/Renewal Request: [place] would like a refill on Rx # - AMLODIPINE BESYLATE 10MG TAB for dispensing through [facility] in [place] [phone] /kathy/ NÉSTOR MARRERO VISN1 [facility] AMSA Signed: 01/05/2024 08:28 Receipt Acknowledged By: 01/05/2024 09:03 /kathy/ Sonali Arana RN, BSN Primary Care 01/05/2024 13:08 /kathy/ Erasmo Carlos MD Staff Physician 01/05/2024 ADDENDUM STATUS: COMPLETED Amlodipine 10 mg tablet 1 p.o. daily x 90 days #90 refill x 3 spoke with pharmacist Rick /kathy/ Erasmo Carlos MD Staff Physician Signed: 01/05/2024 13:08 NÉSTOR MARRERO [facility]
--- OUTSIDE RECORDS SUMMARY | 2024-09-06 11:05 | XMS_ITS | Encounter Summary ---
Author Name [facility] [place] Organization [place] Address [address] [place] [address] Care Team Providers Care Ingot Caster Name Role Phone CARLOS ERASMO Primary Care [...] Name Patient's Relationship to Policy Lai MELISSA [facility] ([facility]) MEDICARE ADVANTAGE [facility] ([facility]) Sep 11, 2015 [id number] MOONJung GANESHOLEGARIO Jung PATIENT [facility] ([facility]) MEDICARE ADVANTAGE [facility] ([facility]) Sep 11, 2015 [id number] OLEGARIO DUNN PATIENT MEDICARE (WNR) MEDICARE (M) PART A Feb 09, 2001 PART A [id number] OLEGARIO DUNN PATIENT MEDICARE (WNR) MEDICARE (M) PART B Feb 09, 2001 PART B [id number] [phone] OLEGARIO DUNN PATIENT MEDICARE (WNR) MEDICARE (M) PART A Feb 09, 2001 PART A [id number] 56A OLEGARIO DUNN PATIENT MEDICARE (WNR) MEDICARE (M) PART B Feb 09, 2001 PART B [id number] 56A OLEGARIO DUNN PATIENT Selected Encounter This section includes the information on record at [place] for the Encounter. Date/Time Encounter Type Encounter Description Reason Pro vider Source Mar 07, 2024 02:11 PM Outpatient Encounter PRIMARY CARE/MEDICINE IHE Encounter Template Text not used by [place] Plan of Treatment: Future Appointments (+ 6 months) and Future Tests (+/- 45 days) The Plan of Treatment section includes future care activities for the patient from all [place] treatmentfacilities. This section includes future appointments and future orders which are active, pending or scheduled. Future Appointments This section includes appointments that were scheduled to occur 6 months from the date of the Encounter, up to a maximum of 20 appointments. The data comes from all [place] treatment facilities. Appointment Date/Time Appointment Type Appointme nt Facility Name Mar 11, 2024 09:00 AM AMBULATORY - MEDICINE [place] [facility] [place] [facility] Mar 12, 2024 01:30 PM AMBULATORY - REHAB MEDICIN E [facility] [facility] Mar 22, 2024 02:30 PM AMBULATORY - REHAB MEDICIN E [facility] [facility] Mar 26, 2024 02:00 PM AMBULATORY - REHAB MEDICIN E [facility] [facility] Mar 28, 2024 11:30 AM AMBULATORY - MEDICINE [place] [facility] [place] [facility] Mar 29, 2024 02:30 PM AMBULATORY - REHAB MEDICIN E [facility] [facility] Apr 04, 2024 02:00 PM AMBULATORY - REHAB MEDICIN E [facility] [facility] Apr 11, 2024 01:00 PM AMBULATORY - REHAB MEDICIN E [facility] [place] [facility] Apr 11, 2024 02:00 PM AMBULATORY - REHAB MEDICIN E [facility] [place] [facility] Apr 23, 2024 02:00 PM AMBULATORY - REHAB MEDICIN E [facility] [facility] Apr 29, 2024 02:00 PM AMBULATORY - REHAB MEDICIN E [facility] [facility] May 06, 2024 01:30 PM AMBULATORY [...] E [facility] [place] [facility] Jun 11, 2024 11:00 AM AMBULATORY - MEDICINE [facility] [place] [facility] Jun 18, 2024 01:00 PM AMBULATORY - REHAB MEDICIN E [facility] [facility] Lab Results: +/- 30 days of the encounter This section includes the Chemistry and Hematology Lab Results on record with [place] for the patient. Radiology Reports and Pathology Reports are provided separately, in subsequent sections. Lab Results This section contains the Chemistry/Hematology Results that were resulted 30 days before or 30 daysafter the date of the Encounter. Date/Time Source Result Type Result - Unit Interpretation Reference Range Comment Mar 04, 2024 07:34 AM [place] [facility] [facility] LIVER FUNCTION Specimen Type: SERUM No comment entered. Ordering Provider: ERASMO CARLOS Report Released Date/Time: Feb 28, 2024 04:09 PM Reporting Lab: [place] [facility] [place] [facility] [address] [facility] [address] Performing Lab: [place] [facility] [place] [facility] [address] [facility] [address] PROTEIN,TOTAL 6.7 g/dL 6.0-8.3 ALBUMIN 3.8 g/dL 3.5-5.0 ALKALINE PHOSPHATASE 123 U/L 40-150 AST 22 U/L 5-34 ALT 23 U/L BILIRUBIN, TOTAL 1.1 mg/dL 0.2-1.2 Mar 04, 2024 07:34 AM [facility] BASIC METABOLIC PANEL (fasting) Specimen Type: SERUM No comment entered. Ordering Provider: ERASMO CARLOS Report Released Date/Time: Feb 28, 2024 04:09 PM Reporting Lab: [facility] [address] [facility] [address] Performing Lab: [facility] [address] [facility] [address] UREA NITROGEN 17 mg/dL 7-25 GLUCOSE 88 mg/dL 65-100 SODIUM 140 mmol/L 135-145 POTASSIUM 4.2 mmol/L 3.5-5.0 CHLORIDE 112 mmol/L H 100-110 CO2 21 meq/L 20-30 CREATININE, Serum 0.76 mg/dL 0.50-1.40 eGFR(CKD-EPI 2020) 86 mL/min >60 Mar 04, 2024 07:34 AM [facility] TSH Specimen Type: SERUM No comment entered. Ordering Provider: ERASMO CARLOS Report Released Date/Time: Feb 28, 2024 04:09 PM Reporting Lab: [facility] [address] [facility] [address] Performing Lab: [facility] [address] [facility] [address] TSH 6.12 u[IU]/mL H 0.35-5.00 Mar 04, 2024 07:34 AM [facility] LIPID PANEL FASTING Specimen Type: SERUM No comment entered. Ordering Provider: ERASMO CARLOS Report Released Date/Time: Feb 28, 2024 04:09 PM Reporting Lab: [facility] [address] [facility] [address] Performing Lab: [facility] [address] [facility] [address] CHOLESTEROL 112 mg/dL TRIGLYCERIDE 48 mg/dL 0-150 LDL calculated 54 mg/dL 0-129 CHOL/HDL 2.3 HDL CHOLESTEROL 48 mg/dL 40-60 Mar 04, 2024 07:34 AM [facility] CBC AND DIFF (AUTO) Specimen Type: BLOOD No comment entered. Ordering Provider: ERASMO CARLOS Report Released Date/Time: Feb 28, 2024 04:09 PM Reporting Lab: [facility] [address] [facility] [address] Performing Lab: [facility] [address] [facility] [address] WBC 5.32 10*3/uL 4.50-11.00 RBC 4.13 10*6/uL [...] 10*3/uL 0.00-0.00 Mar 04, 2024 07:34 AM [facility] URINALYSIS CLEAN CATCH Specimen Type: URINE Comment: If Glucose = >500 and Ketones are positive, please alert the Physician. Ordering Provider: ERASMO CARLOS Report Released Date/Time: Feb 28, 2024 04:09 PM Reporting Lab: [facility] [address] [facility] [address] Performing Lab: [facility] [place] [facility] [address] [facility] [address] UA COLOR Yellow Yellow UA APPEARANCE Clear [...] and tobacco- related health factors from the [place] facility where the Encounter took place. Current Smoking Status This section includes the most current smoking, or tobacco-related health factor, from the [place] facility where the Encounter took place. Date/Time Current Smoking Status Comment [facility] Mar 06, 2023 09:00 AM VA-TOBACCO FORMER USER [place] [facility] Tobacco Use History This section includes a history of the smoking, or tobacco-related health factors, that were collected on or before the date of the Encounter. The data comes from the [place] facility where the Encounter took place. Date/Time Smoking Status/Tobac co Use Comment [facility] Mar 06, 2023 09:00 AM VA-TOBACCO QUIT 15 YRS OR MORE [place] [facility] [place] [facility] Feb 16, 2022 09:30 AM VA-TOBACCO FORMER USER [place] [facility] [place] [facility] Feb 16, 2022 09:30 AM VA-TOBACCO QUIT 15 YRS OR MORE [place] [facility] [place] [facility] Feb 09, 2021 09:00 AM VA-TOBACCO FORMER USER [place] [facility] [place] [facility] Feb 09, 2021 09:00 AM VA-TOBACCO QUIT 15 YRS OR MORE [place] [facility] [place] [facility] Jan 01, 2020 10:15 AM VA-TOBACCO FORMER USER [place] [facility] [place] [facility] Jan 01, 2020 10:15 AM VA-TOBACCO QUIT 15 YRS OR MORE [place] [facility] [place] [facility] Mar 12, 2018 08:56 AM VA-TOBACCO FORMER USER [facility] [place] [facility] Mar 12, 2018 08:56 AM VA-TOBACCO QUIT 15 YRS OR MORE [facility] Mar 12, 2018 08:24 AM LIFETIME NON-TOBACCO USER [facility] Mar 13, 2017 07:44 AM LIFETIME NON-TOBACCO USER [facility] Mar 11, 2016 07:54 AM QUIT TOBACCO USE > 7 YEARS AGO Quit in 1984 [facility] Aug 17, 2005 10:23 AM HISTORY OF SMOKING Vet states he quit in 1984 [facility] May 19, 2004 08:56 AM HISTORY OF SMOKING quit . [facility] May 19, 2003 09:15 AM HISTORY OF SMOKING quit 10yrs ago [facility] Jun 06, 2002 08:13 AM HISTORY OF SMOKING quit 1978 [facility] Jun 06, 2002 08:13 AM QUIT TOBACCO USE > 7 YEARS AGO [facility] Apr 30, 2001 04:07 PM HISTORY OF SMOKING quit - 1984 [facility] Advance Directives: All historical and current Section Date Range: From patient's date of to the date document was created. This section includes ALL of a patient's completed or amended [place] Advance and Rescinded Directives. The entries below indicate that a directive exists for the patient, but an actual copy is not included with this document. The data comes from all [place] facilities. Date Advance Directives Provider Source Mar 12, 2024 ADVANCE DIRECTIVE JENNIFFER DOAN [facility] Encounter Notes: All associated encounter notes This section contains the clinical notes associated to the Encounter. Date/Time Encounter Note(s) Provider Source Mar 07, 2024 02:11 PM NONVA CONSULT: LOCAL TITLE: MD/OUTSIDE CONSULT REPORT SUMMARY STANDARD TITLE: NONVA CONSULT DATE OF NOTE: MAR 07, 2024@14:11 ENTRY DATE: MAR 07, 2024@14:11:05 AUTHOR: ERASMO CARLOS EXP COSIGNER: URGENCY: STATUS: COMPLETED 02-22-24 office visit Urology PETEY Tse Chief complaint: BPH, bladder irritability. Dr. Ribera performed TURP. On numerous medications without improvement. Plan: Continue present medications. Follow-up 1 year. /kathy/ Erasmo Carlos MD Staff Physician Signed: 03/07/2024 14:11 [facility]
--- OUTSIDE RECORDS SUMMARY | 2024-09-06 11:05 | XMS_ITS | Encounter Summary ---
Author Name [facility] [place] Address [address] [place] [address] Care Team Providers Care Labor And Delivery Registered Nurse Name Role Phone ERASMO CARLOS Primary Care [...] Name Patient's Relationship to Policy Lai MELISSA [facility] ([facility]) MEDICARE ADVANTAGE [facility] ([facility]) Sep 11, 2015 [id number] [phone] OLEGARIO DUNN PATIENT [facility] ([facility]) MEDICARE ADVANTAGE [facility] ([facility]) Sep 11, 2015 [id number] OLEGARIO DUNN PATIENT MEDICARE (WNR) MEDICARE (M) PART A Feb 09, 2001 PART A [id number] 56A OLEGARIO DUNN PATIENT MEDICARE (WN) MEDICARE (M) PART B Feb 09, 2001 PART B [id number] 56A OLEGARIO DUNN PATIENT MEDICARE (WNR) MEDICARE (M) PART A Feb 09, 2001 PART A [id number] 56A [place] SKI,OLEGARIO W PATIENT MEDICARE (WNR) MEDICARE (M) PART B Feb 09, 2001 PART B [id number] 56A OLEGARIO DUNN PATIENT Selected Encounter This section includes the information on record at [place] for the Encounter. Date/Time Encounter Type Encounter Description Reason Provider Source February 02, 2024 03:00 PM OFFICE O/P EST SF 10 MIN PRIMARY CARE/MEDICINE ICD-10-CM R53.1 Weakness ERASMO CARLOS IHE Encounter Template Text not used by [place] Assessments - Encounter Diagnoses This section includes the primary and secondary diagnoses documented for the Encounter. Date/Time Primary/Secondary Diagnosis Diagnosis Name Provider Source February 02, 2024 03:33 PM PRIMARY Weakness ERASMO CARLOS [place] [facility] [place] [facility] Plan of Treatment: Future Appointments (+ 6 months) and Future Tests (+/- 45 days) The Plan of Treatment section includes future care activities for the patient from all [place] treatmentfacilities. This section includes future appointments and future orders which are active, pending or scheduled. Future Appointments This section includes appointments that were scheduled to occur 6 months from the date of the Encounter, up to a maximum of 20 appointments. The data comes from all [place] treatment facilities. Appointment Date/Time Appointment Type Appointme nt Facility Name Feb 14, 2024 01:30 PM AMBULATORY - REHAB MEDICIN E [facility] [place] [facility] Mar 11, 2024 09:00 AM AMBULATORY - MEDICINE [place] [facility] [place] [facility] Mar 12, 2024 01:30 PM AMBULATORY - REHAB MEDICIN E [facility] [place] [facility] Mar 22, 2024 02:30 PM AMBULATORY - REHAB MEDICIN E [facility] [place] [facility] Mar 26, 2024 02:00 PM AMBULATORY - REHAB MEDICIN E [facility] [place] [facility] Mar 28, 2024 11:30 AM AMBULATORY - MEDICINE [place] [facility] [place] [facility] Mar 29, 2024 02:30 PM AMBULATORY - REHAB MEDICIN E [facility] [place] [facility] Apr 04, 2024 02:00 PM AMBULATORY - REHAB MEDICIN E [facility] [place] [facility] Apr 11, 2024 01:00 PM AMBULATORY - REHAB MEDICIN E [facility] [place] [facility] Apr 11, 2024 02:00 PM AMBULATORY - REHAB MEDICIN E [facility] [place] [facility] Apr 23, 2024 02:00 PM AMBULATORY - REHAB MEDICIN E [facility] [place] [facility] Apr 29, 2024 02:00 PM AMBULATORY - REHAB MEDICIN E [facility] [place] [facility] May 06, 2024 01:30 PM AMBULATORY - REHAB MEDICIN E [facility] [place] [facility] May 07, 2024 01:00 PM AMBULATORY - REHAB MEDICIN E [facility] [place] [facility] May 08, 2024 09:45 AM AMBULATORY - REHAB MEDICIN E [facility] [place] [facility] May 15, 2024 01:30 PM AMBULATORY - REHAB MEDICIN E [facility] [place] [facility] May 23, 2024 08:00 AM AMBULATORY - REHAB MEDICIN E [facility] [place] [facility] May 27, 2024 01:30 PM AMBULATORY - REHAB MEDICIN E [facility] [place] [facility] Jun 04, 2024 08:00 AM AMBULATORY - REHAB MEDICIN E [facility] [place] [facility] Jun 11, 2024 11:00 AM AMBULATORY - MEDICINE [facility] [place] [facility] Vital Signs: All taken on the encounter date This section contains inpatient and outpatient Vital Signs collected on the date of the Encounter. Date/Time Temperature Pulse Blood Pressure Respiratory Rate SP02 Pain Height Weight Body Mass Index Source February 02, 2024 03:23 PM 132/76 [facility] [place] [facility] February 02, 2024 02:35 PM 99.9 71 140/76 16 96 1 69 183.1 27 [facility] [place] [facility] Social History: Smoking Status (Most current) and Tobacco Use (All prior to encounter date) This section includes the most current, and the historical, smoking and tobacco- related health factors from the [place] facility where the Encounter took place. Current Smoking Status This section includes the most current smoking, or tobacco-related health factor, from the [place] facility where the Encounter took place. Date/Time Current Smoking Status Comment Facil ity Mar 06, 2023 09:00 AM VA-TOBACCO FORMER USER [place] [facility] [place] [facility] Tobacco Use History This section includes a history of the smoking, or tobacco-related health factors, that were collected on or before the date of the Encounter. The data comes from the [facility] where the Encounter took place. Date/Time Smoking Status/Tobac co Use Comment [facility] Mar 06, 2023 09:00 AM VA-TOBACCO QUIT 15 YRS OR MORE [place] [facility] [place] [facility] Feb 16, 2022 09:30 AM VA-TOBACCO FORMER USER [place] [facility] [place] [facility] Feb 16, 2022 09:30 AM VA-TOBACCO QUIT 15 YRS OR MORE [place] [facility] [place] [facility] Feb 09, 2021 09:00 AM VA-TOBACCO FORMER USER [place] [facility] [place] [facility] Feb 09, 2021 09:00 AM VA-TOBACCO QUIT 15 YRS OR MORE [place] [facility] [place] [facility] Jan 01, 2020 10:15 AM VA-TOBACCO FORMER USER [place] [facility] [place] [facility] Jan 01, 2020 10:15 AM VA-TOBACCO QUIT 15 YRS OR MORE [place] [facility] [place] [facility] Mar 12, 2018 08:56 AM VA-TOBACCO FORMER USER [place] [facility] [place] [facility] Mar 12, 2018 08:56 AM VA-TOBACCO QUIT 15 YRS OR MORE [place] [facility] [place] [facility] Mar 12, 2018 08:24 AM LIFETIME NON-TOBACCO USER [place] [facility] [place] [facility] Mar 13, 2017 07:44 AM LIFETIME NON-TOBACCO USER [place] [facility] [place] [facility] Mar 11, 2016 07:54 AM QUIT TOBACCO USE > 7 YEARS AGO Quit in 1984 [place] [facility] [place] [facility] Aug 17, 2005 10:23 AM HISTORY OF SMOKING Vet states he quit in 1984 [place] [facility] [place] [facility] May 19, 2004 08:56 AM HISTORY OF SMOKING quit . [facility] [place] [facility] May 19, 2003 09:15 AM HISTORY OF SMOKING quit 10yrs ago [facility] [place] [facility] Jun 06, 2002 08:13 AM HISTORY OF SMOKING quit 1978 [facility] Jun 06, 2002 08:13 AM QUIT TOBACCO USE > 7 YEARS AGO [facility] Apr 30, 2001 04:07 PM HISTORY OF SMOKING quit - 1984 [facility] Advance Directives: All historical and current Section Date Range: From patient's date of to the date document was created. This section includes ALL of a patient's completed or amended [place] Advance and Rescinded Directives. The entries below indicate that a directive exists for the patient, but an actual copy is not included with this document. The data comes from all [place] facilities. Date Advance Directives Provider Source Mar 12, 2024 ADVANCE DIRECTIVE JENNIFFER DOAN [facility] Encounter Notes: All associated encounter notes This section contains the clinical notes associated to the Encounter. Date/Time Encounter Note(s) Provider Source February 02, 2024 03:29 PM PHYSICIAN NOTE: LOCAL TITLE: MD NOTE STANDARD TITLE: PHYSICIAN NOTE DATE OF NOTE: FEBRUARY 02, 2024@15:29 ENTRY DATE: FEBRUARY 02, 2024@15:29:02 AUTHOR: ERASMO CARLOS EXP COSIGNER: URGENCY: STATUS: COMPLETED Patient Name: EUSEBIO PEREZ VITALS: Patient temperature: 99.9 F [37.7 C] (02/02/2024 14:35) Blood pressure: 132/76 (02/02/2024 15:23) Patient height: 69 in [175.3 cm] (02/02/2024 14:35) Patient weight: 183.1 lb [83.05 kg] (02/02/2024 14:35) Patient BMI: BMI: 27.1 Patient pulse: 71 (02/02/2024 14:35) Patient respiration: 16 (02/02/2024 14:35) Patient Pulse Oximetry: 96% (02/02/2024 14:35) Pain Ratin (02/02/2024 14:35) Active VA Medications: Active Outpatient Medications (including [...] No Active 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 He broke the fall with his arms. He complains of mild weakness of both arms. He feels the weakness is getting better over the past few days. No neck pain, numbness or motor weakness Physical examination Well-developed well-nourished male no acute distress Normal sensory and motor Arms full range of motion Assessment and plan: 1. Arms weakness: Patient feels he did not break anything Plan: Occupational therapy Already set for follow-up 03-11-2024 Patient declined all vaccines today Medication Reconciliation: Outpatient: Has the patient been taking medications as documented in the EMLR? YES: The patient has been taking medications as documented in the EMLR. Essential Medication List for Review used to complete this medication reconciliation. INCLUDED IN THIS LIST: Alphabetical list of active outpatient prescriptions dispensed from this [facility] (local) and dispensed from another [place] or [place] facility (remote) as well as [...] whether with a VA or non-VA provider. Follow-Up Pos PTSD/Depression: I have reviewed the results of the Mental Health screens and have evaluated the patient. Based on the evaluation, the following disposition plan will be implemented: Patient declines further intervention or evaluation at this time. Contact information and instructions for accessing emergency services provided. Pneumococcal Conjugate Vaccine (PCV15/PCV20): Refuses PCV vaccine Immunization: PNEUMOCOCCAL CONJUGATE, UNSPECIFIED FORMULATION Refusal Reason: PATIENT DECISION Patient refuses all immunization(s) in the PneumoPCV group Date Documented: 02/02/24 15:31 COVID-19 Immunization: Refused Moderna Monovalent COVID-19 vaccine Immunization: COVID-19 (MODERNA), MRNA, LNP-S, PF, 50 MCG/0.5 ML (AGES 12+ YEARS) Refusal Reason: PATIENT DECISION Patient refuses all immunization(s) in the COVID-19 group Date Documented: 02/02/24 15:32 Tdap Immunization: The patient declines to receive the recommended dose of Tdap vaccine. Immunization: TDAP Refusal Reason: PATIENT DECISION Patient refuses all immunization(s) in the TDAP group Date Documented: 02/02/24 15:32 Herpes Zoster (Shingles) Vaccine: The patient declines to receive the recommended dose of zoster (shingles) vaccine. Immunization: ZOSTER RECOMBINANT Refusal Reason: PATIENT DECISION Patient refuses all immunization(s) in the ZOSTER group Date Documented: 02/02/24 15:32 Influenza Immunization: No influenza vaccination was received during the recent influenza season. /kathy/ Erasmo Carlos MD Staff Physician Signed: 02/02/2024 15:33 ERASMO CARLOS [place] [facility] February 02, 2024 02:41 PM PREVENTIVE MEDICINE NURSING NOTE: LOCAL TITLE: CLINICAL REMINDERS/NURSING STANDARD TITLE: PREVENTIVE MEDICINE NURSING NOTE DATE OF NOTE: FEBRUARY 02, 2024@14:41 ENTRY DATE: FEBRUARY 02, 2024@14:41:38 AUTHOR: JENNIFFER DOAN EXP COSIGNER: URGENCY: STATUS: COMPLETED Falls & Incontinence Screen: Falls Screen: 2. Two or more falls. Incontinence Screen: During the past 12 months, has the patient has any characteristics of incontinence (ability, voiding, leakage, etc.)? No incontinence. Alcohol Use Screen (AUDIT-C): Alcohol Screen: SCREEN FOR ALCOHOL (AUDIT-C) An alcohol screening test (AUDIT-C) was negative (score=1). 1. How often did you have a drink containing alcohol in the past year? Consider a drink to be a 12 ounce can or bottle of regular beer, 8 ounces of malt liquor, a 5 ounce glass of table wine, or a 1.5 ounce shot of liquor (like scotch, gin, or vodka). Monthly or less 2. How many drinks containing alcohol did you have on a typical day when you were drinking in the past year? One or two drinks 3. How often did you have six or more drinks on one occasion in the past year? Never Depression Screening: Perform PHQ-2 A PHQ-2 screen was performed. The score was 4 which is a positive screen for depression. Over the past two weeks, how often have you been bothered by the following problems? 1. Little interest or pleasure in doing things More than half the days 2. Feeling down, depressed, or hopeless More than half the days Licensed Independent Provider notified of positive screen and need for follow-up. Name of provider notified: Dr. Carlos Advance Directive Screen MH AD: Patient has an up-to-date Advance Directive at an outside, non-va facility and was asked to forward a copy to his/her clinician. Comment: advance directive paperwork given to this to return at next appointment Sexual Orientation: The patient thinks of their sexual orientation as: Straight or Heterosexual /es/ JENNIFFER DOAN LPN LPN Signed: 02/02/2024 14:47 JENNIFFER DOAN [facility]
--- OUTSIDE RECORDS SUMMARY | 2024-09-06 11:05 | XMS_ITS | Encounter Summary ---
Author Name [place] Address [address] [place] [address] Care Team Providers Care Wildlife Officer Name Role Phone CARLOS ERASMO Primary Care [...] Name Patient's Relationship to Policy Lai MELISSA [facility] ([facility]) MEDICARE ADVANTAGE [facility] ([facility]) Sep 11, 2015 [id number] MOONJung GANESHOLEGARIO Jung PATIENT [facility] ([facility]) MEDICARE ADVANTAGE [facility] ([facility]) Sep 11, 2015 [id number] [phone] OLEGARIO DUNN PATIENT MEDICARE (WNR) MEDICARE (M) PART A Feb 09, 2001 PART A [id number] [phone] OLEGARIO DUNN PATIENT MEDICARE (WNR) MEDICARE (M) PART B Feb 09, 2001 PART B [id number] 56A OLEGARIO DUNN PATIENT MEDICARE (WNR) MEDICARE (M) PART A Feb 09, 2001 PART A [id number] [phone] OLEGARIO DUNN PATIENT MEDICARE (WNR) MEDICARE (M) PART B Feb 09, 2001 PART B [id number] 56A OLEGARIO DUNN PATIENT Selected Encounter This section includes the information on record at [place] for the Encounter. Date/Time Encounter Type Encounter Description Reason Pro vider Source January 11, 2024 11:46 AM Outpatient Encounter PRIMARY CARE/MEDICINE IHE Encounter Template Text not used by [place] Plan of Treatment: Future Appointments (+ 6 months) and Future Tests (+/- 45 days) The Plan of Treatment section includes future care activities for the patient from all [place] treatmentfacilities. This section includes future appointments and future orders which are active, pending or scheduled. Future Appointments This section includes appointments that were scheduled to occur 6 months from the date of the Encounter, up to a maximum of 20 appointments. The data comes from all [place] treatment facilities. Appointment Date/Time Appointment Type Appointme nt Facility Name February 02, 2024 03:00 PM AM[place]ULATORY [place]ICINE [place] [facility] [place] [facility] Feb 14, 2024 01:30 PM AMBULATORY - REHAB MEDICIN E [facility] [place] [facility] Mar 11, 2024 09:00 AM AMBULATORY - MEDICINE [place] [facility] [facility] [...] 28, 2024 11:30 AM AMBULATORY - MEDICINE [place] [facility] [facility] [...] and tobacco- related health factors from the [place] facility where the Encounter took place. Current Smoking Status This section includes the most current smoking, or tobacco-related health factor, from the [place] facility where the Encounter took place. Date/Time Current Smoking Status Comment [facility] Mar 06, 2023 09:00 AM VA-TOBACCO QUIT 15 YRS OR MORE [facility] Tobacco Use History This section includes a history of the smoking, or tobacco-related health factors, that were collected on or before the date of the Encounter. The data comes from the [place] facility where the Encounter took place. Date/Time Smoking Status/Tobac co Use Comment Facility Mar 06, 2023 09:00 AM VA-TOBACCO QUIT 15 YRS OR MORE [place] [facility] [facility] Feb 16, 2022 09:30 AM VA-TOBACCO FORMER USER [place] [facility] [place] [facility] Feb 16, 2022 09:30 AM VA-TOBACCO QUIT 15 YRS OR MORE [place] [facility] [facility] Feb 09, 2021 09:00 AM VA-TOBACCO FORMER USER [place] [facility] [facility] [facility] Feb 09, 2021 09:00 AM VA-TOBACCO QUIT 15 YRS OR MORE [place] [facility] [facility] Jan 01, 2020 10:15 AM VA-TOBACCO FORMER USER [place] [facility] [facility] [facility] Jan 01, 2020 10:15 AM VA-TOBACCO QUIT 15 YRS OR MORE [facility] Mar 12, 2018 08:56 AM VA-TOBACCO FORMER USER [place] [facility] [facility] [facility] Mar 12, 2018 08:56 AM VA-TOBACCO QUIT 15 YRS OR MORE [place] [facility] Mar 12, 2018 08:24 AM LIFETIME NON-TOBACCO USER [facility] [place] [facility] Mar 13, 2017 07:44 AM LIFETIME NON-TOBACCO USER [place] [facility] Mar 11, 2016 07:54 AM QUIT TOBACCO USE > 7 YEARS AGO [facility] Aug 17, 2005 10:23 AM HISTORY OF SMOKING Vet states he quit in 1984 [facility] May 19, 2004 08:56 AM HISTORY OF SMOKING quit 1980s. [facility] May 19, 2003 09:15 AM HISTORY OF SMOKING quit 10yrs ago [facility] Jun 06, 2002 08:13 AM HISTORY OF SMOKING quit [facility] Jun 06, 2002 08:13 AM QUIT TOBACCO USE > 7 YEARS AGO [facility] Apr 30, 2001 04:07 PM HISTORY OF SMOKING quit - 1984 [facility] Advance Directives: All historical and current Section Date Range: From patient's date of to the date document was created. This section includes ALL of a patient's completed or amended [place] Advance and Rescinded Directives. The entries below indicate that a directive exists for the patient, but an actual copy is not included with this document. The data comes from all [place] facilities. Date Advance Directives Provider Source Mar 12, 2024 ADVANCE DIRECTIVE JENNIFFER DOAN [facility] Encounter Notes: All associated encounter notes This section contains the clinical notes associated to the Encounter. Date/Time Encounter Note(s) Provider Source January 11, 2024 11:46 AM NONVA CONSULT: LOCAL TITLE: MD/OUTSIDE CONSULT REPORT SUMMARY STANDARD TITLE: NONVA CONSULT DATE OF NOTE: JANUARY 11, 2024@11:46 ENTRY DATE: JANUARY 11, 2024@11:46:18 AUTHOR: ERASMO CARLOS EXP COSIGNER: URGENCY: STATUS: COMPLETED 01-03-24 office visit Sh[facility] Chief complaint: Urinary incontinence Plan: Start Myrbetriq 25 mg daily Follow-up 6 to 8 weeks /kathy/ Erasmo Carlos MD Staff Physician Signed: 01/11/2024 11:46 ERASMO CARLOS [place] [facility]
--- OUTSIDE RECORDS SUMMARY | 2024-09-06 11:06 | XMS_ITS | Encounter Summary ---
Author Name [facility] [place] [facility] [place] [facility] [facility] [place] Address [address] [place] [address] Care Team Providers Care Naturalist Name Role Phone LEOPOLDO JACOBSEN Primary Care [...] Name Patient's Relationship to Policy Lai [facility]) MEDICARE ADVANTAGE [facility] ([facility]) Sep 11, 2015 [id number] OLEGARIO DUNN PATIENT [facility] ([facility]) MEDICARE ADVANTAGE [facility] ([facility]) Sep 11, 2015 [id number] OLEGARIO DUNN PATIENT MEDICARE (WNR) MEDICARE (M) PART A Feb 09, 2001 PART A [id number] [phone] OLEGARIO DUNN PATIENT MEDICARE (WN) MEDICARE (M) PART B Feb 09, 2001 PART B [id number] OLEGARIO DUNN PATIENT MEDICARE (WNR) MEDICARE (M) PART A Feb 09, 2001 PART A [id number] [phone] [place] SKI,OLEGARIO W PATIENT MEDICARE (WNR) MEDICARE (M) PART B Feb 09, 2001 PART B [id number] OLEGARIO DUNN PATIENT Selected Encounter This section includes the information on record at [place] for the Encounter. Date/Time Encounter Type Encounter Description Reason Provider Source Mar 26, 2024 02:00 PM OFFICE O/P EST HI 40 MIN PHYSICAL THERAPY ICD-10-CM N39.41 Urge incontinence XAVIER BALDERRAMA IHE Encounter Template Text not used by [place] Assessments - Encounter Diagnoses This section includes the primary and secondary diagnoses documented for the Encounter. Date/Time Primary/Secondary Diagnosis Diagnosis Name Provider Source Mar 26, 2024 02:24 PM PRIMARY Urge incontinence XAVIER BALDERRAMA [facility] [place] [facility] Plan of Treatment: Future Appointments (+ 6 months) and Future Tests (+/- 45 days) The Plan of Treatment section includes future care activities for the patient from all [place] treatmentfacilities. This section includes future appointments and future orders which are active, pending or scheduled. Future Appointments This section includes appointments that were scheduled to occur 6 months from the date of the Encounter, up to a maximum of 20 appointments. The data comes from all [place] treatment facilities. Appointment Date/Time Appointment Type Appointme nt Facility Name Mar 28, 2024 11:30 AM AMBULATORY - MEDICINE [place] [facility] [place] [facility] [...] - MEDICINE [facility] [place] [facility] Jun 18, 2024 01:00 PM AMBULATORY - REHAB MEDICIN E [facility] [place] [facility] Jul 03, 2024 11:30 AM AMBULATORY - MEDICINE [facility] [place] [facility] Jul 09, 2024 07:30 AM AMBULATORY - NONE [facility] [place] Jul 12, 2024 10:00 AM AMBULATORY - NONE [facility] [place] [facility] Jul 26, 2024 08:00 AM AMBULATORY - MEDICINE [facility] [place] [facility] Lab Results: +/- 30 days of the encounter This section includes the Chemistry and Hematology Lab Results on record with [facility] for the patient. Radiology Reports and Pathology Reports are provided separately, in subsequent sections. Lab Results This section contains the Chemistry/Hematology Results that were resulted 30 days before or 30 daysafter the date of the Encounter. Date/Time Source Result Type Result - Unit Interpretation Reference Range Comment Mar 04, 2024 07:34 AM [facility] [place] [facility] LIVER FUNCTION Specimen Type: SERUM No comment entered. Ordering Provider: LEOPOLDO JACOBSEN Report Released Date/Time: Feb 28, 2024 04:09 PM Reporting Lab: [facility] [place] [facility] [address] [address] Performing Lab: [facility] [place] [address] [address] PROTEIN,TOTAL 6.7 g/dL 6.0-8.3 ALBUMIN 3.8 g/dL 3.5-5.0 ALKALINE PHOSPHATASE 123 U/L 40-150 AST 22 U/L 5-34 ALT 23 U/L BILIRUBIN, TOTAL 1.1 mg/dL 0.2-1.2 Mar 04, 2024 07:34 [facility] BASIC METABOLIC PANEL (fasting) Specimen Type: SERUM No comment entered. Ordering Provider: LEOPOLDO JACOBSEN Report Released Date/Time: Feb 28, 2024 04:09 PM Reporting [facility] [address] [facility] [address] Performing Lab: [address] [address] UREA NITROGEN 17 mg/dL 7-25 GLUCOSE 88 mg/dL 65-100 SODIUM 140 mmol/L 135-145 POTASSIUM 4.2 mmol/L 3.5-5.0 CHLORIDE 112 mmol/L H 100-110 CO2 21 meq/L 20-30 CREATININE, Serum 0.76 mg/dL 0.50-1.40 eGFR(CKD-EPI 2020) 86 mL/min >60 Mar 04, 2024 07:34 AM [facility] LIPID PANEL FASTING Specimen Type: SERUM No comment entered. Ordering Provider: LEOPOLDO JACOBSEN Report Released Date/Time: Feb 28, 2024 04:09 PM Reporting Lab: [facility] [address] [facility] [address] Performing Lab: [address] [address] CHOLESTEROL 112 mg/dL TRIGLYCERIDE 48 mg/dL 0-150 LDL calculated 54 mg/dL 0-129 CHOL/HDL 2.3 HDL CHOLESTEROL 48 mg/dL 40-60 Mar 04, 2024 07:34 AM [facility] TSH Specimen Type: SERUM No comment entered. Ordering Provider: LEOPOLDO JACOBSEN Report Released Date/Time: Feb 28, 2024 04:09 PM Reporting Lab: [address] [address] Performing Lab: [address] [place] [address] TSH 6.12 u[IU]/mL H 0.35-5.00 Mar 04, 2024 07:34 AM [facility] CBC AND DIFF (AUTO) Specimen Type: BLOOD No comment entered. Ordering Provider: LEOPOLDO JACOBSEN Report Released Date/Time: Feb 28, 2024 04:09 PM Reporting Lab: [address] [address] Performing Lab: [facility] [address] [facility] [address] WBC 5.32 10*3/uL 4.50-11.00 RBC 4.13 10*6/uL [...] 10*3/uL 0.00-0.00 Mar 04, 2024 07:34 AM [facility] URINALYSIS CLEAN CATCH Specimen Type: URINE Comment: If Glucose = >500 and Ketones are positive, please alert the Physician. Ordering Provider: LEOPOLDO JACOBSEN Report Released Date/Time: Feb 28, 2024 04:09 PM Reporting [facility]: [facility] [address] [facility] [address] Performing Lab: [facility] [address] [facility] [address] UA COLOR Yellow Yellow UA APPEARANCE Clear [...] took place. Date/Time Current Smoking Status Comment [facility] Mar 11, 2024 09:00 AM [facility]-TOBACCO [facility] Tobacco Use History This section includes a history of the smoking, or tobacco-related health factors, that were collected on or before the date of the Encounter. The data comes from the [place] facility where the Encounter took place. Date/Time Smoking Status/Tobac co Use Comment Facility Mar 11, 2024 09:00 AM [place]-TOBACCO QUIT 15 YRS OR MORE [facility] [place] [facility] Mar 06, 2023 09:00 AM VA-TOBACCO FORMER USER [facility] [place] [facility] Mar 06, 2023 09:00 AM VA-TOBACCO QUIT 15 YRS OR MORE [facility] [place] [facility] Feb 16, 2022 09:30 AM VA-TOBACCO FORMER USER [facility] [place] [facility] Feb 16, 2022 09:30 AM VA-TOBACCO QUIT 15 YRS OR MORE [facility] [place] [facility] Feb 09, 2021 09:00 AM VA-TOBACCO FORMER USER [facility] [place] [facility] Feb 09, 2021 09:00 AM VA-TOBACCO QUIT 15 YRS OR MORE [facility] [place] [facility] Jan 01, 2020 10:15 AM VA-TOBACCO FORMER USER [facility] [place] [facility] Jan 01, 2020 10:15 AM VA-TOBACCO QUIT 15 YRS OR MORE [facility] [place] [facility] Mar 12, 2018 08:56 AM VA-TOBACCO FORMER USER [facility] [place] [facility] Mar 12, 2018 08:56 AM VA-TOBACCO QUIT 15 YRS OR MORE [facility] [place] [facility] Mar 12, 2018 08:24 AM LIFETIME NON-TOBACCO USER [facility] [place] [facility] Mar 13, 2017 07:44 AM LIFETIME NON-TOBACCO USER [facility] [place] [facility] Mar 11, 2016 07:54 AM QUIT TOBACCO USE > 7 YEARS AGO [facility] [place] [facility] Aug 17, 2005 10:23 AM HISTORY OF SMOKING Vet states he quit in 1984 [place] [facility] [place] [facility] May 19, 2004 08:56 AM HISTORY OF SMOKING quit 1980s. [facility] [place] [facility] May 19, 2003 09:15 AM HISTORY OF SMOKING quit 10yrs ago [facility] [place] [facility] Jun 06, 2002 08:13 AM HISTORY OF SMOKING quit [facility] [place] [facility] Jun 06, 2002 08:13 AM QUIT TOBACCO USE > 7 YEARS AGO [facility] [place] [facility] Apr 30, 2001 04:07 PM HISTORY OF SMOKING quit - 1984 [facility] Advance Directives: All historical and current Section Date Range: From patient's date of to the date document was created. This section includes ALL of a patient's completed or amended [place] Advance and Rescinded Directives. The entries below indicate that a directive exists for the patient, but an actual copy is not included with this document. The data comes from all [place] facilities. Date Advance Directives Provider Source Mar 12, 2024 ADVANCE DIRECTIVE JENNIFFER DOAN [facility] Encounter Notes: All associated encounter notes This section contains the clinical notes associated to the Encounter. Date/Time Encounter Note(s) Provider Source Mar 26, 2024 02:19 PM PHYSICAL THERAPY C ONSULT: LOCAL TITLE: PHYSICAL THERAPY CONSULT STANDARD TITLE: PHYSICAL THERAPY CONSULT DATE OF NOTE: MAR 26, 2024@14:19 ENTRY DATE: MAR 26, 2024@14:19:26 AUTHOR: RONEN BALDERRAMA COSIGNER: URGENCY: STATUS: COMPLETED Initial Evaluation date:03/26/24 Progress Note Date: NA Treatment #: Eval Treatment time:41 min Diagnosis: UI Provider: Breanna NO Treatment Precautions: None Patient identified by full name and date of UI Initial template I. HISTORY: Pt. c 3 year history of going to the bathroom to urinate, just in case every hour, emptying a less than full bladder. Pt. states that when he is distracted he does not leak when he stands up, but once he is sitting and relaxing, he will leak, or need to go to the bathroom to urinate often. Pt. has trigger of urinating after his shower while drying off. Onset of symptoms/date of injury: 3 year ago Physician's Diagnosis:/Reason for referral: Urge Incontinence Chief Complaint: Are you taking any medications for this condition specifically? Y __ N ___ Name: Have you had pelvic surgery within the last 6 months? Have you had any surgery/treatment for this condition? Y __ N ____ Treatment: Current Work/Living situation: Bladder Symptoms: leakage with coughing/sneezing. yes without leaking, voiding 10-14x/day and 2-3x at noc. Leakage Frequency: 8/day 0/night Protection worn: 01 pads Leakage caused by: laughing, sneezing, coughing, standing up with urge present. Position with leakage: all positions Severity of leakage: minimal if gets to bathroom; Bladder Pain: Y ___ N x___ Burning Sensation __x__ Feeling of pressure _x___ Position ____ Interstitial Cystitis History __x__ Frequent Bladder Infections __x__ History of urethral dilations __x___ Bladder Habits: Daily fluid intake: 32-48 oz. cups of water/day, 0-cups caffeine/day, 0-cups alcohol/day Voids per day: 15-16 Voids per night: 2-3 Volume of urine passed: large, ____average, _X__small Able to stop urine flow on toilet: No Straining to urinate: ___present, _X__not present Can delay need to urinate: __yes, _X_no, _X_sometimes; How long can the urge be delayed: 5 minutes Slow or hesitant urine stream: ___yes, _X__no Difficulty initiating stream ___yes, _X__no Triggers: diaz in the door, stressful situation Bowel Habits: Are you ever constipated? Y___N____ If yes, how often? How do you empty your stool when you are constipated? Do you use enemas? Y___N___If yes, how often? How long? Do you use laxatives? Y___N___If yes, how often? How long? What type of laxative? Do you remove the stool with your finger? Do you have fecal (stool) incontinence? Y___N___ Do you pass gas when you do not want to? Y__N__ How often do you soil yourself? How often do you change your pads or underwear in a day? Distress: (0-10; 0 = no distress, 10 = worst possible distress) Now: 7 Worst: 10 Least: 7 __ N/A (patient not experiencing distress) Subjective Report of Pain (0/10): Now: Worst: Least: _X_N/A Quality of Pain: _sharp/stabbing _dull/aching _pins/needles _cramping _burning Frequency: _Constant _Intermittent _X_N/A (patient not experiencing pain) Past Level of Function: Fairly independent with all functional tasks. Present Level of Function: Pt. reports still being independent, but feels restricted with social activities secondary to this. Progress of symptoms: Not changing Diagnostic Testing: Urodynamic studies Normal Past Medical History: Reviewed in CPRS Red Flag Symptoms: None Do you have a pacemaker? Y____N____ Medications: Refer to current active medication listed under the Meds tab in CPRS. Patient's goal(s) from Physical Therapy: To control my bladder more/be normal like everyone else Risks and benefits of treatment were explained to the patient who indicated an interest in pursuing treatment. Pt. was educated about having a field operations coordinator present in room-field operations coordinator could be your friend, family, etc. Pt. was asked about having a field operations coordinator present during today's evaluation. Pt. denied having field operations coordinator present. II. OBJECTIVE: MUSCULOSKELETAL SCREEN Cognitive Status: Person alert & oriented to person, place & time. Gait: Pt ambulated into the clinic without an assistive device Observational Gait Analysis: TODAY'S TREATMENT: Prior to initiating treatment, the therapist discussed the treatment plan and goals as well as the risks and possible benefits of physical therapy, and alternatives to physical therapy. The patient indicated that he or she understood the information presented and consents to participating in physical therapy. X Patient education provided regarding present condition. X Instructions provided to be continued at home: Bladder Retraining, Education on Urge Deferment Techniques, Proper Body Mechanics and Positioning to perform exercises. Today's treatment session included the followin. Initial Evaluation 2. Review of HEP 3. Pt. education regarding treatment plan III. ASSESSMENT: This is an 89 year old who presents to PT with signs and symptoms consistent with urge incontinence. Per her PT evaluation, pt. presents with fair pelvic floor isolation, awareness, strength/endurance and function. Pt. would benefit from a course of PT 1x/wk for 6-8 weeks to help increase her pelvic floor muscle strength, endurance, awareness, and function. Pt.'s main behavioral pattern to change is voiding every hour, regardless of urge to prevent leaking. Pt. presents with the below listed impairments and functional limitations: PROBLEM/IMPAIRMENT LIST: _X_Decreased PFM strength __Decreased PFM EMG activity _X_Decreased PFM endurance __Pain with PFM contraction __Inability to isolate PFM __Pain with PFM palpation __Valsalva with PFM contraction __Scar/Restriction in PFM __Decreased Abdominal strength __Decreased Tone PFM __Hypertonus PFM _X_Decreased PFM recruitment with cough PT Diagnosis: PT signs and symptoms and consistent with urge incontinence GOALS: Pt has given informed consent to the following mutually agreed upon short term goals (STGs)and moth exterminator goals(LTGs): SHORT TERM GOALS: To be met in (3-4 weeks) _X_Patient to isolate PFM with contraction __Eliminate FARRUKH/ Decrease to __Patient to contract PFM w/out Valsalva __Eliminate Urge UI/ Decrease to __Increase strength PFM to __Decrease perceived severity to __Increase endurance PFM to seconds _X_Decrease pad use to 3/day __Increase PFM EMG values to ____over initial _X_Patient to cough with minimal urine leakage __Eliminate Hypertonus PFM __Patient independent with home exercise program __Increase abdominal strength to _XX_Patient to have adequate fluid intake _X_Increase void interval to every 2 hours __Eliminate pain with PFM contraction _X_Decrease night voids to 1 __Neutral Alignment/symmetric motion in LP region SNF GOALS: To be met in (timeframe in weeks) 1.Pt. will be able to see two, one hour appointments back to back without getting up to void, using the deferment method. 2.Pt.'s perceived severity of the condition will decrease to less than 4/10. 3.Pt. will be able to increase void interval to every 2 and half to 3 hours. PLAN / INTERVENTIONS: _X_Progressive PFM Strengthening in various positions (gravity assist-gravity axhtjdh-fovt-htnncod positions) __Stretching of trunk/LE musculature _X_EMG/Biofeedback __Progressive stretching PFM __Manual facilitation (quick stretch, overflow, tug of war, and/or c- contraction with TA) _X_Abdominal Strengthening/Stabilizati on __Soft/Scar tissue mobilization __PFM Relaxation/Downtraining _X_Vaginal weighted cones: for HEP _X_Electrical Stimulation _X_Functional PFM exercise __ Muscle energy techniques EDUCATION: _X_Urge Suppression Techniques _X_Pelvic Floor anatomy/Function __Proper body mechanics/Postural alignment _X_Dietary Bladder irritants _X_Bladder Function __Self Perineal Massage _X_Voiding Schedule Patient's Rehab Potential: __Excellent _X_Good __Fair __Poor Barriers to rehab: PMH, compliance with HEP Precautions: universal, none per MD IV. Plan: Patient will be seen in clinic 1 times/week for 6-8 weeks to achieve the above listed goals. DISCHARGE CRITERIA: 1. STGs/LTGs ARE MET. 2. MAXIMUM BENEFIT FROM THERAPY IS ACHIEVED. 3. PATIENT IS ABSENT FROM THREE REHAB TREATMENTS WITHOUT PRIOR NOTIFICATION. /kathy/ RONIT RAMOS PHYSICAL THERAPIST/SERVICE EDUCATIONAL MANAGERGO GO DANCER Signed: 03/26/2024 14:24 RONEN BALDERRAMA [facility]
--- OUTSIDE RECORDS SUMMARY | 2024-09-06 11:06 | XMS_ITS | Encounter Summary ---
Author Name [facility] [place] [facility] [place] Address [address] [place] [address] Care Team Providers Care Air Conditioning Unit Assembler Name Role Phone ERASMO CARLOS Primary Care [...] Name Patient's Relationship to Policy Lai [facility] ([facility] [place] MEDICARE ADVANTAGE [facility] ([facility] [place]) Sep 11, 2015 [id number] MOONJung GANESHOLEGARIO Jung PATIENT [facility] ([facility] [place]) MEDICARE ADVANTAGE [facility] ([facility] [place]) Sep 11, 2015 [id number] [phone] OLEGARIO DUNN PATIENT MEDICARE (WN) MEDICARE () PART A Feb 09, 2001 PART A [id number] OLEGARIO DUNN PATIENT MEDICARE (WN) MEDICARE () PART B Feb 09, 2001 PART B [id number] OLEGARIO DUNN PATIENT MEDICARE (WN) MEDICARE () PART A Feb 09, 2001 PART A [id number] [id number] OLEGARIO DUNN PATIENT MEDICARE ([facility] [place] MEDICARE (M) PART B Feb 09, 2001 PART B [id number] HYUNTIMOTHY GANESHOLEGARIO Jung PATIENT Selected Encounter This section includes the information on record at [place] for the Encounter. Date/Time Encounter Type Encounter Description Reason Provider Source Mar 12, 2024 01:30 PM THERAPEUTIC EXERCISES OCCUPATIONAL THERAPY ICD-10-CM R53.1 Weakness ROSIFREDI Sharda IHSharda Encounter Template Text not used by [place] Assessments - Encounter Diagnoses This section includes the primary and secondary diagnoses documented for the Encounter. Date/Time Primary/Secondary Diagnosis Diagnosis Name Provider Source Mar 12, 2024 02:19 PM PRIMARY Weakness FREDI ARANDA E [facility] [place] [facility] Plan of Treatment: Future Appointments (+ [...] Appointment Type Appointme nt Facility Name Mar 22, 2024 02:30 PM AMBULATORY - REHAB MEDICIN E [facility] [place] Mar 26, 2024 02:00 PM AMBULATORY - REHAB MEDICIN E [facility] [place] [facility] Mar 28, 2024 11:30 AM AMBULATORY - MEDICINE [facility] [place] [facility] Mar 29, 2024 02:30 PM AMBULATORY - REHAB MEDICIN E [facility] [place] [facility] Apr 04, 2024 02:00 PM AMBULATORY - REHAB MEDICIN E [facility] [place] [facility] Apr 11, 2024 01:00 PM AMBULATORY - REHAB MEDICIN E [facility] [place] [facility] Apr 11, 2024 02:00 PM AMBULATORY - REHAB MEDICIN E [facility] [place] [facility] Apr 23, 2024 02:00 PM AMBULATORY - REHAB MEDICIN E [facility] [place] [facility] Apr 29, 2024 02:00 PM AMBULATORY [...] - MEDICINE [facility] [place] [facility] Jul 09, 2024 07:30 AM AMBULATORY - NONE [facility] Lab Results: +/- 30 [...] 2024 07:34 AM [facility] [place] [facility] LIVER FUNCTION Specimen Type: SERUM No comment entered. Ordering Provider: ERASMO CARLOS Report Released Date/Time: Feb 28, 2024 04:09 PM Reporting Lab: [facility] [place] [facility] [address] [address] Performing Lab: [facility] [address] [address] PROTEIN,TOTAL 6.7 g/dL 6.0-8.3 ALBUMIN 3.8 g/dL 3.5-5.0 ALKALINE PHOSPHATASE 123 U/L 40-150 AST 22 U/L 5-34 ALT 23 U/L BILIRUBIN, TOTAL 1.1 mg/dL 0.2-1.2 Mar 04, 2024 07:34 AM [facility] BASIC METABOLIC PANEL (fasting) Specimen Type: SERUM No comment entered. Ordering Provider: ERASMO CARLOS Report Released Date/Time: Feb 28, 2024 04:09 PM Reporting Lab: [facility] [address] [address] Performing Lab: [facility] [address] [address] UREA NITROGEN 17 mg/dL 7-25 GLUCOSE 88 mg/dL 65-100 SODIUM 140 mmol/L 135-145 POTASSIUM 4.2 mmol/L 3.5-5.0 CHLORIDE 112 mmol/L H 100-110 CO2 21 meq/L 20-30 CREATININE, Serum 0.76 mg/dL 0.50-1.40 eGFR(CKD-EPI 2020) 86 mL/min >60 Mar 04, 2024 07:34 AM [facility] TSH Specimen Type: SERUM No comment entered. Ordering Provider: ERASMO CARLOS Report Released Date/Time: Feb 28, 2024 04:09 PM Reporting Lab: [facility] [address] [address] Performing Lab: [facility] [address] [address] TSH 6.12 u[IU]/mL H 0.35-5.00 Mar 04, 2024 07:34 AM [facility] LIPID PANEL FASTING Specimen Type: SERUM No comment entered. Ordering Provider: ERASMO CARLOS Report Released Date/Time: Feb 28, 2024 04:09 PM Reporting Lab: [facility] [address] [address] Performing Lab: [address] [address] CHOLESTEROL 112 mg/dL TRIGLYCERIDE 48 mg/dL 0-150 LDL calculated 54 mg/dL 0-129 CHOL/HDL 2.3 HDL CHOLESTEROL 48 mg/dL 40-60 Mar 04, 2024 07:34 AM [facility] CBC AND DIFF (AUTO) Specimen Type: BLOOD No comment entered. Ordering Provider: ERASMO CARLOS Report Released Date/Time: Feb 28, 2024 04:09 PM Reporting Lab: [facility] [address] [address] Performing Lab: [facility] [address] [address] WBC 5.32 10*3/uL 4.50-11.00 RBC 4.13 10*6/uL [...] 10*3/uL 0.00-0.00 Mar 04, 2024 07:34 AM [facility] URINALYSIS CLEAN CATCH Specimen Type: URINE Comment: If Glucose = >500 and Ketones are positive, please alert the Physician. Ordering Provider: ERASMO CARLOS Report Released Date/Time: Feb 28, 2024 04:09 PM Reporting Lab: [facility] [address] [address] Performing Lab: [facility] [address] [phone] UA COLOR Yellow Yellow UA APPEARANCE Clear [...] Smoking Status Comment [facility] Mar 11, 2024 09:00 AM NE-TOBACCO QUIT 15 YRS OR MORE [facility] Tobacco Use History This section includes a history of the smoking, or tobacco-related health factors, that were collected on or before the date of the Encounter. The data comes from the [place] facility where the Encounter took place. Date/Time Smoking Status/Tobac co Use Comment Facility Mar 11, 2024 09:00 AM VA-TOBACCO QUIT 15 YRS OR MORE [facility] [place] [facility] Mar 06, 2023 09:00 AM VA-TOBACCO FORMER USER [facility] [place] Mar 06, 2023 09:00 AM NE-TOBACCO QUIT 15 YRS OR MORE [facility] [place] [facility] Feb 16, 2022 09:30 AM VA-TOBACCO FORMER USER [facility] [place] [facility] Feb 16, 2022 09:30 AM NE-TOBACCO QUIT 15 YRS OR MORE [facility] [place] [facility] Feb 09, 2021 09:00 AM VA-TOBACCO FORMER USER [facility] [place] [facility] Feb 09, 2021 09:00 AM VA-TOBACCO QUIT 15 YRS OR MORE [facility] [place] [facility] Jan 01, 2020 10:15 AM VA-TOBACCO FORMER USER [facility] [place] [facility] Jan 01, 2020 10:15 AM VA-TOBACCO QUIT 15 YRS OR MORE [facility] [place] Mar 12, 2018 08:56 AM VA-TOBACCO FORMER USER [facility] [place] [facility] Mar 12, 2018 08:56 AM VA-TOBACCO QUIT 15 YRS OR MORE [facility] [place] [facility] Mar 12, 2018 08:24 AM LIFETIME NON-TOBACCO USER [facility] [place] Mar 13, 2017 07:44 AM LIFETIME NON-TOBACCO USER [facility] [place] [facility] Mar 11, 2016 07:54 AM QUIT TOBACCO USE > 7 YEARS AGO Quit in 1984 [facility] [place] [facility] Aug 17, 2005 10:23 AM HISTORY OF SMOKING Vet states he quit in 1984 [facility] May 19, 2004 08:56 AM HISTORY OF SMOKING quit 1980s. [facility] [place] May 19, 2003 09:15 AM HISTORY OF SMOKING quit 10yrs ago [facility] [place] Jun 06, 2002 08:13 AM HISTORY OF SMOKING quit 1978 [facility] [place] [facility] Jun 06, 2002 08:13 AM QUIT TOBACCO USE > 7 YEARS AGO [facility] [place] [facility] Apr 30, 2001 04:07 PM HISTORY OF SMOKING quit - 1984 [facility] Advance Directives: All historical and current [...] Mar 12, 2024 ADVANCE DIRECTIVE JENNIFFER DOAN [facility] Encounter Notes: All associated encounter notes This section contains the clinical notes associated to the Encounter. Date/Time Encounter Note(s) Provider Source Mar 12, 2024 12:49 PM OCCUPATIONAL MEDICINE CONSULT: LOCAL TITLE: CONSULT REPORT/OCCUPATIONAL THERAPY STANDARD TITLE: OCCUPATIONAL MEDICINE CONSULT DATE OF NOTE: MAR 12, 2024@12:49 ENTRY DATE: MAR 12, 2024@12:50:05 AUTHOR: FREDI ARANDA EXP COSIGNER: ERASMO CARLOS URGENCY: STATUS: COMPLETED Initial Evaluation date: Mar Progress Note Date: Treatment #: eval Treatment time: 50 minutes Diagnosis: Weakness(ICD-10-CM R53.1), L shoulder pain Provider: Breanna OT Treatment Precautions: FALLS Patient identified by full name and date of S: Mr. Bell is an 89 y/o 10% SC male who was referred to OT for b/l shoulder weakness. He was seen in the OT clinic on 03/12/2024. Pt is known to this commercial lines underwriter from previous sessions. PMH: Active problems - Computerized Problem List is the source for the followin. Weakness 2. Peripheral vascular disease 3. Vitamin D deficiency 4. Sick euthyroid syndrome 5. COVID-19 6. Pain in lower limb 7. Edema 8. Insomnia (SCT [id number]) 9. Microscopic hematuria 10. Atrial flutter 11. Benign Prostatic Hypertrophy Without Outflow Obstruction (SCT [id number]) 12. Osteopenia 13. ENCOUNTER FOR SCREENING FOR DENTAL DISORDERS 14. OTHER SPECIFIED DISORDERS OF TEETH AND SUPPORTING STRUCTURES 15. Excessive attrition of teeth 16. Otalgia 17. 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 Hyperlipidemia 22. colonoscopy and endoscopy done on jun 2007-normal 23. Gout (SNOMED CT [id number]) 24. Knee: arthralgia * 25. Male erectile disorder 26. Essential hypertension JALEESA: pt reports that his L shoulder is killing him. he fell on his L shoulder 3 times. pt reports that he has had no x-rays of his L shoulder. he reports he's falling more often. he feels his last fall was about a month ago. the pain can wake him from sleep. Imaging: none of the L shoulder Pain Level: 6-7/10 at rest, increasing 10/10 at worst, 4/10 at best Pain Location: anterior shoulder Aggravating Factors: sleep Alleviating Factors: ibuprofen O: Pt is R handed. 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 Independent with ADL's and IADL's. . Lives alone but his daughter helps w/ things around the house. Clinical Presentation: rounded shoulders, FHP, pt ambulates w/ a cane. supra/infra atrophy noted b/l Palpation: ttp and tightness noted over anterior shoulder musculature AROM: Shoulder: [R] [L] Flexion: WFL 90* Abduction: WFL 75* IR: WFL sacrum ER: WFL C5 *(+) for pain with active abduction and flexion MMT: Shoulder: NT Special Tests: Hooks: (+) L Neers: (+) L Empty Can: (+) L Drop Arm: (-) L Sensation: denies paresthesia's; nocturnal TX: *MHP x5' to R shoulder prior to tx *pulleys into flexion w/ 10 second hold on L, 1x10 *wall ladder into flexion, 33 x5 *table slides into flexion, 1x10 *table slides into abduction, 1x10 *scap squeezes, seated, 1x10 *discussed guardian alert d/t increase in falls; pt is going to check w/ his daughter re: the cell phone alert as he would prefer something around his wrist. he will discuss and get back to OT by next week. Access Code: [email or web address] URL: [email or web address] Date: 03/12/2024 Prepared by: [facility] Exercises - Seated Shoulder Flexion AAROM with Nancy Behind - 1 x daily - 7 x weekly - 3 sets - 10 reps - 10 hold - Standing Shoulder Flexion Wall Walk - 1 x daily - 7 x weekly - 3 sets - 10 reps - Seated Shoulder Flexion Towel Slide at Table Top - 1 x daily - 7 x weekly - 3 sets - 10 reps - Seated Shoulder Abduction Towel Slide at Table Top - 1 x daily - 7 x weekly - 3 sets - 10 reps - Seated Scapular Retraction - 1 x daily - 7 x weekly - 3 sets - 10 reps ASSESSMENT: Eusebio is an 89 y/o male who presents to the OT clinic w/ s/s of L non- dominant RTC tendinopathy/disruption as well as 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 The pt did not have imaging done. His AROM is limited in the L as compared to the R w/ painful arc. He tolerated tx well and demonstrated improved AROM as well as pain level. He was interested in engaging in further therapy. PLAN: Pt will benefit from skilled OT 1-2x/week for 4-6 weeks. Tx to include: L shoulder ROM, L shoulder strengthening, scap stab, mobilization/manual therapy, pt. education, and modalities: ice, heat. Pt is in agreement w/ this POC. LTG's (6-8 weeks): 1. Pain: 2-3, at worst L shoulder 2. ROM: WFL and pain-free 3. pt will report 50% improvement in sx's since initiating tx STG's (3-6 weeks): 1. (I) w/ HEP 2. Pain: <10/10 at worst 3. pt will report improved sleep since initiating tx 4. Improve active ROM by 10-15* The practitioner's co-signature on this note signifies agreement with plan of care and clinical diagnosis code. /kathy/ Fredi Aranda MS OTR/Isela, CHT Occupational Therapist Signed: 03/12/2024 14:19 /kathy/ Erasmo Carlos MD Staff Physician Cosigned: 03/12/2024 15:05 FREDI ARANDA [facility]
--- OUTSIDE RECORDS SUMMARY | 2024-09-06 11:06 | XMS_ITS | Encounter Summary ---
Author Name [facility] [place] Address [address] [place] [address] Care Team Providers Care Microbial Specialist Name Role Phone LEOPOLDO JACOBSEN Primary [...] Patient's Relationship to Policy Lai MELISSA [facility] ([facility]) MEDICARE ADVANTAGE [facility] ([facility]) Sep 11, 2015 [id number] [phone] MOONJung GANESHOLEGARIO Jung PATIENT [facility] ([facility]) MEDICARE ADVANTAGE [facility] ([facility]) Sep 11, 2015 [id number] OLEGARIO DUNN PATIENT MEDICARE (WN) MEDICARE () PART A Feb 09, 2001 PART A [id number] 56A OLEGARIO DUNN PATIENT MEDICARE (WN) MEDICARE () PART B Feb 09, 2001 PART B [id number] 56A OLEGARIO DUNN PATIENT MEDICARE (WN) MEDICARE () PART A Feb 09, 2001 PART A [id number] 56A OLEGARIO DUNN PATIENT MEDICARE ([facility]) MEDICARE (M) PART B Feb 09, 2001 PART B [id number] 56A HYUNTIMOTHY GANESHOLEGARIO Jung PATIENT Selected Encounter This section includes the information on record at [place] for the Encounter. Date/Time Encounter Type Encounter Description Reason Provider Source Mar 22, 2024 02:30 PM THERAPEUTIC EXERCISES OCCUPATIONAL THERAPY ICD-10-CM R53.1 Weakness JOHN AUGUST ANDERSON IHE Encounter Template Text not used by [place] Assessments - Encounter Diagnoses This section includes the primary and secondary diagnoses documented for the Encounter. Date/Time Primary/Secondary Diagnosis Diagnosis Name Provider Source Mar 22, 2024 04:04 PM PRIMARY Weakness JOHN AUGUST Olinda BARRON [place] [facility] [place] [facility] Plan of Treatment: Future Appointments (+ 6 months) and Future Tests (+/- 45 days) The Plan of Treatment section includes future care activities for the patient from all [place] treatmentfacilities. This section includes future appointments and future orders which are active, pending or scheduled. Future Appointments This section includes appointments that were scheduled to occur 6 months from the date of the Encounter, up to a maximum of 20 appointments. The data comes from all [place] treatment facilities. Appointment Date/Time Appointment Type Appointme nt Facility Name Mar 26, 2024 02:00 PM AMBULATORY - REHAB MEDICIN E [facility] [place] [facility] Mar 28, 2024 11:30 AM AMBULATORY - MEDICINE [facility] [place] [facility] Mar 29, 2024 02:30 PM AMBULATORY - REHAB MEDICIN E [facility] [place] [facility] Apr 04, 2024 02:00 PM AMBULATORY - REHAB MEDICIN E [facility] [place] [facility] Apr 11, 2024 01:00 PM AMBULATORY - REHAB MEDICIN E [facility] [place] [facility] Apr 11, 2024 02:00 PM AMBULATORY - REHAB MEDICIN E [facility] [facility] Apr 23, 2024 02:00 PM AMBULATORY - REHAB MEDICIN E [facility] [facility] Apr 29, 2024 02:00 PM AMBULATORY - REHAB MEDICIN E [facility] [facility] May 06, 2024 01:30 PM [...] - NONE [facility] [place] [facility] Jul 12, 2024 10:00 AM [...] 2024 07:34 AM [facility] [place] [facility] BASIC METABOLIC PANEL (fasting) Specimen Type: SERUM No comment entered. Ordering Provider: LEOPOLDO JACOBSEN Report Released Date/Time: Feb 28, 2024 04:09 PM Reporting Lab: [place] [facility] [address] [facility] [address] Performing Lab: [place] [facility] [address] [facility] [address] UREA NITROGEN 17 mg/dL 7-25 GLUCOSE 88 mg/dL 65-100 SODIUM 140 mmol/L 135-145 POTASSIUM 4.2 mmol/L 3.5-5.0 CHLORIDE 112 mmol/L H 100-110 CO2 21 meq/L 20-30 CREATININE, Serum 0.76 mg/dL 0.50-1.40 eGFR(CKD-EPI 2020) 86 mL/min >60 Mar 04, 2024 07:34 AM [facility] TSH Specimen Type: SERUM No comment entered. Ordering Provider: LEOPOLDO JACOBSEN Report Released Date/Time: Feb 28, 2024 04:09 PM Reporting Lab: [facility] [address] [facility] [address] Performing Lab: [address] [address] TSH 6.12 u[IU]/mL H 0.35-5.00 Mar 04, 2024 07:34 AM [facility] LIVER FUNCTION Specimen Type: SERUM No comment entered. Ordering Provider: LEOPOLDO JACOBSEN Report Released Date/Time: Feb 28, 2024 04:09 PM Reporting Lab: [facility] [address] [facility] [address] Performing Lab: [address] [address] PROTEIN,TOTAL 6.7 g/dL 6.0-8.3 ALBUMIN 3.8 g/dL 3.5-5.0 ALKALINE PHOSPHATASE 123 U/L 40-150 AST 22 U/L 5-34 ALT 23 U/L BILIRUBIN, TOTAL 1.1 mg/dL 0.2-1.2 Mar 04, 2024 07:34 AM [facility] LIPID PANEL FASTING Specimen Type: SERUM No comment entered. Ordering Provider: LEOPOLDO JACOBSEN Report Released Date/Time: Feb 28, 2024 04:09 PM Reporting Lab: [facility] [address] [facility] [address] Performing Lab: [address] [address] CHOLESTEROL 112 mg/dL TRIGLYCERIDE 48 mg/dL 0-150 LDL calculated 54 mg/dL 0-129 CHOL/HDL 2.3 HDL CHOLESTEROL 48 mg/dL 40-60 Mar 04, 2024 07:34 AM [facility] CBC AND DIFF (AUTO) Specimen Type: BLOOD No comment entered. Ordering Provider: LEOPOLDO JACOBSEN Report Released Date/Time: Feb 28, 2024 04:09 PM Reporting Lab: [facility] [address] [facility] [address] Performing Lab: [facility] [address] [facility] [address] WBC 5.32 10*3/uL 4.50-11.00 RBC 4.13 10*6/uL [...] 10*3/uL 0.00-0.00 Mar 04, 2024 07:34 AM [facility] URINALYSIS CLEAN CATCH Specimen Type: URINE Comment: If Glucose = >500 and Ketones are positive, please alert the Physician. Ordering Provider: LEOPOLDO JACOBSEN Report Released Date/Time: Feb 28, 2024 04:09 PM Reporting Lab: [facility] [address] [facility] [address] Performing Lab: [facility] [address] [facility] [address] UA COLOR Yellow Yellow UA APPEARANCE Clear [...] and tobacco- related health factors from the [place] facility where the Encounter took place. Current Smoking Status This section includes the most current smoking, or tobacco-related health factor, from the [place] facility where the Encounter took place. Date/Time Current Smoking Status Comment [facility] Mar 11, 2024 09:00 AM VA-TOBACCO FORMER USER [facility] Tobacco Use History This section includes a history of the smoking, or tobacco-related health factors, that were collected on or before the date of the Encounter. The data comes from the [place] facility where the Encounter took place. Date/Time Smoking Status/Tobac co Use Comment Facility Mar 11, 2024 09:00 AM VA-TOBACCO QUIT 15 YRS OR MORE [place] [facility] [facility] Mar 06, 2023 09:00 AM VA-TOBACCO FORMER USER [place] [facility] [facility] Mar 06, 2023 09:00 AM VA-TOBACCO QUIT 15 YRS OR MORE [place] [facility] [place] [facility] Feb 16, 2022 09:30 AM VA-TOBACCO FORMER USER [place] [facility] [place] [facility] Feb 16, 2022 09:30 AM VA-TOBACCO QUIT 15 YRS OR MORE [place] [facility] [facility] Feb 09, 2021 09:00 AM [facility] [place] [facility] Feb 09, 2021 09:00 AM VA-TOBACCO QUIT 15 YRS OR MORE [place] [facility] [facility] Jan 01, 2020 10:15 AM VA-TOBACCO FORMER USER [place] [facility] [facility] Jan 01, 2020 10:15 AM VA-TOBACCO QUIT 15 YRS OR MORE [facility] Mar 12, 2018 08:56 AM VA-TOBACCO FORMER USER [place] [facility] [place] [facility] Mar 12, 2018 08:56 AM VA-TOBACCO QUIT 15 YRS OR MORE [facility] Mar 12, 2018 08:24 AM LIFETIME NON-TOBACCO [facility] Mar 13, 2017 07:44 AM LIFETIME [facility]-TOBACCO [facility] [place] [facility] Mar 11, 2016 07:54 AM QUIT TOBACCO USE > 7 YEARS AGO [facility] 1984 [facility] Aug 17, 2005 10:23 AM HISTORY OF SMOKING Vet states he quit in 1984 [facility] May 19, 2004 08:56 AM HISTORY OF SMOKING quit [facility] May 19, 2003 09:15 AM HISTORY OF SMOKING quit 10yrs ago [facility] Jun 06, 2002 08:13 AM HISTORY OF SMOKING quit 1979 [facility] Jun 06, 2002 08:13 AM QUIT TOBACCO USE > 7 YEARS AGO [facility] Apr 30, 2001 04:07 PM HISTORY OF SMOKING quit - 1984 [facility] Advance Directives: All historical and current Section Date Range: From patient's date of to the date document was created. This section includes ALL of a patient's completed or amended [place] Advance and Rescinded Directives. The entries below indicate that a directive exists for the patient, but an actual copy is not included with this document. The data comes from all [place] facilities. Date Advance Directives Provider Source Mar 12, 2024 ADVANCE DIRECTIVE JENNIFFER DOAN [facility] Encounter Notes: All associated encounter notes This section contains the clinical notes associated to the Encounter. Date/Time Encounter Note(s) Provider Source Mar 22, 2024 03:47 PM OCCUPATIONAL THERAPY NOTE: LOCAL TITLE: OCCUPATIONAL THERAPY STANDARD TITLE: OCCUPATIONAL THERAPY NOTE DATE OF NOTE: MAR 22, 2024@15:47 ENTRY DATE: MAR 22, 2024@15:48:21 AUTHOR: SOILA AUGUST COSIGNER: FRAN DANIELLE URGENCY: STATUS: COMPLETED Initial Evaluation date: Mar Progress Note Date: 03/22/2024 Treatment #: 2 Treatment time: 30 minutes Diagnosis: Weakness(ICD-10-CM R53.1), L shoulder pain Provider: Breanna GARCIA Treatment Precautions: FALLS Patient identified by full name and date of TREATMENT PRECAUTIONS OR DAILY INSTRUCTIONS: (Vitals, surgical precautions etc.) SUBJECTIVE: I have a walker at home it was my 's. OBJECTIVE: THERAPEUTIC EXERCISE: MINUTES:25' MHP for 5 min on L shoulder Nancy's 1 set of 10 with 30 second hold to left shoulder wall ladder in [id number] wall ladder in scaption 3x31 table slides 1 set of 10 scap squeezes 1 set of 10 cloths pin activity x24 MANUAL THERAPY: MINUTES: THERAPEUTIC DYNAMIC ACTIVITIES: MINUTES: NEUROMUSCULAR EDUCATION: MINUTES: OTHER: MINUTES: MODALITIES: MHP to L shoulder MINUTES: 5' [] Contraindication screen completed prior to modality [] Skin intact pre/post SELF CARE/EDUCATION: MINUTES: Patient education was provided for all aspects of care during this clinical encounter. ASSESSMENT: [place] did very well today with all exercises . When he arrived and walked into the gym he had a mild LOB and corrected himself. He was using a cane and I asked him if he had a walker at home and he said yes it's my 's and its good enough. [place] feels as though the exercises are helping him get stronger. 2/10 pain today. PLAN: Pt will benefit from skilled OT 1-2x/week for 4-6 weeks. Tx to include: L shoulder ROM, L shoulder strengthening, scap stab, mobilization/manual therapy, pt. education, and modalities: ice, heat. 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
--- OUTSIDE RECORDS SUMMARY | 2024-09-06 11:06 | XMS_ITS | Encounter Summary ---
Author Name [place] Address [address] [place] [id number] Care Team Providers Care Production Administrative Assistant Name Role Phone JACOBSEN LEOPOLDO Primary Care [...] Name Patient's Relationship to Policy Lai MELISSA [facility] ([facility]) MEDICARE ADVANTAGE [facility] ([facility]) Sep 11, 2015 [id number] FANNIE ANDERSENOLEGARIO Jung PATIENT [facility] ([facility]) MEDICARE ADVANTAGE [facility] ([facility]) Sep 11, 2015 [id number] OLEGARIO DUNN PATIENT MEDICARE (WNR) MEDICARE (M) PART A Feb 09, 2001 PART A [id number] [phone] OLEGARIO DUNN PATIENT MEDICARE (WNR) MEDICARE (M) PART B Feb 09, 2001 PART B [id number] 56A OLEGARIO DUNN PATIENT MEDICARE (WNR) MEDICARE (M) PART A Feb 09, 2001 PART A [id number] [id number] [id number] OLEGARIO DUNN PATIENT MEDICARE (WN) MEDICARE (M) PART B Feb 09, 2001 PART B [id number] 56A MOONJung OLEGARIO ANDERSEN PATIENT Selected Encounter This section includes the information on record at [place] for the Encounter. Date/Time Encounter Type Encounter Description Reason Provider Source Mar 28, 2024 11:30 AM TRIM NAIL(S) PODIATRY ICD-10-CM I73.9 Peripheral vascular disease, unspecified CHARLEY QIU Sharda Encounter Template Text not used by [place] Assessments - Encounter Diagnoses This section includes the primary and secondary diagnoses documented for the Encounter. Date/Time Primary/Secondary Diagnosis Diagnosis Name Provider Source Mar 28, 2024 11:38 AM PRIMARY Peripheral vascular disease, unspecified CHRALEY QIU [place] [facility] [place] [facility] Mar 28, 2024 11:38 AM SECONDARY Ingrowing nail CHARLEY QIU [place] [facility] [place] [facility] Mar 28, 2024 11:38 AM SECONDARY Nail dyst[facility] [place] [facility] Plan of Treatment: Future Appointments [...] Appointment Type Appointme nt Facility Name Mar 29, 2024 02:30 PM AMBULATORY - REHAB MEDICIN E [facility] [place] [facility] Apr 04, 2024 02:00 PM AMBULATORY - REHAB MEDICIN E [facility] [place] [facility] Apr 11, 2024 01:00 PM AMBULATORY - REHAB MEDICIN E [facility] [place] [facility] Apr 11, 2024 02:00 PM AMBULATORY - REHAB MEDICIN E [facility] [place] [facility] Apr 23, 2024 02:00 PM AMBULATORY - REHAB MEDICIN E [facility] [place] [facility] Apr 29, 2024 02:00 PM AMBULATORY - REHAB MEDICIN E [facility] [facility] May 06, 2024 01:30 PM [...] [facility] [place] [facility] Jul 12, 2024 10:00 AM AMBULATORY - NONE [facility] [place] [facility] Jul 26, 2024 08:00 AM AMBULATORY - MEDICINE [facility] [facility] Aug 01, 2024 11:00 AM AMBULATORY - MEDICINE [facility] [facility] Lab Results: +/- 30 days [...] 2024 07:34 AM [facility] [place] [facility] BASIC METABOLIC PANEL (fasting) Specimen Type: SERUM No comment entered. Ordering Provider: LEOPOLDO JACOBSEN Report Released Date/Time: Feb 28, 2024 04:09 PM Reporting Lab: [facility] [address] [facility] [address] Performing Lab: [address] [address] UREA NITROGEN 17 mg/dL 7-25 GLUCOSE 88 mg/dL 65-100 SODIUM 140 mmol/L 135-145 POTASSIUM 4.2 mmol/L 3.5-5.0 CHLORIDE 112 mmol/L H 100-110 CO2 21 meq/L 20-30 CREATININE, Serum 0.76 mg/dL 0.50-1.40 eGFR(CKD-EPI 2020) 86 mL/min >60 Mar 04, 2024 07:34 AM [facility] TSH Specimen Type: SERUM No comment entered. Ordering Provider: LEOPOLDO JACOBSEN Report Released Date/Time: Feb 28, 2024 04:09 PM Reporting Lab: [address] [address] Performing Lab: [address] [address] TSH 6.12 u[IU]/mL H 0.35-5.00 Mar 04, 2024 07:34 AM [facility] LIVER FUNCTION Specimen Type: SERUM No comment entered. Ordering Provider: LEOPOLDO JACOBSEN Report Released Date/Time: Feb 28, 2024 04:09 PM Reporting Lab: [address] [address] Performing Lab: [address] [address] PROTEIN,TOTAL 6.7 g/dL 6.0-8.3 ALBUMIN 3.8 g/dL 3.5-5.0 ALKALINE PHOSPHATASE 123 U/L 40-150 AST 22 U/L 5-34 ALT 23 U/L BILIRUBIN, TOTAL 1.1 mg/dL 0.2-1.2 Mar 04, 2024 07:34 AM [facility] LIPID PANEL FASTING Specimen Type: SERUM No comment entered. Ordering Provider: LEOPOLDO JACOBSEN Report Released Date/Time: Feb 28, 2024 04:09 PM Reporting Lab: [facility] [address] [facility] [address] Performing Lab: [facility] [address] [facility] [address] CHOLESTEROL 112 mg/dL TRIGLYCERIDE 48 mg/dL 0-150 LDL calculated 54 mg/dL 0-129 CHOL/HDL 2.3 HDL CHOLESTEROL 48 mg/dL 40-60 Mar 04, 2024 07:34 AM [facility] CBC AND DIFF (AUTO) Specimen Type: BLOOD No comment entered. Ordering Provider: LEOPOLDO JACOBSEN Report Released Date/Time: Feb 28, 2024 04:09 PM Reporting Lab: [facility] [address] [facility] [address] Performing Lab: [facility] [address] [facility] [address] WBC 5.32 10*3/uL 4.50-11.00 RBC 4.13 10*6/uL [...] 10*3/uL 0.00-0.00 Mar 04, 2024 07:34 AM [facility] URINALYSIS CLEAN CATCH Specimen Type: URINE Comment: If Glucose = >500 and Ketones are positive, please alert the Physician. Ordering Provider: LEOPOLDO JACOBESN Report Released Date/Time: Feb 28, 2024 04:09 PM Reporting Lab: [facility] [address] [facility] [address] Performing Lab: [facility] [address] [facility] [address] UA COLOR Yellow Yellow UA APPEARANCE Clear [...] took place. Date/Time Current Smoking Status Comment [facility] Mar 11, 2024 09:00 AM VA-TOBACCO FORMER USER [facility] Tobacco Use History This section includes a history of the smoking, or tobacco-related health factors, that were collected on or before the date of the Encounter. The data comes from the [place] facility where the Encounter took place. Date/Time Smoking Status/Tobac co Use Comment Facility Mar 11, 2024 09:00 AM CA-TOBACCO QUIT 15 YRS OR MORE [facility] Mar 06, 2023 09:00 AM VA-TOBACCO FORMER USER [facility] Mar 06, 2023 09:00 AM CA-TOBACCO QUIT 15 YRS OR MORE [facility] [place] [facility] Feb 16, 2022 09:30 AM VA-TOBACCO FORMER USER [facility] [place] [facility] Feb 16, 2022 09:30 AM VA-TOBACCO QUIT 15 YRS OR MORE [facility] [place] [facility] Feb 09, 2021 09:00 AM VA-TOBACCO FORMER USER [facility] [place] [facility] Feb 09, 2021 09:00 AM VA-TOBACCO QUIT 15 YRS OR MORE [facility] [place] [facility] Jan 01, 2020 10:15 AM VA-TOBACCO FORMER USER [facility] [place] [facility] Jan 01, 2020 10:15 AM VA-TOBACCO QUIT 15 YRS OR MORE [place] [facility] [facility] Mar 12, 2018 08:56 AM VA-TOBACCO FORMER USER [facility] [place] [facility] Mar 12, 2018 08:56 AM VA-TOBACCO QUIT 15 YRS OR MORE [place] [facility] [place] [facility] Mar 12, 2018 08:24 AM LIFETIME NON-TOBACCO USER [place] [facility] [place] [facility] Mar 13, 2017 07:44 AM LIFETIME NON-TOBACCO USER [facility] [place] [facility] Mar 11, 2016 07:54 AM QUIT TOBACCO USE > 7 YEARS AGO Quit in 1984 [place] [facility] [place] [facility] Aug 17, 2005 10:23 AM HISTORY OF SMOKING Vet states he quit in 1984 [place] [facility] [place] [facility] May 19, 2004 08:56 AM HISTORY OF SMOKING quit . [place] [facility] [place] [facility] May 19, 2003 09:15 AM HISTORY OF SMOKING quit 10yrs ago [place] [facility] [place] [facility] Jun 06, 2002 08:13 AM HISTORY OF SMOKING quit 1978 [place] [facility] [place] [facility] Jun 06, 2002 08:13 AM QUIT TOBACCO USE > 7 YEARS AGO [facility] [place] [facility] Apr 30, 2001 04:07 PM HISTORY OF SMOKING quit - 1984 [place] [facility] [place] [facility] Advance Directives: All historical and [...] 12, 2024 ADVANCE DIRECTIVE JENNIFFER DOAN Lucrecia [place] [facility] Encounter Notes: All associated encounter notes This section contains the clinical notes associated to the Encounter. Date/Time Encounter Note(s) Provider Source Mar 28, 2024 11:35 AM NURSING OUTPATIENT NOTE: LOCAL TITLE: NURSING/SPECIALTY CLINIC NOTE STANDARD TITLE: NURSING OUTPATIENT NOTE DATE OF NOTE: MAR 28, 2024@11:35 ENTRY DATE: MAR 28, 2024@11:35:30 AUTHOR: CHARLEY QIU COSIGNER: URGENCY: STATUS: COMPLETED [place] [facility] in [facility] for continued foot care. has a history of PVD and is unable to trim his/her own nails. Ambulates: [X]self [ ]wheelchair can transfer [ ]wheelchair cannot transfer [ ]without assistance [x ]with assistance of a cane Bilateral: Pedal pulses: Right Foot: Dorsalis Pedis - palpable [ x] non-palpable[ ] Posterior Tibial - palpable[x ] non-palpable[ ] Left Foot: Dorsalis Pedis - palpable [ x] non-palpable [ ] Posterior Tibial - palpable [x ] non-palpable[ ] Pedal sensation: Right Foot: [x ] [...] No Open lesions/wounds: [ ] Yes, Locations: [ x] No Amputations: [ ] Yes, Locations: [x ] No Edema present: ( ) Yes (x ) NO Podiatric Problem List: [ ] Diabetes mellitus [x ] Peripheral vascular disease [ ] Neuropathy [ ] Onychomycosis [x ] Dystrophic toenails [ ] Hyperkeratosis/calluses [ ] Xerosis/dry skin [x ] Other: Right hallux in grown nail Treatment: [x ] Nails x 10 debrided in length and thickness without incident [ ] Hyperkeratotic lesions were grinded down with eletric grinder outside diameter and debrided without incidence. [x ]Patient education educated about proper foot care and encouraged to check feet daily for injuries and wounds [x ] Instructed to moisturize feet daily but not in-between toes Patient is to RTC in 2 months. /kathy/ CHARLEY QIU LPN LICENSED PRACTICAL NURSE Signed: 03/28/2024 11:38 Receipt Acknowledged By: 03/29/2024 17:03 /kathy/ BRANNON SKINNER DPM PODIATRY ATTENDING CHARLEY QIU [facility]L [facility]N [facility]
--- OUTSIDE RECORDS SUMMARY | 2024-09-06 11:06 | XMS_ITS ---
Author Name [place] Organization [place] Address [address] [place] [address] Care Team Providers Care Blasting Coal Miner Name Role Phone LEOPOLDO JACOBSEN Primary Care [...] to Policy Lai MELISSA [facility] ([facility]) MEDICARE ADVANTAGE [facility] ([facility]) Sep 11, 2015 [id number] [phone] MOONJung GANESHOLEGARIO Jung PATIENT [facility] ([facility]) MEDICARE ADVANTAGE [facility] ([facility]) Sep 11, 2015 [id number] OLEGARIO DUNN PATIENT MEDICARE (WN) MEDICARE () PART A Feb 09, 2001 PART A [id number] OLEGARIO DUNN PATIENT MEDICARE (WN) MEDICARE () PART B Feb 09, 2001 PART B [id number] [phone] OLEGARIO DUNN PATIENT MEDICARE (WN) MEDICARE () PART A Feb 09, 2001 PART A [id number] 56A OLEGARIO DUNN PATIENT MEDICARE (WNR) MEDICARE (M) PART B Feb 09, 2001 PART B [id number] 56A OLEGARIO DUNN PATIENT Selected Encounter This section includes the information on record at [place] for the Encounter. Date/Time Encounter Type Encounter Description Reason Pro vider Source Feb 22, 2024 12:00 PM Outpatient Encounter COMMUNITY CARE CONSULT IHE Encounter Template Text not used by [place] Plan of Treatment: Future Appointments (+ 6 [...] 11, 2024 09:00 AM AMBULATORY - MEDICINE [place] [facility] [place] [facility] Mar 12, 2024 01:30 PM AMBULATORY - REHAB MEDICIN E [place] [facility] [place] [facility] Mar 22, 2024 02:30 PM AMBULATORY - REHAB MEDICIN E [place] [facility] [place] [facility] Mar 26, 2024 02:00 PM AMBULATORY - REHAB MEDICIN E [place] [facility] [facility] Mar 28, 2024 11:30 AM AMBULATORY - MEDICINE [place] [facility] Mar 29, 2024 02:30 PM AMBULATORY - REHAB MEDICIN E [place] [facility] [place] [facility] Apr 04, 2024 02:00 PM AMBULATORY - REHAB MEDICIN E [place] [facility] [place] [facility] Apr 11, 2024 01:00 PM AMBULATORY - REHAB MEDICIN E [place] [facility] [facility] Apr 11, 2024 02:00 PM AMBULATORY - REHAB MEDICIN E [place] [facility] [place] [facility] Apr 23, 2024 02:00 PM AMBULATORY - REHAB MEDICIN E [place] [facility] [facility] Apr 29, 2024 02:00 PM AMBULATORY - REHAB MEDICIN E [place] [facility] [place] [facility] May 06, 2024 01:30 PM [...] - MEDICINE [place] [facility] [place] [facility] Jun 18, 2024 01:00 PM AMBULATORY - REHAB MEDICIN E [place] [facility] [place] [facility] Lab Results: +/- 30 days of the encounter This section includes the Chemistry and Hematology Lab Results on record with [place] for the patient. Radiology Reports and Pathology Reports are provided separately, in subsequent sections. Lab Results This section contains the Chemistry/Hematology Results that were resulted 30 days before or 30 daysafter the date of the Encounter. Date/Time Source Result Type Result - Unit Interpretation Reference Range Comment Mar 04, 2024 07:34 AM [place] [facility] BASIC METABOLIC PANEL (fasting) Specimen Type: SERUM No comment entered. Ordering Provider: LEOPOLDO JACOBSEN Report Released Date/Time: Feb 28, 2024 04:09 PM Reporting Lab: [place] [facility] [facility] [address] [facility] [address] Performing Lab: [place] [facility] [address] [facility] [address] UREA NITROGEN 17 mg/dL 7-25 GLUCOSE 88 mg/dL 65-100 SODIUM 140 mmol/L 135-145 POTASSIUM 4.2 mmol/L 3.5-5.0 CHLORIDE 112 mmol/L H 100-110 CO2 21 meq/L 20-30 CREATININE, Serum 0.76 mg/dL 0.50-1.40 eGFR(CKD-EPI 2020) 86 mL/min >60 Mar 04, 2024 07:34 AM [facility] LIVER FUNCTION Specimen Type: SERUM No comment entered. Ordering Provider: LEOPODLO JACOBSEN Report Released Date/Time: Feb 28, 2024 04:09 PM Reporting Lab: [facility] [address] [address] Performing Lab: [facility] [address] [facility] [address] PROTEIN,TOTAL 6.7 g/dL 6.0-8.3 ALBUMIN 3.8 g/dL 3.5-5.0 ALKALINE PHOSPHATASE 123 U/L 40-150 AST 22 U/L 5-34 ALT 23 U/L BILIRUBIN, TOTAL 1.1 mg/dL 0.2-1.2 Mar 04, 2024 07:34 AM [facility] LIPID PANEL FASTING Specimen Type: SERUM No comment entered. Ordering Provider: LEOPOLDO JACOBSEN Report Released Date/Time: Feb 28, 2024 04:09 PM Reporting Lab: [facility] [address] [facility] [address] Performing Lab: [facility] [address] [facility] [address] CHOLESTEROL 112 mg/dL TRIGLYCERIDE 48 mg/dL 0-150 LDL calculated 54 mg/dL 0-129 CHOL/HDL 2.3 HDL CHOLESTEROL 48 mg/dL 40-60 Mar 04, 2024 07:34 AM [facility] TSH Specimen Type: SERUM No comment entered. Ordering Provider: LEOPOLDO JACOBSEN Report Released Date/Time: Feb 28, 2024 04:09 PM Reporting Lab: [facility] [address] [facility] [address] Performing Lab: [facility] [address] [facility] [address] TSH 6.12 u[IU]/mL H 0.35-5.00 Mar 04, 2024 07:34 AM [facility] CBC AND DIFF (AUTO) Specimen Type: BLOOD No comment entered. Ordering Provider: LEOPOLDO JACOBSEN Report Released Date/Time: Feb 28, 2024 04:09 PM Reporting Lab: [facility] [address] [facility] [address] Performing Lab: [facility] [address] [facility] [address] WBC 5.32 10*3/uL 4.50-11.00 RBC 4.13 10*6/uL [...] 10*3/uL 0.00-0.00 Mar 04, 2024 07:34 AM [facility] URINALYSIS CLEAN CATCH Specimen Type: URINE Comment: If Glucose = >500 and Ketones are positive, please alert the Physician. Ordering Provider: LEOPOLDO JACOBSEN Report Released Date/Time: Feb 28, 2024 04:09 PM Reporting Lab: [facility] [address] [address] Performing Lab: [place] [facility] [address] [facility] [address] UA COLOR Yellow Yellow UA APPEARANCE Clear [...] took place. Date/Time Current Smoking Status Comment [facility] Mar 06, 2023 09:00 AM VA-TOBACCO FORMER USER [facility] Tobacco Use History This section includes a history of the smoking, or tobacco-related health factors, that were collected on or before the date of the Encounter. The data comes from the [place] facility where the Encounter took place. Date/Time Smoking Status/Tobac co Use Comment [facility] Mar 06, 2023 09:00 AM VA-TOBACCO QUIT 15 YRS OR MORE [place] [facility] Feb 16, 2022 09:30 AM VA-TOBACCO FORMER USER [place] [facility] Feb 16, 2022 09:30 AM VA-TOBACCO QUIT 15 YRS OR MORE [place] [facility] Feb 09, 2021 09:00 AM VA-TOBACCO FORMER USER [place] [facility] Feb 09, 2021 09:00 AM VA-TOBACCO QUIT 15 YRS OR MORE [place] [facility] Jan 01, 2020 10:15 AM VA-TOBACCO FORMER USER [place] [facility] Jan 01, 2020 10:15 AM VA-TOBACCO QUIT 15 YRS OR MORE [place] [facility] Mar 12, 2018 08:56 AM VA-TOBACCO FORMER USER [place] [facility] Mar 12, 2018 08:56 AM VA-TOBACCO QUIT [address] [facility] Mar 12, 2018 08:24 AM LIFETIME NON-TOBACCO USER [facility] Mar 13, 2017 07:44 AM LIFETIME NON-TOBACCO USER [facility] Mar 11, 2016 07:54 AM QUIT TOBACCO USE > 7 YEARS AGO [place] [address] [facility] Aug 17, 2005 10:23 AM HISTORY OF SMOKING Vet states he [place] [address] [facility] May 19, 2004 08:56 AM HISTORY OF SMOKING quit . [facility] May 19, 2003 09:15 AM HISTORY OF SMOKING quit [address] [facility] Jun 06, 2002 08:13 AM HISTORY OF SMOKING quit 1978 [facility] Jun 06, 2002 08:13 AM QUIT TOBACCO USE > [address] [facility] Apr 30, 2001 04:07 PM HISTORY OF SMOKING quit - 1984 [facility] Advance Directives: All historical and current [...] Mar 12, 2024 ADVANCE DIRECTIVE JENNIFFER DOAN [facility] Encounter Notes: All associated encounter notes This section contains the clinical notes associated to the Encounter. Date/Time Encounter Note(s) Provider Source Feb 22, 2024 12:00 PM NONVA CONSULT: LOCAL TITLE: COMMUNITY CARE-CONSULT RESULT NOTE STANDARD TITLE: NONVA CONSULT DATE OF NOTE: FEB 22, 2024@12:00 ENTRY DATE: MAR 26, 2024@11:52:31 AUTHOR: J CARLOS SALMON COSIGNER: URGENCY: STATUS: COMPLETED VistA Imaging - Scanned Document SCANNED DOCUMENT SIGNATURE NOT REQUIRED Electronically Filed: 03/26/2024 by: J CARLOS SALMON CLOTH SPONGER [facility] SAL[facility]
--- OUTSIDE RECORDS SUMMARY | 2024-09-06 11:06 | XMS_ITS | Encounter Summary ---
Author Name [place] Address [address] [place] [address] Care Team Providers Care Library Technical Assistant Name Role Phone LEOPOLDO JACOBSEN Primary Care [...] Name Patient's Relationship to Policy Lai MELISSA [facility] ([facility]) MEDICARE ADVANTAGE [facility] ([facility]) Sep 11, 2015 [id number] MOONJung GANESHOLEGARIO Jung PATIENT [facility] ([facility]) MEDICARE ADVANTAGE [facility] ([facility]) Sep 11, 2015 [id number] OLEGARIO DUNN PATIENT MEDICARE (WN) MEDICARE () PART A Feb 09, 2001 PART A [id number] 56A OLEGAIRO DUNN PATIENT MEDICARE (WN) MEDICARE () PART B Feb 09, 2001 PART B [id number] 56A OLEGARIO DUNN PATIENT MEDICARE (WN) MEDICARE () PART A Feb 09, 2001 PART A [id number] 56A OLEGARIO DUNN PATIENT MEDICARE (WNR) MEDICARE (M) PART B Feb 09, 2001 PART B [id number] 56A OLEGARIO DUNN PATIENT Selected Encounter This section includes the information on record at [place] for the Encounter. Date/Time Encounter Type Encounter Description Reason Pro vider Source Feb 22, 2024 12:00 AM Outpatient Encounter COMMUNITY CARE CONSULT IHE Encounter Template Text not used by [place] Plan of Treatment: Future Appointments (+ 6 months) and Future Tests (+/- 45 days) The Plan of Treatment section includes future care activities for the patient from all [place] treatmentfacilities. This section includes future appointments and future orders which are active, pending or scheduled. Future Appointments This section includes appointments that were scheduled to occur 6 months from the date of the Encounter, up to a maximum of 20 appointments. The data comes from all [place] treatment facilities. Appointment Date/Time Appointment Type Appointme nt Facility Name Mar 11, 2024 09:00 AM AMBULATORY [place]INE [place] [facility] Mar 12, 2024 01:30 PM AMBULATORY - REHAB MEDICIN E [place] [facility] [facility] Mar 22, 2024 02:30 PM AMBULATORY - REHAB MEDICIN E [place] [facility] [place] [facility] Mar 26, 2024 02:00 PM AMBULATORY - REHAB MEDICIN E [place] [facility] [place] [facility] Mar 28, 2024 11:30 AM AMBULATORY - MEDICINE [place] [facility] Mar 29, 2024 02:30 PM AMBULATORY - REHAB MEDICIN E [place] [facility] [facility] Apr 04, 2024 02:00 PM AMBULATORY - REHAB MEDICIN E [place] [facility] [place] [facility] Apr 11, 2024 01:00 PM AMBULATORY - REHAB MEDICIN E [place] [facility] [facility] Apr 11, 2024 02:00 PM AMBULATORY - REHAB MEDICIN E [place] [facility] [place] [facility] Apr 23, 2024 02:00 PM AMBULATORY - REHAB MEDICIN E [place] [facility] [place] [facility] Apr 29, 2024 02:00 PM AMBULATORY - REHAB MEDICIN E [place] [facility] [place] [facility] May 06, 2024 01:30 PM AMBULATORY [...] - MEDICINE [place] [facility] [place] [place] [facility] Jun 18, 2024 01:00 PM AMBULATORY - REHAB MEDICIN E [place] [facility] [place] [facility] Lab Results: +/- 30 days of the encounter This section includes the Chemistry and Hematology Lab Results on record with [place] for the patient. Radiology Reports and Pathology Reports are provided separately, in subsequent sections. Lab Results This section contains the Chemistry/Hematology Results that were resulted 30 days before or 30 daysafter the date of the Encounter. Date/Time Source Result Type Result - Unit Interpretation Reference Range Comment Mar 04, 2024 07:34 AM [place] [facility] BASIC METABOLIC PANEL (fasting) Specimen Type: SERUM No comment entered. Ordering Provider: LEOPOLDO JACOBSEN Report Released Date/Time: Feb 28, 2024 04:09 PM Reporting Lab: [place] [facility] [address] [facility] [address] Performing Lab: [place] [facility] [address] [facility] [address] UREA NITROGEN 17 mg/dL 7-25 GLUCOSE 88 mg/dL 65-100 SODIUM 140 mmol/L 135-145 POTASSIUM 4.2 mmol/L 3.5-5.0 CHLORIDE 112 mmol/L H 100-110 CO2 21 meq/L 20-30 CREATININE, Serum 0.76 mg/dL 0.50-1.40 eGFR(CKD-EPI 2020) 86 mL/min >60 Mar 04, 2024 07:34 AM [facility] LIVER FUNCTION Specimen Type: SERUM No comment entered. Ordering Provider: LEOPOLDO JACOBSEN Report Released Date/Time: Feb 28, 2024 04:09 PM Reporting Lab: [facility] [address] [facility] [address] Performing Lab: [facility] [address] [facility] [address] PROTEIN,TOTAL 6.7 g/dL 6.0-8.3 ALBUMIN 3.8 g/dL 3.5-5.0 ALKALINE PHOSPHATASE 123 U/L 40-150 AST 22 U/L 5-34 ALT 23 U/L BILIRUBIN, TOTAL 1.1 mg/dL 0.2-1.2 Mar 04, 2024 07:34 AM [facility] LIPID PANEL FASTING Specimen Type: SERUM No comment entered. Ordering Provider: LEOPOLDO JACOBSEN Report Released Date/Time: Feb 28, 2024 04:09 PM Reporting Lab: [facility] [address] [facility] [address] Performing Lab: [facility] [address] [facility] [address] CHOLESTEROL 112 mg/dL TRIGLYCERIDE 48 mg/dL 0-150 LDL calculated 54 mg/dL 0-129 CHOL/HDL 2.3 HDL CHOLESTEROL 48 mg/dL 40-60 Mar 04, 2024 07:34 AM [facility] TSH Specimen Type: SERUM No comment entered. Ordering Provider: LEOPOLDO JACOBSEN Report Released Date/Time: Feb 28, 2024 04:09 PM Reporting Lab: [facility] [address] [facility] [address] Performing Lab: [facility] [address] [facility] [address] TSH 6.12 u[IU]/mL H 0.35-5.00 Mar 04, 2024 07:34 AM [facility] CBC AND DIFF (AUTO) Specimen Type: BLOOD No comment entered. Ordering Provider: LEOPOLDO JACOBSEN Report Released Date/Time: Feb 28, 2024 04:09 PM Reporting Lab: [facility] [address] [facility] [address] Performing Lab: [facility] [address] [facility] [address] WBC 5.32 10*3/uL 4.50-11.00 RBC 4.13 10*6/uL [...] 10*3/uL 0.00-0.00 Mar 04, 2024 07:34 AM [facility] URINALYSIS CLEAN CATCH Specimen Type: URINE Comment: If Glucose = >500 and Ketones are positive, please alert the Physician. Ordering Provider: LEOPOLDO JACOBSEN Report Released Date/Time: Feb 28, 2024 04:09 PM Reporting Lab: [facility] [address] [facility] [address] Performing Lab: [place] [facility] [place] [facility] [address] [facility] [address] UA COLOR Yellow Yellow UA APPEARANCE Clear [...] and tobacco- related health factors from the [place] facility where the Encounter took place. Current Smoking Status This section includes the most current smoking, or tobacco-related health factor, from the [place] facility where the Encounter took place. Date/Time Current Smoking Status Comment [facility] Mar 06, 2023 09:00 AM VA-TOBACCO FORMER USER [place] [facility] Tobacco Use History This section includes a history of the smoking, or tobacco-related health factors, that were collected on or before the date of the Encounter. The data comes from the [place] facility where the Encounter took place. Date/Time Smoking Status/Tobac co Use Comment [facility] Mar 06, 2023 09:00 AM VA-TOBACCO QUIT 15 YRS OR MORE [place] [facility] Feb 16, 2022 09:30 AM VA-TOBACCO FORMER USER [place] [facility] Feb 16, 2022 09:30 AM VA-TOBACCO QUIT 15 YRS OR MORE [place] [facility] Feb 09, 2021 09:00 AM VA-TOBACCO FORMER USER [place] [facility] Feb 09, 2021 09:00 AM VA-TOBACCO QUIT 15 YRS OR MORE [place] [facility] Jan 01, 2020 10:15 AM VA-TOBACCO FORMER USER [place] [facility] Jan 01, 2020 10:15 AM VA-TOBACCO QUIT 15 YRS OR MORE [place] [facility] [facility] Mar 12, 2018 08:56 AM VA-TOBACCO FORMER USER [place] [facility] Mar 12, 2018 08:56 AM VA-TOBACCO QUIT [facility] YRS OR [facility] Mar 12, 2018 08:24 AM LIFETIME NON-TOBACCO USER [facility] Mar 13, 2017 07:44 AM LIFETIME NON-TOBACCO [facility]ER [facility] Mar 11, 2016 07:54 AM QUIT TOBACCO USE > 7 YEARS AGO [facility]uit [facility] 1984 [facility] Aug 17, 2005 10:23 AM HISTORY OF SMOKING Vet states he quit in 1984 [facility] May 19, 2004 08:56 AM HISTORY OF SMOKING quit . [facility] May 19, 2003 09:15 AM HISTORY OF SMOKING quit 10yrs ago [facility] Jun 06, 2002 08:13 AM HISTORY OF SMOKING quit [facility] Jun 06, 2002 08:13 AM QUIT TOBACCO USE > 7 YEARS AGO [facility] Apr 30, 2001 04:07 PM HISTORY OF SMOKING quit - 1984 [facility] Advance Directives: All historical and current Section Date Range: From patient's date of to the date document was created. This section includes ALL of a patient's completed or amended [place] Advance and Rescinded Directives. The entries below indicate that a directive exists for the patient, but an actual copy is not included with this document. The data comes from all [place] facilities. Date Advance Directives Provider Source Mar 12, 2024 ADVANCE DIRECTIVE [facility] Encounter Notes: All associated encounter notes This section contains the clinical notes associated to the Encounter. Date/Time Encounter Note(s) Provider Source Feb 22, 2024 12:00 AM NONVA CONSULT: LOCAL TITLE: COMMUNITY CARE-CONSULT RESULT NOTE STANDARD TITLE: NONVA CONSULT DATE OF NOTE: FEB 22, 2024 ENTRY DATE: MAR 13, 2024@14:33:50 AUTHOR: GLADIS AGUSTIN EXP COSIGNER: URGENCY: STATUS: COMPLETED VistA Imaging - Scanned Document SCANNED DOCUMENT SIGNATURE NOT REQUIRED Electronically Filed: 03/13/2024 by: [facility] DIRECTOR [facility]
--- OUTSIDE RECORDS SUMMARY | 2024-09-06 11:06 | XMS_ITS | Encounter Summary ---
Author Name [facility] Organization [facility] Address [address] [place] [address] Care Team Providers Care Mortar Mixer Operator Name Role Phone LEOPOLDO JACOBSEN Primary [...] to Policy Lai MELISSA [facility] ([facility]) MEDICARE ADVANTAGE [facility] ([facility]) Sep 11, 2015 [id number] [phone] MOONJung GANESHOLEGARIO Jung PATIENT [facility] ([facility]) MEDICARE ADVANTAGE [facility] ([facility]) Sep 11, 2015 [id number] [phone] FANNIE ANDERSENOLEGARIO Jung PATIENT MEDICARE (WN) MEDICARE (M) PART A Feb 09, 2001 PART A [id number] OLEGARIO DUNN PATIENT MEDICARE (WN) MEDICARE () PART B Feb 09, 2001 PART B [id number] OLEGARIO DUNN PATIENT MEDICARE (WN) MEDICARE () PART A Feb 09, 2001 PART A [id number] [phone] OLEGARIO DUNN PATIENT MEDICARE (WN) MEDICARE (M) PART B Feb 09, 2001 PART B [id number] OLEGARIO DUNN PATIENT Selected Encounter This section includes the information on record at NH for the Encounter. Date/Time Encounter Type Encounter Description Reason Pro vider Source Apr 02, 2024 11:45 AM Outpatient Encounter DENTAL IHE Encounter Template Text not used by NH Plan of Treatment: Future Appointments (+ 6 [...] Date/Time Appointment Type Appointme nt Facility Name Apr 04, 2024 02:00 PM [facility] [place] [facility] Apr 11, 2024 01:00 PM AMBULATORY [facility] [place] [facility] Apr 11, 2024 02:00 PM AMBULATORY - [facility] [place] [facility] Apr 23, 2024 02:00 PM AMBULATORY - [facility]IC[facility] [place] [facility] Apr 29, 2024 02:00 PM AMBULATORY [facility] [place] [facility] May 06, 2024 01:30 PM AMBULATORY - [facility]ICIN [facility] [place] [facility] May 07, 2024 01:00 PM AMBULATORY - [facility] MEDICIN [facility] [place] [facility] May 08, 2024 09:45 AM AMBULATORY - [facility]IC[facility] [place] [facility] May 15, 2024 01:30 PM AMBULATORY - [facility]ICIN [facility] [place] [facility] May 23, 2024 08:00 AM AMBULATORY - REHAB MEDICIN [facility] [place] [facility] May 27, 2024 01:30 PM AMBULATORY - REHAB MEDICIN [facility] [place] [facility] Jun 04, 2024 08:00 AM AMBULATORY - [facility] MEDICIN [facility] [place] [facility] Jun 11, 2024 11:00 AM AM[facility]ULATORY [facility]ICINE [facility] [place] [facility] Jun 18, 2024 01:00 PM AMBULATORY - [facility]AB MEDICIN [facility] [place] [facility] Jul 03, 2024 11:30 AM [facility]ICINE [facility] [place] [facility] Jul 09, 2024 07:30 AM AMBULATORY - NONE [facility] [place] [facility] Jul 12, 2024 10:00 AM AMBULATORY - NONE [facility] [place] [facility] Jul 26, 2024 08:00 AM AM[facility]ULATORY - MEDICINE [facility] [place] [facility] Aug 01, 2024 11:00 AM AMBULATORY - MEDICINE [facility] [place] [facility] Sep 09, 2024 09:00 AM AMBULATORY [facility] Lab Results: +/- 30 days of the encounter This section includes the Chemistry and Hematology Lab Results on record with NH for the patient. Radiology Reports and Pathology Reports are provided separately, in subsequent sections. Lab Results This section contains the Chemistry/Hematology Results that were resulted 30 days before or 30 daysafter the date of the Encounter. Date/Time Source Result Type Result - Unit Interpretation Reference Range Comment Mar 04, 2024 07:34 AM [facility] BASIC METABOLIC PANEL (fasting) Specimen Type: SERUM No comment entered. Ordering Provider: LEOPOLDO JACOBSEN Report Released Date/Time: Feb 28, 2024 04:09 PM Reporting Lab: [facility] [place] [facility] [address] [address] Performing Lab: [facility] [address] [address] UREA NITROGEN 17 mg/dL 7-25 GLUCOSE 88 mg/dL 65-100 SODIUM 140 mmol/L 135-145 POTASSIUM 4.2 mmol/L 3.5-5.0 CHLORIDE 112 mmol/L H 100-110 CO2 21 meq/L 20-30 CREATININE, Serum 0.76 mg/dL 0.50-1.40 eGFR(CKD-EPI 2020) 86 mL/min >60 Mar 04, 2024 07:34 AM [facility] TSH Specimen Type: SERUM No comment entered. Ordering Provider: LEOPOLDO JACOBSEN Report Released Date/Time: Feb 28, 2024 04:09 PM Reporting Lab: [facility] [address] [address] Performing Lab: [facility] [address] [address] TSH 6.12 u[IU]/mL H 0.35-5.00 Mar 04, 2024 07:34 AM [facility] LIVER FUNCTION Specimen Type: SERUM No comment entered. Ordering Provider: LEOPOLDO JACOBSEN Report Released Date/Time: Feb 28, 2024 04:09 PM Reporting Lab: [facility] [address] [address] Performing Lab: [facility] [address] [address] PROTEIN,TOTAL 6.7 g/dL 6.0-8.3 ALBUMIN 3.8 g/dL 3.5-5.0 ALKALINE PHOSPHATASE 123 U/L 40-150 AST 22 U/L 5-34 ALT 23 U/L BILIRUBIN, TOTAL 1.1 mg/dL 0.2-1.2 Mar 04, 2024 07:34 AM [facility] LIPID PANEL FASTING Specimen Type: SERUM No comment entered. Ordering Provider: LEOPOLDO JACOBSEN Report Released Date/Time: Feb 28, 2024 04:09 PM Reporting Lab: [facility] [address] [address] Performing Lab: [facility] [address] [address] CHOLESTEROL 112 mg/dL TRIGLYCERIDE 48 mg/dL 0-150 LDL calculated 54 mg/dL 0-129 CHOL/HDL 2.3 HDL CHOLESTEROL 48 mg/dL 40-60 Mar 04, 2024 07:34 AM [facility] CBC AND DIFF (AUTO) Specimen Type: BLOOD No comment entered. Ordering Provider: LEOPOLDO JACOBSEN Report Released Date/Time: Feb 28, 2024 04:09 PM Reporting Lab: [facility] [address] [address] Performing Lab: [facility] [address] [address] WBC 5.32 10*3/uL 4.50-11.00 RBC 4.13 10*6/uL [...] 10*3/uL 0.00-0.00 Mar 04, 2024 07:34 AM [facility] URINALYSIS CLEAN CATCH Specimen Type: URINE Comment: If Glucose = >500 and Ketones are positive, please alert the Physician. Ordering Provider: LEOPOLDO JACOBSEN Report Released Date/Time: Feb 28, 2024 04:09 PM Reporting Lab: [facility] [address] [address] Performing Lab: [facility] [address] [address] UA COLOR Yellow Yellow UA APPEARANCE Clear [...] took place. Date/Time Current Smoking Status Comment [facility] Mar 11, 2024 09:00 AM VA-TOBACCO QUIT 15 YRS OR MORE [facility] Tobacco Use History This section includes a history of the smoking, or tobacco-related health factors, that were collected on or before the date of the Encounter. The data comes from the [place] facility where the Encounter took place. Date/Time Smoking Status/Tobac co Use Comment [facility] Mar 11, 2024 09:00 AM VA-TOBACCO QUIT 15 YRS OR MORE [facility] [place] [facility] Mar 06, 2023 09:00 AM VA-TOBACCO FORMER USER [facility] [place] [facility] Mar 06, 2023 09:00 AM VA-TOBACCO QUIT 15 YRS OR MORE [facility] [place] [facility] Feb 16, 2022 09:30 AM VA-TOBACCO FORMER USER [facility] [place] [facility] Feb 16, 2022 09:30 AM VA-TOBACCO QUIT 15 YRS OR MORE [facility] [place] [facility] Feb 09, 2021 09:00 AM VA-TOBACCO FORMER USER [facility] [place] [facility] Feb 09, 2021 09:00 AM VA-TOBACCO QUIT 15 YRS OR MORE [facility] [place] [facility] Jan 01, 2020 10:15 AM VA-TOBACCO FORMER USER [facility] [place] [facility] Jan 01, 2020 10:15 AM VA-TOBACCO QUIT 15 YRS OR MORE [facility] Mar 12, 2018 08:56 AM VA-TOBACCO [facility] Mar 12, 2018 08:56 AM VA-TOBACCO QUIT 15 YRS OR MORE [facility] Mar 12, 2018 08:24 AM LIFETIME NON-TOBACCO USER [facility] Mar 13, 2017 07:44 AM LIFETIME [facility]-TOBACCO [facility] Mar 11, 2016 07:54 AM QUIT TOBACCO USE > 7 YEARS AGO Quit in 1984 [facility] Aug 17, 2005 10:23 AM HISTORY OF SMOKING Vet states he quit in 1984 [facility] May 19, 2004 08:56 AM HISTORY OF SMOKING quit . [facility] May 19, 2003 09:15 AM HISTORY OF SMOKING quit 10yrs ago [facility] Jun 06, 2002 08:13 AM HISTORY OF SMOKING quit 1979 [facility] Jun 06, 2002 08:13 AM QUIT TOBACCO USE > 7 YEARS AGO [facility] Apr 30, 2001 04:07 PM HISTORY OF SMOKING quit - 1984 [facility] Advance Directives: All historical and current Section [...] Mar 12, 2024 ADVANCE DIRECTIVE JENNIFFER DOAN [facility] Encounter Notes: All associated encounter notes This section contains the clinical notes associated to the Encounter. Date/Time Encounter Note(s) Provider Source Apr 02, 2024 11:45 AM DENTISTRY TELEPHON E ENCOUNTER NOTE: LOCAL TITLE: TELEPHONE NOTE/DENTAL STANDARD TITLE: DENTISTRY TELEPHONE ENCOUNTER NOTE DATE OF NOTE: APR 02, 2024@11:45 ENTRY DATE: APR 02, 2024@11:45:44 AUTHOR: BRENDAN WARNER EXP COSIGNER: URGENCY: STATUS: COMPLETED Called and spoke with pt, appointment with dental on 04/25/2024 has been cancelled and rescheduled to 07/09/2024. /kathy/ BRENDAN WARNER ADVANCED IMPLEMENTATION PROJECT COORDINATOR Signed: 04/02/2024 11:46 BRENDAN WARNER [facility]
--- OUTSIDE RECORDS SUMMARY | 2024-09-06 11:06 | XMS_ITS ---
Author Name [facility] [place] [facility] [place] Address [address] [place] [id number] Care Team Providers Care Assistant Spa Manager Name Role Phone JACOBSEN LEOPOLDO Primary [...] Patient's Relationship to Policy Lai MELISSA [facility] ([facility]) MEDICARE ADVANTAGE [facility] ([facility]) Sep 11, 2015 [id number] FANNIE ANDERSENOLEGARIO Jung PATIENT [facility] ([facility]) MEDICARE ADVANTAGE [facility] ([facility]) Sep 11, 2015 [id number] OLEGARIO DUNN PATIENT MEDICARE (WNR) MEDICARE (M) PART A Feb 09, 2001 PART A [id number] 56A OLEGARIO DUNN PATIENT MEDICARE (WNR) MEDICARE (M) PART B Feb 09, 2001 PART B [id number] 56A OLEGARIO DUNN PATIENT MEDICARE (WNR) MEDICARE (M) PART A Feb 09, 2001 PART A [id number] 56A OLEGARIO DUNN PATIENT MEDICARE (WNR) MEDICARE (M) PART B Feb 09, 2001 PART B [id number] HYUNTIMOTHY GANESHOLEGARIO Jung PATIENT Selected Encounter This section includes the information on record at [place] for the Encounter. Date/Time Encounter Type Encounter Description Reason Provider Source Mar 29, 2024 02:30 PM MANUAL THERAPY 1/> [facility] ICD-10-CM R53.1 Weakness AUGUSTJOHN IHE Encounter Template Text not used by [place] Assessments - Encounter Diagnoses This section includes the primary and secondary diagnoses documented for the Encounter. Date/Time Primary/Secondary Diagnosis Diagnosis Name Provider Source Mar 29, 2024 04:02 PM PRIMARY Weakness JOHN AUGUST [place] [facility] [place] [facility] Plan of Treatment: Future Appointments (+ 6 months) and Future Tests (+/- 45 days) The Plan of Treatment section includes future care activities for the patient from all [place] treatmentfacilities. This section includes future appointments and future orders which are active, pending or scheduled. Future Appointments This section includes appointments that were scheduled to occur 6 months from the date of the Encounter, up to a maximum of 20 appointments. The data comes from all [place] treatment facilities. Appointment Date/Time Appointment Type Appointme nt Facility Name Apr 04, 2024 02:00 PM AMBULATORY - [facility] MEDICIN E [facility] [place] [facility] Apr 11, 2024 01:00 PM AMBULATORY - [facility] MEDICIN E [facility] [place] [facility] Apr 11, 2024 02:00 PM AMBULATORY - REHAB MEDICIN E [facility] [place] [facility] Apr 23, 2024 02:00 PM AMBULATORY - REHAB MEDICIN E [facility] [place] [facility] Apr 29, 2024 02:00 PM AMBULATORY - REHAB MEDICIN E [facility] [place] [facility] May 06, 2024 01:30 PM AMBULATORY - REHAB MEDICIN E [facility] [place] [facility] May 07, 2024 01:00 PM AMBULATORY - REHAB MEDICIN E [facility] [place] [facility] May 08, 2024 09:45 AM AMBULATORY - REHAB MEDICIN E [facility] [place] [facility] May 15, 2024 01:30 PM AMBULATORY - REHAB MEDICIN E [facility] [place] [facility] May 23, 2024 08:00 AM AMBULATORY - REHAB MEDICIN E [facility] [place] [facility] May 27, 2024 01:30 PM [facility]BULATORY [facility]ICIN [facility] [place] [facility] Jun 04, 2024 08:00 AM AMBULATORY - REHAB MEDICIN E [facility] [place] [facility] Jun 11, 2024 11:00 AM [facility] [place] [facility] Jun 18, 2024 01:00 PM AMBULATORY - [facility] MEDICIN [facility] [place] [facility] Jul 03, 2024 11:30 AM AMBULATORY - MEDICINE [facility] [place] [facility] Jul 09, 2024 07:30 AM AMBULATORY - NONE [facility] [place] [facility] Jul 12, 2024 10:00 AM AMBULATORY - NONE [facility] [place] [facility] Jul 26, 2024 08:00 AM AMBULATORY - MEDICINE [facility] [place] [facility] Aug 01, 2024 11:00 AM AMBULATORY - MEDICINE [facility] [place] [facility] Sep 09, 2024 09:00 AM AMBULATORY - MEDICINE [facility] [place] [facility] Lab Results: +/- 30 days of the encounter This section includes the Chemistry and Hematology Lab Results on record with [place] for the patient. Radiology Reports and Pathology Reports are provided separately, in subsequent sections. Lab Results This section contains the Chemistry/Hematology Results that were resulted 30 days before or 30 daysafter the date of the Encounter. Date/Time Source Result Type Result - Unit Interpretation Reference Range Comment Mar 04, 2024 07:34 AM [facility] [place] [facility] BASIC METABOLIC PANEL (fasting) Specimen Type: SERUM No comment entered. Ordering Provider: LEOPOLDO JACOBSEN Report Released Date/Time: Feb 28, 2024 04:09 PM Reporting Lab: [place] [facility] [address] [address] Performing Lab: [place] [facility] [address] [address] UREA NITROGEN 17 mg/dL 7-25 GLUCOSE 88 mg/dL 65-100 SODIUM 140 mmol/L 135-145 POTASSIUM 4.2 mmol/L 3.5-5.0 CHLORIDE 112 mmol/L H 100-110 CO2 21 meq/L 20-30 CREATININE, Serum 0.76 mg/dL 0.50-1.40 eGFR(CKD-EPI 2020) 86 mL/min >60 Mar 04, 2024 07:34 AM [facility] LIVER FUNCTION Specimen Type: SERUM No comment entered. Ordering Provider: LEOPOLDO JACOBSEN Report Released Date/Time: Feb 28, 2024 04:09 PM Reporting Lab: [facility] [address] [phone] Performing Lab: [address] [address] PROTEIN,TOTAL 6.7 g/dL 6.0-8.3 ALBUMIN 3.8 g/dL 3.5-5.0 ALKALINE PHOSPHATASE 123 U/L 40-150 AST 22 U/L 5-34 ALT 23 U/L BILIRUBIN, TOTAL 1.1 mg/dL 0.2-1.2 Mar 04, 2024 07:34 AM [facility] LIPID PANEL FASTING Specimen Type: SERUM No comment entered. Ordering Provider: LEOPOLDO JACOBSEN Report Released Date/Time: Feb 28, 2024 04:09 PM Reporting Lab: [facility] [address] [address] Performing Lab: [facility] [address] [address] CHOLESTEROL 112 mg/dL TRIGLYCERIDE 48 mg/dL 0-150 LDL calculated 54 mg/dL 0-129 CHOL/HDL 2.3 HDL CHOLESTEROL 48 mg/dL 40-60 Mar 04, 2024 07:34 AM [facility] TSH Specimen Type: SERUM No comment entered. Ordering Provider: LEOPOLDO JACOBSEN Report Released Date/Time: Feb 28, 2024 04:09 PM Reporting Lab: [facility] [address] [address] Performing Lab: [facility] [address] [address] TSH 6.12 u[IU]/mL H 0.35-5.00 Mar 04, 2024 07:34 AM [facility] CBC AND DIFF (AUTO) Specimen Type: BLOOD No comment entered. Ordering Provider: LEOPOLDO JACOBSEN Report Released Date/Time: Feb 28, 2024 04:09 PM Reporting Lab: [facility] [address] [address] Performing Lab: [facility] [address] [address] WBC 5.32 10*3/uL 4.50-11.00 RBC 4.13 10*6/uL [...] 04:09 PM Reporting Lab: [facility] [address] [address] Performing Lab: [facility] [address] [phone] UA COLOR Yellow Yellow UA APPEARANCE Clear [...] and tobacco- related health factors from the [place] facility where the Encounter took place. Current Smoking Status This section includes the most current smoking, or tobacco-related health factor, from the [place] facility where the Encounter took place. Date/Time Current Smoking Status Comment [facility] Mar 11, 2024 09:00 AM VA-TOBACCO FORMER USER [facility] Tobacco Use History This section includes a history of the smoking, or tobacco-related health factors, that were collected on or before the date of the Encounter. The data comes from the [place] facility where the Encounter took place. Date/Time Smoking Status/Tobac co Use Comment Facility Mar 11, 2024 09:00 AM VA-TOBACCO QUIT 15 YRS OR MORE [place] [facility] [place] [facility] Mar 06, 2023 09:00 AM VA-TOBACCO FORMER USER [place] [facility] [place] [facility] Mar 06, 2023 09:00 AM VA-TOBACCO QUIT 15 YRS OR MORE [place] [facility] [place] [facility] Feb 16, 2022 09:30 AM VA-TOBACCO FORMER USER [place] [facility] [place] [facility] Feb 16, 2022 09:30 AM VA-TOBACCO QUIT 15 YRS OR MORE [place] [facility] [place] [facility] Feb 09, 2021 09:00 AM VA-[facility]BACCO FOR[facility] [place] [facility] Feb 09, 2021 09:00 AM VA-TOBACCO QUIT 15 YRS OR MORE [place] [facility] [place] [facility] Jan 01, 2020 10:15 AM VA-TOBACCO FORMER USER [place] [facility] [place] [facility] Jan 01, 2020 10:15 AM VA-TOBACCO QUIT 15 YRS OR MORE [facility] Mar 12, 2018 08:56 AM VA-TOBACCO FORMER USER [place] [facility] [place] [facility] Mar 12, 2018 08:56 AM VA-TOBACCO QUIT 15 YRS OR MORE [facility] Mar 12, 2018 08:24 AM LIFETIME NON-TOBACCO USER [facility] Mar 13, 2017 07:44 AM LIFETIME NON-TOBACCO USER [facility] [place] [facility] Mar 11, 2016 07:54 AM QUIT TOBACCO USE > 7 YEARS AGO [facility] Aug 17, 2005 10:23 AM HISTORY OF SMOKING Vet states [facility] May 19, 2004 08:56 AM HISTORY OF SMOKING quit 1980[facility] May 19, 2003 09:15 AM HISTORY OF SMOKING quit 10yrs ago [facility] Jun 06, 2002 08:13 AM HISTORY OF SMOKING quit [facility] Jun 06, 2002 08:13 AM QUIT TOBACCO USE > 7 YEARS AGO [facility] Apr 30, 2001 04:07 PM HISTORY OF SMOKING quit - [facility] Advance Directives: All historical and current Section Date Range: From patient's date of to the date document was created. This section includes ALL of a patient's completed or amended [place] Advance and Rescinded Directives. The entries below indicate that a directive exists for the patient, but an actual copy is not included with this document. The data comes from all [place] facilities. Date Advance Directives Provider Source Mar 12, 2024 ADVANCE DIRECTIVE [facility] Encounter Notes: All associated encounter notes This section contains the clinical notes associated to the Encounter. Date/Time Encounter Note(s) Provider Source Mar 29, 2024 03:43 PM OCCUPATIONAL THERAPY NOTE: LOCAL TITLE: OCCUPATIONAL THERAPY STANDARD TITLE: OCCUPATIONAL THERAPY NOTE DATE OF NOTE: MAR 29, 2024@15:43 ENTRY DATE: MAR 29, 2024@15:44:08 AUTHOR: SOILA AUGUST COSIGNER: FREDI ARANDA URGENCY: STATUS: COMPLETED Initial Evaluation date: Mar Progress Note Date: 03/29/2024 Treatment #: 3 Treatment time: 33 minutes Diagnosis: Weakness(ICD-10-CM R53.1), L shoulder pain Provider: Breanna GARCIA Treatment Precautions: FALLS Patient identified by full name and date of TREATMENT PRECAUTIONS OR DAILY INSTRUCTIONS: (Vitals, surgical precautions etc.) SUBJECTIVE: I feel like my pain is getting better. OBJECTIVE: THERAPEUTIC EXERCISE: MINUTES: 23' MHP to L shoulder 3 min. Nancy's to LUE in flexion with a 10 sec. hold 1x10 wall ladder in flexion 33x3 wall ladder in scaption x3 32/31/32 table slides x10 scap squeezes 1 set of 10 cloths pin activity x24 to highest level of ruler. MANUAL THERAPY: to L shoulder MINUTES: 7' THERAPEUTIC DYNAMIC ACTIVITIES: MINUTES: NEUROMUSCULAR EDUCATION: MINUTES: OTHER: MINUTES: MODALITIES: MHP 3' MINUTES: [] Contraindication screen completed prior to modality [] Skin intact pre/post SELF CARE/EDUCATION: MINUTES: Patient education was provided for all aspects of care during this clinical encounter. ASSESSMENT: Lotus stated he is having less pain however first thing in the morning is when he experience the most pain. Therapist discussed sleeping position and suggested he put a pillow in front of him to let his left arm rest in a better position. He wasn't receptive to the idea. All activities were completed with no reports of pain. PLAN: Pt will benefit from skilled OT 1-2x/week for 4-6 weeks. Tx to include: L shoulder ROM, L shoulder strengthening, scap stab, mobilization/manual therapy, pt. education, and modalities: ice, heat. 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
--- OUTSIDE RECORDS SUMMARY | 2024-09-06 11:07 | XMS_ITS | Encounter Summary ---
Author Name [facility] [place] [facility] [place] Organization [facility] [place] Address [address] [place] [address] Care Team Providers Care Box Packer Name Role Phone LEOPOLDO JACOBSEN Primary Care [...] Name Patient's Relationship to Policy Lai MELISSA [facility] ([facility]) MEDICARE ADVANTAGE [facility] ([facility]) Sep 11, 2015 [id number] OLEGARIO DUNN PATIENT [facility] ([facility]) MEDICARE ADVANTAGE [facility] ([facility]) Sep 11, 2015 [id number] OLEGARIO DUNN PATIENT MEDICARE (WNR) MEDICARE (M) PART A Feb 09, 2001 PART A [id number] 56A OLEGARIO DUNN PATIENT MEDICARE (WNR) MEDICARE (M) PART B Feb 09, 2001 PART B [id number] 56A OLEGARIO DUNN PATIENT MEDICARE (WNR) MEDICARE (M) PART A Feb 09, 2001 PART A [id number] 56A OLEGARIO DUNN PATIENT MEDICARE (WNR) MEDICARE (M) PART B Feb 09, 2001 PART B [id number] 56A FANNIE ANDERSENOLEGARIO Feng PATIENT Selected Encounter This section includes the information on record at [place] for the Encounter. Date/Time Encounter Type Encounter Description Reason Provider Source Jul 26, 2024 08:00 AM COMPRE OPH EXAM EST PT 1/> OPTOMETRY ICD-10-CM H40.1431 Capslr glaucoma w/pseudxf lens, bilateral, mild stage EUSEBIO ADLER Sharda Encounter Template Text not used by [place] Assessments - Encounter Diagnoses This section includes the primary and secondary diagnoses documented for the Encounter. Date/Time Primary/Secondary Diagnosis Diagnosis Name Provider Source Jul 26, 2024 08:44 AM PRIMARY Capslr glaucoma w/pseudxf lens, bilateral, mild stage EUSEBIO ADLER [place] [facility] [place] [facility] Jul 26, 2024 08:44 AM SECONDARY Presence of intraocular lens EUSEBIO ADLER [place] [facility] [place] [facility] Jul 26, 2024 08:44 AM SECONDARY Puckering of macula, bilateral EUSEBIO ADLER [place] [facility] [place] [facility] Jul 26, 2024 08:44 AM SECONDARY Unspecified disorder of refraction EUSEBIO ADLER [place] [facility] [place] [facility] Plan of Treatment: Future Appointments (+ 6 months) and Future Tests (+/- 45 days) The Plan of Treatment section includes future care activities for the patient from all [place] treatmentfacilities. This section includes future appointments and future orders which are active, pending or scheduled. Future Appointments This section includes appointments that were scheduled to occur 6 months from the date of the Encounter, up to a maximum of 20 appointments. The data comes from all [place] treatment facilities. Appointment Date/Time Appointment Type Appointme nt Facility Name Aug 01, 2024 11:00 AM AMBULATORY - MEDICINE [place] [facility] [place] [facility] Sep 09, 2024 09:00 AM AMBULATORY - MEDICINE DC [facility] [place] [facility] Sep 09, 2024 10:00 AM AMBULATORY - MEDICINE DC [facility] [place] [facility] Sep 12, 2024 09:00 AM AMBULATORY - REHAB MEDICIN E [place] [facility] [place] [facility] Nov 07, 2024 02:00 PM AMBULATORY - MEDICINE DC [facility] [place] [facility] Dec 31, 2024 07:30 AM AMBUL[facility]ORY - NONE [facility] Active, Pending, and Scheduled Orders This section includes a listing of several types of active, pending, and scheduled orders, including clinic medications orders, diagnostic test orders, procedure orders and consult orders; where the start date of the order is 45 days before the date of the Encounter or 45 days after the date of theEncounter. The data comes from all [place] treatment facilities. Test Date/Time Test Type Test Details Facility Name Sep 02, 2024 07:43 AM Laboratory - Chemi stry Order T3, FREE (QU) BLOOD (SST-SERUM) [facility] Social History: Smoking Status (Most current) and Tobacco Use (All prior to encounter date) This section includes the most current, and the historical, smoking and tobacco- related health factors from the [place] facility where the Encounter took place. Current Smoking Status This section includes the most current smoking, or tobacco-related health factor, from the [place] facility where the Encounter took place. Date/Time Current Smoking Status Comment [facility] it Mar 11, 2024 09:00 AM VA-TOBACCO FORMER USER [facility] Tobacco Use History This section includes a history of the smoking, or tobacco-related health factors, that were collected on or before the date of the Encounter. The data comes from the [place] facility where the Encounter took place. Date/Time Smoking Status/Tobac co Use Comment Facility Mar 11, 2024 09:00 AM VA-TOBACCO QUIT 15 YRS OR MORE [place] [facility] [place] [facility] Mar 06, 2023 09:00 AM VA-TOBACCO FORMER USER [place] [facility] [place] [facility] Mar 06, 2023 09:00 AM VA-TOBACCO QUIT 15 YRS OR MORE [place] [facility] [place] [facility] Feb 16, 2022 09:30 AM VA-TOBACCO FORMER USER [place] [facility] [place] [facility] Feb 16, 2022 09:30 AM VA-TOBACCO QUIT 15 YRS OR MORE [place] [facility] [place] [facility] Feb 09, 2021 09:00 AM VA-TOBACCO FORMER USER [place] [facility] [place] [facility] Feb 09, 2021 09:00 AM VA-TOBACCO QUIT 15 YRS OR MORE [place] [facility] [place] [facility] Jan 01, 2020 10:15 AM VA-TOBACCO [facility] [place] [facility] Jan 01, 2020 10:15 AM VA-TOBACCO QUIT 15 YRS OR MORE [facility] Mar 12, 2018 08:56 AM VA-TOBACCO [facility]ER [facility] [place] [facility] Mar 12, 2018 08:56 AM VA-TOBACCO QUIT 15 YRS OR MORE [facility] Mar 12, 2018 08:24 AM LIFETIME NON-TOBACCO USER [facility] [place] [facility] Mar 13, 2017 07:44 AM LIFETIME NON-TOBACCO USER [facility] [place] [facility] Mar 11, 2016 07:54 AM QUIT TOBACCO USE > 7 YEARS AGO [facility] Aug 17, 2005 10:23 AM HISTORY OF SMOKING Vet states he quit in 1984 [facility] May 19, 2004 08:56 AM HISTORY OF SMOKING quit 1980s. [facility] [place] [facility] May 19, 2003 09:15 AM HISTORY OF SMOKING quit 10yrs ago [facility] Jun 06, 2002 08:13 AM HISTORY OF SMOKING quit [facility] Jun 06, 2002 08:13 AM QUIT TOBACCO USE > 7 YEARS AGO [facility] Apr 30, 2001 04:07 PM HISTORY OF SMOKING quit - 1984 [facility] Advance Directives: All historical and current Section Date Range: From patient's date of to the date document was created. This section includes ALL of a patient's completed or amended [place] Advance and Rescinded Directives. The entries below indicate that a directive exists for the patient, but an actual copy is not included with this document. The data comes from all [place] facilities. Date Advance Directives Provider Source Mar 12, 2024 ADVANCE DIRECTIVE [facility] Encounter Notes: All associated encounter notes This section contains the clinical notes associated to the Encounter. Date/Time Encounter Note(s) Provider Source Jul 26, 2024 08:41 AM OPTOMETRY NOTE: LOCAL TITLE: OPTOMETRY NOTE(T) STANDARD TITLE: OPTOMETRY NOTE DATE OF NOTE: JUL 26, 2024@08:41 ENTRY DATE: JUL 26, 2024@08:41:19 AUTHOR: EUSEBIO ADLER EXP COSIGNER: URGENCY: STATUS: COMPLETED I saw this patient in conjunction with the student and agree to the stated findings and plan after reviewing both history and repeating diaz elements of physical exam. Patient presents for comprehensive exam well-known to me with history of mixed mechanism glaucoma OU, pseudophakia, mild ERM OU, and longstanding intermittent diplopia (ghosting) since cataract surgery and refraction disorder. Otherwise no other acute ocular disease was seen today. Patient will continue to Simbrinza and ordered PAL today. The patient will return in 6 months or sooner if any problems arise. /kathy/ EUSEBIO ADLER OD STAFF CHIEF SAFETY OFFICER Signed: 07/26/2024 08:44 EUSEBIO ADLER [place] [facility] Jul 26, 2024 07:20 AM OPTOMETRY NOTE: LOCAL TITLE: OPTOMETRY NOTE STANDARD TITLE: OPTOMETRY NOTE DATE OF NOTE: JUL 26, 2024@07:20 ENTRY DATE: JUL 26, 2024@07:20:08 AUTHOR: TANI ELLIOTT EXP COSIGNER: EUSEBIO ADLER URGENCY: STATUS: COMPLETED Active problems - Computerized Problem List is the source for the followin. Weakness 2. Peripheral vascular disease 3. Vitamin D deficiency 4. Sick euthyroid syndrome 5. COVID-19 6. Pain in lower limb 7. Edema 8. Insomnia (SCT [id number]) 9. Microscopic hematuria 10. Atrial flutter 11. Benign Prostatic Hypertrophy Without Outflow Obstruction (SCT [id number]) 12. Osteopenia 13. ENCOUNTER FOR SCREENING FOR DENTAL DISORDERS 14. OTHER SPECIFIED DISORDERS OF TEETH AND SUPPORTING STRUCTURES 15. Excessive attrition of teeth 16. Otalgia 17. 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 Hyperlipidemia 22. colonoscopy and endoscopy done on jun 2007-normal 23. Gout (SNOMED CT [id number]) 24. Knee: arthralgia * 25. Male erectile disorder 26. Essential hypertension Active Outpatient Medications (including Supplies): Active Outpatient [...] MOUTH TWICE DAILY ACTIVE 8 Total Medications Allergies: METOPROLOL, FELODIPINE, NEOMYCIN, LATEX, LATANOPROST, GEMTESA All medications including those prescribed by outside VA's, community providers, and all OTC meds were reviewed and reconciled with patient to the best of their abilities. This 89 year old MALE is seen today for 6mo f/u glaucoma DFE MARKO: 11/29/23 Chief Complaint: reported he is in good compliance taking Simbrinza 1gtt BID OU and has not missed any drops. He admitted that he still sees bilateral double vision occasionally when looking at a certain gaze but never when he is driving. He close one eyes to avoid diplopia when this happened. Glaucoma medication: Simbrinza OU BID Glaucoma surgery: None FHx of glaucoma: Mother OHx: 1. 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 Macular pucker OU 3. Pseudophakia OU 4. History of bilateral diplopia s/p cataract sx but asymptomatic at previous exam 5. RE (-) Pain: (-) RENEE: (-) Diplopia: Intermittent s.p cataract sx when looking at a certain angles but denied having trouble when driving (-) Flashes: (-) Floaters: (-) Amaurosis Fugax/Tia's: (-) Eye Injury: (+) Eye Surgery: CE with PCIOL OU (-) TBI FOHx: (+) Glaucoma: Mother (-) ARMD (+) Blindness: Brother VITALS (most recent, as listed in the electronic record): B/P: 118/62 (03/11/2024 09:23) Pulse: 72 (03/11/2024 08:47) Temperature: 96.9 F [36.1 C] (03/11/2024 08:47) Weight: 178.3 lb [80.88 kg] (03/11/2024 08:47) Height: 69 in [175.3 cm] (03/11/2024 08:47) BMI: BMI: 26.4 PERTINENT LABS: HEMOGLOBIN A1C TREND No data available (-) Smoker/Length of Time/PPD: Current Rx with last BCVA: OD: +0.75-0.50 x045 20/25- OS: +0.75 sph 20/25- Add:+2.50 DVA ( )sc ( x )cc - phoropter OD: 20/25-1 OS: 20/20 Pupils: PERRL (-)APD EOMs: SAFE OU, (-)Pain/Diplopia CVF (facial, peripheral): FTFC OU Subjective Refraction: OD: +0.75-0.50 x045 20/20 OS: +0.75 sph 20/25- Add:+2.50 20/30 not improved with higher ADD Final SRx OD: +0.75-0.50 x045 OS: +0.75 sph Add:+2.50 All the above performed by student, reviewed by attending Anterior segment: Performed by student, repeated by attending Lids: Trace blepharitis and dermatochalasis OU Conj: white and quiet OU Cornea: Trace gluttata OS>OD (-)k spindle OU (+) scar in the temporal near limbus from cataract sx OU AC: D&Q OU Angles: 4x4 OU Iris: Pseudoexfoliative materials at pupillary border (+) TID at 7 o'clock OU by pupillary margin Lens: PCIOL OU well centered and clear OU Tonometry: Performed by student, reviewed by attending [x ] GAT [ ] iCare OD 14 mmHg OS 14 mmHg Time: Tmax: OD: 23 OS: 26 Last IOP OD: 14 OS: 13 Pachymetry: OD: 550 OS: 545 Fundus exam: Dilated: xxxx Non dilated: Dilating Drops: 1GTT 1 % Tropicamide OU & 1GTT 2.5% Phenylephrine OU (Pt. ed. on side effects, dilation warning given and verbal consent obtained) Patient advised not to drive if they feel they have any symptoms which could affect their ability to drive safely. Patient advised not to engage in any activities which could put themselves or others at risk if they feel they have any symptoms which could affect their ability to perform those activities safely. Performed by student, repeated by attending Vit: PVD OU C/D: 0.65 OU pink & healthy rim tissue,(-)Drance heme Macula: Mild ERM OU PPole: clear OU A/V: 2/3 Vessels: Generalized narrowing of vessels OU Periph: flat and intact (-) holes, tears, detachments 360 OU Assessment/Plan: 1. 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 Thinner than average corneal thickness OU. Pt is in good compliance taking Simbrinza OU. Optic nerve rim tissues look healthy and stable OU. Positive family history of glaucoma (mother) - IOP today: 14/14mmHg - Continue to take Simbrinza 1gtt BID OU as directed - Pt ed about today's findings - RTC in 6mo with repeated RNFL OCT and HVF 24-2 2. Macular pucker OU - Stable - Monitor 3. Pseudophakia OU - Well-centered and stable OU - Monitor 4. Intermittent, longstanding bilateral diplopia s/p cataract sx but asymptomatic at this exam. - Stable, Pt has adapted to double vision and discussed with pt about prism option. Pt denied having any concerns at this visit and deferred trying prism - Monitor 5. Hyperopia and presbyopia OU - Order duplication for PALs - Monitor Return to Clinic 6mo with imaging or earlier PRN Education: After discussion and answering all 's questions, demonstrated and verbalized understanding of diagnosis and [...] whether with a VA or non-VA provider. /kathy/ TANI ELLIOTT OPTOMETRY STUDENT Signed: 07/26/2024 09:23 /kathy/ EUSEBIO ADLER STAFF CHIEF SAFETY OFFICER Cosigned: 07/26/2024 09:36 TANI ELLIOTT [facility]
--- OUTSIDE RECORDS SUMMARY | 2024-09-06 11:07 | XMS_ITS | Encounter Summary ---
Author Name [facility] [place] Address [address] [place] [address] Care Team Providers Care Seasonal Recruiter Name Role Phone LEOPOLDO JACOBSEN Primary Care [...] Name Patient's Relationship to Policy Lai MELISSA [facility] ([facility]) MEDICARE ADVANTAGE [facility] ([facility]) Sep 11, 2015 [id number] MOONJung GANESHOLEGARIO Jung PATIENT [facility] ([facility]) MEDICARE ADVANTAGE [facility] ([facility]) Sep 11, 2015 [id number] [phone] OLEGARIO DUNN PATIENT MEDICARE (WN) MEDICARE () PART A Feb 09, 2001 PART A [id number] 56A OLEGARIO DUNN PATIENT MEDICARE (WN) MEDICARE () PART B Feb 09, 2001 PART B [id number] 56A OLEGARIO DUNN PATIENT MEDICARE (WN) MEDICARE () PART A Feb 09, 2001 PART A [id number] 56A OLEGARIO DUNN PATIENT MEDICARE ([facility]) MEDICARE (M) PART B Feb 09, 2001 PART B [id number] 56A HYUNLAURENCERAFATJung OLEGARIO ANDERSEN PATIENT Selected Encounter This section includes the information on record at [place] for the Encounter. Date/Time Encounter Type Encounter Description Reason Provider Source Apr 23, 2024 02:00 PM THERAPEUTIC EXERCISES PHYSICAL THERAPY ICD-10-CM N40.0 Benign prostatic hyperplasia without lower urinry tract symp XAVIER BALDERRAMA E Encounter Template Text not used by [place] Assessments - Encounter Diagnoses This section includes the primary and secondary diagnoses documented for the Encounter. Date/Time Primary/Secondary Diagnosis Diagnosis Name Provider Source Apr 23, 2024 03:14 PM PRIMARY Benign prostatic hyperplasia without lower urinry tract symp RONEN BALDERRAMA [place] [facility] [place] [facility] Plan of Treatment: Future Appointments (+ 6 months) and Future Tests (+/- 45 days) The Plan of Treatment section includes future care activities for the patient from all [place] treatmentfacilities. This section includes future appointments and future orders which are active, pending or scheduled. Future Appointments This section includes appointments that were scheduled to occur 6 months from the date of the Encounter, up to a maximum of 20 appointments. The data comes from all [place] treatment facilities. Appointment Date/Time Appointment Type Appointme nt Facility Name Apr 29, 2024 02:00 PM AMBULATORY - REHAB MEDICIN E [facility] [place] [facility] May 06, 2024 01:30 PM AMBULATORY - REHAB MEDICIN E [facility] [place] [facility] May 07, 2024 01:00 PM AMBULATORY - REHAB MEDICIN E [facility] [place] [facility] May 08, 2024 09:45 AM AMBULATORY - REHAB MEDICIN E [facility] [place] [facility] May 15, 2024 01:30 PM AMBULATORY - REHAB MEDICIN E [facility] [place] [facility] May 23, 2024 08:00 AM AMBULATORY - REHAB MEDICIN E [facility] [place] [facility] May 27, 2024 01:30 PM AMBULATORY - REHAB MEDICIN E [facility] [place] [facility] Jun 04, 2024 08:00 AM AMBULATORY - REHAB MEDICIN E [facility] [place] [facility] Jun 11, 2024 11:00 AM AMBULATORY - MEDICINE VA [facility] [place] [facility] Jun 18, 2024 01:00 PM AMBULATORY - REHAB MEDICIN E [facility] [place] [facility] Jul 03, 2024 11:30 AM AMBULATORY - MEDICINE [facility] [place] [facility] Jul 09, 2024 07:30 AM AMBULATORY - NONE [facility] [place] [facility] Jul 12, 2024 10:00 AM AMBULATORY - NONE [facility] [place] [facility] Jul 26, 2024 08:00 AM AMBULATORY - MEDICINE VA [facility] [place] [facility] Aug 01, 2024 11:00 AM AMBULATORY - MEDICINE [facility] [place] [facility] Sep 09, 2024 09:00 AM AMBULATORY - MEDICINE [facility] [place] [facility] Sep 09, 2024 10:00 AM AMBULATORY - MEDICINE [facility] [place] [facility] Sep 12, 2024 09:00 AM AMBULATORY - REHAB MEDICIN E [facility] [place] [facility] Social History: Smoking Status (Most current) and Tobacco Use (All prior to encounter date) This section includes the most current, and the historical, smoking and tobacco- related health factors from the [place] facility where the Encounter took place. Current Smoking Status This section includes the most current smoking, or tobacco-related health factor, from the [place] facility where the Encounter took place. Date/Time Current Smoking Status Comment [facility] Mar 11, 2024 09:00 AM VA-TOBACCO FORMER USER [place] [facility] Tobacco Use History This section includes a history of the smoking, or tobacco-related health factors, that were collected on or before the date of the Encounter. The data comes from the [place] facility where the Encounter took place. Date/Time Smoking Status/Tobac co Use Comment Facility Mar 11, 2024 09:00 AM VA-TOBACCO QUIT 15 YRS OR MORE [facility] [place] [facility] Mar 06, 2023 09:00 AM VA-TOBACCO FORMER USER [facility] [place] [facility] Mar 06, 2023 09:00 AM VA-TOBACCO QUIT 15 YRS OR MORE [facility] [place] [facility] Feb 16, 2022 09:30 AM VA-TOBACCO FORMER USER [facility] [place] [facility] Feb 16, 2022 09:30 AM VA-TOBACCO QUIT 15 YRS OR MORE [facility] [place] [facility] Feb 09, 2021 09:00 AM VA-TOBACCO FORMER USER [facility] [place] [facility] Feb 09, 2021 09:00 AM VA-TOBACCO QUIT 15 YRS OR MORE [facility] [place] [facility] Jan 01, 2020 10:15 AM VA-TOBACCO FORMER USER [facility] [place] [facility] Jan 01, 2020 10:15 AM VA-TOBACCO QUIT 15 YRS OR MORE [facility] [place] [facility] Mar 12, 2018 08:56 AM VA-TOBACCO FORMER USER [facility] [place] [facility] Mar 12, 2018 08:56 AM VA-TOBACCO QUIT 15 YRS OR MORE [place] [facility] [place] [facility] Mar 12, 2018 08:24 AM LIFETIME NON-TOBACCO USER [place] [facility] [place] [facility] Mar 13, 2017 07:44 AM LIFETIME NON-TOBACCO USER [place] [facility] [place] [facility] Mar 11, 2016 07:54 AM QUIT TOBACCO USE > 7 YEARS AGO Quit in 1984 [place] [facility] [place] [facility] Aug 17, 2005 10:23 AM HISTORY OF SMOKING Vet states he quit in 1984 [place] [facility] [place] [facility] May 19, 2004 08:56 AM HISTORY OF SMOKING quit 1980s. [place] [facility] [place] [facility] May 19, 2003 09:15 AM HISTORY OF SMOKING quit 10yrs ago [place] [facility] [place] [facility] Jun 06, 2002 08:13 AM HISTORY OF SMOKING quit 1978 [place] [facility] [place] [facility] Jun 06, 2002 08:13 AM QUIT TOBACCO USE > 7 YEARS AGO [place] [facility] [place] [facility] Apr 30, 2001 04:07 PM HISTORY OF SMOKING quit - 1984 [place] [facility] [place] [facility] Advance Directives: All historical and current Section Date Range: From patient's date of to the date document was created. This section includes ALL of a patient's completed or amended [place] Advance and Rescinded Directives. The entries below indicate that a directive exists for the patient, but an actual copy is not included with this document. The data comes from all [place] facilities. Date Advance Directives Provider Source Mar 12, 2024 ADVANCE DIRECTIVE JENNIFFER DOAN [facility] Encounter Notes: All associated encounter notes This section contains the clinical notes associated to the Encounter. 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 states that he is drinking more water, but still, dribbling every day , especially when he stands up and when he gets out of the shower. O: Rx. this date: glute squeezes in supine c knees bent, squats with squeezing in of knees for adductors at counter top; 10 reps x 3 sets of each A: Pt. c ability to contract his abdominal musculature but difficulty ze his glutes and his adductors, both important muscle groups for controlling UI. P: butterfly sit-ups, modified, adductor and glute strengthening c MANAGER DIGITAL. /es/ RONIT RAMOS PHYSICAL THERAPIST/SERVICE SALES APPLICATIONS ENGINEERDROP HAMMER MECHANIC Signed: 04/23/2024 15:33 RONEN BALDERRAMA [place] [facility]
--- OUTSIDE RECORDS SUMMARY | 2024-09-06 11:07 | XMS_ITS ---
Author Name [facility] [place] Address [address] [place] [id number] Care Team Providers Care Careers Adviser Name Role Phone LEOPOLDO JACOBSEN Primary Care [...] Name Patient's Relationship to Policy Lai MELISSA [facility] MEDICARE ADVANTAGE [facility] ([facility]) Sep 11, 2015 [id number] FANNIE ANDERSENOLEGARIO Jung PATIENT [facility] ([facility] [place]) MEDICARE ADVANTAGE [facility] ([facility]) Sep 11, 2015 [id number] [phone] OLEGARIO DUNN PATIENT MEDICARE (WNR) MEDICARE () PART A Feb 09, 2001 PART A [id number] [phone] OLEGARIO DUNN PATIENT MEDICARE (WN) MEDICARE () PART B Feb 09, 2001 PART B [id number] OLEGARIO DUNN PATIENT MEDICARE (WNR) MEDICARE () PART A Feb 09, 2001 PART A [id number] 56A OLEGARIO DUNN PATIENT MEDICARE (WN) MEDICARE () PART B Feb 09, 2001 PART B [id number] HYUNTIMOTHY OLEGARIO ANDERSEN PATIENT Selected Encounter This section includes the information on [place] at [place] for the Encounter. Date/Time Encounter Type Encounter Description Reason Provider Source Apr 11, 2024 01:00 PM HEARING AID EXAM BOTH EARS AUDIOLOGY ICD-10-CM H90.3 Sensorineural hearing loss, bilateral SHARANDEVORA L E Encounter Template Text not used by [place] Assessments - Encounter Diagnoses This section includes the primary and secondary diagnoses documented for the Encounter. Date/Time Primary/Secondary Diagnosis Diagnosis Name Provider Source Apr 11, 2024 05:37 PM PRIMARY Sensorineural hearing loss, bilateral DEVORA Weiss [place] [facility] [place] [facility] Plan of Treatment: Future Appointments [...] Appointment Type Appointme nt Facility Name Apr 23, 2024 02:00 PM AMBULATORY - [facility]ICIN E [facility] [place] [facility] Apr 29, 2024 02:00 PM AMBULATORY - REHAB MEDICIN E [facility] [place] [facility] May 06, 2024 01:30 PM AMBULATORY - REHAB MEDICIN E [facility] [place] [facility] May 07, 2024 01:00 PM AMBULATORY - REHAB MEDICIN E [facility] [place] [facility] May 08, 2024 09:45 AM AMBULATORY - REHAB MEDICIN E [facility] [place] [facility] May 15, 2024 01:30 PM AMBULATORY - REHAB MEDICIN E [facility] [place] [facility] May 23, 2024 08:00 AM AMBULATORY - REHAB MEDICIN E [facility] [place] [facility] May 27, 2024 01:30 PM AMBULATORY - REHAB MEDICIN E [facility] [place] [facility] Jun 04, 2024 08:00 AM AMBULATORY - REHAB MEDICIN E [facility] [place] [facility] Jun 11, 2024 11:00 AM AMBULATORY - MEDICINE [facility] [place] [facility] Jun 18, 2024 01:00 PM AMBULATORY - REHAB MEDICIN E [facility] [place] [facility] Jul 03, 2024 11:30 AM AMBULATORY - MEDICINE [facility] [place] [facility] Jul 09, 2024 07:30 AM AMBULATORY - NONE [facility] [place] [facility] Jul 12, 2024 10:00 AM AMBULATORY - NONE [facility] [place] [facility] Jul 26, 2024 08:00 AM AMBULATORY - MEDICINE [facility] [place] [facility] Aug 01, 2024 11:00 AM AMBULATORY - MEDICINE [facility] [place] [facility] Sep 09, 2024 09:00 AM AMBULATORY - MEDICINE [facility] [place] [facility] Sep 09, 2024 10:00 AM AMBULATORY - MEDICINE [facility] [place] [facility] Sep 12, 2024 09:00 AM AMBULATORY - REHAB MEDICIN E [facility] [place] [facility] Social History: Smoking [...] took place. Date/Time Current Smoking Status Comment [facility] Mar 11, 2024 09:00 AM VA-TOBACCO QUIT 15 YRS OR MORE [place] [facility] [place] [facility] Tobacco Use History This section includes a history of the smoking, or tobacco-related health factors, that were collected on or before the date of the Encounter. The data comes from the [place] facility where the Encounter took place. Date/Time Smoking Status/Tobac co Use Comment Facility Mar 11, 2024 09:00 AM VA-TOBACCO QUIT 15 YRS OR MORE [place] [facility] [facility] Mar 06, 2023 09:00 AM VA-TOBACCO FORMER USER [place] [facility] [place] [facility] Mar 06, 2023 09:00 AM VA-TOBACCO QUIT 15 YRS OR MORE [place] [facility] [place] [facility] Feb 16, 2022 09:30 AM VA-TOBACCO FORMER USER [place] [facility] [place] [facility] Feb 16, 2022 09:30 AM VA-TOBACCO QUIT 15 YRS OR MORE [place] [facility] [facility] Feb 09, 2021 09:00 AM VA-TOBACCO FORMER USER [place] [facility] [place] [facility] Feb 09, 2021 09:00 AM VA-TOBACCO QUIT 15 YRS OR MORE [place] [facility] [facility] Jan 01, 2020 10:15 AM VA-TOBACCO FORMER USER [place] [facility] [place] [facility] Jan 01, 2020 10:15 AM VA-TOBACCO QUIT 15 YRS OR MORE [place] [facility] [place] [facility] Mar 12, 2018 08:56 AM VA-TOBACCO FORMER USER [place] [facility] [place] [facility] Mar 12, 2018 08:56 AM VA-TOBACCO QUIT 15 YRS OR MORE [place] [facility] [place] [facility] Mar 12, 2018 08:24 AM LIFETIME NON-TOBACCO USER [place] [facility] [place] [facility] Mar 13, 2017 07:44 AM LIFETIME NON-TOBACCO USER [place] [facility] [place] [facility] Mar 11, 2016 07:54 AM QUIT TOBACCO USE > 7 YEARS AGO [place]uit in 1984 [place] [facility] [facility] Aug 17, 2005 10:23 AM HISTORY OF SMOKING Vet states he quit in 1984 [place] [facility] [place] [facility] May 19, 2004 08:56 AM HISTORY OF SMOKING quit 1980s. [place] [facility] [place] [facility] May 19, 2003 09:15 AM HISTORY OF SMOKING quit 10yrs ago [place] [facility] [place] [facility] Jun 06, 2002 08:13 AM HISTORY OF SMOKING quit 1978 [place] [facility] [facility] Jun 06, 2002 08:13 AM QUIT TOBACCO USE > 7 YEARS AGO [place] [facility] [place] [facility] Apr 30, 2001 04:07 PM HISTORY OF SMOKING [facility] [place] [facility] Advance Directives: All historical [...] 12, 2024 ADVANCE DIRECTIVE JENNIFFER DOAN [place] [facility] Encounter Notes: All associated encounter notes This section contains the clinical notes associated to the Encounter. Date/Time Encounter Note(s) Provider Source Apr 11, 2024 12:59 PM AUDIOLOGY E & M NOTE: LOCAL TITLE: AUDIOLOGY CLINIC STANDARD TITLE: AUDIOLOGY E & M NOTE DATE OF NOTE: APR 11, 2024@12:59 ENTRY DATE: APR 11, 2024@12:59:50 AUTHOR: DEVORA VELAZQUEZ COSIGNER: URGENCY: STATUS: COMPLETED AUDIOLOGY CLINIC Has ADDENDA Dx CODE: H90.3-Sensorineural Hearing Loss, Bilateral APPOINTMENT TYPE: Hearing Re-Evaluation and Hearing Aid Selection BACKGROUND/HISTORY: Mansfield was seen today for a hearing re-evaluation and hearing aid selection appointment, unaccompanied. He was fit on 03/31/21 with LYDIA DICKSON ITCs and reports a decline in benefit from these devices. notes that the left aid doesn't fit comfortably. He is eligible for new [facility] aids through the [facility] due to the age of the current devices. His last hearing evaluation was on 03/03/2021 and he believes his hearing has declined somewhat since then. denies tinnitus and vertigo. Medical history includes: Active problems - Computerized Problem List is the source for the followin. Weakness 2. Peripheral vascular disease 3. Vitamin D deficiency 4. Sick euthyroid syndrome 5. COVID-19 6. Pain in lower limb 7. Edema 8. Insomnia (SCT [id number]) 9. Microscopic hematuria 10. Atrial flutter 11. Benign Prostatic Hypertrophy Without Outflow Obstruction ([facility] [id number]) 12. Osteopenia 13. ENCOUNTER FOR SCREENING FOR DENTAL DISORDERS 14. OTHER SPECIFIED DISORDERS OF TEETH AND SUPPORTING STRUCTURES 15. Excessive attrition of teeth 16. Otalgia 17. 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 Hyperlipidemia 22. colonoscopy and endoscopy done on jun 2007-normal 23. Gout (SNOMED CT [id number]) 24. Knee: arthralgia * 25. Male erectile disorder 26. Essential hypertension ASSESSMENT: Results of today's testing are as follows: Otoscopy revealed clear canals bilaterally, with a small scratch in the right ear and a slightly larger scratch with dried blood in the left canal. Mansfield states this was from use of a Q-tip. Normal tympanograms obtained bilaterally. Pure tone audiometric testing under headphones in the right ear revealed normal hearing at 250 Hz, sloping to a mild to severe sensorineural hearing loss (SNHL) from 500-8000 Hz. Testing in the left ear revealed mild sloping to profound SNHL from 250-8000 Hz. SRT WORD RECOGNITION (Recorded [place] CNC 1/2 Word List) Right 40dBHL 88% @ 85dBHL/40dBm Left 40dBHL 52% @ 85dBHL/40dBm Compared to testing from 2020, hearing in the right ear has decreased by 15dBHL at 1000 Hz and hearing in the left ear has decreased by 20dBHL at 2000 Hz and 15dBHL at 3000 Hz. HEARING AID CHECK: Both hearing aids were cleaned and checked, and found to be in good working order. Microphone covers were replaced and extended pin inserter regulator tubing was vacuumed. Hearing aids were reprogrammed to today's audiogram and VC was unsynced at 's request. HEARING AID SELECTION: Different hearing aid options were discussed. He is interested in technology similar to his previous hearing aids. He would prefer to remain with 312 batteries. He prefers unsynced VC with VC wheels. [employer] ITCs were selected and ordered in [facility]. With Mansfield's verbal consent, earmold impressions were taken bilaterally without incident. EDUCATION/COUNSELING: The patient was counseled re: today's hearing test results. He demonstrated satisfactory understanding of the education and plan, and was given the opportunity to ask questions throughout today's visit. PLAN: 1. RTC on 05/07/24 at 1:00PM in clinic D for 60 minute hearing aid fitting appointment. 2. Hearing re-evaluation in 3-5 years, or sooner if change in hearing occurs. Patient Education Education provided on the following topics: Hearing test results Education provided to: P Response to Education: VU [place] Patient P Family F Significant Other SO Verbalizes Understanding VU Returns Demonstration RD Performs Independently PI Lacks Comprehension LC Refused Education RE Not Applicable NA /ROLANDO Saleem, CCC-A STAFF FRONT CLERK Signed: 04/11/2024 17:37 Receipt Acknowledged By: 04/15/2024 08:10 /kathy/ ELIZA LIGHT LEAD INFRASTRUCTURE ANALYST 04/24/2024 ADDENDUM STATUS: COMPLETED Hearing aids received and certified, upcoming appointment scheduled on 05/07/2024. /kathy/ RENATE MIRANDA Audiology Health Product Steward Signed: 04/24/2024 09:04 DEVORA VELAZQUEZ [facility]
--- OUTSIDE RECORDS SUMMARY | 2024-09-06 11:07 | XMS_ITS | Encounter Summary ---
Author Name [facility] [place] [facility] [place] Address [address] [place] [id number] Care Team Providers Care Orange Picker Name Role Phone JACOBSEN LEOPOLDO Primary Care [...] Name Patient's Relationship to Policy Lai MELISSA [facility] ([facility]) MEDICARE ADVANTAGE [facility] ([facility]) Sep 11, 2015 [id number] OLEGARIO DUNN PATIENT [facility] ([facility]) MEDICARE ADVANTAGE [facility] ([facility]) Sep 11, 2015 [id number] OLEGARIO DUNN PATIENT MEDICARE (WNR) MEDICARE ([place]) PART A Feb 09, 2001 PART A [id number] 56A OLEGARIO DUNN PATIENT MEDICARE (WN) MEDICARE (M) PART B Feb 09, 2001 PART B [id number] 56A OLEGARIO DUNN PATIENT MEDICARE (WNR) MEDICARE (M) PART A Feb 09, 2001 PART A [id number] [phone] OLEGARIO DUNN PATIENT MEDICARE (WN) MEDICARE ([place]) PART B Feb 09, 2001 PART B [id number] OLEGARIO DUNN PATIENT Selected Encounter This section includes the information on record at [place] for the Encounter. Date/Time Encounter Type Encounter Description Reason Provider Source Jul 26, 2024 08:43 AM FIT SPECTACLES BIFOCAL OPTOMETRY ICD-10-CM Z46.0 Encounter for fit/adjst of spectacles and contact lenses EUSEBIO ADLER Sharda Encounter Template Text not used by [place] Assessments - Encounter Diagnoses This section includes the primary and secondary diagnoses documented for the Encounter. Date/Time Primary/Secondary Diagnosis Diagnosis Name Provider Source Jul 26, 2024 08:43 AM PRIMARY Encounter for fit/adjst of spectacles and contact lenses NENITA ABERNATHY [place] [facility] [place] [facility] Plan of Treatment: Future Appointments (+ 6 months) and Future Tests (+/- 45 days) The Plan of Treatment section includes future care activities for the patient from all [place] treatmentfacilities. This section includes future appointments and future orders which are active, pending or scheduled. Future Appointments This section includes appointments that were scheduled to occur 6 months from the date of the Encounter, up to a maximum of 20 appointments. The data comes from all [place] treatment facilities. Appointment Date/Time Appointment Type Appointme nt Facility Name Aug 01, 2024 11:00 AM AMBULATORY - MEDICINE [facility] [place] [facility] Sep 09, 2024 09:00 AM AMBULATORY - MEDICINE [facility] [place] [facility] Sep 09, 2024 10:00 AM AMBULATORY - MEDICINE [place] [facility] [place] [facility] Sep 12, 2024 09:00 AM AMBULATORY - REHAB MEDICIN E [place] [facility] [place] [facility] Nov 07, 2024 02:00 PM AMBULATORY - MEDICINE [place] [facility] [place] [facility] Dec 31, 2024 07:30 AM AMBULATORY - NONE [place] [facility] [place] [facility] Active, Pending, and Scheduled Orders This section includes a listing of several types of active, pending, and scheduled orders, including clinic medications orders, diagnostic test orders, procedure orders and consult orders; where the start date of the order is 45 days before the date of the Encounter or 45 days after the date of theEncounter. The data comes from all [place] treatment facilities. Test Date/Time Test Type Test Details Facility Name Sep 02, 2024 07:43 AM Laboratory - Chemi stry Order T3, FREE (QU) BLOOD (SST-SERUM) SP [place] [facility] [place] [facility] Social History: Smoking Status (Most current) and Tobacco Use (All prior to encounter date) This section includes the most current, and the historical, smoking and tobacco- related health factors from the [place] facility where the Encounter took place. Current Smoking Status This section includes the most current smoking, or tobacco-related health factor, from the [place] facility where the Encounter took place. Date/Time Current Smoking Status Comment [facility] Mar 11, 2024 09:00 AM VA-TOBACCO FORMER USER [place] [facility] [place] [facility] Tobacco Use History This section includes a history of the smoking, or tobacco-related health factors, that were collected on or before the date of the Encounter. The data comes from the [place] facility where the Encounter took place. Date/Time Smoking Status/Tobac co Use Comment Facility Mar 11, 2024 09:00 AM VA-TOBACCO QUIT 15 YRS OR MORE [place] [facility] [place] [facility] Mar 06, 2023 09:00 AM VA-TOBACCO FORMER USER [place] [facility] [place] [facility] Mar 06, 2023 09:00 AM VA-TOBACCO QUIT 15 YRS OR MORE [place] [facility] [place] [facility] Feb 16, 2022 09:30 AM VA-TOBACCO FORMER USER [place] [facility] [place] [facility] Feb 16, 2022 09:30 AM VA-TOBACCO QUIT 15 YRS OR MORE [place] [facility] [place] [facility] Feb 09, 2021 09:00 AM VA-TOBACCO FORMER USER [place] [facility] [place] [facility] Feb 09, 2021 09:00 AM VA-TOBACCO QUIT 15 YRS OR MORE [place] [facility] [place] [facility] Jan 01, 2020 10:15 AM VA-TOBACCO FORMER USER [place] [facility] [place] [facility] Jan 01, 2020 10:15 AM VA-TOBACCO QUIT 15 YRS OR MORE [place] [facility] [place] [facility] Mar 12, 2018 08:56 AM VA-TOBACCO FORMER USER [place] [facility] [place] [facility] Mar 12, 2018 08:56 AM VA-TOBACCO QUIT 15 YRS OR MORE [facility] Mar 12, 2018 08:24 AM LIFETIME NON-TOBACCO USER [facility] Mar 13, 2017 07:44 AM LIFETIME NON-TOBACCO USER [facility] Mar 11, 2016 07:54 AM QUIT TOBACCO USE > 7 YEARS AGO Quit in 1984 [facility] Aug 17, 2005 10:23 AM HISTORY OF SMOKING Vet states he quit in 1984 [facility] May 19, 2004 08:56 AM HISTORY OF SMOKING quit . [facility] May 19, 2003 09:15 AM HISTORY OF SMOKING quit 10yrs ago [facility] Jun 06, 2002 08:13 AM HISTORY OF SMOKING quit 1978 [facility] Jun 06, 2002 08:13 AM QUIT TOBACCO USE > 7 YEARS AGO [facility] Apr 30, 2001 04:07 PM HISTORY OF SMOKING quit - 1984 [facility] Advance Directives: All historical and current Section Date Range: From patient's date of to the date document was created. This section includes ALL of a patient's completed or amended [place] Advance and Rescinded Directives. The entries below indicate that a directive exists for the patient, but an actual copy is not included with this document. The data comes from all [place] facilities. Date Advance Directives Provider Source Mar 12, 2024 ADVANCE DIRECTIVE [facility]ENNIFFER [facility]AN [facility] Encounter Notes: All associated encounter notes This section contains the clinical notes associated to the Encounter. Date/Time Encounter Note(s) Provider Source Jul 26, 2024 08:43 AM OPTOMETRY NOTE: LOCAL TITLE: OPTOMETRY NOTE STANDARD TITLE: OPTOMETRY NOTE DATE OF NOTE: JUL 26, 2024@08:43 ENTRY DATE: JUL 26, 2024@08:43:33 AUTHOR: DEVORA MURPHY COSIGNER: URGENCY: STATUS: COMPLETED OPTOMETRY NOTE Has ADDENDA The quote provided below is for informational purposes only. Please verify prior to the creation of a purchase order. EUSEBIO PEREZ 8156 RX INFORMATION OD +0.75 -0.50 X45 Add:+2.50 Pzm:0.00 Dir: Prz2:0.00 Dir2: OS +0.75 0.00 X Add:+2.50 Pzm:0.00 Dir: Prz2:0.00 Dir2: FITTING INFORMATION FPD:68 NPD:65 [place]:R: L: SEG HT:R:15 L:15 Tint:None Shade:None [place] Billable Items FRAME: PT55 GOLD 56-20-218 Right Lens: PLASTIC BIFOCAL FT28 PHOTOCHROMIC QIU 1.498 PLASTIC CR39 Left Lens: PLASTIC BIFOCAL FT28 PHOTOCHROMIC QIU 1.498 PLASTIC CR39 CLIN items 0002 - Bifocal - Glass Plastic Poly 0005 - Transition /kathy/ DEVORA MURPHY PRODUCTION MATERIAL COORDINATOR Signed: 07/26/2024 08:43 Receipt Acknowledged By: 07/26/2024 09:00 /tesfaye Abernathy LPN Licensed Practical Nurse 07/26/2024 ADDENDUM STATUS: COMPLETED PDS filenet architect fit 1 Bifocal eyeglasses on 07/26/2024. OPT HT entered consult(s) as requested for provider signature. /tesfaye Abernathy LPN Licensed Practical Nurse Signed: 07/26/2024 09:01 DEVORA MURPHY CN[facility]L [facility]
--- OUTSIDE RECORDS SUMMARY | 2024-09-06 11:07 | XMS_ITS | Encounter Summary ---
Author Name [facility] [place] Address [address] [place] [address] Care Team Providers Care Cutting Table Operator First Name Role Phone ERASMO CARLOS Primary Care [...] Name Patient's Relationship to Policy Lai MELISSA [facility] ([facility]) MEDICARE ADVANTAGE [facility] ([facility]) Sep 11, 2015 [id number] [phone] MOONJung GANESHOLEGARIO Jung PATIENT [facility] ([facility]) MEDICARE ADVANTAGE [facility] ([facility]) Sep 11, 2015 [id number] OLEGARIO DUNN PATIENT MEDICARE (WN) MEDICARE () PART A Feb 09, 2001 PART A [id number] 56A OLEGARIO DUNN PATIENT MEDICARE (WN) MEDICARE () PART B Feb 09, 2001 PART B [id number] [phone] OLEGARIO DUNN PATIENT MEDICARE (WN) MEDICARE () PART A Feb 09, 2001 PART A [id number] 56A OLEGARIO DUNN PATIENT MEDICARE ([facility]) MEDICARE (M) PART B Feb 09, 2001 PART B [id number] 56A OLEGARIO DUNN PATIENT Selected Encounter This section includes the information on record at [place] for the Encounter. Date/Time Encounter Type Encounter Description Reason Provider Source Apr 11, 2024 02:00 PM THERAPEUTIC EXERCISES OCCUPATIONAL THERAPY ICD-10-CM R53.1 Weakness ROSIFREDI Sharda IHSharda Encounter Template Text not used by [place] Assessments - Encounter Diagnoses This section includes the primary and secondary diagnoses documented for the Encounter. Date/Time Primary/Secondary Diagnosis Diagnosis Name Provider Source Apr 11, 2024 03:51 PM PRIMARY Weakness FREDI ARANDA E [place] [facility] [place] [facility] Plan of Treatment: Future Appointments [...] MEDICIN E [facility] [place] [facility] Apr 29, 2024 02:00 PM AMBULATORY - REHAB MEDICIN E [facility] [place] [facility] May 06, 2024 01:30 PM AMBULATORY - REHAB MEDICIN E [facility] [place] [facility] May 07, 2024 01:00 PM AMBULATORY - REHAB MEDICIN E [facility] [place] [facility] May 08, 2024 09:45 AM AMBULATORY - REHAB MEDICIN E [facility] [place] [facility] May 15, 2024 01:30 PM AMBULATORY - REHAB MEDICIN E [facility] [place] [facility] May 23, 2024 08:00 AM AMBULATORY - REHAB MEDICIN E [facility] [place] [facility] May 27, 2024 01:30 PM AMBULATORY - REHAB MEDICIN E [facility] [place] [facility] Jun 04, 2024 08:00 AM AMBULATORY - REHAB MEDICIN E [facility] [place] [facility] Jun 11, 2024 11:00 AM AMBULATORY - MEDICINE [facility] [place] [facility] Jun 18, 2024 01:00 PM AMBULATORY - REHAB MEDICIN E [facility] [place] [facility] Jul 03, 2024 11:30 AM AMBULATORY - MEDICINE [facility] [place] [facility] Jul 09, 2024 07:30 AM AMBULATORY - NONE [facility] [place] [facility] Jul 12, 2024 10:00 AM AMBULATORY - NONE [facility] [place] [facility] Jul 26, 2024 08:00 AM AMBULATORY - MEDICINE [facility] [place] [facility] Aug 01, 2024 11:00 AM AMBULATORY - MEDICINE [facility] [place] [facility] Sep 09, 2024 09:00 AM AMBULATORY - MEDICINE [facility] [place] [facility] Sep 09, 2024 10:00 AM AMBULATORY - MEDICINE [facility] [place] [facility] Sep 12, 2024 09:00 AM AMBULATORY - REHAB MEDICIN E [facility] [place] [facility] Social History: Smoking Status (Most [...] Comment [facility] Mar 11, 2024 09:00 AM VA-TOBACCO FORMER USER [place] [facility] [place] [facility] Tobacco Use History This section includes a history of the smoking, or tobacco-related health factors, that were collected on or before the date of the Encounter. The data comes from the [place] facility where the Encounter took place. Date/Time Smoking Status/Tobac co Use Comment Facility Mar 11, 2024 09:00 AM VA-TOBACCO QUIT 15 YRS OR MORE [facility] [place] [facility] Mar 06, 2023 09:00 AM VA-TOBACCO FORMER USER [facility] [place] [facility] Mar 06, 2023 09:00 AM VA-TOBACCO QUIT 15 YRS OR MORE [facility] [place] [facility] Feb 16, 2022 09:30 AM VA-TOBACCO FORMER USER [facility] [place] [facility] Feb 16, 2022 09:30 AM VA-TOBACCO QUIT 15 YRS OR MORE [facility] [place] [facility] Feb 09, 2021 09:00 AM VA-TOBACCO FORMER USER [facility] [place] [facility] Feb 09, 2021 09:00 AM VA-TOBACCO QUIT 15 YRS OR MORE [facility] [place] [facility] Jan 01, 2020 10:15 AM VA-TOBACCO FORMER USER [facility] [place] [facility] Jan 01, 2020 10:15 AM VA-TOBACCO QUIT 15 YRS OR MORE [place] [facility] [place] [facility] Mar 12, 2018 08:56 AM VA-TOBACCO FORMER USER [facility] [place] [facility] Mar 12, 2018 08:56 AM VA-TOBACCO QUIT 15 YRS OR MORE [place] [facility] [place] [facility] Mar 12, 2018 08:24 AM LIFETIME NON-TOBACCO USER [place] [facility] [place] [facility] Mar 13, 2017 07:44 AM LIFETIME NON-TOBACCO USER [facility] [place] [facility] Mar 11, 2016 07:54 AM QUIT TOBACCO USE > 7 YEARS AGO Quit in 1984 [place] [facility] [place] [facility] Aug 17, 2005 10:23 AM HISTORY OF SMOKING Vet states he quit in 1984 [place] [facility] [place] [facility] May 19, 2004 08:56 AM HISTORY OF SMOKING quit . [place] [facility] [place] [facility] May 19, 2003 09:15 AM HISTORY OF SMOKING quit 10yrs ago [facility] [place] [facility] Jun 06, 2002 08:13 AM HISTORY OF SMOKING quit 1978 [place] [facility] [place] [facility] Jun 06, 2002 08:13 AM QUIT TOBACCO USE > 7 YEARS AGO [facility] [place] [facility] Apr 30, 2001 04:07 PM HISTORY OF SMOKING quit - 1984 [place] [facility] [place] [facility] Advance Directives: All historical and [...] 12, 2024 ADVANCE DIRECTIVE JENNIFFER DOAN Lucrecia [place] [facility] [place] [facility] Encounter Notes: All associated encounter notes This section contains the clinical notes associated to the Encounter. Date/Time Encounter Note(s) Provider Source Apr 11, 2024 02:00 PM OCCUPATIONAL THERAPY DISCHARGE NOTE: LOCAL TITLE: OCCUPATIONAL THERAPY DISCHARGE NOTE STANDARD TITLE: OCCUPATIONAL THERAPY DISCHARGE NOTE DATE OF NOTE: APR 11, 2024@14:00 ENTRY DATE: APR 11, 2024@15:47:28 AUTHOR: FREDI ARANDA COSIGNER: ERASMO CARLOS URGENCY: STATUS: COMPLETED Initial Evaluation date: Mar Progress Note Date: Treatment #: 5 Treatment time: 30 minutes Diagnosis: Weakness(ICD-10-CM R53.1), L shoulder pain Provider: Breanna GARCIA Treatment Precautions: FALLS Patient identified by full name and date of SUBJECTIVE: Pt reports that his shoulder is good; he can't complain. Notes 90-95% improvement since initiating tx. Pain Level: 0/10 at rest OBJECTIVE: AROM: Shoulder: [R] [L] 04/11/2024: [L] Flexion: WFL 90* 134* Abduction: WFL 75* 128* IR: WFL sacrum L4 ER: WFL C5 C7 *denies pain THERAPEUTIC EXERCISE: *UBE 2' forward, 2' backward, 2.0 *pulleys into flexion w/ 10 second hold on L, 1x10 *wall ladder into flexion, 34x5 *wall ladder into scaption, 34x5 *chest press w/ cane, seated, 1x10 *shoulder flexion w/ cane to 90*, seated, 1x10 ADDED: *wall slides into flexion, 1x10 Access Code: [email or web address] URL: [email or web address] Date: 04/11/2024 Prepared by: [facility] Exercises - Seated Shoulder Flexion AAROM with [...] 3 sets - 10 reps - Seated Dowel Chest Press - 1 x daily - 7 x weekly - 3 sets - 10 reps - Seated Shoulder Flexion with Dowel to 90 - 1 x daily - 7 x weekly - 3 sets - 10 reps - Shoulder Flexion Wall Slide with Towel - 1 x daily - 7 x weekly - 3 sets - 10 reps MINUTES: 15 MANUAL THERAPY: *mobilization to L anterior shoulder musculature, seated MINUTES: 8 THERAPEUTIC DYNAMIC ACTIVITIES: MINUTES: NEUROMUSCULAR EDUCATION: MINUTES: OTHER: MINUTES: MODALITIES: MINUTES: [] Contraindication screen completed prior to modality [] Skin intact pre/post SELF CARE/EDUCATION: MINUTES: Patient education was provided for all aspects of care during this clinical encounter. ASSESSMENT: pt tolerated tx well this date. he has made excellent gains in regards to his pain and his AROM. he is able to perform all TE w/o discomfort. trialed wall slides which he tolerated well. PLAN: discussed at length discharge from therapy which pt was in agreement w/. he will continue w/ his HEP as tolerated. He has met all of his LTG's and STG's. LTG's (6-8 weeks): 1. Pain: 2-3, at worst L shoulder-MET 2. ROM: WFL and wbho-gnxy-FUO 3. pt will report 50% improvement in sx's since initiating tx-MET STG's (3-6 weeks): 1. (I) w/ HEP-MET 2. Pain: <10/10 at worst-MET 3. pt will report improved sleep since initiating tx-MET 4. Improve active ROM by 10-15*-MET The practitioner's co-signature on this note signifies agreement with plan of care and clinical diagnosis code. /kathy/ Fredi Aranda, MS OTR/L, CHT Occupational Therapist Signed: 04/11/2024 15:51 /kathy/ Erasmo Carlos MD Staff Physician Cosigned: 04/11/2024 15:58 [facility]
--- OUTSIDE RECORDS SUMMARY | 2024-09-06 11:07 | XMS_ITS | Encounter Summary ---
Author Name [place] Organization [place] Address [address] [place] [address] Care Team Providers Care Studio Musician Name Role Phone CARLOS ERASMO Primary Care [...] Patient's Relationship to Policy Lai MELISSA [facility] ([facility]) MEDICARE ADVANTAGE [facility] ([facility]) Sep 11, 2015 [id number] MOONJung GANESHOLEGARIO Jung PATIENT [facility] ([facility]) MEDICARE ADVANTAGE [facility] ([facility]) Sep 11, 2015 [id number] [phone] OLEGARIO DUNN PATIENT MEDICARE (WNR) MEDICARE (M) PART A Feb 09, 2001 PART A [id number] [phone] OLEGARIO DUNN PATIENT MEDICARE (WNR) MEDICARE (M) PART B Feb 09, 2001 PART B [id number] [phone] OLEGARIO DUNN PATIENT MEDICARE (WNR) MEDICARE (M) PART A Feb 09, 2001 PART A [id number] 56A OLEGARIO DUNN PATIENT MEDICARE (WNR) MEDICARE (M) PART B Feb 09, 2001 PART B [id number] 56A MOONJung OLEGARIO ANDERSEN PATIENT Selected Encounter This section includes the information on record at [place] for the Encounter. Date/Time Encounter Type Encounter Description Reason Pro vider Source Jul 17, 2024 04:33 PM Outpatient Encounter PRIMARY CARE/MEDICINE IHE Encounter Template Text not used by [place] Plan of Treatment: Future Appointments (+ 6 months) and Future Tests (+/- 45 days) The Plan of Treatment section includes future care activities for the patient [facility] [place] [facility] This section includes future appointments and [...] 26, 2024 08:00 AM AMBULATORY - MEDICINE [facility] [place] [facility] Aug 01, 2024 11:00 AM AMBULATORY - MEDICINE [facility] [place] [facility] Sep 09, 2024 09:00 AM AMBULATORY - MEDICINE [facility] [place] [facility] Sep 09, 2024 10:00 AM AMBULATORY - MEDICINE [facility] [place] [facility] Sep 12, 2024 09:00 AM AMBULATORY - REHAB MEDICIN E [place] [facility] [place] [facility] Nov 07, 2024 02:00 PM AMBULATORY - MEDICINE [facility] [place] [facility] Dec 31, 2024 07:30 AM AMBULATORY - NONE [place] [facility] [place] [facility] Social History: Smoking Status (Most [...] Facil ity Mar 11, 2024 09:00 AM [place]-TOBACCO [facility] Tobacco Use History This section includes a history of the smoking, or tobacco-related health factors, that were collected on or before the date of the Encounter. The data comes from the [facility] where the Encounter took place. Date/Time Smoking Status/Tobac co Use Comment Facility Mar 11, 2024 09:00 AM VA-TOBACCO QUIT 15 YRS OR MORE [place] [facility] [place] [facility] Mar 06, 2023 09:00 AM VA-TOBACCO FORMER USER [place] [facility] [place] [facility] Mar 06, 2023 09:00 AM VA-TOBACCO QUIT 15 YRS OR MORE [place] [facility] [facility] Feb 16, 2022 09:30 AM VA-TOBACCO FORMER USER [place] [facility] [facility] Feb 16, 2022 09:30 AM VA-TOBACCO QUIT 15 YRS OR MORE [place] [facility] [facility] Feb 09, 2021 09:00 AM VA-TOBACCO FORMER USER [place] [facility] [facility] Feb 09, 2021 09:00 AM VA-TOBACCO QUIT 15 YRS OR MORE [place] [facility] [facility] Jan 01, 2020 10:15 AM VA-TOBACCO FORMER USER [place] [facility] [facility] Jan 01, 2020 10:15 AM VA-TOBACCO QUIT 15 YRS OR MORE [place] [facility] [place] [facility] Mar 12, 2018 08:56 AM VA-TOBACCO FORMER USER [place] [facility] [place] [facility] Mar 12, 2018 08:56 AM VA-TOBACCO QUIT 15 YRS OR MORE [place] [facility] [place] [facility] Mar 12, 2018 08:24 AM LIFETIME NON-TOBACCO USER [place] [facility] [place] [facility] Mar 13, 2017 07:44 AM LIFETIME NON-TOBACCO USER [place] [facility] [place] [facility] Mar 11, 2016 07:54 AM QUIT TOBACCO USE > 7 YEARS AGO Quit in 1984 [place] [facility] [place] [facility] Aug 17, 2005 10:23 AM HISTORY OF SMOKING Vet states he quit in 1984 [place] [facility] [place] [facility] May 19, 2004 08:56 AM HISTORY OF SMOKING quit . [facility] [place] [facility] May 19, 2003 09:15 AM HISTORY OF SMOKING quit 10yrs ago [facility] [place] [facility] Jun 06, 2002 08:13 AM HISTORY OF SMOKING quit 1979 [facility] Jun 06, 2002 08:13 AM QUIT TOBACCO USE > 7 YEARS AGO [facility] Apr 30, 2001 04:07 PM HISTORY OF SMOKING quit - 1984 [facility] Advance Directives: All historical and [...] Mar 12, 2024 ADVANCE DIRECTIVE JENNIFFER DOAN [facility] Encounter Notes: All associated encounter notes This section contains the clinical notes associated to the Encounter. Date/Time Encounter Note(s) Provider Source Jul 17, 2024 04:33 PM NONVA CONSULT: LOCAL TITLE: MD/OUTSIDE CONSULT REPORT SUMMARY STANDARD TITLE: NONVA CONSULT DATE OF NOTE: JUL 17, 2024@16:33 ENTRY DATE: JUL 17, 2024@16:33:19 AUTHOR: ERASMO CARLOS EXP COSIGNER: URGENCY: STATUS: COMPLETED 07-12-24 office visit Vascular surgery [facility] Chief complaint: Swelling of legs Vascular studies showed reflux Surgical intervention not performed Plan: Continue stockings Follow-up as needed /kathy/ Erasmo Carlos MD Staff Physician Signed: 07/17/2024 16:33 ERASMO CARLOS [facility]
--- OUTSIDE RECORDS SUMMARY | 2024-09-06 11:07 | XMS_ITS | Encounter Summary ---
Author Name [place] Address [address] [place] [address] Care Team Providers Care Director Instructional Material Name Role Phone LEOPOLDO JACOBSEN Primary Care [...] Name Patient's Relationship to Policy Lai MELISSA [facility] ([facility]) MEDICARE ADVANTAGE [facility] ([facility]) Sep 11, 2015 [id number] FANNIE ANDERSENOLEGARIO Jung PATIENT [facility] ([facility]) MEDICARE ADVANTAGE [facility] ([facility]) Sep 11, 2015 [id number] OLEGARIO DUNN PATIENT MEDICARE ([facility]) MEDICARE () PART A Feb 09, 2001 PART A [id number] 56A OLEGARIO DUNN PATIENT MEDICARE (WN) MEDICARE () PART B Feb 09, 2001 PART B [id number] [phone] OLEGARIO DUNN PATIENT MEDICARE (WN) MEDICARE () PART A Feb 09, 2001 PART A [id number] OLEGARIO DUNN PATIENT MEDICARE ([facility]) MEDICARE (M) PART B Feb 09, 2001 PART B [id number] 56A OLEGARIO DUNN PATIENT Selected Encounter This section includes the information on record at [place] for the Encounter. Date/Time Encounter Type Encounter Description Reason Pro vider Source Apr 10, 2024 02:24 PM Outpatient Encounter PHYSICAL THERAPY IHE Encounter Template Text not used by [place] Plan of Treatment: Future Appointments (+ 6 [...] Appointment Type Appointme nt Facility Name Apr 11, 2024 01:00 PM AMBULATORY - REHAB MEDICIN E [facility] [place] [facility] Apr 11, 2024 02:00 PM AMBULATORY - REHAB MEDICIN E [facility] [facility] Apr 23, 2024 02:00 PM AMBULATORY - REHAB MEDICIN E [facility] [facility] Apr 29, 2024 02:00 PM AMBULATORY - REHAB MEDICIN E [facility] [facility] May 06, 2024 01:30 PM AMBULATORY - REHAB MEDICIN E [facility] [facility] May 07, 2024 01:00 PM AMBULATORY - REHAB MEDICIN E [facility] [facility] May 08, 2024 09:45 AM AMBULATORY - REHAB MEDICIN E [facility] [facility] May 15, 2024 01:30 PM AMBULATORY - REHAB MEDICIN E [facility] [facility] May 23, 2024 08:00 AM AMBULATORY - REHAB MEDICIN E [facility] [facility] May 27, 2024 01:30 PM AMBULATORY - REHAB MEDICIN E [facility] [facility] Jun 04, 2024 08:00 AM AMBULATORY - REHAB MEDICIN E [facility] [facility] Jun 11, 2024 11:00 AM AMBULATORY - MEDICINE [facility] [place] [facility] Jun 18, 2024 01:00 PM AMBULATORY - REHAB MEDICIN E [facility] [place] [facility] Jul 03, 2024 11:30 AM AMBULATORY - MEDICINE [facility] [place] [facility] Jul 09, 2024 07:30 AM AMBULATORY - NONE [facility] [place] [facility] Jul 12, 2024 10:00 AM AMBULATORY - NONE [facility] [place] [facility] Jul 26, 2024 08:00 AM AMBULATORY - MEDICINE [facility] [place] [facility] Aug 01, 2024 11:00 AM AMBULATORY - MEDICINE [facility] [place] [facility] Sep 09, 2024 09:00 AM AMBULATORY - MEDICINE [facility] [place] [facility] Sep 09, 2024 10:00 AM AMBULATORY - MEDICINE [place] [facility] [place] [facility] Social History: Smoking Status (Most current) [...] took place. Date/Time Current Smoking Status Comment [facility] Mar 11, 2024 09:00 AM VA-TOBACCO FORMER USER [place] [facility] [place] [facility] Tobacco Use History This section includes a history of the smoking, or tobacco-related health factors, that were collected on or before the date of the Encounter. The data comes from the [place] facility where the Encounter took place. Date/Time Smoking Status/Tobac co Use Comment Facility Mar 11, 2024 09:00 AM VA-TOBACCO QUIT 15 YRS OR MORE [place] [facility] [place] [facility] Mar 06, 2023 09:00 AM VA-TOBACCO FORMER USER [place] [facility] [facility] Mar 06, 2023 09:00 AM VA-TOBACCO QUIT 15 YRS OR MORE [place] [facility] [place] [facility] Feb 16, 2022 09:30 AM VA-TOBACCO FORMER USER [place] [facility] [place] [facility] Feb 16, 2022 09:30 AM VA-TOBACCO QUIT 15 YRS OR MORE [place] [facility] [facility] Feb 09, 2021 09:00 AM VA-TOBACCO FORMER USER [place] [facility] [place] [facility] Feb 09, 2021 09:00 AM VA-TOBACCO QUIT 15 YRS OR MORE [place] [facility] [place] [facility] Jan 01, 2020 10:15 AM VA-TOBACCO FORMER USER [place] [facility] [place] [facility] Jan 01, 2020 10:15 AM VA-TOBACCO QUIT 15 YRS OR MORE [place] [facility] [facility] Mar 12, 2018 08:56 AM VA-TOBACCO FORMER USER [place] [facility] [place] [facility] Mar 12, 2018 08:56 AM VA-TOBACCO QUIT 15 YRS OR MORE [place] [facility] [place] [facility] Mar 12, 2018 08:24 AM LIFETIME NON-TOBACCO USER [place] [facility] [place] [facility] Mar 13, 2017 07:44 AM LIFETIME NON-TOBACCO USER [place] [facility] [place] [facility] Mar 11, 2016 07:54 AM QUIT TOBACCO USE > 7 YEARS AGO [facility] [place] [facility] Aug 17, 2005 10:23 AM HISTORY OF SMOKING Vet states he quit in 1984 [facility] [place] [facility] May 19, 2004 08:56 AM HISTORY OF SMOKING [facility] . [facility] [place] [facility] May 19, 2003 09:15 AM HISTORY OF SMOKING quit 10yrs ago [facility] [place] [facility] Jun 06, 2002 08:13 AM HISTORY OF SMOKING quit [facility] [place] [facility] Jun 06, 2002 08:13 AM QUIT TOBACCO USE > 7 YEARS AGO [facility] [place] [facility] Apr 30, 2001 04:07 PM HISTORY OF SMOKING quit - 1984 [facility] Advance Directives: All historical and current [...] Mar 12, 2024 ADVANCE DIRECTIVE JENNIFFER DOAN [place] [facility] [place] [facility] Encounter Notes: All associated encounter notes This section contains the clinical notes associated to the Encounter. Date/Time Encounter Note(s) Provider Source Apr 10, 2024 02:24 PM ADMINISTRATIVE NOTE: LOCAL TITLE: ADMINISTRATIVE NOTE STANDARD TITLE: ADMINISTRATIVE NOTE DATE OF NOTE: APR 10, 2024@14:24 ENTRY DATE: APR 10, 2024@14:24:49 AUTHOR: TAMICA FITZGERALD COSIGNER: URGENCY: STATUS: COMPLETED called saying that exercise that was advised helped a little but he is questioning if he should be seen again for PFT . Phone in chart confirmed /kathy/ TAMICA FITZGERALD ADVANCED WASTE REMOVALIST Signed: 04/10/2024 14:25 Receipt Acknowledged By: 04/10/2024 14:59 /es/ RONEN BALDERRAMA, [facility] PHYSICAL THERAPIST/SERVICE SOLAR INSTALLATION TECHNICIANRECAPPER TAMICA FITZGERALDRL [facility]
--- OUTSIDE RECORDS SUMMARY | 2024-09-06 11:07 | XMS_ITS | Encounter Summary ---
Author Name [place] Address [address] [place] [address] Care Team Providers Care Heavy Equipment Operating Engineer Name Role Phone LEOPOLDO JACOBSEN Primary [...] Name Patient's Relationship to Policy Lai MELISSA [facility] ([facility]) MEDICARE ADVANTAGE [facility] ([facility]) Sep 11, 2015 [id number] MOONJung GANESHOLEGARIO Jung PATIENT [facility] ([facility]) MEDICARE ADVANTAGE [facility] ([facility]) Sep 11, 2015 [id number] [phone] OLEGARIO DUNN PATIENT MEDICARE (WN) MEDICARE () PART A Feb 09, 2001 PART A [id number] 56A OLEGARIO DUNN PATIENT MEDICARE (WN) MEDICARE () PART B Feb 09, 2001 PART B [id number] 56A OLEGARIO DUNN PATIENT MEDICARE (WN) MEDICARE () PART A Feb 09, 2001 PART A [id number] 56A OLEGARIO DUNN PATIENT MEDICARE ([facility]) MEDICARE (M) PART B Feb 09, 2001 PART B [id number] 56A OLEGARIO DUNN PATIENT Selected Encounter This section includes the information on record at [place] for the Encounter. Date/Time Encounter Type Encounter Description Reason Provider Source Apr 04, 2024 02:00 PM THERAPEUTIC EXERCISES OCCUPATIONAL THERAPY ICD-10-CM R53.1 Weakness ROSIFREDI IHSharda Encounter Template Text not used by [place] Assessments - Encounter Diagnoses This section includes the primary and secondary diagnoses documented for the Encounter. Date/Time Primary/Secondary Diagnosis Diagnosis Name Provider Source Apr 04, 2024 02:39 PM PRIMARY Weakness FREDI ARANDA E [place] [facility] [place] [facility] Plan [...] [facility] [place] [facility] Apr 11, 2024 02:00 PM AMBULATORY - REHAB MEDICIN E [place] [facility] [place] [facility] Apr 23, 2024 02:00 PM [...] 09, 2024 10:00 AM AMBULATORY - MEDICINE [place] [facility] [place] [facility] Social History: [...] took place. Date/Time Current Smoking Status Comment [facility] Mar 11, 2024 09:00 AM VA-TOBACCO FORMER USER [place] [facility] [place] [facility] Tobacco [...] YRS OR MORE [place] [facility] [place] [facility] Feb 16, 2022 09:30 AM VA-TOBACCO FORMER USER [place] [facility] [place] [facility] Feb 16, 2022 09:30 AM VA-TOBACCO QUIT 15 YRS OR MORE [place] [facility] [place] [facility] Feb 09, 2021 09:00 AM VA-TOBACCO FORMER USER [place] [facility] [place] [facility] Feb 09, 2021 09:00 AM VA-TOBACCO QUIT 15 YRS OR MORE [place] [facility] [place] [facility] Jan 01, 2020 10:15 AM VA-TOBACCO FORMER USER [place] [facility] [place] [facility] Jan 01, 2020 10:15 AM VA-TOBACCO QUIT 15 YRS OR MORE [place] [facility] [place] [facility] Mar 12, 2018 08:56 AM VA-TOBACCO FORMER USER [place] [facility] [place] [facility] Mar 12, 2018 08:56 AM VA-TOBACCO QUIT 15 YRS OR MORE [place] [facility] [place] [facility] Mar 12, 2018 08:24 AM LIFETIME NON-TOBACCO USER [place] [facility] [place] [facility] Mar 13, 2017 07:44 AM LIFETIME NON-TOBACCO USER [place] [facility] [place] [facility] Mar 11, 2016 07:54 AM QUIT TOBACCO USE > 7 YEARS AGO Quit in 1984 [place] [facility] [place] [facility] Aug 17, 2005 10:23 AM HISTORY OF SMOKING Vet states he quit in 1984 [place] [facility] [place] [facility] May 19, 2004 08:56 AM HISTORY OF SMOKING quit 1980s. [place] [facility] [place] [facility] May 19, 2003 09:15 AM HISTORY OF SMOKING quit 10yrs ago [place] [facility] [place] [facility] Jun 06, 2002 08:13 AM HISTORY OF SMOKING quit 1978 [place] [facility] [place] [facility] Jun 06, 2002 08:13 AM QUIT TOBACCO USE > 7 YEARS AGO [place] [facility] [place] [facility] Apr 30, 2001 04:07 PM HISTORY OF SMOKING quit - 1984 [place] [facility] [place] [facility] Advance Directives: [...] 12, 2024 ADVANCE DIRECTIVE JENNIFFER DOAN [facility] Encounter Notes: All associated encounter notes This section contains the clinical notes associated to the Encounter. Date/Time Encounter Note(s) Provider Source Apr 04, 2024 01:52 PM OCCUPATIONAL THERAPY NOTE: LOCAL TITLE: OCCUPATIONAL THERAPY STANDARD TITLE: OCCUPATIONAL THERAPY NOTE DATE OF NOTE: APR 04, 2024@13:52 ENTRY DATE: APR 04, 2024@13:52:41 AUTHOR: FREDI ARANDA COSIGNER: URGENCY: STATUS: COMPLETED Initial Evaluation date: Mar Progress Note Date: 03/29/2024 Treatment #: 4 Treatment time: 30 minutes Diagnosis: Weakness(ICD-10-CM R53.1), L shoulder pain Provider: Breanna GARCIA Treatment Precautions: FALLS Patient identified by full name and date of SUBJECTIVE: Pt reports that his shoulder is feeling better. Pain Level: 0/10 at rest OBJECTIVE: THERAPEUTIC EXERCISE: *UBE 2' forward, 2' backward, 2.0 *pulleys into flexion w/ 10 second hold on L, 1x10 *wall ladder into flexion, 34x5 *wall ladder into scaption, 34x5 ADDED: *chest press w/ cane, seated, 2x10 *shoulder flexion w/ cane to 90*, seated, 2x10 Access Code: [email or web address] URL: [email or web address] / Date: 04/04/2024 Prepared by: [facility] Exercises - Seated Shoulder Flexion AAROM with [...] - 3 sets - 10 reps MINUTES: 16 MANUAL THERAPY: *mobilization to L anterior shoulder musculature, seated MINUTES: 8 THERAPEUTIC DYNAMIC ACTIVITIES: MINUTES: NEUROMUSCULAR EDUCATION: MINUTES: OTHER: MINUTES: MODALITIES: MINUTES: [] Contraindication screen completed prior to modality [] Skin intact pre/post SELF CARE/EDUCATION: MINUTES: Patient education was provided for all aspects of care during this clinical encounter. ASSESSMENT: pt tolerated tx well this date. he was able to engage in all TE w/o difficulty. added new TE for patient while seated. he reported some tension w/ seated chest press on L anterior shoulder, though denied pain. tightness and ttp noted at anterior shoulder musculature. pt reports good progress w/ therapy as he is not experiencing pain during sleep or during the day much at all. PLAN: Continue w/ OT POC; modify tx as needed. will reassess next visit. pt is in agreement w/ this POC. /kathy/ Fredi Aranda, MS OTR/Isela, CHT Occupational Therapist Signed: 04/04/2024 14:39 FREDI ARANDA [facility]
[2024-09-06 11:08] LABS: Alanine Aminotransferase 98 U/L (0-40); Alkaline Phosphatase 139 U/L (39-117); Anion Gap 12 (12-20); Aspartate Amino Transferase 262 U/L (5-37); Bilirubin Total 1.9 mg/dL (0.0-1.0); Blood Urea Nitrogen 25 mg/dL (9-16); Calcium 10.3 mg/dL (8.4-10.2); Carbon Dioxide 20 mmol/L (22-29); Chloride 112 mmol/L (96-108); Creatinine Clr Calc Pharmacy 81.1; Estimated Glomerular Filt Rate > 60; Glucose Random 100 mg/dL (60-115); Potassium 4.2 mmol/L (3.3-5.1); Sodium 140 mmol/L (135-145); Total Protein 7.5 g/dL (6.5-8.0)
--- OUTSIDE RECORDS SUMMARY | 2024-09-06 11:08 | XMS_ITS | Encounter Summary ---
Author Name Department [place] Organization [place] Address [address] [place] [address] Care Team Providers Care Glove Parts Cutter Name Role Phone LEOPOLDO JACOBSEN Primary Care [...] Name Patient's Relationship to Policy Lai MELISSA [facility] ([facility]) MEDICARE ADVANTAGE [facility] ([facility]) Sep 11, 2015 [id number] FANNIE ANDERSENOLEGARIO Jung PATIENT [facility] ([facility]) MEDICARE ADVANTAGE [facility] ([facility]) Sep 11, 2015 [id number] OLEGARIO DUNN PATIENT MEDICARE (WNR) MEDICARE (M) PART A Feb 09, 2001 PART A [id number] [phone] OLEGARIO DUNN PATIENT MEDICARE (WNR) MEDICARE (M) PART B Feb 09, 2001 PART B [id number] 56A OLEGARIO DUNN PATIENT MEDICARE (WNR) MEDICARE (M) PART A Feb 09, 2001 PART A [id number] 56A OLEGARIO DUNN PATIENT MEDICARE (WNR) MEDICARE (M) PART B Feb 09, 2001 PART B [id number] 56A OLEGARIO DUNN PATIENT Selected Encounter This section includes the information on record at [place] for the Encounter. Date/Time Encounter Type Encounter Description Reason Pro vider Source May 12, 2024 12:00 AM Outpatient Encounter EVENT (HISTORICAL) IHE Encounter Template Text not used by [place] Plan of Treatment: Future Appointments (+ 6 months) and Future Tests (+/- 45 days) The Plan of Treatment section includes future care activities for the patient from all [place] treatmentfacilities. This section includes future appointments and future orders which are active, pending or scheduled. Future Appointments This section includes appointments that were scheduled to occur 6 months from the date of the Encounter, up to a maximum of 20 appointments. The data comes from all [place] treatment facilities. Appointment Date/Time Appointment Type Appointme nt Facility Name May 15, 2024 01:30 PM AMBULATORY - REHAB MEDICIN E [facility] [place] [facility] May 23, 2024 08:00 AM AMBULATORY - REHAB MEDICIN E [facility] [place] [facility] May 27, 2024 01:30 PM AMBULATORY - REHAB MEDICIN E [facility] [place] [facility] Jun 04, 2024 08:00 AM AMBULATORY - REHAB MEDICIN E [facility] [place] [facility] Jun 11, 2024 11:00 AM AMBULATORY - MEDICINE [facility] [place] [facility] Jun 18, 2024 01:00 PM AMBULATORY - REHAB MEDICIN E [facility] [place] [facility] Jul 03, 2024 11:30 AM AMBULATORY - MEDICINE [facility] [place] [facility] Jul 09, 2024 07:30 AM AMBULATORY - NONE [facility] [place] [facility] Jul 12, 2024 10:00 AM AMBULATORY - NONE [facility] [place] [facility] Jul 26, 2024 08:00 AM AMBULATORY - MEDICINE [facility] [place] [facility] Aug 01, 2024 11:00 AM AMBULATORY - MEDICINE [facility] [place] [facility] Sep 09, 2024 09:00 AM AMBULATORY - MEDICINE [place] [facility] [place] [facility] Sep 09, 2024 10:00 AM AMBULATORY - MEDICINE [place] C [facility] [place] [facility] Sep 12, 2024 09:00 AM AMBULATORY - REHAB MEDICIN E [facility] [place] [facility] Nov 07, 2024 02:00 PM AMBULATORY - MEDICINE [facility] [place] [facility] Immunizations: All administered on the encounter date This section contains immunizations associated to the Encounter. Immunization Series Date Issued Reaction Comments INFLUENZA, UNSPECIFIED FORMULATION May 12, 2024 Social History: Smoking Status (Most current) and Tobacco Use (All prior to encounter date) This section includes the most current, and the historical, smoking and tobacco- related health factors from the [place] facility where the Encounter took place. Current Smoking Status This section includes the most current smoking, or tobacco-related health factor, from the [place] facility where the Encounter took place. Date/Time Current Smoking Status Comment [facility] Mar 11, 2024 09:00 AM VA-TOBACCO QUIT 15 YRS OR MORE [place] [facility] [place] [facility] Tobacco Use History This section includes a history of the smoking, or tobacco-related health factors, that were collected on or before the date of the Encounter. The data comes from the [place] facility where the Encounter took place. Date/Time Smoking Status/Tobac co Use Comment [facility] Mar 11, 2024 09:00 AM VA-TOBACCO QUIT 15 YRS OR MORE [place] [facility] [place] [facility] Mar 06, 2023 09:00 AM VA-TOBACCO FORMER USER [place] [facility] [place] [facility] Mar 06, 2023 09:00 AM VA-TOBACCO QUIT 15 YRS OR MORE [place] [facility] [place] [facility] Feb 16, 2022 09:30 AM VA-TOBACCO FORMER USER [place] [facility] [place] [facility] Feb 16, 2022 09:30 AM VA-TOBACCO QUIT 15 YRS OR MORE [place] [facility] [place] [facility] Feb 09, 2021 09:00 AM VA-TOBACCO FORMER USER [facility] [place] [facility] Feb 09, 2021 09:00 AM VA-TOBACCO QUIT 15 YRS OR MORE [place] [facility] [place] [facility] Jan 01, 2020 10:15 AM VA-TOBACCO FORMER USER [place] [facility] [place] [facility] Jan 01, 2020 10:15 AM VA-TOBACCO QUIT 15 YRS OR MORE [facility] Mar 12, 2018 08:56 AM VA-TOBACCO FORMER USER [facility] Mar 12, 2018 08:56 AM VA-TOBACCO QUIT 15 YRS OR MORE [facility] [place] [facility] Mar 12, 2018 08:24 AM LIFETIME NON-TOBACCO USER [facility] Mar 13, 2017 07:44 AM LIFETIME NON-TOBACCO USER [facility] Mar 11, 2016 07:54 AM QUIT TOBACCO USE > 7 YEARS AGO [facility]uit [facility] 1984 [facility] Aug 17, 2005 10:23 AM HISTORY OF SMOKING Vet states he quit in 1984 [facility] May 19, 2004 08:56 AM HISTORY OF SMOKING quit 1980[facility]. [facility] May 19, 2003 09:15 AM HISTORY OF SMOKING quit 10yrs ago [facility] Jun 06, 2002 08:13 AM HISTORY OF SMOKING quit 1979 [facility] Jun 06, 2002 08:13 AM QUIT TOBACCO USE > 7 YEARS AGO [facility] Apr 30, 2001 04:07 PM HISTORY OF SMOKING quit - 1984 [facility] Advance Directives: All historical and current Section Date Range: From patient's date of to the date document was created. This section includes ALL of a patient's completed or amended [place] Advance and Rescinded Directives. The entries below indicate that a directive exists for the patient, but an actual copy is not included with this document. The data comes from all [place] facilities. Date Advance Directives Provider Source Mar 12, [address] [facility]
--- OUTSIDE RECORDS SUMMARY | 2024-09-06 11:08 | XMS_ITS | Encounter Summary ---
Author Name Department [place] Address [address] [place] [id number] Care Team Providers Care Apprentice Stylist Name Role Phone JACOBSEN LEOPOLDO Primary Care [...] Name Patient's Relationship to Policy Lai MELISSA [facility] ([facility]) MEDICARE ADVANTAGE [facility] ([facility]) Sep 11, 2015 [id number] FANNIE ANDERSENOLEGARIO Jung PATIENT [facility] ([facility]) MEDICARE ADVANTAGE [facility] ([facility]) Sep 11, 2015 [id number] OLEGARIO DUNN PATIENT MEDICARE (WNR) MEDICARE (M) PART A Feb 09, 2001 PART A [id number] [phone] OLEGARIO DUNN PATIENT MEDICARE (WNR) MEDICARE (M) PART B Feb 09, 2001 PART B [id number] 56A OLEGARIO DUNN PATIENT MEDICARE (WNR) MEDICARE (M) PART A Feb 09, 2001 PART A [id number] 56A OLEGARIO DUNN PATIENT MEDICARE (WN) MEDICARE (M) PART B Feb 09, 2001 PART B [id number] 56A OLEGARIO DUNN PATIENT Selected Encounter This section includes the information on record at [place] for the Encounter. Date/Time Encounter Type Encounter Description Reason Provider Source Aug 01, 2024 11:00 AM TRIM NAIL(S) PODIATRY ICD-10-CM I73.9 Peripheral vascular disease, unspecified CHARLEY QIU Sharda Encounter Template Text not used by [place] Assessments - Encounter Diagnoses This section includes the primary and secondary diagnoses documented for the Encounter. Date/Time Primary/Secondary Diagnosis Diagnosis Name Provider Source Aug 01, 2024 11:21 AM PRIMARY Peripheral vascular disease, unspecified CHARLEY QIU [place] [facility] [place] [facility] Aug 01, 2024 11:21 AM SECONDARY Ingrowing nail CHARLEY QIU [place] [facility] [place] [facility] Aug 01, 2024 11:21 AM SECONDARY Nail dystrophy [facility] [place] [facility] Plan of Treatment: Future Appointments (+ [...] Date/Time Appointment Type Appointme nt Facility Name Sep 09, 2024 09:00 AM AMBULATORY - MEDICINE [place] [facility] [place] [facility] Sep 09, 2024 10:00 AM AMBULATORY - MEDICINE [place] C [facility] [place] [facility] Sep 12, 2024 09:00 AM AMBULATORY - REHAB MEDICIN E [place] [facility] [place] [facility] Nov 07, 2024 02:00 PM AMBULATORY - MEDICINE [place] [facility] [place] [facility] Dec 31, 2024 07:30 AM AMBULATORY - NONE [place] [facility] [place] [facility] Active, Pending, and Scheduled Orders This section includes a listing of several types of active, pending, and scheduled orders, including clinic medications orders, diagnostic test orders, procedure orders and consult orders; where the start date of the order is 45 days before the date of the Encounter or 45 days after the date of theEncounter. The data comes from all [place] treatment facilities. Test Date/Time Test Type Test Details Facility Name Sep 02, 2024 07:43 AM Laboratory - Chemi stry Order T3, FREE (QU) BLOOD (SST-SERUM) SP [place] [facility] [place] [facility] Social History: Smoking Status (Most current) [...] place. Date/Time Current Smoking Status Comment [facility] Mar 11, 2024 09:00 AM VA-TOBACCO QUIT 15 YRS OR MORE [facility] Tobacco Use History This section includes a history of the smoking, or tobacco-related health factors, that were collected on or before the date of the Encounter. The data comes from the [place] facility where the Encounter took place. Date/Time Smoking Status/Tobac co Use Comment Facility Mar 11, 2024 09:00 AM VA-TOBACCO QUIT 15 YRS OR MORE [place] [facility] [place] [facility] Mar 06, 2023 09:00 AM VA-TOBACCO FORMER USER [place] [facility] [place] [facility] Mar 06, 2023 09:00 AM VA-TOBACCO QUIT 15 YRS OR MORE [place] [facility] [place] [facility] Feb 16, 2022 09:30 AM VA-TOBACCO FORMER USER [place] [facility] [place] [facility] Feb 16, 2022 09:30 AM VA-TOBACCO QUIT 15 YRS OR MORE [place] [facility] [place] [facility] Feb 09, 2021 09:00 AM VA-TOBACCO FORMER USER [place] [facility] [place] [facility] Feb 09, 2021 09:00 AM VA-TOBACCO QUIT 15 YRS OR MORE [place] [facility] [place] [facility] Jan 01, 2020 10:15 AM VA-TOBACCO FORMER USER [place] [facility] [place] [facility] Jan 01, 2020 10:15 AM VA-TOBACCO QUIT 15 YRS OR MORE [facility] [place] [facility] Mar 12, 2018 08:56 AM [facility]BACCO [facility] Mar 12, 2018 08:56 AM VA-TOBACCO QUIT 15 YRS OR MORE [facility] Mar 12, 2018 08:24 AM LIFETIME NON-TOBACCO [facility]ER [facility] Mar 13, 2017 07:44 AM LIFETIME NON-TOBACCO [facility]ER [facility] Mar 11, 2016 07:54 AM QUIT TOBACCO USE > 7 YEARS AGO Quit in 1984 [facility] Aug 17, 2005 10:23 AM HISTORY OF SMOKING Vet states he quit in 1984 [facility] May 19, 2004 08:56 AM HISTORY OF SMOKING quit . [facility] May 19, 2003 09:15 AM HISTORY OF SMOKING quit 10yrs ago [facility] Jun 06, 2002 08:13 AM HISTORY OF SMOKING quit 1979 [facility] Jun 06, 2002 08:13 AM QUIT TOBACCO USE > 7 YEARS AGO [facility] Apr 30, 2001 04:07 PM HISTORY OF SMOKING quit - 1984 [facility] Advance Directives: All historical and current [...] 12, 2024 ADVANCE DIRECTIVE JENNIFFER DOAN [facility] Encounter Notes: All associated encounter notes This section contains the clinical notes associated to the Encounter. Date/Time Encounter Note(s) Provider Source Aug 01, 2024 11:18 AM NURSING OUTPATIENT NOTE: LOCAL TITLE: NURSING/SPECIALTY CLINIC NOTE STANDARD TITLE: NURSING OUTPATIENT NOTE DATE OF NOTE: AUG 01, 2024@11:18 ENTRY DATE: AUG 01, 2024@11:18:12 AUTHOR: CHARLEY QIU EXP COSIGNER: URGENCY: STATUS: COMPLETED seen in [facility] for continued foot care. [place] has a history of PVD and is unable to trim his/her own nails. Ambulates: [X]self [ ]wheelchair can transfer [ ]wheelchair cannot transfer [ ]without assistance [x ]with assistance of a cane Bilateral: Pedal pulses: Right Foot:Audiable with doppler Dorsalis Pedis - palpable [ ] non-palpable[x ] Posterior Tibial - palpable[ ] non-palpable[x ] Left Foot: Audiable with doppler Dorsalis Pedis - palpable [ ] non-palpable [ x] Posterior Tibial - palpable [ ] non-palpable[ x] Pedal sensation: Right Foot: [x ] Intact [...] [ ] Macerated [ ] Dry Nails: [ x] Thickened [ ] Elongated [x ] Dystrophic [ ] Discolored [ ] Fungal [ ] Incurvated [ ] Subungual debri Hyperkeratosis [ ] Yes, Locations: [x ] No Open lesions/wounds: [ ] Yes, Locations: [x ] No Amputations: [ ] Yes, Locations: [x ] No Edema present: ( ) Yes ( ) NO Podiatric Problem List: [ ] Diabetes mellitus [x ] Peripheral vascular disease [ ] Neuropathy [ ] Onychomycosis [x ] Dystrophic toenails [ ] Hyperkeratosis/calluses [ ] Xerosis/dry skin [ ] Other: Treatment: [x ] Nails x 10 debrided in length and thickness without incident [ ] Hyperkeratotic lesions were grinded down with eletric grinder brake lining and debrided without incidence. [x ]Patient education educated about proper foot care and encouraged to check feet daily for injuries and wounds [x ] Instructed to moisturize feet daily but not in-between toes Patient is to RTC in 3 months. /kathy/ CHARLEY QIU LPN LICENSED PRACTICAL NURSE Signed: 08/01/2024 11:21 Receipt Acknowledged By: 08/01/2024 16:48 /es/ BRANNON SKINNER DPM PODIATRY ATTENDING CHARLEY QIU CNT [facility]
--- OUTSIDE RECORDS SUMMARY | 2024-09-06 11:08 | XMS_ITS ---
Author Name [facility] [place] Organization [place] Address [address] [place] [address] Care Team Providers Care Ledger Poster Name Role Phone LEOPOLDO JACOBSEN Primary Care [...] Name Patient's Relationship to Policy Lai MELISSA [facility] ([facility]) MEDICARE ADVANTAGE [facility] ([facility]) Sep 11, 2015 [id number] MOONJung GANESHOLEGARIO Jung PATIENT [facility] ([facility]) MEDICARE ADVANTAGE [facility] ([facility]) Sep 11, 2015 [id number] [phone] OLEGARIO DUNN PATIENT MEDICARE (WN) MEDICARE () PART A Feb 09, 2001 PART A [id number] 56A OLEGARIO DUNN PATIENT MEDICARE (WN) MEDICARE () PART B Feb 09, 2001 PART B [id number] 56A OLEGARIO DUNN PATIENT MEDICARE (WN) MEDICARE () PART A Feb 09, 2001 PART A [id number] 56A OLEGARIO DUNN PATIENT MEDICARE (WNR) MEDICARE (M) PART B Feb 09, 2001 PART B [id number] HYUNLAURENCERAFATJung OLEGARIO ANDERSEN PATIENT Selected Encounter This section includes the information on record at [place] for the Encounter. Date/Time Encounter Type Encounter Description Reason Pro vider Source Jul 12, 2024 12:00 AM Outpatient Encounter COMMUNITY CARE CONSULT IHE Encounter Template Text not used by [place] Plan of Treatment: Future Appointments (+ 6 months) and Future Tests (+/- 45 days) The Plan of Treatment section includes future care activities for the patient from [facility] [place] [facility] This section includes future appointments and future orders which are active, pending or scheduled. Future Appointments This section includes appointments that were scheduled to occur 6 months from the date of the Encounter, up to a maximum of 20 appointments. The data comes from all [place] treatment facilities. Appointment Date/Time Appointment Type Appointme nt Facility Name Jul 26, 2024 08:00 AM AMBULATORY - MEDICINE [facility] [place] [facility] Aug 01, 2024 11:00 AM AMBULATORY - MEDICINE [facility] [place] [facility] Sep 09, 2024 09:00 AM AMBULATORY - MEDICINE [facility] [facility] Sep 09, 2024 10:00 AM AMBULATORY - MEDICINE [facility] [place] [facility] Sep 12, 2024 09:00 AM AMBULATORY - [place] [facility] Nov 07, 2024 02:00 PM AMBULATORY - MEDICINE [facility] [place] [facility] Dec 31, 2024 07:30 AM [facility] [place] [facility] Social History: Smoking Status (Most current) and Tobacco Use (All prior to encounter date) This section includes the most current, and the historical, smoking and tobacco- related health factors from the [place] facility where the Encounter took place. Current Smoking Status This section includes the most current smoking, or tobacco-related health factor, from the [place] facility where the Encounter took place. Date/Time Current Smoking Status Comment Donavan ity Mar 11, 2024 09:00 AM [place]-TO[facility]AC[place] [facility] Tobacco Use History This section includes a history of the smoking, or tobacco-related health factors, that were collected on or before the date of the Encounter. The data comes from the [facility] where the Encounter took place. Date/Time Smoking Status/Tobac co Use Comment Facility Mar 11, 2024 09:00 AM [place]-TOBACCO QUIT 15 YRS OR MORE [place] [facility] [facility] Mar 06, 2023 09:00 AM VA-TOBACCO FORMER USER [facility] [place] [facility] Mar 06, 2023 09:00 AM VA-TOBACCO QUIT 15 YRS OR MORE [place] [facility] [facility] Feb 16, 2022 09:30 AM VA-TOBACCO FORMER USER [facility] [place] [facility] Feb 16, 2022 09:30 AM VA-TOBACCO QUIT 15 YRS OR MORE [place] [facility] [facility] Feb 09, 2021 09:00 AM VA-TOBACCO FORMER USER [facility] [place] [facility] Feb 09, 2021 09:00 AM VA-TOBACCO QUIT 15 YRS OR MORE [place] [facility] [facility] Jan 01, 2020 10:15 AM VA-TOBACCO FORMER USER [place] [facility] Jan 01, 2020 10:15 AM VA-TOBACCO QUIT 15 YRS OR MORE [place] [facility] [facility] Mar 12, 2018 08:56 AM VA-TOBACCO FORMER USER [place] [facility] Mar 12, 2018 08:56 AM VA-TOBACCO QUIT 15 YRS OR MORE [place] [facility] Mar 12, 2018 08:24 AM LIFETIME NON-TOBACCO USER [facility] [place] [facility] Mar 13, 2017 07:44 AM LIFETIME NON-TOBACCO USER [facility] [place] [facility] Mar 11, 2016 07:54 AM QUIT TOBACCO USE > 7 YEARS AGO Quit in 1984 [place] [facility] Aug 17, 2005 10:23 AM HISTORY OF SMOKING Vet states he quit in 1984 [place] [facility] May 19, 2004 08:56 AM HISTORY OF SMOKING quit . [place] [facility] May 19, 2003 09:15 AM HISTORY OF SMOKING quit 10yrs ago [facility] [place] [facility] Jun 06, 2002 08:13 AM HISTORY OF SMOKING quit [address] [facility] Jun 06, 2002 08:13 AM QUIT TOBACCO USE > [address] [facility] Apr 30, 2001 04:07 PM HISTORY OF SMOKING quit - [address] [facility] Advance Directives: All historical and current Section Date Range: From patient's date of to the date document was created. This section includes ALL of a patient's completed or amended [place] Advance and Rescinded Directives. The entries below indicate that a directive exists for the patient, but an actual copy is not included with this document. The data comes from all [place] facilities. Date Advance Directives Provider Source Mar 12, 2024 ADVANCE DIRECTIVE JENNIFFER DOAN [facility] Encounter Notes: All associated encounter notes This section contains the clinical notes associated to the Encounter. Date/Time Encounter Note(s) Provider Source Jul 12, 2024 12:00 AM NONVA CONSULT: LOCAL TITLE: COMMUNITY CARE-CONSULT RESULT NOTE STANDARD TITLE: NONVA CONSULT DATE OF NOTE: JUL 12, 2024 ENTRY DATE: AUG 07, 2024@10:47:31 AUTHOR: KENDRA BELLAMY EXP COSIGNER: URGENCY: STATUS: COMPLETED VistA Imaging - Scanned Document SCANNED DOCUMENT SIGNATURE NOT REQUIRED Electronically Filed: 08/07/2024 by: KENDRA MONTAÑO [facility]
--- NOTE | 2024-09-06 11:09 | PC.NURSE ---
Pt presented to ED via EMS from home, reports he fell sometimes yesterday at home (lives alone) and has been on the floor since (estimated to be around 3pm). Pt reports his left leg gave out and daughter found him in between two recliners on his right side, incontinent of urine and freezing cold. Pt denies head hit or LOC, no blood thinner use reported but pt not best historian, family did confirm no blood thinners. Pt walks with cane at baseline, no life alert button. Alert and oriented, breathing even and unlabored, skin cold and pale. Pt changed out of wet clothing and warmed with blankets. Rectal temp 97.4. Bruising noted to right hip and upper back area. No obvious deformities. Left lower leg swollen and red.
--- OUTSIDE RECORDS SUMMARY | 2024-09-06 11:09 | XMS_ITS | Encounter Summary ---
Author Name [place] Address [address] [place] [address] Care Team Providers Care Senior Sales Executive Name Role Phone LEOPOLDO JACOBSEN Primary Care [...] Name Patient's Relationship to Policy Lai MELISSA [facility] ([facility]) MEDICARE ADVANTAGE [facility] ([facility]) Sep 11, 2015 [id number] MOONJung GANESHOLEGARIO Jung PATIENT [facility] ([facility]) MEDICARE ADVANTAGE [facility] ([facility]) Sep 11, 2015 [id number] [phone] FANNIE ANDERSENOLEGARIO Jung PATIENT MEDICARE (WN) MEDICARE (M) PART A Feb 09, 2001 PART A [id number] [phone] OLEGARIO DUNN PATIENT MEDICARE (WN) MEDICARE () PART B Feb 09, 2001 PART B [id number] 56A OLEGARIO DUNN PATIENT MEDICARE (WN) MEDICARE () PART A Feb 09, 2001 PART A [id number] 56A OLEGARIO DUNN PATIENT MEDICARE (WN) MEDICARE (M) PART B Feb 09, 2001 PART B [id number] 56A OLEGARIO DUNN PATIENT Selected Encounter This section includes the information on record at [place] for the Encounter. Date/Time Encounter Type Encounter Description Reason Pro vider Source Aug 15, 2024 09:31 AM Outpatient Encounter DENTAL IHE Encounter Template Text not used by [place] Plan of Treatment: Future Appointments (+ 6 months) and Future Tests (+/- 45 days) The Plan of Treatment section includes future care activities for the patient from all [place] treatmentfacilities. This section includes future appointments and future orders which are active, pending or scheduled. Future Appointments This section includes appointments that were scheduled to occur 6 months from the date of the Encounter, up to a maximum of 20 appointments. The data comes from all [facility] [address]. Appointment Date/Time Appointment Type Appointme nt Facility Name Sep 09, 2024 09:00 AM AMBULATORY - MEDICINE [facility] Sep 09, 2024 10:00 AM [facility] Sep 12, 2024 09:00 AM [facility] Nov 07, 2024 02:00 PM [facility] Dec 31, 2024 07:30 AM AMBULATORY - NONE [facility] Active, Pending, and Scheduled Orders This section includes a listing of several types of active, pending, and scheduled orders, including clinic medications orders, diagnostic test orders, procedure orders and consult orders; where the start date of the order is 45 days before the date of the Encounter or 45 days after the date of theEncounter. The data comes from all [facility] [address]. Test Date/Time Test Type Test Details Facility Name Sep 02, 2024 07:43 AM Laboratory - Chemi stry Order T3, FREE (QU) BLOOD (SST-SERUM) SP [facility] Lab Results: +/- 30 days of the encounter This section includes the Chemistry and Hematology Lab Results on record with [place] for the patient. Radiology Reports and Pathology Reports are provided separately, in subsequent sections. Lab Results This section contains the Chemistry/Hematology Results that were resulted 30 days before or 30 daysafter the date of the Encounter. Date/Time Source Result Type Result - Unit Interpretation Reference Range Comment Sep 02, 2024 07:43 AM [facility] THYROID T4 FREE(FT4) (WROX) Specimen Type: SERUM No comment entered. Ordering Provider: LEOPOLDO JACOBSEN Report Released Date/Time: Aug 30, 2024 09:28 AM Reporting Lab: [facility] [address] [address] Performing Lab: [facility] [address] [facility] [address] THYROID T4 FREE(FT4) (WROX) 0.85 ng/dL 0.6-1.6 Sep 02, 2024 07:43 AM [facility] TSH Specimen Type: SERUM No comment entered. Ordering Provider: LEOPOLDO JACOBSEN Report Released Date/Time: Aug 30, 2024 09:28 AM Reporting Lab: [facility] [address] [address] Performing Lab: [facility] [address] [address] TSH 7.26 u[IU]/mL H 0.35-5.00 Sep 02, 2024 07:43 AM [facility] LIVER FUNCTION Specimen Type: SERUM No comment entered. Ordering Provider: LEOPOLDO JACOBSEN Report Released Date/Time: Aug 30, 2024 09:28 AM Reporting Lab: [facility] [address] Performing Lab: [facility] [address] [address] PROTEIN,TOTAL 7.0 g/dL 6.0-8.3 ALBUMIN 4.0 g/dL 3.5-5.0 ALKALINE PHOSPHATASE 127 U/L 40-150 AST 24 U/L 5-34 ALT 23 U/L BILIRUBIN, TOTAL 1.2 mg/dL 0.2-1.2 BILIRUBIN, DIRECT 0.6 mg/dL H 0-0.5 Sep 02, 2024 07:43 AM [facility] BASIC METABOLIC PANEL (fasting) Specimen Type: SERUM No comment entered. Ordering Provider: LEOPOLDO JACOBSEN Report Released Date/Time: Aug 30, 2024 09:28 AM Reporting Lab: [facility] [address] [address] Performing Lab: [facility] [address] [address] UREA NITROGEN 20 mg/dL 7-25 GLUCOSE 86 mg/dL 65-100 SODIUM 141 mmol/L 135-145 POTASSIUM 4.1 mmol/L 3.5-5.0 CHLORIDE 112 mmol/L H 100-110 CO2 20 meq/L 20-30 CREATININE, Serum 0.73 mg/dL 0.50-1.40 eGFR(CKD-EPI 2020) 88 mL/min >60 Sep 02, 2024 07:43 AM [facility] LIPID PANEL FASTING Specimen Type: SERUM No comment entered. Ordering Provider: LEOPOLDO JACOBSEN Report Released Date/Time: Aug 30, 2024 09:28 AM Reporting Lab: [facility] [address] [address] Performing Lab: [address] [address] CHOLESTEROL 111 mg/dL TRIGLYCERIDE 45 mg/dL 0-150 LDL calculated 55 mg/dL 0-129 CHOL/HDL 2.4 HDL CHOLESTEROL 47 mg/dL 40-60 Sep 02, 2024 07:43 AM [facility] MICROSCOPIC AUTOMATED, URINE Specimen Type: URINE Comment: If Glucose = >500 and Ketones are positive, please alert the Physician. Ordering Provider: LEOPOLDO JACOBSEN Report Released Date/Time: Aug 30, 2024 09:28 AM Reporting Lab: [facility] [address] [address] Performing Lab: [address] [address] UA WBC 0-5 /[HPF] 0-5 UA CALCIUM OXALATE CRYSTALS MODERATE /[HPF] Not Established UA RBC 0-2 /[HPF] 0-3 UA SQUAMOUS EPITH FEW /[HPF] Sep 02, 2024 07:43 AM [facility] URINALYSIS CLEAN CATCH Specimen Type: URINE Comment: If Glucose = >500 and Ketones are positive, please alert the Physician. Ordering Provider: LEOPOLDO JACOBSEN Report Released Date/Time: Aug 30, 2024 09:28 AM Reporting Lab: [facility] [address] [address] Performing Lab: [address] [address] UA COLOR Yellow Yellow UA APPEARANCE Clear Clear UA GLUCOSE Normal mg/dL Negative UA KETONES TRACE mg/dL Negative UA BLOOD NEGATIVE mg/dL Negative UA PROTEIN 30 mg/dL Negative UA NITRITE NEGATIVE mg/dL Negative UA BILIRUBIN NEGATIVE mg/dL Negative UA SPECIFIC GRAVITY 1.024 H 1.016-1.022 UA pH 5.5 5.0-9.0 UA UROBILINOGEN 2 mg/dL <2.0 UA LEUKOCYTE NEGATIVE Negative Sep 02, 2024 07:43 AM [facility] CBC AND DIFF (AUTO) Specimen Type: BLOOD No comment entered. Ordering Provider: LEOPOLDO JACOBSEN Report Released Date/Time: Aug 30, 2024 09:28 AM Reporting Lab: [facility] [address] [address] Performing Lab: [address] [address] WBC 5.55 10*3/uL 4.50-11.00 RBC 4.32 10*6/uL 4.23-5.66 HGB 14.0 g/dL 12.8-17 HCT 41.0 39.2-50.4 MCV 94.9 fL 82-99 MCHC 34.1 g/dL 30.8-35.1 PLT 158 10*3/uL 140-360 RDW-CV 13.2 12.0-16.0 MONO, ABS 0.55 10*3/uL 0.30-1.10 MCH 32.4 pg 26.2-32.6 NEUT % 72.1 43.7-75.8 LYMPH % 15.1 14.0-42.3 MONO % 9.9 5.1-13.7 EOS % 2.0 0.4-6.8 BASO % 0.5 0.1-2.0 NEUT, ABS 4.00 10*3/uL 2.20-7.60 LYMPH, ABS 0.84 10*3/uL L 1.00-3.20 EOS, ABS 0.11 10*3/uL 0.03-0.44 BASO, ABS 0.03 10*3/uL 0.01-0.13 IMMATURE GRAN % 0.4 0.0-0.7 IMMATURE GRAN, ABS 0.02 10*3/uL 0.00-0.06 NRBC % 0.0 0.0-0.0 NRBC, ABS 0.00 10*3/uL 0.00-0.00 Social History: Smoking Status (Most current) and Tobacco Use (All prior to encounter date) This section includes the most current, and the historical, smoking and tobacco- related health factors from the [place] facility where the Encounter took place. Current Smoking Status This section includes the most current smoking, or tobacco-related health factor, from the [place] facility where the Encounter took place. Date/Time Current Smoking Status Comment [facility] Mar 11, 2024 09:00 AM VA-TOBACCO FORMER USER [place] [facility] [place] [facility] Tobacco Use History This section includes a history of the smoking, or tobacco-related health factors, that were collected on or before the date of the Encounter. The data comes from the [place] facility where the Encounter took place. Date/Time Smoking Status/Tobac co Use Comment Facility Mar 11, 2024 09:00 AM VA-TOBACCO QUIT 15 YRS OR MORE [place] [facility] [place] [facility] Mar 06, 2023 09:00 AM VA-TOBACCO FORMER USER [place] [facility] [place] [facility] Mar 06, 2023 09:00 AM VA-TOBACCO QUIT 15 YRS OR MORE [place] [facility] [place] [facility] Feb 16, 2022 09:30 AM VA-TOBACCO FORMER USER [place] [facility] [place] [facility] Feb 16, 2022 09:30 AM VA-TOBACCO QUIT 15 YRS OR MORE [place] [facility] Feb 09, 2021 09:00 AM VA-TOBACCO FORMER USER [place] [facility] [place] [facility] Feb 09, 2021 09:00 AM VA-TOBACCO QUIT 15 YRS OR MORE [place] [facility] Jan 01, 2020 10:15 AM VA-TOBACCO FORMER USER [facility] Jan 01, 2020 10:15 AM VA-TOBACCO QUIT 15 YRS OR [facility] Mar 12, 2018 08:56 AM VA-TOBACCO [facility] Mar 12, 2018 08:56 AM VA-TOBACCO QUIT 15 YRS OR [facility] Mar 12, 2018 08:24 AM LIFETIME NON-TOBACCO [facility] [place] [facility] Mar 13, 2017 07:44 AM LIFETIME NON-TOBACCO USER [facility] [place] [facility] Mar 11, 2016 07:54 AM QUIT TOBACCO USE > 7 YEARS AGO Quit [facility] 1984 [facility] Aug 17, 2005 10:23 AM HISTORY OF SMOKING Vet states he quit in 1984 [facility] May 19, 2004 08:56 AM HISTORY OF SMOKING quit . [facility] May 19, 2003 09:15 AM HISTORY OF SMOKING quit 10yrs ago [facility] Jun 06, 2002 08:13 AM HISTORY OF SMOKING quit [facility] Jun 06, 2002 08:13 AM QUIT TOBACCO USE > 7 YEARS AGO [facility] Apr 30, 2001 04:07 PM HISTORY OF SMOKING quit - [facility] Advance Directives: All historical and current Section Date Range: From patient's date of to the date document was created. This section includes ALL of a patient's completed or amended [place] Advance and Rescinded Directives. The entries below indicate that a directive exists for the patient, but an actual copy is not included with this document. The data comes from all [place] facilities. Date Advance Directives Provider Source Mar 12, 2024 ADVANCE DIRECTIVE JENNIFFER DOAN [facility] Encounter Notes: All associated encounter notes This section contains the clinical notes associated to the Encounter. Date/Time Encounter Note(s) Provider Source Aug 15, 2024 09:31 AM DENTISTRY TELEPHON E ENCOUNTER NOTE: LOCAL TITLE: TELEPHONE NOTE/DENTAL STANDARD TITLE: DENTISTRY TELEPHONE ENCOUNTER NOTE DATE OF NOTE: AUG 15, 2024@09:31 ENTRY DATE: AUG 15, 2024@09:31:25 AUTHOR: BRENDAN WARNER EXP COSIGNER: URGENCY: STATUS: COMPLETED Called and spoke with pt, appointment with dental on 01/07/2025 has been cancelled and rescheduled to 12/31/2024. /kathy/ BRENDAN WARNER ADVANCED MANAGER CORE Signed: 08/15/2024 09:32 BRENDAN WARNER [facility]
--- OUTSIDE RECORDS SUMMARY | 2024-09-06 11:09 | XMS_ITS | Encounter Summary ---
Author Name [facility] [place] Organization [facility] [place] Address [address] [place] [address] Care Team Providers Care Custom Ski Maker Name Role Phone LEOPOLDO JACOBSEN Primary Care [...] Name Patient's Relationship to Policy Lai [facility] ([facility]) MEDICARE ADVANTAGE [facility] ([facility]) Sep 11, 2015 [id number] MOONJung GANESHOLEGARIO Jung PATIENT [facility] ([facility]) MEDICARE ADVANTAGE [facility] ([facility]) Sep 11, 2015 [id number] [phone] OLEGARIO DUNN PATIENT MEDICARE (WN) MEDICARE () PART A Feb 09, 2001 PART A [id number] OLEGARIO DUNN PATIENT MEDICARE (WN) MEDICARE () PART B Feb 09, 2001 PART B [id number] [phone] OLEGARIO DUNN PATIENT MEDICARE (WN) MEDICARE () PART A Feb 09, 2001 PART A [id number] OLEGARIO DUNN PATIENT MEDICARE ([facility]) MEDICARE (M) PART B Feb 09, 2001 PART B [id number] OLEGARIO DUNN PATIENT Selected Encounter This section includes the information on record at [place] for the Encounter. Date/Time Encounter Type Encounter Description Reason Pro vider Source Sep 06, 2024 09:43 AM Outpatient Encounter TELEPHONE TRIAGE IHE Encounter Template Text not used by [place] Plan of Treatment: Future Appointments (+ 6 months) and Future Tests (+/- 45 days) The Plan of Treatment section includes future care activities for the patient from all [place] [facility]. This section includes future appointments and future orders which are active, pending or scheduled. Future Appointments This section includes appointments that were scheduled to occur 6 months from the date of the Encounter, up to a maximum of 20 appointments. The data comes from all [facility]. Appointment Date/Time Appointment Type Appointme nt Facility Name Sep 09, 2024 09:00 AM AMBULATORY - MEDICINE [facility] Sep 09, 2024 10:00 AM [facility] Sep 12, 2024 09:00 AM [facility] Nov 07, 2024 02:00 PM [facility] Dec 31, 2024 07:30 AM AMBULATORY - NONE [facility] Active, Pending, and Scheduled Orders This section includes a listing of several types of active, pending, and scheduled orders, including clinic medications orders, diagnostic test orders, procedure orders and consult orders; where the start date of the order is 45 days before the date of the Encounter or 45 days after the date of theEncounter. The data comes from all [facility]. Test Date/Time Test Type Test Details Facility Name Sep 02, 2024 07:43 AM Laboratory - Chemi stry Order T3, FREE (QU) BLOOD (SST-SERUM) SP [facility] Lab Results: +/- 30 days [...] Range Comment Sep 02, 2024 07:43 AM [facility] THYROID T4 FREE(FT4) (WROX) Specimen Type: SERUM No comment entered. Ordering Provider: LEOPOLDO JACOBSEN Report Released Date/Time: Aug 30, 2024 09:28 AM Reporting Lab: [facility] [address] [facility] [address] Performing Lab: [facility] [address] [facility] [address] THYROID T4 FREE(FT4) (WROX) 0.85 ng/dL 0.6-1.6 Sep 02, 2024 07:43 AM [facility] TSH Specimen Type: SERUM No comment entered. Ordering Provider: LEOPOLDO JACOBSEN Report Released Date/Time: Aug 30, 2024 09:28 AM Reporting Lab: [facility] [address] [facility] [address] Performing Lab: [facility] [address] [facility] [address] TSH 7.26 u[IU]/mL H 0.35-5.00 Sep 02, 2024 07:43 AM [facility] BASIC METABOLIC PANEL (fasting) Specimen Type: SERUM No comment entered. Ordering Provider: LEOPOLDO JACOBSEN Report Released Date/Time: Aug 30, 2024 09:28 AM Reporting Lab: [facility] [address] [facility] [address] Performing Lab: [facility] [address] [address] UREA NITROGEN 20 mg/dL 7-25 GLUCOSE 86 mg/dL 65-100 SODIUM 141 mmol/L 135-145 POTASSIUM 4.1 mmol/L 3.5-5.0 CHLORIDE 112 mmol/L H 100-110 CO2 20 meq/L 20-30 CREATININE, Serum 0.73 mg/dL 0.50-1.40 eGFR(CKD-EPI 2020) 88 mL/min >60 Sep 02, 2024 07:43 AM [facility] LIPID PANEL FASTING Specimen Type: SERUM No comment entered. Ordering Provider: LEOPOLDO JACOBSEN Report Released Date/Time: Aug 30, 2024 09:28 AM Reporting Lab: [facility] [address] [facility] [address] Performing Lab: [address] [address] CHOLESTEROL 111 mg/dL TRIGLYCERIDE 45 mg/dL 0-150 LDL calculated 55 mg/dL 0-129 CHOL/HDL 2.4 HDL CHOLESTEROL 47 mg/dL 40-60 Sep 02, 2024 07:43 AM [facility] MICROSCOPIC AUTOMATED, URINE Specimen Type: URINE Comment: If Glucose = >500 and Ketones are positive, please alert the Physician. Ordering Provider: LEOPOLDO JACOBSEN Report Released Date/Time: Aug 30, 2024 09:28 AM Reporting Lab: [address] [address] Performing Lab: [address] [address] UA WBC 0-5 /[HPF] 0-5 UA CALCIUM OXALATE CRYSTALS MODERATE /[HPF] Not Established UA RBC 0-2 /[HPF] 0-3 UA SQUAMOUS EPITH FEW /[HPF] Sep 02, 2024 07:43 AM [facility] LIVER FUNCTION Specimen Type: SERUM No comment entered. Ordering Provider: LEOPOLDO JACOBSEN Report Released Date/Time: Aug 30, 2024 09:28 AM Reporting Lab: [address] [address] Performing Lab: [address] [address] PROTEIN,TOTAL 7.0 g/dL 6.0-8.3 ALBUMIN 4.0 g/dL 3.5-5.0 ALKALINE PHOSPHATASE 127 U/L 40-150 AST 24 U/L 5-34 ALT 23 U/L BILIRUBIN, TOTAL 1.2 mg/dL 0.2-1.2 BILIRUBIN, DIRECT 0.6 mg/dL H 0-0.5 Sep 02, 2024 07:43 AM [facility] URINALYSIS CLEAN CATCH Specimen Type: URINE Comment: If Glucose = >500 and Ketones are positive, please alert the Physician. Ordering Provider: LEOPOLDO JACOBSEN Report Released Date/Time: Aug 30, 2024 09:28 AM Reporting Lab: [facility] [address] [facility] [address] Performing Lab: [address] [address] UA COLOR Yellow Yellow UA APPEARANCE Clear Clear UA GLUCOSE Normal mg/dL Negative UA KETONES TRACE mg/dL Negative UA BLOOD NEGATIVE mg/dL Negative UA PROTEIN 30 mg/dL Negative UA NITRITE NEGATIVE mg/dL Negative UA BILIRUBIN NEGATIVE mg/dL Negative UA SPECIFIC GRAVITY 1.024 H 1.016-1.022 UA pH 5.5 5.0-9.0 UA UROBILINOGEN 2 mg/dL <2.0 UA LEUKOCYTE NEGATIVE Negative Sep 02, 2024 07:43 AM [facility] CBC AND DIFF (AUTO) Specimen Type: BLOOD No comment entered. Ordering Provider: LEOPOLDO JACOBSEN Report Released Date/Time: Aug 30, 2024 09:28 AM Reporting Lab: [facility] [address] [facility] [address] Performing Lab: [address] [address] WBC 5.55 10*3/uL 4.50-11.00 RBC 4.32 10*6/uL [...] took place. Date/Time Current Smoking Status Comment [facility] Mar 11, 2024 09:00 AM VA-TOBACCO QUIT 15 YRS OR MORE [place] [facility] [place] [facility] Tobacco Use History This section includes a history of the smoking, or tobacco-related health factors, that were collected on or before the date of the Encounter. The data comes from the [place] facility where the Encounter took place. Date/Time Smoking Status/Tobac co Use Comment [facility] Mar 11, 2024 09:00 AM VA-TOBACCO QUIT 15 YRS OR MORE [facility] [facility] Mar 06, 2023 09:00 AM VA-TOBACCO FORMER USER [facility] [facility] Mar 06, 2023 09:00 AM VA-TOBACCO QUIT 15 YRS OR MORE [facility] [place] [facility] Feb 16, 2022 09:30 AM VA-TOBACCO FORMER USER [facility] [place] [facility] Feb 16, 2022 09:30 AM VA-TOBACCO QUIT 15 YRS OR MORE [facility] [place] [facility] Feb 09, 2021 09:00 AM VA-TOBACCO FORMER USER [facility] [facility] Feb 09, 2021 09:00 AM VA-TOBACCO QUIT 15 YRS OR MORE [facility] Jan 01, 2020 10:15 AM VA-TOBACCO FORMER USER [facility] Jan 01, 2020 10:15 AM VA-TOBACCO QUIT 15 YRS OR MORE [facility] Mar 12, 2018 08:56 AM VA-TOBACCO FOR[facility]ER [facility] Mar 12, 2018 08:56 AM VA-TOBACCO QUIT 15 YRS OR MORE [facility] Mar 12, 2018 08:24 AM LIFETIME NON-TOBACCO USER [facility] Mar 13, 2017 07:44 AM LIFETIME NON-TOBACCO USER [facility] Mar 11, 2016 07:54 AM QUIT TOBACCO USE > 7 YEARS AGO Quit in 1984 [facility] Aug 17, 2005 10:23 AM HISTORY OF SMOKING Vet states he quit in 1984 [facility] May 19, 2004 08:56 AM HISTORY OF SMOKING quit . [facility] May 19, 2003 09:15 AM HISTORY OF SMOKING quit 10yrs ago [facility] Jun 06, 2002 08:13 AM HISTORY OF SMOKING quit 1978 [facility] Jun 06, 2002 08:13 AM QUIT TOBACCO USE > 7 YEARS AGO [facility] Apr 30, 2001 04:07 PM HISTORY OF SMOKING quit - 1984 [facility] Advance Directives: All historical and [...] Mar 12, 2024 ADVANCE DIRECTIVE [facility]ENNIFFER [facility]AN [facility] Encounter Notes: All associated encounter notes This section contains the clinical notes associated to the Encounter. Date/Time Encounter Note(s) Provider Source Sep 06, 2024 09:43 AM RN PROGRESS NOTE: LOCAL TITLE: CCC: CLINICAL TRIAGE STANDARD TITLE: RN PROGRESS NOTE DATE OF NOTE: SEP 06, 2024@09:43:22 ENTRY DATE: SEP 06, 2024@09:43:22 AUTHOR: SHILPA STOCKTON COSIGNER: URGENCY: STATUS: COMPLETED Patient Demographics Patient Name: EUSEBIO Santamaria HYUNSAMMY Patient Primary Address: [address] [place] [address] Patient Primary Phone: [phone] Patient : 1935 Patient Age: 89 Call Back Number: [phone] Caller/Recipient Relation to Patient: Other If Other Describe Relation to Patient: daughter Caller Name: Kay Emergency Contact: OTHER [facility] Nursing Plan and Disposition Referred patient to higher level of care Instructed to go to Emergency Room (ER) Other Other Description: 911 now Nurse Summary Nurse Summary: Daughter Kay called. She states he has a terrible colds, he fell and I found him on the floor this morning. he does not look good. he needs to be seen . She states pt is confused, cant tell if pt hit his head, no obvious physical injury, cut, bleeding anywhere per daughter. States we got him sat at the back of the cough but he ness not look good. She states pt is responsive he told me he fell at 3am . Advised 911 now, she agreed. States she will call 911 now. Clinical Contact Center Codes Clinic/Location: V1 CWM PHONE [facility] RN IMPORTANT: This note was created by [facility] Clinical Contact Center staff. Please do not alert the staff member by adding them as a signer for future communications. Alerts are not monitored by this user. /kathy/ SHILPA STOCKTON RN-BSN REGISTERED NURSE Signed: 09/06/2024 09:43 Receipt Acknowledged By: 09/06/2024 09:45 /kathy/ IRA MARSH RN REGISTERED NURSE for DELFINA ZEPEDA * AWAITING SIGNATURE * JENNIFFER DOAN GRACE [facility]
--- OUTSIDE RECORDS SUMMARY | 2024-09-06 11:09 | XMS_ITS | Continuity of Care Document ---
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 Name Role Phone Erasmo Carlos MD Primary Care Physician Encounter [facility] Date(s): 07/12/24 - 08/11/24 [facility] [address] [place] [address]- Attending Physician: Kali Briones Admitting Physician: Kali Briones Referring Physician: trKali Encounter Type: Triage Allergies, Adverse Reactions, Alerts Substance Criticality Severity Reaction Reaction Severity Status metoprolol Unknown Active felodipine Unknown Active neomycin Unknown Active Xalatan Unknown Active Latex Rash Active Medications amLODIPine 10 mg oral tablet 90 each, 0 Refill(s), 0 Refills, 11/08/23 2:54:00 PM EST, Partial fill upon patient request if the prescription is for a schedule II opioid drug. Start Date: 11/08/23 Status: Ordered Repeat number: 1 amlodipine 5 mg oral tablet 2 tablet = 10 mg, By Mouth, Daily, # 30 tablet, 0 Refills, Maintenance, 09/05/11 10:45:47 PM EST, Tablet Start Date: 09/05/11 Status: Ordered Quantity: 30.0 Unit: tablet Repeat number: 1 Bilateral Juxtafit Knee-high Compression Garments with 2 pairs of liners Bilateral Juxtafit Knee-high Compression Garments with 2 pairs of liners, See Instructions, # 1 kit, Refills 0, Tot. Refills 0, Maintenance, Dx: venous hypertension, 11/18/22 8:13:00 AM EST, Supply Start Date: 11/18/22 Status: Ordered Quantity: 1.0 Unit: kit Repeat number: 1 ibuprofen 600 mg oral tablet 1 tablet = 600 mg, By Mouth, 4 times a day, # 120 tablet, 0 Refills, Maintenance, 09/05/11 10:45:34PM EST, Tablet Start Date: 09/05/11 Status: Ordered Quantity: 120.0 Unit: tablet Repeat number: 1 Multivitamin By Mouth, Daily, 0 Refills, Maintenance, 09/05/11 10:46:16 PM EST Start Date: 09/05/11 Status: Ordered Repeat number: 1 Vitamin C 500 mg oral tablet 1 tablet = 500 mg, By Mouth, Daily, # 30 tablet, 0 Refills, Maintenance, 09/05/11 10:46:02 PM EST, Tablet Start Date: 09/05/11 Status: Ordered Quantity: 30.0 Unit: tablet Repeat number: 1 Vitamin D3 1000 intl units oral capsule 1 capsule = 25 mcg, By Mouth, Daily, # 75 capsule, 0 Refills, Maintenance, 04/10/23 8:39:00 AM EDT, Capsule, Partial fill upon patient request if the prescription is for a schedule II opioid drug. Start Date: 04/10/23 Status: Ordered Quantity: 75.0 Unit: capsule Repeat number: 1 Problem List Condition Confirmation Course Effective Dates Status Health St atus Informant Hypertension Confirmed Active Social History Social History Type Response Smoking Status Former smoker, quit more than 30 days ago; Type: Cigarettes entered on: 11/08/23 Sex Sex Representation Male (finding) Patient Care team information Care Team Personnel Name: Erasmo Carlos MD Position: Reference Physician Member Role: PCP Address: [address] [place] [address] Telecom: Care Team Related Persons Name: JACOBY PEREZ Name: SAUNDRA PEREZ Insurance Providers Guarantor name: TABITHA Health Plan Information #: 1 [facility] [place] [facility] Member Number: NA Policy Number: TABITHA Group Number: [id number]
[2024-09-06 11:13] LABS: Troponin-I High Sensitivity 61.3 ng/L (<3.5-35.0)
--- NOTE | 2024-09-06 11:38 | PC.NURSE ---
Assumed care of this patient at 1100, patient tremulous in bed w/ numerous blankets on. heating blanket applied, rectal probe applied, temp 99.3, heating blanket placed to low. Patient has incontinence, [place] cath placed.
[2024-09-06] MEDS: 0.9 % Sodium Chloride 1,000 ML 999 ML IV (12:02)
--- NOTE | 2024-09-06 12:35 | ED.GENADULT ---
HPI - General Adult General Chief complaint: Fall Stated complaint: FALL, DOWN SINCE LAST NIGHT Time Seen by Provider: 09/06/24 12:28 Source: patient, family and EMS Mode of arrival: EMS History of Present Illness HPI narrative: This is 89 years old male was found in the floor by the family . This patient has been feeling weak with cough congestion. This a.m. he was no answering to the phone and family found him in the floor Onset (ago): day(s) (1) Radiation: non-radiation Severity: moderate Quality: burning Pain Consistency: constant Relieving factors: none Exacerbating factors: none Related Data Allergies Allergy/AdvReac Type Severity Reaction Status Date / Time Unable to Assess Allergy Verified 09/06/24 10:35 Review of Systems Constitutional: Constitutional: Reports no additional constitutional complaints ENT: Reports system reviewed and no additional complaints, except as documented Respiratory: Respiratory: Reports no additional respiratory complaints Musculoskeletal: Musculoskeletal: Reports no additional musculoskeletal complaints Neurologic: Reports system reviewed and no additional complaints, except as documented [facility] Past Medical History Attestation statement: The following information was validated with the patient. [facility] Narrative: Hypertension Social History Social History Smoked in Last 30 Days: No Advance Directives: Yes Advance Directives Information Provided: Yes Advance Directives on File: No Physical Exam ED Vital Signs: Vital Signs - 24 hr 09/06/24 10:27 09/06/24 12:07 Temperature 97.4 F 99.7 F Pulse Rate 79 72 Respiratory Rate 22 H 18 Blood Pressure 112/70 138/60 Pulse Oximetry 96 99 Oxygen Delivery Method Room Air Room Air BMI result Body Mass Index 26.4 No acute distress Const General: cooperative Nutritional Appearance: well nourished Orientation/consciousness: patient oriented x3 Limitations: no limitations HENMT Head: Yes normal to inspection General nose exam: Normal external nose present Face and sinus: Yes normal facial exam Mouth: Normal oral and palatal mucosa present Throat: Yes posterior oropharynx normal Neck Neck: Yes normal visual inspection Chest Chest palpation & inspection: normal inspection of the chest Resp Effort & Inspection: normal respiratory effort Cardio Jugular venous distension: no JVD Rate: regular rate Rhythm: regular rhythm GI Inspection: Yes normal to inspection Palpation (GI): Soft to palpation, not firm, nontender and no guarding Percussion: Yes normal to percussion Auscultation: normal bowel sounds Neuro General: patient oriented x3 Medications Administered Discontinued Medications Generic Name Dose Route Start Last Admin Trade Name Freq PRN Reason Stop Dose Admin Sodium Chloride 1,000 mls @ 999 mls/hr 09/06/24 11:30 09/06/24 12:02 Ns IV 09/06/24 12:30 999 mls/hr .Q1H1M REINALDO Administration Medical Decision Making Medical Decision Making [facility] Narrative: Patient presented to the emergency department with a chief complaint of generalized weakness found in the floor by the family we will go ahead and administer IV fluids due chest x-ray labs and reassessed Differential Diagnosis Differential Diagnoses: The differential diagnosis associated with the presentation includes Dehydration renal failure ,pneumonia Admission/Observation Consideration of admission/observation: Escalation of care including admission/observation considered Lab Data [facility] Lab Attestation statement: I reviewed the patient's lab results. 09/06/24 10:39 09/06/24 10:39 Labs: Lab Results 09/06/24 Range/Units 10:39 WBC 11.7 H (4.8-10.8) X10*3/uL RBC 4.64 (4.60-5.80) X10*6/uL Hgb 15.0 (14.0-18.0) g/dl Hct 43.3 (42.0-52.0) % MCV 93.3 (80.0-98.0) fL MCH 32.3 (27.0-33.0) pg MCHC 34.6 (31.0-36.0) g/dl RDW 13.8 (11.0-16.0) % Plt Count 172 (160-400) X10*3/uL MPV 9.8 (9.4-12.4) fL Immature Gran % (Auto) 0.4 (0.0-0.4) % Neut % (Auto) 87.9 H (45-73) % Lymph % (Auto) 2.6 L (20-40) % [place] % (Auto) 8.9 (2-11) % Eos % (Auto) 0.0 (0-4) % Baso % (Auto) 0.2 (0-2) % Lymph # (Auto) 0.3 L (1.2-4.9) X10*3/uL [place] # (Auto) 1.1 (0.1-1.2) X10*3/uL Eos # (Auto) 0.0 (0.0-0.4) X10*3/uL Baso # (Auto) 0.0 (0.0-0.2) X10*3/uL Abs Immat Gran (auto) 0.05 H (0.00-0.03) X10*3/uL Absolute Neuts (auto) 10.3 H (2.0-8.3) x10*3/uL Absolute Nucleated RBC 0.000 (0.0-0.012) X10*3/uL Nucleated RBC % (auto) 0.0 (0.0-0.2) /100WBC Hold Purple Top SEE NOTE Hold Blue Top SEE NOTE Sodium 140 (135-145) mmol/L Potassium 4.2 (3.3-5.1) mmol/L Chloride 112 H (96-108) mmol/L Carbon Dioxide 20 L (22-29) mmol/L Anion Gap 12 (12-20) BUN 25 H (9-16) mg/dL Creatinine 0.65 (0.5-1.4) mg/dL Estim Creat Clear Calc 81.1 Estimated GFR > 60 Random Glucose 100 (60-115) mg/dL Calcium 10.3 H (8.4-10.2) mg/dL Total Bilirubin 1.9 H (0.0-1.0) mg/dL AST 262 H (5-37) U/L ALT 98 H (0-40) U/L Alkaline Phosphatase 139 H (39-117) U/L Total Creatine Kinase 4019 H (38-174) U/L Troponin I High Sens 61.3 H (<3.5-35.0) ng/L Total Protein 7.5 (6.5-8.0) g/dL Albumin 4.0 (3.5-5.0) g/dL Discharge Plan Discharge Patient Disposition: Still a Patient Print Language: Tamazight
[2024-09-06] MEDS: cefEPime HCl/D5W 2 GM/50 ML PIGGYBACK IV (12:59)
[2024-09-06] MEDS: 0.9 % Sodium Chloride 1,000 ML 999 ML IVCONT (12:59)
[2024-09-06] MEDS: vancomycin/NS 2,000 MG/500 ML PLAST..BAG 250 MG IV (13:03)
[2024-09-06 13:20] LABS: Lactic Acid 1.8 mmol/L (0.5-2.0)
[2024-09-06] MEDS: Acetaminophen 325 MG TABLET 650 MG PO (13:32)
--- NOTE | 2024-09-06 13:40 | P.HPHOSP_ITS ---
History of Present Illness Date of Service: 09/06/24 Attending physician on admission: Teo Medina Chief Complaint: Fall at home Pt is an 89-year-old male with a PMH significant for?HTN and esstential tremor who presents to the ED after fall at home yesterday afternoon. Pt is alert and oriented to self and time, and partly to place and situation, though seems confused about some details. HPI is supplemented by family who is at bedside. Family last saw pt on [place] when he appeared in his normal state of health. Spoke to him on and again appeared at baseline. However, when daughter called yesterday at noon, report he seems confused, stuttering and confusing some details. Family attempted to call pt again earlier this morning but were unable to get an answer. When they stopped by the house pt was found on the floor. He reports fell at 15:00 and was unable to stand up or crawl on the floor to the chair. Pt initially complained of lower back pain, but currently has no acute pain. No SOB or MCKEE, but reports increased cough for the past few days. No fever, though reports was very cold after being on the floor for the night. Denies chest pain/pressure, palpitations. No nausea, vomiting, abdominal pain. Occasionally drinks alcohol socially, but denies significant or prolonged alcohol use. Of note, patient's family worried he has been declining both physically and mentally for a number of months now. Son reports patient occasionally has been unable to recognize him for the past 6 months. In the ED pt with 1 episode tachypnea of 22 and low-grade temperature of 99.7 degrees, vitals otherwise stable and WNL, satting at 99% on RA. Labs were significant for leukocytosis of 11.7, BUN 25, creatinine WNL at 0.65, CPK 4019, T bili 1.9, AST 262, ALT 98, alk-phos 139, and initial troponin 61.3. No significant electrolyte abnormalities. Lactic acid WNL at 1.8. CT of head negative for acute intracranial abnormalities, but showed chronic sinus opacifications. CT of cervical spine negative for acute fracture or subluxation. CXR showed right middle lobe and right lower lobe consolidations with probable effusion suspicious for pneumonia, as well as cardiomegaly. X-ray of hip and pelvis negative for acute bony abnormalities. Pt was treated with IVF, acetaminophen, vancomycin, and cefepime. Pt will be admitted to the hospital for treatment and further evaluation of generalized weakness and fall at home in the setting of rhabdomyolysis and pneumonia. Review of Systems 2 Review of Systems: Negative except for that which is stated in the HPI. [facility] Medical History (Updated 09/06/24 @ 15:22 by PETEY Chow) Essential tremor Hypertension Social History Smoked in Last 30 Days: No Advance Directives: Yes Advance Directives Information Provided: Yes Advance Directives on File: No Meds Allergies Allergy/AdvReac Type Severity Reaction Status Date / Time Unable to Assess Allergy Verified 09/06/24 10:35 Active Medications: Current Medications Vancomycin HCl (Vancomycin/Ns) 2,000 mg in 500 mls @ 250 mls/hr IV ONCE ONE Stop: 09/06/24 14:44 Last Admin: 09/06/24 13:03 Dose: 250 mls/hr Sodium Chloride (Ns) 1,000 mls @ 999 mls/hr IVCONT .Q1H1M REINALDO Stop: 09/06/24 14:00 Last Admin: 09/06/24 12:59 Dose: 999 mls/hr Home Medications ?Medication ?Instructions ?Recorded ?Confirmed ?Last Taken ?Type amlodipine 10 mg tablet 10 mg PO DAILY 09/06/24 09/06/24 09/05/24 History ascorbic acid (vitamin C) 500 mg 500 mg PO DAILY 09/06/24 09/06/24 09/05/24 History tablet (Vitamin C) cholecalciferol (vitamin D3) 25 25 mcg PO BID 09/06/24 09/06/24 09/05/24 History mcg (1,000 unit) tablet (Vitamin D3) Physical Exam 2 Vital Signs and Narrative: Vital Signs: Last Vital Signs Temp 99.7 F 09/06/24 12:07 Pulse 72 09/06/24 12:07 Resp 18 09/06/24 12:07 BP 138/60 09/06/24 12:07 Pulse Ox 99 09/06/24 12:07 O2 Del Method Room Air 09/06/24 12:07 BMI result Body Mass Index 26.4 General: Alert and oriented to person and time, partly to place and situation. In no acute distress Resp: CTA bilaterally CVS: S1, S2, RRR GI: +BS, NT, no distention Skin: Warm, dry Neuro: Cranial nerves II-XII grossly intact bilaterally. Motor grossly intact bilaterally. Pt with diffuse essential tremor Extremities: Non-pitting bilateral edema Psych: Slightly confused Results Labs 09/06/24 10:39 09/06/24 10:39 Labs: Laboratory Results - last 24 hr 09/06/24 09/06/24 10:39 12:54 MCV 93.3 MCH 32.3 MCHC 34.6 RDW 13.8 Plt Count 172 MPV 9.8 Immature Gran % (Auto) 0.4 Neut % (Auto) 87.9 H Lymph % (Auto) 2.6 L [place] % (Auto) 8.9 Eos % (Auto) 0.0 Baso % (Auto) 0.2 Lymph # (Auto) 0.3 L [place] # (Auto) 1.1 Eos # (Auto) 0.0 Baso # (Auto) 0.0 Abs Immat Gran (auto) 0.05 H Absolute Neuts (auto) 10.3 H Absolute Nucleated RBC 0.000 Nucleated RBC % (auto) 0.0 Hold Purple Top SEE NOTE Hold Blue Top SEE NOTE Anion Gap 12 Estim Creat Clear Calc 81.1 Estimated GFR > 60 Random Glucose 100 Lactic Acid 1.8 Calcium 10.3 H Total Bilirubin 1.9 H AST 262 H ALT 98 H Alkaline Phosphatase 139 H Total Creatine Kinase 4019 H Troponin I High Sens 61.3 H Total Protein 7.5 Albumin 4.0 Imaging Radiologist's Impressions: Impressions Chest X-Ray 09/06/24 11:00 IMPRESSION: 1. Right middle lobe and right lower lobe consolidations with probable effusions suspicious for pneumonia. 2. Cardiomegaly. 3. No posttraumatic abnormalities. Electronically signed by: Shant Dela Cruz MD 09/06/2024 11:26 AM EST RP Hip/Pelvis X-Ray 09/06/24 11:43 IMPRESSION: No acute bony abnormalities. See above. Electronically signed by: Shant Dela Cruz MD 09/06/2024 12:01 PM EST RP Cervical Spine CT 09/06/24 11:52 IMPRESSION: 1. No CT evidence of acute cervical spine fracture or injury. 2. Mild degenerative disc changes with more significant left degenerative facet changes. 3. Patchy opacity left lung apex, and layering effusion right lung apex. Findings are nonspecific and could represent infectious or inflammatory etiologies, or CHF. Electronically signed by: Shant Dela Cruz MD 09/06/2024 12:43 PM EST RP Head CT 09/06/24 11:52 IMPRESSION: 1. No acute intracranial abnormalities. No fractures. 2. Chronic appearing left sphenoid sinus opacification. Patchy mucosal thickening left greater than right ethmoid air cells and frothy secretions in the frontal sinuses. Electronically signed by: Shant Dela Cruz MD 09/06/2024 12:35 PM EST RP Assessment and Plan (1) Pneumonia: Qualifiers: Laterality: right Lung location: lower lobe of lung Pneumonia type: d ue to unspecified organism Qualified Code(s): J18.9 - Pneumonia, unspecified organism Status: Acute (2) Rhabdomyolysis: Status: Acute Plan Pt is an 89-year-old male with a PMH significant for?HTN and esstential tremor who presents to the ED after fall at home yesterday afternoon. Pt will be admitted to the hospital for treatment and further evaluation of generalized weakness and fall at home in the setting of rhabdomyolysis and pneumonia. Rhabdomyolysis Patient with fall at home with reported 18-hour downtime CPK 4019 at time of presentation Patient received 2L IVF in the ED Will place on maintenance fluids x2L Follow CPK Pneumonia CXR showing right lobe and right lower lobe consolidations patient's for pneumonia No sepsis: Tachycardic, but no tachypnea, fever, or leukocytosis Will get CT of chest for further evaluation Will treat with ceftriaxone and azithromycin Elevated troponins Serial troponins flat Patient asymptomatic Likely type 2 in the setting of increased demand EKG with artifact, ?AFib Repeat EKG in the morning Monitor on telemetry Weakness, fall at home PT evaluation Question of dementia Patient with increasing confusion and forgetfulness for at least the past 6 months Patient lives alone Family considering moving in with him OT consult for MoCA HTN Continue amlodipine Full Code Attending:?Dr. Medina DVT Prophylaxis: Lovenox Pt will require a hospitalization of at least two nights for treatment of?generalized weakness and fall at home in setting of rhabdomyolysis and pneumonia requiring IV hydration, close monitoring of labs including CPK, and administration of IV antibiotics. Quality Stroke Does the patient have a stroke diagnosis?: No VTE Prior VTE?: No VTE Risk Level:: Medical - moderate - high VTE Device Contraindication: Treatment Not Indicated VTE Drug Contraindication: N/A - Med Ordered
[2024-09-06 14:46] LABS: Troponin-I High Sensitivity 49.6 ng/L (<3.5-35.0)
--- NOTE | 2024-09-06 15:23 | PHA.MEDREC ---
Pharmacy Consult ? Medication Reconciliation Pharmacy has completed the medication reconciliation. Spoke with patient and family at bedside. They were able to confirm that he only takes amlodipine and Vitamins D3 and C. Says he takes D3 twice daily. Last had his meds yesterday morning.
[2024-09-06] MEDS: 0.9 % Sodium Chloride 1,000 ML 100 ML IVCONT (15:36)
[2024-09-06] MEDS: 0.9 % Sodium Chloride Flush 3 ML SYRINGE IVFLUSH (15:48)
[2024-09-06] MEDS: Enoxaparin Sodium 40 MG/0.4 ML SYRINGE SUBCUT (15:48)
[2024-09-06 15:52] LABS: Appearance Urine Clear; Color Urine Dark Yellow; Glucose Urine UA Negative (Negative); Leukocyte Esterase Urine Negative (Negative); Nitrite Urine Negative (Negative); PH 5.5 (5.0-9.0); UMIC TRIGGER UACC YES; Urine Blood Large (3+) (Negative); Urine Ketones 15 mg/dL (Negative); Urine Protein 300 (3+) mg/dL (Neg-Trace)
--- NOTE | 2024-09-06 16:09 | PC.NURSE ---
Confirmed w/ [facility] that EKG is ordered for tomorrow AM, need a line cleaner read however patient is still quite tremulous.
[2024-09-06 16:31] LABS: Bacteria Urine None Seen (None Seen); Granular Casts Urine Present; RBC Urine 0-2 /HPF (0-2); WBC Urine 0-5 /HPF (0-5)
--- NOTE | 2024-09-06 18:32 | HO.SKINPHOTO ---
Location: Category: Stage: Length: Width: Depth: cm Location: Category: Stage: Length: Width: Depth: cm Location: Category: Stage: Length: Width: Depth: cm Location: Category: Stage: Length: Width: Depth: cm Location: Category: Stage: Length: Width: Depth: cm Location: Category: Stage: Length: Width: Depth: cm
[2024-09-06] MEDS: Cholecalciferol (Vitamin D3) 25 MCG TABLET PO (20:08)
[2024-09-06] MEDS: amLODIPine Besylate 10 MG TABLET PO (20:08)
[2024-09-06] MEDS: Melatonin 3 MG TABLET 6 MG PO (22:40)
[2024-09-07] VITALS (7 sets, daily range): BP systolic 133–180; BP diastolic 67–85; PULSE 69–85; RESP 16–18; TEMP 36.5–38.2; O2SAT 93–97
[2024-09-07] MEDS: 0.9 % Sodium Chloride 1,000 ML 100 ML IVCONT (01:02)
--- NOTE | 2024-09-07 04:43 | PC.NURSE ---
assumed care at 23:00. Patient alert to self. Tele maintained. Patient had elevated BP. Dr. Bahena made aware at 04:39 via [employer]. No interventions to follow. Bed in lowest position, call figueroa in reach and rounding for safety.
[2024-09-07 07:24] LABS: Anion Gap 8 (12-20); Blood Urea Nitrogen 23 mg/dL (9-16); Calcium 9.6 mg/dL (8.4-10.2); Carbon Dioxide 20 mmol/L (22-29); Chloride 118 mmol/L (96-108); Creatinine Clr Calc Pharmacy 78.9; Estimated Glomerular Filt Rate > 60; Glucose Random 98 mg/dL (60-115); Potassium 3.7 mmol/L (3.3-5.1); Sodium 142 mmol/L (135-145)
--- NOTE | 2024-09-07 08:00 | ECG_ITS ---
Test Reason : Previous with artifact Blood Pressure : / mmHG Vent. Rate : 047 BPM Atrial Rate : 208 BPM P-R Int : 000 ms QRS Dur : 108 ms QT Int : 446 ms P-R-T Axes : 267 -13 -32 degrees QTc Int : 394 ms Atrial flutter with variable A-V block Right bundle branch block Abnormal ECG When compared with ECG of 06-SEP-2024 10:37, Atrial flutter has replaced Atrial fibrillation Vent. rate has decreased BY 24 BPM T wave amplitude has decreased in Anterior leads Referred By: Yesenia Gong Electronically Signed By:PRESTON URIBE MD
[2024-09-07] MEDS: Cholecalciferol (Vitamin D3) 25 MCG TABLET PO ×2 (09:42→22:05)
[2024-09-07] MEDS: 0.9 % Sodium Chloride Flush 3 ML SYRINGE IVFLUSH ×2 (09:42→16:24)
[2024-09-07] MEDS: Ascorbic Acid 500 MG TABLET PO (09:42)
[2024-09-07] MEDS: amLODIPine Besylate 10 MG TABLET PO (09:42)
[2024-09-07] MEDS: Sodium Chloride 0.65 % Nasal 44 ML SPRBTL 1 SPRAY NOSTRIL-B (10:46)
[2024-09-07] MEDS: cefTRIAXone sodium 1 GM VIAL IVPUSH (10:46)
[2024-09-07] MEDS: Azithromycin 500 MG in 0.9 % Sodium Chloride 250 ML 125 MG IV (10:46)
--- NOTE | 2024-09-07 10:49 | MHC.CM.PN ---
Pt lives alone, he does not have home health services or DME. HCP is his dtr Kay, copy requested. [facility], [facility] in the [facility]. Pt.'s dtr, Kay plans to move in with him when he goes home from hosp. PT has rec [facility], however, pt. refuses to go, and family confirms that he will not go. DCP is home with [facility] and family care. CM to follow for DC needs.
--- NOTE | 2024-09-07 14:31 | HO.PM.IMPN ---
Subjective Subjective Date of Service: 09/07/24 Interval History: seen and evaluated this morning feels better Off O2 no reported fever or chills Review of Systems Review of Systems: Yes all other systems are reviewed and are negative Physical Exam Vital Signs: Vital Signs: Last Vital Signs Temp 99.3 F 09/07/24 11:40 Pulse 75 09/07/24 11:40 Resp 18 09/07/24 11:40 BP 180/77 H 09/07/24 11:40 Pulse Ox 95 09/07/24 11:40 O2 Del Method Room Air 09/07/24 11:40 BMI result Body Mass Index 28.5 Const: Other: Constitutional : Awake, interactive, not in distress Neck : Normal inspection, Supple Cardiovascular : RRR, no JVP, trace lower extremity edema Respiratory : fair bilateral air entry, fine basal crackles, no wheezes Gastrointestinal: soft, lax, Normal bowel sounds, Non tender Skin : Warm, Dry Neurological : Alert & oriented x3, No focal deficit Objective Data Active Medications Acetaminophen (Acetaminophen 325 Mg Tablet) 650 mg PO Q6H PRN PRN Reason: Pain, Mild 1-3,fever,headache Amlodipine Besylate (Amlodipine Besylate 10 Mg Tablet) 10 mg PO DAILY [facility]; Protocol Last Admin: 09/07/24 09:42 Dose: 10 mg Documented By: LUIS F Ascorbic Acid (Ascorbic Acid 500 Mg Tablet) 500 mg PO DAILY [facility] Last Admin: 09/07/24 09:42 Dose: 500 mg Documented By: LUIS F Calcium Carbonate (Calcium Carbonate 750 Mg Tab.Chew) 750 mg PO Q4H PRN PRN Reason: Heartburn Ceftriaxone Sodium (Ceftriaxone Sodium 1 Gm Vial) 1 gm IVPUSH Q24H [facility] Last Admin: 09/07/24 10:46 Dose: 1 gm Documented By: LUIS F Enoxaparin Sodium (Enoxaparin Sodium 40 Mg/0.4 Ml Syringe) 40 mg SUBCUT Q24H [facility] Last Admin: 09/06/24 15:48 Dose: 40 mg Documented By: DITOLC Azithromycin 500 mg/ Sodium (Chloride) 250 mls @ 125 mls/hr IV Q24H [facility] Last Infusion: 09/07/24 13:28 Dose: Infused Documented By: LUIS F Magnesium Hydroxide (Milk Of Magnesia 30 Ml Oral.Susp) 30 ml PO DAILY PRN PRN Reason: Constipation Melatonin (Melatonin 3 Mg Tablet) 6 mg PO BEDTIME PRN PRN Reason: Insomnia Last Admin: 09/06/24 22:40 Dose: 6 mg Documented By: DANE Ondansetron HCl (Ondansetron Hcl 4 Mg/2 Ml Vial) 4 mg IVPUSH Q8H PRN PRN Reason: Nausea and Vomiting Sodium Chloride (0.9 % Sodium Chloride Flush 3 Ml Syringe) 3 ml IVFLUSH QSHIFT [facility] Last Admin: 09/07/24 09:42 Dose: 3 ml Documented By: LUIS F Sodium Chloride (Sodium Chloride 0.65 % Nasal 44 Ml Sprbtl) 1 spray NOSTRIL-B BID [facility] Last Admin: 09/07/24 10:46 Dose: 1 spray Documented By: LUIS F Vitamin D (Cholecalciferol (Vitamin D3) 25 Mcg Tablet) 25 mcg PO BID [facility] Last Admin: 09/07/24 09:42 Dose: 25 mcg Documented By: LUIS F Labs 09/06/24 10:39 09/07/24 05:48 Labs: Laboratory Results - last 24 hr 09/06/24 09/06/24 09/07/24 14:19 15:32 05:48 Hold Purple Top SEE NOTE Anion Gap 8 L Estim Creat Clear Calc 78.9 Estimated GFR > 60 Random Glucose 98 Calcium 9.6 D Total Creatine Kinase 2263 H Troponin I High Sens 49.6 H Urine Color Dark Yellow Urine Appearance Clear Urine pH 5.5 Ur Specific [place] 1.020 Urine Protein 300 (3+) H Urine Glucose (UA) Negative Urine Ketones 15 Urine Blood Large (3+) H Urine Nitrite Negative Ur Leukocyte Esterase Negative Urine RBC 0-2 Urine WBC 0-5 Ur Squamous Epith Cells 3-5 Urine Bacteria None Seen Hyaline Casts 3-5 Granular Casts Present Assessment and Plan (1) Rhabdomyolysis: Status: Acute (2) Elevated troponin: Status: Acute (3) Pneumonia: Status: Acute (4) Pericardial effusion: Status: Acute Plan Pt is an 89-year-old male with a PMH significant for?HTN and esstential tremor who presents to the ED after fall at home yesterday afternoon. Pt will be admitted to the hospital for treatment and further evaluation of generalized weakness and fall at home in the setting of rhabdomyolysis and pneumonia. acute Rhabdomyolysis CPK trending down to DC IVF Follow CPK Pneumonia CXR showing right lobe and right lower lobe consolidations patient's for pneumonia CT of chest showing bilateral effusions, infiltrates continue ceftriaxone and azithromycin Elevated troponins, pericardial effusion troponins flat, asymptomatic Likely type 2 in the setting of increased demand Cardiology consult Weakness, fall at home PT rec SNF, patient prefer going home Question of dementia Patient with increasing confusion and forgetfulness for at least the past 6 months Patient lives alone Sister to move in with him OT consult for MoCA HTN Continue amlodipine Full Code DVT Prophylaxis: Lovenox Pt will require a hospitalization overnight for treatment of?generalized weakness and fall at home in setting of rhabdomyolysis and pneumonia on IV Abx pending cardiology evaluation Quality Stroke Does the patient have a stroke diagnosis?: No VTE Prior VTE?: No VTE Risk Level:: Medical - moderate - high VTE Device Contraindication: Treatment Not Indicated VTE Drug Contraindication: N/A - Med Ordered
[2024-09-07 15:22] LABS: Thyroid Stimulating Hormone 5.99 uIU/mL (0.32-4.0)
--- NOTE | 2024-09-07 17:08 | P.CONCA_ITS ---
History of Present Illness History of Present Illness Date of Service: 09/07/24 Chief complaint: Fall at home rhabdo pneumonia Narrative: 89-year-old gentleman who we have been asked to see for pericardial effusion. He is presenting after fall at home with mild rhabdomyolysis and pneumonia. He is on IV antibiotics. He was sleeping at the time of interview. Family members were in the room who said that he sleeps during the day and is up at night. He has some early dementia signs. There is saying that he is quite confused today. His blood pressure has been elevated. He has low-grade temperature. He is on broad-spectrum antibiotics. His CT scan showed moderate pericardial effusion but he has hypertension and has not been hypotensive. [facility] Past Medical History Medical History (Updated 09/07/24 @ 14:36 by Yesenia Gong MD) Essential tremor Hypertension Social History Social History Household Members: None Housing: House Patient Tobacco Use Status: Never used Tobacco Smoked in Last 30 Days: No Use of substances other than those prescribed or required for medical reasons: No Currently Displaying Signs/Symptoms of Drug Intoxication Withdrawal: No Advance Directives: Yes Advance Directives Information Provided: Yes Advance Directives on File: No Advance Directives Date on File: 09/06/24 Do you have a plan to hurt others: No Plan Recently lost weight without trying: Yes How much weight loss: 2-13 pounds Eating poorly because of decreased appetite: Yes Nutrition screen score: 4 Nutrition Risks: No Nutritional Risk Poor oral hygiene: No service: Yes Meds Allergies Allergy/AdvReac Type Severity Reaction Status Date / Time Unable to Assess Allergy Verified 09/06/24 10:35 Active Medications: Current Medications Acetaminophen (Acetaminophen 325 Mg Tablet) 650 mg PO Q6H PRN PRN Reason: Pain, Mild 1-3,fever,headache Amlodipine Besylate (Amlodipine Besylate 10 Mg Tablet) 10 mg PO DAILY [facility]; Protocol Last Admin: 09/07/24 09:42 Dose: 10 mg Ascorbic Acid (Ascorbic Acid 500 Mg Tablet) 500 mg PO DAILY [facility] Last Admin: 09/07/24 09:42 Dose: 500 mg Calcium Carbonate (Calcium Carbonate 750 Mg Tab.Chew) 750 mg PO Q4H PRN PRN Reason: Heartburn Ceftriaxone Sodium (Ceftriaxone Sodium 1 Gm Vial) 1 gm IVPUSH Q24H [facility] Last Admin: 09/07/24 10:46 Dose: 1 gm Enoxaparin Sodium (Enoxaparin Sodium 40 Mg/0.4 Ml Syringe) 40 mg SUBCUT Q24H [facility] Last Admin: 09/07/24 16:27 Dose: Not Given Azithromycin 500 mg/ Sodium (Chloride) 250 mls @ 125 mls/hr IV Q24H [facility] Last Infusion: 09/07/24 13:28 Dose: Infused Magnesium Hydroxide (Milk Of Magnesia 30 Ml Oral.Susp) 30 ml PO DAILY PRN PRN Reason: Constipation Melatonin (Melatonin 3 Mg Tablet) 6 mg PO BEDTIME PRN PRN Reason: Insomnia Last Admin: 09/06/24 22:40 Dose: 6 mg Ondansetron HCl (Ondansetron Hcl 4 Mg/2 Ml Vial) 4 mg IVPUSH Q8H PRN PRN Reason: Nausea and Vomiting Sodium Chloride (0.9 % Sodium Chloride Flush 3 Ml Syringe) 3 ml IVFLUSH QSHIFT [facility] Last Admin: 09/07/24 16:24 Dose: 3 ml Sodium Chloride (Sodium Chloride 0.65 % Nasal 44 Ml Sprbtl) 1 spray NOSTRIL-B BID [facility] Last Admin: 09/07/24 10:46 Dose: 1 spray Vitamin D (Cholecalciferol (Vitamin D3) 25 Mcg Tablet) 25 mcg PO BID [facility] Last Admin: 09/07/24 09:42 Dose: 25 mcg Home Medications ?Medication ?Instructions ?Recorded ?Confirmed ?Last Taken ?Type amlodipine 10 mg tablet 10 mg PO DAILY 09/06/24 09/06/24 09/05/24 History ascorbic acid (vitamin C) 500 mg 500 mg PO DAILY 09/06/24 09/06/24 09/05/24 History tablet (Vitamin C) cholecalciferol (vitamin D3) 25 25 mcg PO BID 09/06/24 09/06/24 09/05/24 History mcg (1,000 unit) tablet (Vitamin D3) Physical Exam 2 Vital Signs: Vital Signs: Last Vital Signs Temp 100.8 F H 09/07/24 15:24 Pulse 85 09/07/24 15:24 Resp 18 09/07/24 15:24 BP 160/73 H 09/07/24 15:24 Pulse Ox 93 09/07/24 15:24 O2 Del Method Room Air 09/07/24 15:24 BMI result Body Mass Index 28.5 GENERAL APPEARANCE: Sleeping comfortably. NECK: no carotid bruit, positive jugular venous distention. SKIN: no suspicious lesions, warm and dry. HEART: no murmurs, regular rate and rhythm. LUNGS: clear to auscultation bilaterally. EXTREMITIES: Trace edema. PERIPHERAL PULSES: equal. Objective Labs and Meds 09/06/24 10:39 09/07/24 05:48 Lab results: Laboratory Results - last 24 hr 09/07/24 05:48 Hold Purple Top SEE NOTE Sodium 142 Potassium 3.7 Chloride 118 H Carbon Dioxide 20 L Anion Gap 8 L BUN 23 H Creatinine 0.73 Estim Creat Clear Calc 78.9 Estimated GFR > 60 Random Glucose 98 Calcium 9.6 D Total Creatine Kinase 2263 H TSH 5.99 H Assessment and Plan (1) Pericardial effusion: Status: Acute Plan 89-year-old gentleman with fall and pneumonia. He has rhabdomyolysis and mild troponin elevation due to rhabdomyolysis. He has low-grade temperature and currently is on IV antibiotics. His CT scan has shown concern for pericardial effusion which was thought to be moderate by CT scan. Clinically he is not acting like tamponade. He has some elevated neck veins but he also has peripheral edema and shortness of breath so it is difficult to say whether this is related to pericardial effusion or he does have background of congestive heart failure. We will get echocardiography on him Monday morning. Obviously if his blood pressure changes then we will reassess him. Some early signs of dementia as per the son. He is sleeping during the day and is up at night. We will follow along with you. Thank you for allowing me to participate in the care of your patient. Please feel free to contact me if you have any questions. Procedures Date of Service Date of Service: 09/07/24
[2024-09-08] VITALS (7 sets, daily range): BP systolic 105–170; BP diastolic 58–84; PULSE 52–73; RESP 16–18; TEMP 36.4–37.6; O2SAT 20–94
[2024-09-08] MEDS: 0.9 % Sodium Chloride Flush 3 ML SYRINGE IVFLUSH ×3 (00:21→16:26)
[2024-09-08 06:49] LABS: MANUAL DIFF FLAG NO
[2024-09-08 07:00] LABS: Hemoglobin 12.7 g/dl (14.0-18.0); Imm Gran Abs Auto 0.02 X10*3/uL (0.00-0.03); Imm Gran Pct Auto 0.4 % (0.0-0.4); Mean Platelet Volume 9.9 fL (9.4-12.4); PLT CLUMP 1; SCAN SMEAR FLAG 1
[2024-09-08 07:02] LABS: Basophils Percent Auto 0.2 % (0-2); Hematocrit 36.7 % (42.0-52.0); Lymphocytes Absolute Auto 0.6 X10*3/uL (1.2-4.9); Lymphocytes Percent Auto 10.3 % (20-40); Mean Corpuscular HGB Conc 34.6 g/dl (31.0-36.0); Mean Corpuscular Hemoglobin 32.6 pg (27.0-33.0); Mean Corpuscular Volume 94.3 fL (80.0-98.0); Monocytes Absolute Auto 0.7 X10*3/uL (0.1-1.2); Monocytes Percent Auto 12.4 % (2-11); Neutrophils Absolute Auto 4.1 x10*3/uL (2.0-8.3); Neutrophils Percent Auto 76.7 % (45-73); Red Blood Count 3.89 X10*6/uL (4.60-5.80)
[2024-09-08 07:04] LABS: Platelet Count 130 X10*3/uL (160-400); White Blood Count 5.3 X10*3/uL (4.8-10.8)
[2024-09-08 07:05] LABS: Anion Gap 9 (12-20); Blood Urea Nitrogen 20 mg/dL (9-16); Calcium 9.2 mg/dL (8.4-10.2); Carbon Dioxide 22 mmol/L (22-29); Chloride 116 mmol/L (96-108); Creatinine Clr Calc Pharmacy 78.9; Estimated Glomerular Filt Rate > 60; Glucose Random 105 mg/dL (60-115); Potassium 3.4 mmol/L (3.3-5.1); Sodium 144 mmol/L (135-145)
[2024-09-08] MEDS: Acetaminophen 325 MG TABLET 650 MG PO ×2 (08:06→16:24)
[2024-09-08] MEDS: Cholecalciferol (Vitamin D3) 25 MCG TABLET PO (08:07)
[2024-09-08] MEDS: Sodium Chloride 0.65 % Nasal 44 ML SPRBTL 1 SPRAY NOSTRIL-B (08:07)
[2024-09-08] MEDS: Ascorbic Acid 500 MG TABLET PO (08:07)
[2024-09-08] MEDS: amLODIPine Besylate 10 MG TABLET PO (08:07)
[2024-09-08 08:41] LABS: Free T4 (Free Thyroxine) 0.88 ng/dL (0.71-1.85)
[2024-09-08] MEDS: Potassium Chloride ER 20 MEQ TAB.ER.PRT 40 MEQ PO (09:38)
[2024-09-08] MEDS: Atropine Sulfate 1 MG/ML VIAL 0.5 MG IVPUSH (09:43)
--- NOTE | 2024-09-08 10:39 | HO.PM.IMPN ---
Subjective Subjective Date of Service: 09/08/24 Interval History: seen and evaluated this morning feels better overall but reports weakness in his left leg Had 3 incidencts of pauses up to 5.1 sec Had symptomatic bradycardia and low BP requiring IV Atropine no reported fever or chills Review of Systems Review of Systems: Yes all other systems are reviewed and are negative Physical Exam Vital Signs: Vital Signs: Last Vital Signs Temp 98.5 F 09/08/24 07:05 Pulse 66 09/08/24 07:05 Resp 18 09/08/24 07:05 BP 153/73 H 09/08/24 08:07 Pulse Ox 94 09/08/24 07:05 O2 Del Method Room Air 09/08/24 07:05 BMI result Body Mass Index 28.5 Const: Other: Constitutional : Awake, interactive, not in distress Neck : Normal inspection, Supple Cardiovascular : RRR, no JVP, trace lower extremity edema Respiratory : fair bilateral air entry, fine basal crackles, no wheezes Gastrointestinal: soft, lax, Normal bowel sounds, Non tender Skin : Warm, Dry Neurological : Alert & oriented x3, No focal deficit Objective Data Active Medications Acetaminophen (Acetaminophen 325 Mg Tablet) 650 mg PO Q6H PRN PRN Reason: Pain, Mild 1-3,fever,headache Last Admin: 09/08/24 08:06 Dose: 650 mg Documented By: LUIS F Amlodipine Besylate (Amlodipine Besylate 10 Mg Tablet) 10 mg PO DAILY [facility]; Protocol Last Admin: 09/08/24 08:07 Dose: 10 mg Documented By: LUIS F Ascorbic Acid (Ascorbic Acid 500 Mg Tablet) 500 mg PO DAILY [facility] Last Admin: 09/08/24 08:07 Dose: 500 mg Documented By: LUIS F Calcium Carbonate (Calcium Carbonate 750 Mg Tab.Chew) 750 mg PO Q4H PRN PRN Reason: Heartburn Ceftriaxone Sodium (Ceftriaxone Sodium 1 Gm Vial) 1 gm IVPUSH Q24H [facility] Last Admin: 09/07/24 10:46 Dose: 1 gm Documented By: LUIS F Enoxaparin Sodium (Enoxaparin Sodium 40 Mg/0.4 Ml Syringe) 40 mg SUBCUT Q24H [facility] Last Admin: 09/07/24 16:27 Dose: Not Given Documented By: LUIS F Non-Admin Reason: Patient Refused Azithromycin 500 mg/ Sodium (Chloride) 250 mls @ 125 mls/hr IV Q24H [facility] Last Infusion: 09/07/24 13:28 Dose: Infused Documented By: LUIS F Magnesium Hydroxide (Milk Of Magnesia 30 Ml Oral.Susp) 30 ml PO DAILY PRN PRN Reason: Constipation Melatonin (Melatonin 3 Mg Tablet) 6 mg PO BEDTIME PRN PRN Reason: Insomnia Last Admin: 09/06/24 22:40 Dose: 6 mg Documented By: DANE Ondansetron HCl (Ondansetron Hcl 4 Mg/2 Ml Vial) 4 mg IVPUSH Q8H PRN PRN Reason: Nausea and Vomiting Sodium Chloride (0.9 % Sodium Chloride Flush 3 Ml Syringe) 3 ml IVFLUSH QSHIFT [facility] Last Admin: 09/08/24 08:08 Dose: 3 ml Documented By: LUIS F Sodium Chloride (Sodium Chloride 0.65 % Nasal 44 Ml Sprbtl) 1 spray NOSTRIL-B BID [facility] Last Admin: 09/08/24 08:07 Dose: 1 spray Documented By: LUIS F Vitamin D (Cholecalciferol (Vitamin D3) 25 Mcg Tablet) 25 mcg PO BID [facility] Last Admin: 09/08/24 08:07 Dose: 25 mcg Documented By: LUIS F Labs 09/08/24 06:11 09/08/24 06:11 Labs: Laboratory Results - last 24 hr 09/07/24 09/08/24 05:48 06:11 MCV 94.3 MCH 32.6 MCHC 34.6 RDW 14.0 Plt Count 130 L MPV 9.9 Immature Gran % (Auto) 0.4 Neut % (Auto) 76.7 H Lymph % (Auto) 10.3 L [place] % (Auto) 12.4 H Eos % (Auto) 0.0 Baso % (Auto) 0.2 Lymph # (Auto) 0.6 L [place] # (Auto) 0.7 Eos # (Auto) 0.0 Baso # (Auto) 0.0 Abs Immat Gran (auto) 0.02 Absolute Neuts (auto) 4.1 Absolute Nucleated RBC 0.000 Nucleated RBC % (auto) 0.0 Anion Gap 9 L Estim Creat Clear Calc 78.9 Estimated GFR > 60 Random Glucose 105 Calcium 9.2 TSH 5.99 H Free T4 0.88 Microbiology Microbiology Results: Microbiology 09/06/24 12:54 Blood Culture - Preliminary Blood - Venous No growth after 24 hours. 09/06/24 12:54 Blood Culture - Preliminary Blood - Venous No growth after 24 hours. Assessment and Plan (1) Shortness of breath: Status: Acute (2) Symptomatic bradycardia: Status: Acute (3) Pericardial effusion: Status: Acute (4) Elevated troponin: Status: Acute (5) Pneumonia: Status: Acute (6) Fall: Status: Acute (7) Rhabdomyolysis: Status: Acute Plan Pt is an 89-year-old male with a PMH significant for?HTN and esstential tremor who presents to the ED after fall at home yesterday afternoon. Pt will be admitted to the hospital for treatment and further evaluation of generalized weakness and fall at home in the setting of rhabdomyolysis and pneumonia. Sinus pause, bradycardia, hypotension in slow Atrial flutter of new onset responded to IV Atropine in context of fall at home (could have symptomatic incident as well) Family and patient not interested in PPM cardiology following, get Echo Discuss blood thinners, seems not interested, to think about it Atropine PRN if symptomatic gerson Elevated troponins, pericardial effusion troponins flat, asymptomatic Likely type 2 in the setting of increased demand Has strong pulses, unlikely tamponade Cardiology following acute Rhabdomyolysis CPK trending down to DC IVF Follow CPK Pneumonia CXR showing right lobe and right lower lobe consolidations patient's for pneumonia CT of chest showing bilateral effusions, infiltrates continue ceftriaxone and azithromycin Weakness, fall at home PT rec SNF, patient prefer going home Question of dementia Patient with increasing confusion and forgetfulness for at least the past 6 months Patient lives alone. Sister to move in with him OT consult for MoCA HTN Continue amlodipine Code status: Discussed goals of care with patient as family at bedside. he decided to be DNR\DNI. MOLST form filled and signed DVT Prophylaxis: Lovenox Pt will require a hospitalization overnight for treatment of?generalized weakness and fall at home in setting of symptomatic bradycardia and cardiac pauses pending Echo and close monitoring on Telemetry. Quality Stroke Does the patient have a stroke diagnosis?: No VTE Prior VTE?: No VTE Risk Level:: Medical - moderate - high VTE Device Contraindication: Treatment Not Indicated VTE Drug Contraindication: N/A - Med Ordered
--- NOTE | 2024-09-08 10:45 | PC.NURSE ---
At 0900 RN notified of pt's HR of 30. RN at the bed side, pt had no symptoms. At 0920 pt had a 5.5 pause and pt became symptomatic, reporting dizziness, chest pain, perspiration, pale. RN, charge nurse, nurse supervisor pipe joints and Dr. Gong at the bed side. VS were T 97.1, O2 94% RA, HR38, BP 92/50. Per MD's order, EKG done, Atropine IV push, Potassium Chloride PO, and bolus of NS was given. At pressent time 1105 pt is asymptomatic with HR in 50s a-flutter. Pt in bed with call figueroa within reach. Family at the bed side.
[2024-09-08] MEDS: Azithromycin 500 MG in 0.9 % Sodium Chloride 250 ML 125 MG IV (11:25)
[2024-09-08] MEDS: cefTRIAXone sodium 1 GM VIAL IVPUSH (11:25)
--- NOTE | 2024-09-08 11:40 | P.PNCA_ITS ---
Subjective Subjective Date of Service: 09/08/24 Interval history: Seen examined at bedside. Discussion with hospitalist Dr. Gong done today because apparently he saw him for sweating, chest discomfort and dizziness and noticed him to be in very slow atrial flutter with heart rate in 30s and pauses in excess of 5 seconds. He was given atropine. His heart rates are in the 50s currently and he continues to be in atrial flutter. It appears atrial flutter is a new diagnosis for him. He has not been on anticoagulation previously. He is awake today and was able to answer questions. He said that he was dizzy before he fell yesterday. He has not had previous dizzy spells like these. He occasionally gets chest discomfort the way he fell today. Physical Exam Vital Signs: Last Vital Signs Temp 97.5 F 09/08/24 11:21 Pulse 53 09/08/24 11:21 Resp 18 09/08/24 11:21 BP 105/58 L 09/08/24 11:21 Pulse Ox 94 09/08/24 11:21 O2 Del Method Room Air 09/08/24 11:21 BMI result Body Mass Index 28.5 GENERAL APPEARANCE: in no acute distress, awake and alert. NECK: no carotid bruit, positive jugular venous distention. SKIN: no suspicious lesions, warm and dry. HEART: no murmurs, irregular rate and rhythm. Bradycardic. LUNGS: Crackles at bases. ABDOMEN: soft, nontender. EXTREMITIES: Mild edema. PERIPHERAL PULSES: equal. NEUROLOGIC: No gross deficits, AAO X 3 Objective Labs and Meds 09/08/24 06:11 09/08/24 06:11 Lab results: Laboratory Results - last 24 hr 09/07/24 09/08/24 05:48 06:11 WBC 5.3 RBC 3.89 L Hgb 12.7 L Hct 36.7 L MCV 94.3 MCH 32.6 MCHC 34.6 RDW 14.0 Plt Count 130 L MPV 9.9 Immature Gran % (Auto) 0.4 Neut % (Auto) 76.7 H Lymph % (Auto) 10.3 L [place] % (Auto) 12.4 H Eos % (Auto) 0.0 Baso % (Auto) 0.2 Lymph # (Auto) 0.6 L [place] # (Auto) 0.7 Eos # (Auto) 0.0 Baso # (Auto) 0.0 Abs Immat Gran (auto) 0.02 Absolute Neuts (auto) 4.1 Absolute Nucleated RBC 0.000 Nucleated RBC % (auto) 0.0 Sodium 144 Potassium 3.4 Chloride 116 H Carbon Dioxide 22 Anion Gap 9 L BUN 20 H Creatinine 0.73 Estim Creat Clear Calc 78.9 Estimated GFR > 60 Random Glucose 105 Calcium 9.2 TSH 5.99 H Free T4 0.88 Progress Note: A&P Assessment and plan (1) Pericardial effusion: Status: Acute (2) Symptomatic bradycardia: Status: Acute (3) Shortness of breath: Status: Acute Plan 89-year-old gentleman with fall at home and mild rhabdomyolysis. He was noticed to have questionable atrial fibrillation on the initial EKG but repeat EKG today showing atrial flutter. He also had episode of symptomatic bradycardia. He fell at home with dizzy spell. It is quite likely that bradycardia is the reason he fell at home. I had a detailed discussion with the patient and multiple family members at bedside. I have explained to them that the patient has symptomatic bradycardia and would benefit from pacemaker placement. The family will discuss amongst themselves and decide whether this is something they want to pursue. If they agree then we will arrange a bed for him at [facility] to have pacemaker placement. He is currently being treated for pneumonia and is on antibiotics. He is not on anticoagulation for atrial flutter currently. He is also some question about moderate pericardial effusion on the chest CT. We will get dedicated echo on him tomorrow morning if he is here or at [facility] if he gets transferred. He has some neck pains and shortness of breath which could be related to congestive heart failure but he does not appear to be in any distress currently and I think we get more information about the pericardial effusion before starting any diuretics. On exam he has bounding pulses and I really doubt that he has clinical tamponade. Eventually will need anticoagulation. We will follow along with you. Thank you for allowing me to participate in the care of your patient. Please feel free to contact me if you have any questions Time Spent With Patient Time: Total time managing care of this patient today ____ minutes. Progress Note: Quality Stroke Does the patient have a stroke diagnosis?: No Procedures Date of Service Date of Service: 09/08/24
[2024-09-08 11:58] LABS: Magnesium 2.1 mg/dL (1.6-2.6)
--- NOTE | 2024-09-08 12:14 | MHC.CM.PN ---
Pt is now agreeable to STR after speaking with his doctor. HCP completed and added to chart, referrals out, family would it to be near [place] if possible.
[2024-09-09 03:14] VITALS: BP 137/76; PULSE 72; RESP 16; TEMP 37.4; O2SAT 91
--- NOTE | 2024-09-09 07:00 | CA_ITS ---
Transthoracic Echocardiogram Patient (Last, First, Middle): Mg Bell, Gender: Male Date of : 1935 Age: 89 Procedure Date: 09/09/2024 Procedure Type: Transthoracic Echocardiogram Location: [facility] [place] Height: 177.8 cm Weight: 89.81 kg BSA: 2.08 m2 Heart Rate: bpm BP: 37 / 76 mmHg Casino Beverage Server: SB Referring MD: Yesenia Gong MD Spindle Setter: Dennis Nichole MD Symptoms: reported moderate effusion in pericardium Study Quality: Adequate ECG Rhythm: Atrial flutter Conclusions: - 1. Normal LV ejection fraction of 60-65% 2. Dilated right ventricle with reduced systolic function 3. Biatrial enlargement with right atrium greater than left 4. Mild aortic regurgitation 5. Moderately severe tricuspid regurgitation 6. Upper limits of normal RV systolic pressure with significantly elevated right atrial pressures 7. Upper limits of normal ascending aortic size 8. [id number] pericardial effusion, more prominent near the right atrium without signs of tamponade Findings Left Ventricle Normal left ventricular size, thickness, and systolic function. Diastolic function is indeterminate on the basis of available data. Right Ventricle Moderately increased right ventricular cavity size. There is moderately decreased right ventricular systolic function. Atria The left atrium is mildly dilated. There is no evidence of interatrial shunt. The right atrium is moderately dilated. Aortic Valve There is mild calcification of the aortic valve. There is mild thickening of the aortic valve. There is no aortic valve stenosis. There is mild aortic valve regurgitation. Mitral Valve There is mild anterior and posterior mitral leaflet thickening. There is trace mitral valve regurgitation. There is no mitral valve stenosis. Pulmonic Valve The pulmonic valve is likely normal. There is trace pulmonic valve regurgitation. Tricuspid Valve Likely normal tricuspid valve structure and function. There is moderate to severe tricuspid valve regurgitation. Significantly elevated right atrial pressure. There is no evidence of pulmonary hypertension. Great Vessels The pulmonary artery was not well visualized. Venous The inferior vena cava is moderately dilated and collapses less than 50% with inspiration. Pericardium/Pleural There are no definitive echocardiographic findings of tamponade physiology. small to moderate pericardial effusion, more prominent and significant around right atrial without any evidence of cardiac tamponade Prior Study Comparison No prior study available for comparison. Measurements 2D Linear Measurements IVSd: 1.14 0.6-0.9/0.6-1.0 cm LVIDd: 4.57 3.9-5.3/4.2-5.9 cm LVIDd Index: 2.20 2.4-3.2/2.2-3.1 cm/m2 LVIDs: 3.00 2.0-3.6 cm LVPWd: 1.19 0.7-1.1 cm LA Diam: 4.30 2.7-3.8/3.0-4.0 cm LAIDs Index: 2.07 1.5-2.3 cm/m2 LV Mass: 242.39 67-162/88-224 g LV Mass Index: 116.53 43-95/49-115 g/m2 LVOT Diam: 2.30 3.0+(-)1.3 cm 2D Systolic Function EF 4C: 63.30 >55% EF 2C: 62.30 >55% EF BiP: 61.50 >55% Mitral Valve MV Pk E: 0.93 MV PK A: 0.66 MV Decel Time: 137.00 E/A: 1.40 E'Medial: 8.38 E/E' Med: 11.10 PHT: 40.00 MVA PHT: 5.50 Decel [place]: 6.80 Aortic Valve AoV Pk Giancarlo: 1.38 AoV Pk Grad: 8.00 LVOT LVOT Pk Giancarlo: 0.92 LVOT Mn Giancarlo: 0.64 LVOT VTI: 0.17 LVOT Pk Grad: 3.00 LVOT Mn Grad: 2.00 LVOT Diam: 2.30 LVOT Area: 4.15 Diastolic Function MV Pk E: 0.93 MV Pk A: 0.66 E/A: 1.40 E'Medial: 8.38 E/E' Med: 11.10 Right Ventricle TAPSE (mm): 11.80 Tricuspid Valve TR Pk Giancarlo: 2.51 TR Pk Grad: 25.00 RA Press: 15.00 RVSP: 39.00 Great Vessels Aorta Sinus of Valsalva: 3.50 2.0-3.5 cm Ao Asc: 3.60 2.1-3.4 cm Pulmonary Valve PV Pk Giancarlo: 0.95 Peak PV Grad: 4.00 Updated in Other Vendor System with Status of Final Dennis Nichole MD electronically signed on 09/09/2024 11:39:30 AM with status of Final
[2024-09-09 07:11] LABS: Anion Gap 8 (12-20); Blood Urea Nitrogen 22 mg/dL (9-16); Calcium 8.9 mg/dL (8.4-10.2); Carbon Dioxide 21 mmol/L (22-29); Chloride 120 mmol/L (96-108); Estimated Glomerular Filt Rate > 60; Glucose Random 102 mg/dL (60-115); Potassium 3.7 mmol/L (3.3-5.1); Sodium 145 mmol/L (135-145)
[2024-09-09 07:25] VITALS: BP 134/74; PULSE 76; RESP 18; TEMP 36.8; O2SAT 97
[2024-09-09] MEDS: amLODIPine Besylate 10 MG TABLET PO (08:14)
[2024-09-09] MEDS: Sodium Chloride 0.65 % Nasal 44 ML SPRBTL 1 SPRAY NOSTRIL-B (08:14)
[2024-09-09] MEDS: Ascorbic Acid 500 MG TABLET PO (08:14)
[2024-09-09] MEDS: Cholecalciferol (Vitamin D3) 25 MCG TABLET PO (08:14)
[2024-09-09] MEDS: 0.9 % Sodium Chloride Flush 3 ML SYRINGE IVFLUSH ×2 (08:14→15:01)
[2024-09-09] MEDS: Azithromycin 500 MG in 0.9 % Sodium Chloride 250 ML 250 MG IV (10:29)
[2024-09-09] MEDS: cefTRIAXone sodium 1 GM VIAL IVPUSH (10:29)
[2024-09-09 11:33] VITALS: BP 125/62; PULSE 89; RESP 18; TEMP 36.5; O2SAT 92
--- NOTE | 2024-09-09 12:03 | PM.PNCARD ---
Subjective Subjective Date of Service: 09/09/24 Principal diagnosis: Symptomatic bradycardia, atrial flutter Interval history: Seen patient at bedside. No overnight symptoms. Remains in atrial flutter with controlled ventricular response. No significant pauses overnight Review of Systems Constitutional: Reports no additional constitutional complaints Cardiovascular: Reports no additional cardiovascular complaints Respiratory: Reports no additional respiratory complaints Gastrointestinal: Reports no additional gastrointestinal complaints Reports system reviewed and no additional complaints, except as documented Physical Exam Vital Signs: Last Vital Signs Temp 97.7 F 09/09/24 11:33 Pulse 89 09/09/24 11:33 Resp 18 09/09/24 11:33 BP 125/62 09/09/24 11:33 Pulse Ox 92 09/09/24 11:33 O2 Del Method Room Air 09/09/24 11:33 BMI result Body Mass Index 28.5 GENERAL APPEARANCE: in no acute distress, awake and alert. NECK: no carotid bruit, positive jugular venous distention. SKIN: no suspicious lesions, warm and dry. HEART: no murmurs, irregular rate and rhythm. Bradycardic. LUNGS: Crackles at bases. ABDOMEN: soft, nontender. EXTREMITIES: Mild edema. PERIPHERAL PULSES: equal. NEUROLOGIC: No gross deficits, AAO X 3 Objective Labs and Meds 09/08/24 06:11 09/09/24 06:32 Lab results: Laboratory Results - last 24 hr 09/09/24 06:32 Sodium 145 Potassium 3.7 Chloride 120 H Carbon Dioxide 21 L Anion Gap 8 L BUN 22 H Creatinine 0.64 Estim Creat Clear Calc 90.0 Estimated GFR > 60 Random Glucose 102 Calcium 8.9 Progress Note: A&P Assessment and plan (1) Symptomatic bradycardia: Status: Acute Assessment and Plan: Patient while in hospital witnessed to have lightheadedness and subsequently heart rate with atrial flutter and 30s with pauses up to 5 seconds. Came in with near-syncope and dizziness and a fall. Most likely a Shar arrhythmic event. Discussed with the patient about also need for pacemaker. Noted to be in atrial flutter. This appears to be more chronic see below. Patient will benefit from single-chamber leadless pacemaker. Remains for transfer being made. Risks and benefits discussed. Patient agrees. (2) Atrial flutter: Status: Acute Assessment and Plan: Persistent atrial flutter, duration unknown. However significant biatrial enlargement especially right atrial enlargement. He is also RV enlargement dysfunction. Most likely chronic persistent. Pacemaker as above. Once pacemaker is implanted oral anticoagulation (3) Pericardial effusion: Status: Acute Assessment and Plan: Pericardial effusion [id number] more prominent near the right atrium. Question related to elevated right atrial pressures, see below. No clear echo signs of tamponade although elevated right atrial pressures are noted probably related to tricuspid regurgitation. No interventions require at this time. Will require follow-up limited echocardiogram in 4 weeks (4) Right heart failure: Status: Acute Assessment and Plan: Noted moderately severe tricuspid regurgitation with significantly elevated right atrial pressures with clinical findings suggestive of right heart failure with RV dysfunction. Question related to underlying on diagnose sleep apnea and chronic atrial flutter. Gentle diuresis with Lasix 20 mg. Consider starting Jardiance 10 mg as well. Continue aggressive blood pressure control. Will set up for follow-up in the clinic after discharge. Time Spent With Patient Time: Total time managing care of this patient today ____ minutes. Progress Note: Quality Stroke Does the patient have a stroke diagnosis?: No Procedures Date of Service Date of Service: 09/09/24
--- NOTE | 2024-09-09 12:39 | P.DS_ITS ---
DS: Providers Provider Date of Service: 09/09/24 Date of admission: 09/06/24 14:35 Date of discharge: 09/09/24 Primary care physician: Erasmo Carlos Consults: 09/06/24 18:30 Consult to Wound Care Routine Reason for consultation: FILIPE pinon 09/07/24 07:58 Consult to Cardiology Routine Consulting Provider: [facility] Reason for consultation: Pericardial effusion, Elevated Trop DS: Diagnosis Discharge Diagnosis (1) Symptomatic bradycardia: Status: Acute (2) Atrial flutter: Status: Acute (3) Pericardial effusion: Status: Acute (4) Right heart failure: Status: Acute (5) Pneumonia: Status: Acute (6) Rhabdomyolysis: Status: Acute (7) Fall: Status: Acute (8) Elevated troponin: Status: Acute DS: Summary Hospital Course Hospital Course: Admission note HPI Pt is an 89-year-old male with a PMH significant for?HTN and esstential tremor who presents to the ED after fall at home yesterday afternoon. Pt is alert and oriented to self and time, and partly to place and situation, though seems confused about some details. HPI is supplemented by family who is at bedside. Family last saw pt on [place] when he appeared in his normal state of health. Spoke to him on [place]ma and again appeared at baseline. However, when daughter called yesterday at noon, report he seems confused, stuttering and confusing some details. Family attempted to call pt again earlier this morning but were unable to get an answer. When they stopped by the house pt was found on the floor. He reports fell at 15:00 and was unable to stand up or crawl on the floor to the chair. Pt initially complained of lower back pain, but currently has no acute pain. No SOB or MCKEE, but reports increased cough for the past few days. No fever, though reports was very cold after being on the floor for the night. Denies chest pain/pressure, palpitations. No nausea, vomiting, abdominal pain. Occasionally drinks alcohol socially, but denies significant or prolonged alcohol use. Of note, patient's family worried he has been declining both physically and mentally for a number of months now. Son reports patient occasionally has been unable to recognize him for the past 6 months. In the ED pt with 1 episode tachypnea of 22 and low-grade temperature of 99.7 degrees, vitals otherwise stable and WNL, satting at 99% on RA. Labs were significant for leukocytosis of 11.7, BUN 25, creatinine WNL at 0.65, CPK 4019, T bili 1.9, AST 262, ALT 98, alk-phos 139, and initial troponin 61.3. No significant electrolyte abnormalities. Lactic acid WNL at 1.8. CT of head negative for acute intracranial abnormalities, but showed chronic sinus opacifications. CT of cervical spine negative for acute fracture or subluxation. CXR showed right middle lobe and right lower lobe consolidations with probable effusion suspicious for pneumonia, as well as cardiomegaly. X-ray of hip and pelvis negative for acute bony abnormalities. Pt was treated with IVF, acetaminophen, vancomycin, and cefepime. Pt will be admitted to the hospital for treatment and further evaluation of generalized weakness and fall at home in the setting of rhabdomyolysis and pneumonia. Hospital course The patient was admitted after sustaining a fall at home. monitored for below problems: Had acute Rhabdomyolysis on admission with elevated CK from fall and being on the floor. CPK trended down with gentle hydration. Treated for presumed Pneumonia as CXR showing right lobe and right lower lobe consolidations patient's for pneumonia and CT of chest showing bilateral effusions, infiltrates. Placed on IV ceftriaxone and azithromycin since 09/06. The patient was noted to have Sinus pause up to 5.1 sec with symptomatic bradycardia with hypotension and chest pain. noted to be slow Atrial flutter which could be chronic. responded to IV Atropine one time. He was admitted in context of fall at home (could have symptomatic incident as well). Family and patient interested in PPM. will be discharged to [facility] for PPM placement. He was noted to have Elevated troponins on blood work with no chest pain and troponins flat, asymptomatic Likely type 2 in the setting of increased demand CT scan of chest showed pericardial effusion. Echo done with EF 60-65%, severe TR and small-moderate pericardial effusion. while inpatient witnessed to have lightheadedness and subsequently heart rate with atrial flutter and 30s with pauses up to 5 seconds. Patient will benefit from single-chamber leadless pacemaker. Echo done and included below. Pericardial effusion [id number] more prominent near the right atrium. No interventions require at this time. Will require follow-up limited echocardiogram in 4 weeks Gentle diuresis with Lasix 20 mg. Consider starting Jardiance 10 mg as well. Once pacemaker is implanted oral anticoagulation for Persistent atrial flutter Discharge plan Symptomatic bradycardia- needs Pacemaker placement at [facility] On Antibiotics for pneumonia Lasix daily for fluid overload Cardiology follow up to repeat Echo Time Attestation Discharge Coordination Time (in mins): 42 Quality: Safe Use of Opioids Does Pt have an Active Cancer Diagnosis on the Problem List?: No Quality: Stroke Does the patient have a stroke diagnosis?: No Physical Exam Vital Signs: Vital Signs: Last Vital Signs Temp 97.7 F 09/09/24 11:33 Pulse 89 09/09/24 11:33 Resp 18 09/09/24 11:33 BP 125/62 09/09/24 11:33 Pulse Ox 92 09/09/24 11:33 O2 Del Method Room Air 09/09/24 11:33 BMI result Body Mass Index 28.5 Const: Other: Constitutional : Awake, interactive, not in distress Neck : Normal inspection, Supple Cardiovascular : RRR, no JVP, trace lower extremity edema Respiratory : fair bilateral air entry, fine basal crackles, no wheezes Gastrointestinal: soft, lax, Normal bowel sounds, Non tender Skin : Warm, Dry Neurological : Alert & oriented x3, No focal deficit DS: Data Data Completed and Pending Labs on day of discharge: Laboratory Results - last 24 hr 09/09/24 06:32 Sodium 145 Potassium 3.7 Chloride 120 H Carbon Dioxide 21 L Anion Gap 8 L BUN 22 H Creatinine 0.64 Estim Creat Clear Calc 90.0 Estimated GFR > 60 Random Glucose 102 Calcium 8.9 Preliminary micro results at discharge 09/06/24 12:54 Blood Culture - Preliminary Blood - Venous No growth after 48 hours. 09/06/24 12:54 Blood Culture - Preliminary Blood - Venous No growth after 48 hours. Imaging Chest x-ray: Radiologist's impression: ITS Impressions Chest X-Ray 09/06/24 11:00 IMPRESSION: 1. Right middle lobe and right lower lobe consolidations with probable effusions suspicious for pneumonia. 2. Cardiomegaly. 3. No posttraumatic abnormalities. Electronically signed by: Shant Dela Cruz MD 09/06/2024 11:26 AM [facility] Hip/Pelvis X-Ray 09/06/24 11:43 IMPRESSION: No acute bony abnormalities. See above. Electronically signed by: Shant Dela Cruz MD 09/06/2024 12:01 PM EST RP Cervical Spine CT 09/06/24 11:52 IMPRESSION: 1. No CT evidence of acute cervical spine fracture or injury. 2. Mild degenerative disc changes with more significant left degenerative facet changes. 3. Patchy opacity left lung apex, and layering effusion right lung apex. Findings are nonspecific and could represent infectious or inflammatory etiologies, or CHF. Electronically signed by: Shant Dela Cruz MD 09/06/2024 12:43 PM EST RP Head CT 09/06/24 11:52 IMPRESSION: 1. No acute intracranial abnormalities. No fractures. 2. Chronic appearing left sphenoid sinus opacification. Patchy mucosal thickening left greater than right ethmoid air cells and frothy secretions in the frontal sinuses. Electronically signed by: Shant Dela Cruz MD 09/06/2024 12:35 PM EST RP ECHO Conclusions: - 1. Normal LV ejection fraction of 60-65% 2. Dilated right ventricle with reduced systolic function 3. Biatrial enlargement with right atrium greater than left 4. Mild aortic regurgitation 5. Moderately severe tricuspid regurgitation 6. Upper limits of normal RV systolic pressure with significantly elevated right atrial pressures 7. Upper limits of normal ascending aortic size 8. [id number] pericardial effusion, more prominent near the right atrium without signs of tamponade Discharge Plan Discharge Anticipated Discharge Date/Time: 09/09/24 12:35 Patient Disposition: Xfer Acute Care Hospital Discharge Diagnosis: Symptomatic bradycardia Referrals: [facility] [Outside] - 1 Week Erasmo Carlos [Primary Care Provider] - 1 Week Discharge Medications: New ceftriaxone 1 gram Recon Soln 1 g IVPUSH Q24H Qty: 1 0RF azithromycin 500 mg Recon Soln 500 mg IV Q24H Qty: 1 0RF Continued amlodipine 10 mg tablet 10 mg PO DAILY ascorbic acid (vitamin C) [Vitamin C] 500 mg Tablet 500 mg PO DAILY cholecalciferol (vitamin D3) [Vitamin D3] 25 mcg (1,000 unit) Tablet 25 mcg PO BID Discharge Orders: Discharge Order (Routine); Ordered 09/09/24 Ordered By: Yesenia Gong Diet: Low salt diet Activity on Discharge: As tolerated Stand Alone Forms: Patient Portal Discharge page Print Language: Swedish Care Plan Goals: Symptomatic bradycardia- needs Pacemaker placement at [facility] On Antibiotics for pneumonia Lasix daily for fluid overload Cardiology follow up to repeat Echo Health Concerns: Symptomatic bradycardia Pneumonia Fluid overload with pericardial effusion Plan of Treatment: Antibiotics Lasix Transfer for PPM placement Assessment: as above
--- NOTE | 2024-09-09 13:05 | MHC.CM.PN ---
Patient will be transferred to [facility] today.
[2024-09-09] MEDS: Furosemide 20 MG TABLET PO (14:33)
[2024-09-09] MEDS: Acetaminophen 325 MG TABLET 650 MG PO (15:00)
[2024-09-09 16:00] VITALS: BP 127/65; PULSE 75; RESP 19; TEMP 36.8; O2SAT 93
== END 2024-09-09 19:22 | disposition short-term general hospital (02) | DRG 194 ==
LOC: HO.ED 12:46 → HO.EDOVER 14:44 → HO.IMC 16:02
PROVIDERS: Admitting Provider Student in an Organized Health Care Education/Training Program; Emergency Provider Emergency Medicine; PCP Internal Medicine; Visit Provider Student in an Organized Health Care Education/Training Program
DX: J18.9 Pneumonia, unspecified organism (principal); I48.92 Unspecified atrial flutter; M62.82 Rhabdomyolysis; I11.0 Hypertensive heart disease with heart failure; I49.5 Sick sinus syndrome; I50.810 Right heart failure, unspecified; F03.90 Unspecified dementia, unspecified severity, without behavioral disturbance, psychotic disturbance, mood disturbance, and anxiety; I07.1 Rheumatic tricuspid insufficiency; G25.0 Essential tremor; Z79.899 Other long term (current) drug therapy
CPT/HCPCS: 36415; 70450; 71046; 71250; 72125; 73502; 80048; 80053; 81001; 82550; 83605; 83735; 84439; 84443; 84484; 85025; 87040; 93005; 93306; 97162; 99285; J0456; J0461; J0692; J0696; J1650; J3370; Q9957

== ENCOUNTER → 2024-09-06 10:31 | Outpatient (BNV) | payer OTHER, MEDICARE, SELFPAY | PROVIDERS: Admitting Provider Student in an Organized Health Care Education/Training Program; Emergency Provider Emergency Medicine; PCP Internal Medicine; Visit Provider Internal Medicine Cardiovascular Disease | DX: I48.92 Unspecified atrial flutter (principal) | CPT/HCPCS: 93010 ==

== ENCOUNTER → 2024-09-06 11:00 | Outpatient (BNV) | payer OTHER, MEDICARE, SELFPAY | PROVIDERS: PCP Internal Medicine; Visit Provider Radiology Diagnostic Radiology | DX: J90 Pleural effusion, not elsewhere classified (principal); I51.7 Cardiomegaly; M48.02 Spinal stenosis, cervical region; J32.3 Chronic sphenoidal sinusitis; M16.0 Bilateral primary osteoarthritis of hip | CPT/HCPCS: 70450; 71046; 71250; 72125; 73502 ==

== ENCOUNTER 2024-09-06 14:35 | Outpatient (BNV) | payer MEDICARE, SELFPAY | END 2024-09-09 07:00 | PROVIDERS: Admitting Provider Student in an Organized Health Care Education/Training Program; Emergency Provider Emergency Medicine; PCP Internal Medicine; Visit Provider Internal Medicine Cardiovascular Disease | DX: I36.1 Nonrheumatic tricuspid (valve) insufficiency (principal); I35.1 Nonrheumatic aortic (valve) insufficiency; I31.39 Other pericardial effusion (noninflammatory) | CPT/HCPCS: 93306 ==

== ENCOUNTER 2024-09-06 14:35 | Outpatient (BNV) | payer MEDICARE, SELFPAY | END 2024-09-07 08:00 | PROVIDERS: Admitting Provider Student in an Organized Health Care Education/Training Program; Emergency Provider Emergency Medicine; PCP Internal Medicine; Visit Provider Internal Medicine Cardiovascular Disease | DX: I48.92 Unspecified atrial flutter (principal) | CPT/HCPCS: 93010 ==

== ENCOUNTER → 2024-09-06 14:35 | Outpatient (BNV) | payer OTHER, MEDICARE, SELFPAY | PROVIDERS: Admitting Provider Student in an Organized Health Care Education/Training Program; Emergency Provider Emergency Medicine; PCP Internal Medicine; Visit Provider Student in an Organized Health Care Education/Training Program | DX: R06.02 Shortness of breath (principal); R00.1 Bradycardia, unspecified; I31.39 Other pericardial effusion (noninflammatory); R79.89 Other specified abnormal findings of blood chemistry; J18.9 Pneumonia, unspecified organism; W19.XXXA Unspecified fall, initial encounter; M62.82 Rhabdomyolysis | CPT/HCPCS: 99223; 99232 ==

== ENCOUNTER → 2024-09-06 14:35 | Outpatient (BNV) | payer OTHER, MEDICARE, SELFPAY | PROVIDERS: Admitting Provider Student in an Organized Health Care Education/Training Program; Emergency Provider Emergency Medicine; PCP Internal Medicine; Visit Provider Internal Medicine Cardiovascular Disease | DX: I48.92 Unspecified atrial flutter (principal); I50.810 Right heart failure, unspecified; I31.39 Other pericardial effusion (noninflammatory); R00.1 Bradycardia, unspecified | CPT/HCPCS: 99223; 99233 ==